=== PATIENT | male | born 1945 | race Caucasian/White ===

== ENCOUNTER 2016-09-24 00:28 | Inpatient (IN) ==
--- NOTE | 2016-09-24 01:06 | Emergency Department Note ---
Disposition Clinical Impression: Weakness Atrial fibrillation Qualifiers: Atrial fibrillation type: unspecified Qualified Code(s): I48.91 - Unspecified atrial fibrillation Disposition: Admitted As Inpatient Condition: Good Time of Disposition: 03:47 SOB HPI - General Chief Complaint: ED Shortness of Breath/Dyspnea Stated Complaint: CLAUDE Time Seen by Provider: 09/24/16 00:41 Source: patient Mode of arrival: ambulatory Limitations: no limitations Nursing Notes Reviewed: Yes Vital Signs Reviewed: Yes - History of Present Illness 71-year-old male with past medical history of atrial fibrillation and non- Hodgkin's, presents with worsening shortness of breath, nonproductive cough and pedal edema over the past 2 days. Worse with exertion and lying flat. No CP, fever, confusion. No sick contacts. He was on chemo until it was stopped about 3 weeks ago. He isn't anti-coagulated as he had easy bruisability. - Related Data Home Medications Medication Instructions Recorded Confirmed AcetaZOLAMIDE [Diamox] 250 mg PO DAILY 09/24/16 09/24/16 Acetaminophen [Tylenol] 650 mg PO Q6HR PRN 09/24/16 09/24/16 Albuterol Sulfate [Albuterol 2 puff IH Q4HR PRN 09/24/16 09/24/16 Inhaler] Allopurinol [Zyloprim] 300 mg PO DAILY 09/24/16 09/24/16 Androgel TD DAILY PRN 09/24/16 Budesonide/Formoterol 160/4.5 2 puff IH BIDR 09/24/16 09/24/16 [Symbicort 160/4.5] Cyanocobalamin (Vitamin B-12) 500 mcg PO DAILY 09/24/16 09/24/16 [Vitamin B12] Digoxin [Lanoxin] 0.125 mg PO DAILY 09/24/16 09/24/16 Furosemide [Lasix] 80 mg PO BID 09/24/16 09/24/16 Gabapentin [Neurontin] 600 mg PO TID 09/24/16 09/24/16 Glimepiride [Amaryl] 2 mg PO 0800 09/24/16 09/24/16 Ipratropium/Albuterol Neb [Duoneb] 3 ml IH Q6HR PRN 09/24/16 09/24/16 Loratadine [Loratadine] 10 mg PO DAILY PRN 09/24/16 09/24/16 Metformin [Glucophage] 1,000 mg PO BIDWM 09/24/16 09/24/16 Metoprolol [Lopressor] 150 mg PO BID 09/24/16 09/24/16 Naproxen [Naprosyn] 220 mg PO BID PRN 09/24/16 09/24/16 Nitroglycerin [Nitrostat] 0.4 mg SL PRN 09/24/16 Omeprazole 20 mg PO DAILY 09/24/16 09/24/16 Ondansetron HCl [Zofran] 4 mg PO Q6H PRN 09/24/16 09/24/16 Potassium Chloride 20 meq PO BID 09/24/16 09/24/16 Prochlorperazine Maleate 10 mg PO Q6HR PRN 09/24/16 09/24/16 [Compazine] TraZODone 50 mg PO HS 09/24/16 09/24/16 Trospium Chloride 20 mg PO DAILY 09/24/16 09/24/16 Allergies Allergy/AdvReac Type Severity Reaction Status Date / Time atorvastatin [From Lipitor] AdvReac Severe CRAMPING Verified 09/24/16 00:32 AND TIREDNESS All systems ED: reviewed and negative except as stated. Past Medical History - Past Medical History Attestation: Yes The following information was validated with the patient. Source: patient Medical history: Reports: arthritis, cancer, CHF, COPD, diabetes, hyperlipidemia , hypertension, other Surgical history: Reports: other (spinal fusion) Psychiatric history: Reports: depression - Social History Smoking Status: Former smoker Smokeless Tobacco Status: No Alcohol use: Reports: none Drug use: Reports: none Physical Exam - Head Head exam: atraumatic, normocephalic, normal inspection - Eye Eye exam: Present: normal appearance, PERRL, EOMI - Neck Neck exam: Present: normal inspection, full ROM, trachea midline - Chest Chest inspection: Present: normal inspection, symmetric chest wall rise - Respiratory Poor inspiratory effort without wheezing with faint crackles at the bilateral bases Cardiovascular Cardiovascular exam: Present: regular rate, normal rhythm, normal heart sounds - Abdominal Exam Abdominal exam: Present: soft, Non-Tender. Absent: tenderness, distention, guarding, rebound, rigidity - Extremities Exam Edema in all extremities. Positive pulses in all extremities. - Back Exam Back exam: Present: normal inspection, full ROM. Absent: tenderness, CVA tenderness (R), CVA tenderness (L) - Neurological Exam Neurological exam: Present: alert, oriented X3, CN II-XII intact - Psychiatric Psychiatric exam: Present: normal affect, normal mood - Skin Skin exam: Present: warm, dry, intact, normal color - General Limitations: no limitations General appearance: alert Course - Reevaluation(s) Reevaluation #1: TA of the chest is negative. Patient has had a heart rate of 80-120 in the emergency department. He states that he feels this way when he was in atrial fibrillation which he has not been in for quite some time. He is to be anticoagulated, but this was stopped for easy bruisability. He has no intracranial or GI bleeding history. No melanotic stool. He tried to ambulate combat significant sensation of weakness and lightheadedness. I suspect this is primarily symptomatic atrial fibrillation. Patient may need cardioversion if he does not convert spontaneously. I discussed the case with hospitalist on- call who accepts the patient to telemetry. Patient was placed on heparin drip in anticipation of possible echo and cardioversion tomorrow. Time: 03:46 Vital Signs Temperature 98.5 F 09/24/16 00:32 Pulse Rate 90 09/24/16 00:32 Respiratory Rate 20 09/24/16 00:32 Blood Pressure 112/76 09/24/16 00:32 O2 Sat by Pulse Oximetry 91 L 09/24/16 00:32 Temperature 97.7 F 09/24/16 05:59 Pulse Rate 102 09/24/16 05:59 Respiratory Rate 18 09/24/16 05:59 Blood Pressure 101/71 09/24/16 05:59 O2 Sat by Pulse Oximetry 90 L 09/24/16 03:07 Oxygen Delivery Oxygen Delivery Room Air Shortness of Breath/Dyspnea - Lab Data Result diagrams: 09/24/16 01:00 09/24/16 01:00 Lab Results 09/24/16 09/24/16 09/24/16 Range/Units 01:00 01:00 01:00 WBC 4.3 (4.3-11.1) K/mcL RBC 4.61 (4.19-5.50) M/mcL Hgb 13.7 (12.9-16.9) g/dL Hct 41.5 (37.5-50.1) % MCV 90.0 (83.0-100.0) fL MCH 29.7 (28.0-33.3) pg MCHC 33.0 (31.6-35.5) g/dL RDW 15.0 H (11.5-14.5) % Plt Count 167 (140-400) K/mcL MPV 10.7 (9.4-12.4) fL Seg Neutrophils % 60.0 % Lymphocytes % 22.0 % Monocytes % 16.0 % Basophils % 2.0 % Neutrophils # 2.6 (1.6-8.9) K/mcL Lymphocytes # 1.0 (0.6-4.6) K/mcL Monocytes # 0.7 (0.0-1.3) K/mcL Basophils # 0.1 (0.0-0.2) K/mcL Reactive Lymphocytes Present A (Not Present) Smudge Cells Present A (Not Present) Toxic Granulation Present A (Not Present) Platelet Estimate Normal (Normal) PT (9.4-12.1) Seconds INR APTT (26.0-36.0) Seconds Sodium 139 (136-145) mEq/L Potassium 3.7 (3.5-4.5) mEq/L Chloride 103 (98-109) mEq/L Carbon Dioxide 23 (19-29) mEq/L BUN 27 H (8-26) mg/dL Creatinine 1.26 H (0.72-1.25) mg/dL Est GFR ( Amer) > 60 (> 60) Est GFR (Non-Af Amer) 56 L (> 60) BUN/Creatinine Ratio 21 (6-26) Glucose 197 H (70-99) mg/dL Calculated Osmolality 299 (280-300) Calcium 9.0 (8.6-10.8) mg/dL Troponin I 0.02 (0-0.03) ng/mL B-Natriuretic Peptide (0-100) pg/mL Lipase 25 (8-78) Units/L TSH 5.365 H (0.350-4.840) mcIU/mL Free T4 1.27 (0.70-1.48) ng/dl 09/24/16 09/24/16 Range/Units 01:00 01:00 WBC (4.3-11.1) K/mcL RBC (4.19-5.50) M/mcL Hgb (12.9-16.9) g/dL Hct (37.5-50.1) % MCV (83.0-100.0) fL MCH (28.0-33.3) pg MCHC (31.6-35.5) g/dL RDW (11.5-14.5) % Plt Count (140-400) K/mcL MPV (9.4-12.4) fL Seg Neutrophils % % Lymphocytes % % Monocytes % % Basophils % % Neutrophils # (1.6-8.9) K/mcL Lymphocytes # (0.6-4.6) K/mcL Monocytes # (0.0-1.3) K/mcL Basophils # (0.0-0.2) K/mcL Reactive Lymphocytes (Not Present) Smudge Cells (Not Present) Toxic Granulation (Not Present) Platelet Estimate (Normal) PT 13.1 H (9.4-12.1) Seconds INR 1.2 APTT 28.3 (26.0-36.0) Seconds Sodium (136-145) mEq/L Potassium (3.5-4.5) mEq/L Chloride (98-109) mEq/L Carbon Dioxide (19-29) mEq/L BUN (8-26) mg/dL Creatinine (0.72-1.25) mg/dL Est GFR ( Amer) (> 60) Est GFR (Non-Af Amer) (> 60) BUN/Creatinine Ratio (6-26) Glucose (70-99) mg/dL Calculated Osmolality (280-300) Calcium (8.6-10.8) mg/dL Troponin I (0-0.03) ng/mL B-Natriuretic Peptide 287 H (0-100) pg/mL Lipase (8-78) Units/L TSH (0.350-4.840) mcIU/mL Free T4 (0.70-1.48) ng/dl - EKG Data EKG attestation: Yes I reviewed and interpreted this EKG. EKG results narrative: Atrial fibrillation at 118 with left axis deviation. There is a right bundle- branch block. No pathologic Q waves. No significant change other than rate when compared with 07/19/2016. Attestation Statement - Attestation Attestation: For this encounter, I have reviewed the resident, RIVET SORTER, or PA documentation, treatment plan, and medical decision making; and I have had face to face time with this patient. 71 yo male presents with CLAUDE, weakness, and fatigue. Pt has a history of paradoxical Afib and feels similar symptoms with previous episodes of Afib. Pt denies fever, chills, nausea, vomiting, diarrhea, chest pain. Pt reports he is significantly more short of breath, weak and fatigued over the past couple days. ECG shows atrial fibrillation with RVR and right bundle-branch block with a rate of 118. CXR does not show acute infiltrate. Initial troponin is negative. Patient will be admitted to the hospital for further care and evaluation of symptomatic atrial fibrillation.
[2016-09-24 01:08] LABS: Basophils # 0.1 K/mcL (0.0-0.2); Hematocrit 41.5 % (37.5-50.1); Hemoglobin 13.7 g/dL (12.9-16.9); Mean Corpuscular Hemoglobin 29.7 pg (28.0-33.3); Mean Platelet Volume 10.7 fL (9.4-12.4); Platelet Count 167 K/mcL (140-400); Red Blood Count 4.61 M/mcL (4.19-5.50)
[2016-09-24 01:14] LABS: INR 1.2; Prothrombin Time 13.1 Seconds (9.4-12.1)
[2016-09-24 01:17] LABS: Activated Partial Thrombo Time 28.3 Seconds (26.0-36.0)
[2016-09-24 01:22] LABS: BUN/Creatinine Ratio 21 (6-26); Blood Urea Nitrogen 27 mg/dL (8-26); Carbon Dioxide 23 mEq/L (19-29); Chloride 103 mEq/L (98-109); Glucose 197 mg/dL (70-99); Osmolality,Calculated 299 (280-300); Potassium 3.7 mEq/L (3.5-4.5); eGFR For African Americans > 60 (> 60); eGFR For Non-African Americans 56 (> 60)
[2016-09-24 01:23] LABS: Sodium 139 mEq/L (136-145)
[2016-09-24 01:38] LABS: Monocytes # 0.7 K/mcL (0.0-1.3); Neutrophils # 2.6 K/mcL (1.6-8.9); Toxic Granulation Present (Not Present)
[2016-09-24] MEDS ORDERED: 0.9 % Sodium Chloride 1,000 ML IV ONE (01:38)
[2016-09-24 01:39] LABS: Platelet Estimate Normal (Normal)
[2016-09-24] MEDS ORDERED: *HR* Metoprolol 5 MG/5 ML VIAL IVP ONE (02:44)
[2016-09-24 03:00] LABS: Lipase 25 Units/L (8-78)
[2016-09-24] MEDS ORDERED: Potassium Effervescent 25 MEQ TABLET.EFF PO ONE (03:35)
[2016-09-24 03:36] LABS: Reactive Lymphocytes Present (Not Present); Smudge Cells Present (Not Present)
[2016-09-24] MEDS ORDERED: *HR* Heparin 5,000 UNIT/ML VIAL IVP ONE (03:44)
[2016-09-24] MEDS ORDERED: *HR* Heparin 5,000 UNIT/ML VIAL IVP PRN ×2 (03:44)
[2016-09-24 03:50] LABS: Thyroid Stimulating Hormone 5.365 mcIU/mL (0.350-4.840)
[2016-09-24] MEDS: Heparin 25,000 UNIT/500 ML D5W 25,000 UNIT/500 ML MLS IVC SCH ×2 (03:57→18:08)
[2016-09-24] MEDS ORDERED: Naloxone 0.4 MG/ML INJ IVP PRN (06:19)
[2016-09-24] MEDS ORDERED: Furosemide 40 MG/4 ML VIAL IVP ONE (06:23)
[2016-09-24] MEDS ORDERED: D5% in Water 1,000 ML IV PRN (06:24)
[2016-09-24] MEDS ORDERED: *HR* Dextrose 50 % in Water (Syg) 50 ML SYRINGE IVP PRN (06:24)
[2016-09-24] MEDS ORDERED: Dextrose Gel 15 GM PO PRN ×2 (06:24)
--- NOTE | 2016-09-24 06:29 | Internal Med History&Physical ---
Date of Encounter: 09/24/16 Time of Encounter: 06:00 Assessment and Plan (1) Atrial fibrillation with rapid ventricular response Current visit: No Status: Acute Free T4 level is normal. Metoprolol PRN for RVR. Pt was started on heparin infusion, by the ER team - continue. Cardiology consultation. (2) CHF exacerbation Current visit: Yes Status: Acute Prior echo showed LVEF of 60% and diastolic dysfunction. Treat with IV lasix, low sodium diet and fluid restriction. 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 insulin use: without local intermodal truck driver use Qualified Code(s): E11.40 - Type 2 diabetes mellitus with diabetic neuropathy, unspecified (4) COPD (chronic obstructive pulmonary disease) Current visit: Yes Status: Chronic Continue bronchodilators Qualifiers: COPD type: unspecified COPD Qualified Code(s): J44.9 - Chronic obstructive pulmonary disease, unspecified (5) Hypertension Current visit: Yes Status: Chronic Continue home medications Qualifiers: Hypertension type: essential hypertension Qualified Code(s): I10 - Essential (primary) hypertension (6) DVT prophylaxis Current visit: Yes Status: Acute On heparin infusion at this time Internal Medicine - H&P: HPI Chief complaint: Shortness of breath of breath Admitted From: Emergency Dept Plans for Post Hospital Care: Home History of present illness: Mr. Gurrola is a 71 year old male with past medical history significant for atrial fibrillation (apparently was on anticoagulation with xarelto in the past , which was discontinued because of excessive bruising), CHF (Prior echo showing LVEF of 60% and diastolic dysfunction), DM, HTN, hyperlipidemia and non- Hodgkin's lymphoma, presents with worsening shortness of breath since yesterday. He reports orthopnea, palpitations, nonproductive cough. He denies chest pain, fever, chills. Reports worsening pedal edema and right upper extremity swelling. He denies abdominal pain, dysuria, hematuria or bowel problems. He was evaluated in the emergency department and the EKG showed atrial fibrillation with RVR. He was given intravenous metoprolol and started on intravenous heparin infusion, by the ER provider for potential cardioversion. He is admitted to the hospitalist service for further workup and management. DM, HTN, hyperlipidemia and non-Hodgkin's lymphoma, presents with worsening shortness of breath since yesterday. He reports orthopnea, palpitations, nonproductive cough. He denies chest pain, fever, chills. Reports worsening pedal edema and right upper extremity swelling. He denies abdominal pain, dysuria, hematuria or bowel problems. He reports h/o diabetic neuropathy. He reports that he sometimes is not able to hold the cups in the right hand, with loss of sensation. He was evaluated in the emergency department and the EKG showed atrial fibrillation with RVR. He was given intravenous metoprolol and started on intravenous heparin infusion, by the ER provider for potential cardioversion. He is admitted to the hospitalist service for further workup and management. Past Med Surg Social Fam HX - Past Medical History Medical history: arthritis, cancer, CHF, COPD, diabetes, hyperlipidemia, hypertension, other Psychiatric history: depression - Past Surgical History Surgical History: other (spinal fusion) - Social History Smoking Status: Former smoker Smokeless Tobacco Status: No Alcohol use: none Drug use: none - Family History Mother Living Status: Hx Family Cardiac Disorders: Yes (Hypertension) Hx Family Respiratory Disorders: No Hx Family Cancer: No Hx Family GI Disorders: Yes Hx Family Endocrine Disorder: No Hx Family Neuromuscular Disorders: No Hx Family Neurologic Disorders: No Hx Family HEENT Disorders: No Hx Family Autoimmune Disorders: No Father Living Status: Hx Family Cardiac Disorders: Yes Hx Family Cancer: Yes Brother Living Status: Sister Living Status: Still Living Hx Family Endocrine Disorder: Yes (Diabetes) Internal Medicine - H&P: Meds AcetaZOLAMIDE [Diamox] 250 mg PO DAILY 09/24/16 [History] Acetaminophen [Tylenol] 650 mg PO Q6HR PRN 09/24/16 [History] Albuterol Sulfate [Albuterol Inhaler] 2 puff IH Q4HR PRN 09/24/16 [History] Allopurinol [Zyloprim] 300 mg PO DAILY 09/24/16 [History] Androgel TD DAILY PRN 09/24/16 [History] Budesonide/Formoterol 160/4.5 [Symbicort 160/4.5] 2 puff IH BIDR 09/24/16 [ History] Cyanocobalamin (Vitamin B-12) [Vitamin B12] 500 mcg PO DAILY 09/24/16 [History] Digoxin [Lanoxin] 0.125 mg PO DAILY 09/24/16 [History] Furosemide [Lasix] 80 mg PO BID 09/24/16 [History] Gabapentin [Neurontin] 600 mg PO TID 09/24/16 [History] Glimepiride [Amaryl] 2 mg PO 0800 09/24/16 [History] Ipratropium/Albuterol Neb [Duoneb] 3 ml IH Q6HR PRN 09/24/16 [History] Loratadine [Loratadine] 10 mg PO DAILY PRN 09/24/16 [History] Metformin [Glucophage] 1,000 mg PO BIDWM 09/24/16 [History] Metoprolol [Lopressor] 150 mg PO BID 09/24/16 [History] Naproxen [Naprosyn] 220 mg PO BID PRN 09/24/16 [History] Nitroglycerin [Nitrostat] 0.4 mg SL PRN 09/24/16 [History] Omeprazole 20 mg PO DAILY 09/24/16 [History] Ondansetron HCl [Zofran] 4 mg PO Q6H PRN 09/24/16 [History] Potassium Chloride 20 meq PO BID 09/24/16 [History] Prochlorperazine Maleate [Compazine] 10 mg PO Q6HR PRN 09/24/16 [History] TraZODone 50 mg PO HS 09/24/16 [History] Trospium Chloride 20 mg PO DAILY 09/24/16 [History] Allergies atorvastatin [From Lipitor] Adverse Reaction (Severe, Verified 09/24/16 00:32) CRAMPING AND TIREDNESS PATIENT HAD LEG CRAMPS AND EXTREME TIREDNESS WITH THIS MEDICATION All Systems PM: A 10-system review of systems was performed and is negative for pertinent findings except as documented above in the HPI. - Constitutional Vitals: Temp Pulse Resp BP Pulse Ox 97.7 F 102 18 101/71 95 09/24/16 05:59 09/24/16 05:59 09/24/16 05:59 09/24/16 05:59 09/24/16 06:11 Exam: General: Not in significant acute distress at the time of my evaluation HEENT: Oral mucosa is dry. No conjunctival palor or scleral icterus Neck: No obvious neck swellings Lungs: Bilateral basal crackles present Cardiac: Irregular rhythm. No significant murmurs Abdomen: Distended, non tender. Bowel sounds present Neurological: Alert and oriented. No gross localizing deficits Psych: Not aggressive or agitated Extremities: B/L pitting leg edema present. Skin: No generalized rash Internal Med - H&P Results - Labs CBC & Chem 7: 09/24/16 01:00 09/24/16 01:00 - EKG Data -: EKG Interpreted by Myself - EKG Data EKG comments: Atrial fibrillation with a heart rate from 118. RBBB 09/24/16 06:29 - Impressions ITS Impressions Chest X-Ray 09/24/16 00:52 IMPRESSION: Negative low lung volume portable chest D/ / Fabio Belcher MD / Fabio Belcher MD Interpreting Provider: Fabio Belcher MD Chest CTA 09/24/16 01:38 IMPRESSION: 1. No evidence of pulmonary embolism. 2. Small opacities in both lungs are suspicious for mild pneumonia. 3. Slight peripancreatic edema suspicious for pancreatitis. 4. Enlarged axillary and mediastinal lymph nodes are without appreciable change since comparison examination. D/ / Barber Turner MD / Barber Turner MD Interpreting Provider: Barber Turner MD
[2016-09-24] MEDS: Insulin LISPRO 300 UNITS/3 ML VIAL SQ SCH ×4 (08:47→21:10)
[2016-09-24] MEDS ORDERED: Loratadine 10 MG TABLET PO PRN (08:50)
[2016-09-24] MEDS ORDERED: Ipratropium/Albuterol Neb 3 ML IH PRN (08:50)
[2016-09-24] MEDS ORDERED: *HR* Metoprolol 5 MG/5 ML VIAL IVP PRN (08:52)
--- NOTE | 2016-09-24 09:48 | Event Note ---
<Hitesh Garg - Last Filed: 09/24/16 09:30> Date of Encounter: 09/24/16 Time of Encounter: 09:30 71-year-old male with history of atrial fibrillation. Patient had atrial fibrillation approximately 4 years ago and was put on Zarontin for anticoagulation. This was discontinued due to excessive bruising. Since then patient says he has not had any episodes of atrial fibrillation. On admission patient said he had worsening shortness of breath, fatigue, palpitations, nonproductive cough, orthopnea. ER found patient to be in A. fib RVR. He was given metoprolol and started on IV heparin. Patient also has a history of congestive heart failure with previous echo showing EF of 60% and diastolic dysfunction. Today patient continues to be short of breath. He continues to have palpitations. Patient is still in A. fib with a rate ranging from 90s to 110s. He is on 2 L oxygen saturating above 95%. His blood pressure is stable. Gen: alert oriented x3 Herat; irregularly irregular Lungs: Mild bibasilar crackles Abdomen: Nontender, nondistended, normal bowel sounds Extremities: 2+ pitting edema bilaterally, peripheral pulses intact A. fib RVR: Patient is on metoprolol 150 mg by mouth twice a day and metoprolol 0.4 mg IVP every 2 minutes when necessary. Continue digoxin. His TSH was elevated at 5.6. Free T4 was normal. We will also continue heparin for anticoagulation. At home patient is on aspirin for anticoagulation as her altered caused ecchymosis on his right forearm. B. acute diastolic CHF exacerbation. We will repeat echo as prior echo shows EF of 60% with diastolic dysfunction. We will continue treating with IV Lasix. Strict I's and O's. Continue Supplemental O2. C. COPD: Patient does not smoke anymore. We will continue bronchodilators, symbicort. patient on 2L O2. D. HTN: controlled continue bblocker E. DVT prophylaxis: continue heparin F. Insomnia and depression: Continue home trazadone G. Lymphoma, small lymphocycitic: Patient on ibrutinib BID. Follows [facility] outpatient. Failed previous therapies oF obinituzumab nd chlorambucil. <Toi Way - Last Filed: 09/24/16 16:06> Date of Encounter: 09/24/16 Pt admitted earlier this morning with atrial fibrillation with RVR and acute diastolic heart failure. Currently his heart rate has improved. Continue current plan of care.
[2016-09-24] MEDS: acetaZOLAMIDE 250 MG TABLET PO SCH (10:19)
[2016-09-24] MEDS: Cyanocobalamin (B-12) 1,000 MCG TABLET PO SCH (10:19)
[2016-09-24] MEDS: Gabapentin 300 MG CAPSULE PO SCH ×3 (10:19→21:08)
[2016-09-24] MEDS: Metoprolol 100 MG TABLET PO SCH ×2 (10:21→21:08)
[2016-09-24] MEDS: *HR* Digoxin 0.125 MG TABLET PO SCH (10:21)
[2016-09-24] MEDS: Budesonide/Formoterol 160/4.5 MDI IH SCH ×2 (10:39→22:14)
[2016-09-24] MEDS: Insulin DETEMIR 100 UNIT/ML X5UNITS SQ SCH (21:08)
[2016-09-24] MEDS: traZODone 50 MG TABLET PO SCH (21:08)
[2016-09-25 01:13] LABS: Basophils # 0.1 K/mcL (0.0-0.2); Eosinophils # 0.1 K/mcL (0.0-0.6); Hematocrit 39.9 % (37.5-50.1); Lymphocytes # 0.5 K/mcL (0.6-4.6); Mean Corpuscular HGB Conc 32.6 g/dL (31.6-35.5); Mean Corpuscular Volume 92.1 fL (83.0-100.0); Mean Platelet Volume 11.2 fL (9.4-12.4); Monocytes # 1.1 K/mcL (0.0-1.3); Platelet Count 153 K/mcL (140-400); Red Blood Count 4.33 M/mcL (4.19-5.50); Red Cell Distribution Width 15.2 % (11.5-14.5)
[2016-09-25 01:29] LABS: BUN/Creatinine Ratio 18 (6-26); Blood Urea Nitrogen 24 mg/dL (8-26); Calcium 8.6 mg/dL (8.6-10.8); Carbon Dioxide 26 mEq/L (19-29); Chloride 102 mEq/L (98-109); Glucose 181 mg/dL (70-99); Osmolality,Calculated 295 (280-300); Potassium 3.2 mEq/L (3.5-4.5); Sodium 138 mEq/L (136-145); eGFR For African Americans > 60 (> 60); eGFR For Non-African Americans 53 (> 60)
[2016-09-25 01:40] LABS: Neutrophils # 2.4 K/mcL (1.6-8.9); Platelet Estimate Normal (Normal); Polychromasia 1+ (Not Present)
[2016-09-25] MEDS: Heparin 25,000 UNIT/500 ML D5W 25,000 UNIT/500 ML MLS IVC SCH ×2 (06:41→19:45)
[2016-09-25] MEDS ORDERED: Furosemide 20 MG/2 ML VIAL IVP SCH (09:00)
[2016-09-25] MEDS: Insulin LISPRO 300 UNITS/3 ML VIAL SQ SCH ×4 (09:27→20:37)
[2016-09-25] MEDS: Metoprolol 100 MG TABLET PO SCH ×2 (09:28→20:24)
[2016-09-25] MEDS: *HR* Digoxin 0.125 MG TABLET PO SCH (09:28)
[2016-09-25] MEDS: Gabapentin 300 MG CAPSULE PO SCH ×3 (09:28→20:25)
[2016-09-25] MEDS: acetaZOLAMIDE 250 MG TABLET PO SCH (09:28)
[2016-09-25] MEDS: Cyanocobalamin (B-12) 1,000 MCG TABLET PO SCH (09:28)
[2016-09-25] MEDS: Budesonide/Formoterol 160/4.5 MDI IH SCH ×2 (09:42→21:39)
--- NOTE | 2016-09-25 11:41 | Cardiology Consult Note ---
<Vivek Trevino - Last Filed: 09/25/16 11:46> Date of Encounter: 09/25/16 Time of Encounter: 11:19 Assessment and Plan (1) Acute on chronic diastolic CHF (congestive heart failure) Current Visit: Yes Status: Acute Acute on chronic diastolic CHF. Last echocardiogram in February 2016 EF 65%. Recheck TTE. Pt states he was not responding to lasix at home. Non-complaint with low sodium diet. On lasix 80 mg BID and diamox at home. Start lasix gtt. Monitor BMP. Strict I&O and daily weights. Low sodium diet reviewed. (2) Atrial fibrillation Current Visit: Yes Status: Acute Currently rate controlled. IV lopressor PRN. Avg HR was 98 bpm over 24 hours. Stop heparin and restart xarelto if no change on TTE. He is now off Ibrutinib and ecchymosis in upper extremity has resolved. Agreeable to restart xarelto. If he tolerates consider DCCV in one month. Ok to add back cardizem if needed. Check TTE. Qualifiers: Atrial fibrillation type: paroxysmal Qualified Code(s): I48.0 - Paroxysmal atrial fibrillation (3) CAD (coronary artery disease) Current Visit: Yes Status: Acute Moderate non-obstructive CAD. Continue asa, statin, and bb. Qualifiers: Coronary Disease-Associated Artery/Lesion type: [place] artery [place] vs. transplanted heart: [place] heart Associated angina: without angina Qualified Code(s): I25.10 - Atherosclerotic heart disease of [place] coronary artery without angina pectoris Discussion w patient/family: The assessment and plan as outlined above was discussed with the patient and/or family members who expressed understanding and agreement. All questions were answered. Thank you for involving us in the care of your patient. Please call with any questions. History of Present Illness Consult date: 09/25/16 Requesting physician: Toi Way Consult reason: afib with RVR Chief complaint: SOB History of present illness: Mr. Gurrola is a 71 -year-old male with a past medical history of atrial fibrillation, moderate nonobstructive CAD, obstructive sleep apnea on CPAP, COPD , CLL, diabetes mellitus type 2, hypertension, hyperlipidemia, diastolic dysfunction, restrictive cardiomyopathy, and cor triatriatum. He presented to the hospital with a complaint of increasing shortness of breath over the past 3 weeks. He admits to bilateral lower extremity edema and orthopnea. He complains of increasing fatigue. He complains of mild chest discomfort 2 days ago lasting only a couple minutes. He was found to be in mild atrial fibrillation with RVR on admission. He is currently rate controlled on his home Lopressor. Cardiology consulted for atrial fibrillation with RVR. Previous cardioversion with 200 J to sinus rhythm June 2015. Cardizem CD 180 mg by mouth daily was discontinued per request of oncology due to being started on Ibrutinib therapy for about 6 months for his CLL. He was also taken off of Xarelto secondary to severe upper extremity ecchymosis while taking Ibrutinib. His Lopressor was increased to 200 mg by mouth twice a day. She is no longer taking Ibrutinib and has a referral at the [facility] for further recommendation. Past Med Surg Social Fam HX - Past Medical History Medical history: arthritis, cancer, CHF, COPD, diabetes, hyperlipidemia, hypertension, other Psychiatric history: depression - Past Surgical History Surgical History: other (spinal fusion) - Social History Smoking Status: Former smoker Smokeless Tobacco Status: No Alcohol use: none Drug use: none - Family History Mother Living Status: Hx Family Cardiac Disorders: Yes (Hypertension) Hx Family Respiratory Disorders: No Hx Family Cancer: No Hx Family GI Disorders: Yes Hx Family Endocrine Disorder: No Hx Family Neuromuscular Disorders: No Hx Family Neurologic Disorders: No Hx Family HEENT Disorders: No Hx Family Autoimmune Disorders: No Father Living Status: Hx Family Cardiac Disorders: Yes Hx Family Cancer: Yes Brother Living Status: Sister Living Status: Still Living Hx Family Endocrine Disorder: Yes (Diabetes) Medications and Allergies AcetaZOLAMIDE [Diamox] 250 mg PO DAILY 09/24/16 [History] Acetaminophen [Tylenol] 650 mg PO Q6HR PRN 09/24/16 [History] Albuterol Sulfate [Albuterol Inhaler] 2 puff IH Q4HR PRN 09/24/16 [History] Allopurinol [Zyloprim] 300 mg PO DAILY 09/24/16 [History] Budesonide/Formoterol 160/4.5 [Symbicort 160/4.5] 2 puff IH BID 09/24/16 [ History] Cyanocobalamin (Vitamin B-12) [Vitamin B12] 500 mcg PO DAILY 09/24/16 [History] Digoxin [Lanoxin] 0.125 mg PO DAILY 09/24/16 [History] Furosemide [Lasix] 80 mg PO BID 09/24/16 [History] Gabapentin [Neurontin] 600 mg PO TID 09/24/16 [History] Glimepiride [Amaryl] 2 mg PO DAILY 09/24/16 [History] Ipratropium/Albuterol Neb [Duoneb] 3 ml IH Q6HR PRN 09/24/16 [History] Loratadine [Loratadine] 10 mg PO DAILY PRN 09/24/16 [History] Metformin [Glucophage] 1,000 mg PO BIDWM 09/24/16 [History] Metoprolol [Lopressor] 150 mg PO BID 09/24/16 [History] Naproxen [Naprosyn] 220 mg PO BID PRN 09/24/16 [History] Nitroglycerin [Nitrostat] 0.4 mg SL AD PRN 09/24/16 [History] Omeprazole 20 mg PO DAILY 09/24/16 [History] Ondansetron HCl [Zofran] 4 mg PO Q6H PRN 09/24/16 [History] Potassium Chloride 20 meq PO BID 09/24/16 [History] Prochlorperazine Maleate [Compazine] 10 mg PO Q6HR PRN 09/24/16 [History] Testosterone [Androgel] 2.5 gm TD DAILY 09/24/16 [History] TraZODone 50 mg PO HS 09/24/16 [History] Trospium Chloride 20 mg PO DAILY 09/24/16 [History] Allergies atorvastatin [From Lipitor] Adverse Reaction (Severe, Verified 09/24/16 00:32) CRAMPING AND TIREDNESS PATIENT HAD LEG CRAMPS AND EXTREME TIREDNESS WITH THIS MEDICATION All Systems Review: A 10-system review of systems was performed and is negative for pertinent findings except as documented above in the HPI. Physical Examination Vital Signs, Last 4 Hours Resp Pulse Ox 09/25/16 09:42 18 97 General: Conversant, No Apparent Distress HEENT: Atraumatic, Normocephaly, Mucus Membranes Moist Neck: No JVD, Normal carotid pulses Cardiac: Other (Irregularly irregular) Lungs: Normal Breath Sounds, No Wheeze, Rales, Rhonchi, Other (Diminished basis) Neuro: Alert and responsive, No focal deficits noted Abdomen: Soft, Non-Tender, Other (Mildly distended) Skin: No rashes noted on visualized skin Musculoskeletal: No Chest Wall Tenderness Extremities: No Clubbing, No Cyanosis, Normal Pulses, Other (2+ edema up to his knees.) Results 09/25/16 00:40 09/25/16 00:40 Lab Results 09/24/16 09/25/16 09/25/16 17:42 00:40 00:40 WBC 4.1 L Hgb 13.0 Hct 39.9 Plt Count 153 APTT 55.9 H Sodium 138 Potassium 3.2 L Chloride 102 Carbon Dioxide 26 BUN 24 Creatinine 1.33 H Glucose 181 H Calcium 8.6 Magnesium 09/25/16 09/25/16 09/25/16 00:40 00:40 08:07 WBC Hgb Hct Plt Count APTT 55.5 H 95.1 H D Sodium Potassium Chloride Carbon Dioxide BUN Creatinine Glucose Calcium Magnesium 1.6 Chest X-Ray 09/24/16 00:52 IMPRESSION: Negative low lung volume portable chest. D/ / 09/24/2016 07:28:29 Fabio Belcher MD / alan Interpreting Provider: Fabio Belcher MD Chest CTA 09/24/16 01:38 IMPRESSION: 1. No evidence of pulmonary embolism. 2. Small opacities in both lungs are suspicious for mild pneumonia. 3. Slight peripancreatic edema suspicious for pancreatitis. 4. Enlarged axillary and mediastinal lymph nodes are without appreciable change since comparison examination. D/ / 09/24/2016 07:41:35 Barber Turner MD / alan Interpreting Provider: Barber Turner MD - EKG Interpretation EKG results cardiology: other Consult Discharge Plan - Plan Referrals: Willow Johnson, ASSISTANT MEDIA BUYER [Primary Care Provider] - <Juan Crowley G - Last Filed: 09/25/16 12:41> Date of Encounter: 09/25/16 Assessment and Plan Discussion w patient/family: The assessment and plan as outlined above was discussed with the patient and/or family members who expressed understanding and agreement. All questions were answered. Thank you for involving us in the care of your patient. Please call with any questions. History of Present Illness History of present illness: Mr. Gurrola is a 71 year old male All Systems Review: A 10-system review of systems was performed and is negative for pertinent findings except as documented above in the HPI. Physical Examination Vital Signs, Last 4 Hours Resp Pulse Ox 09/25/16 09:42 18 97 Results 09/25/16 00:40 09/25/16 00:40 Lab Results 09/24/16 09/25/16 09/25/16 17:42 00:40 00:40 WBC 4.1 L Hgb 13.0 Hct 39.9 Plt Count 153 APTT 55.9 H Sodium 138 Potassium 3.2 L Chloride 102 Carbon Dioxide 26 BUN 24 Creatinine 1.33 H Glucose 181 H Calcium 8.6 Magnesium 09/25/16 09/25/16 09/25/16 00:40 00:40 08:07 WBC Hgb Hct Plt Count APTT 55.5 H 95.1 H D Sodium Potassium Chloride Carbon Dioxide BUN Creatinine Glucose Calcium Magnesium 1.6
[2016-09-25] MEDS: Furosemide 240 MG in D5% in Water 96 ML IVC SCH (14:00)
--- NOTE | 2016-09-25 14:58 | Internal Med Progress Note ---
Date of Encounter: 09/25/16 Time of Encounter: 11:30 - Assessment and plan (1) Fever Current Visit: Yes Status: Acute Assessment and plan: Axillary temp of 100.1 noted today. CTA yesterday suggested possible pneumonia. Will get blood cx and check viral panel and start Levaquin for coverage of presumptive pneumonia. Qualifiers: Fever type: due to other condition Qualified Code(s): R50.81 - Fever presenting with conditions classified elsewhere (2) Pneumonia Current Visit: Yes Status: Acute Assessment and plan: Start empiric abx due to fever. Qualifiers: Pneumonia type: due to unspecified organism Laterality: bilateral Lung location: lower lobe of lung Qualified Code(s): J18.9 - Pneumonia, unspecified organism (3) Acute on chronic diastolic CHF (congestive heart failure) Current Visit: Yes Status: Acute Assessment and plan: Currently being diuresed. Cardiology to see for further evaluation. Currently fluid status is positive since admission (4) Atrial fibrillation Current Visit: Yes Status: Acute Assessment and plan: Rate controlled at this time. He is on heparin drip. Qualifiers: Atrial fibrillation type: paroxysmal Qualified Code(s): I48.0 - Paroxysmal atrial fibrillation (5) IFEANYI (acute kidney injury) Current Visit: Yes Status: Acute Assessment and plan: Need to monitor while receiving diuretics. Will recheck labs tomorrow. (6) COPD (chronic obstructive pulmonary disease) Current Visit: Yes Status: Chronic Assessment and plan: Currently is not in exacerbation. Qualifiers: COPD type: unspecified COPD Qualified Code(s): J44.9 - Chronic obstructive pulmonary disease, unspecified (7) Hypertension Current Visit: Yes Status: Chronic Assessment and plan: Continue home medications. Qualifiers: Hypertension type: essential hypertension Qualified Code(s): I10 - Essential (primary) hypertension (8) Diabetes mellitus Current Visit: No Status: Acute Assessment and plan: Accucheck ac and hs and coverage at this time. 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 (10) Lymphoma, small lymphocytic Current Visit: No Status: Chronic - Subjective Interval history: Mr. Gurrola is currently admitted for acute exac CHF and atrial fibrillation with RVR. He is moderate to high risk due to IV medications including heparin and potential for worsening cardiac status. Mr. Gurrola is up in the chair. He continues on the heparin drip. Heart rate controlled but still in a fib. No CP. Breathing somewhat better with diuresis so far. No GI symptoms. - Constitutional Vitals: Temp Pulse Resp BP Pulse Ox 100.1 F H 78 16 126/70 96 09/25/16 11:59 09/25/16 11:59 09/25/16 11:59 09/25/16 11:59 09/25/16 11:59 General appearance: Present: A&O X 3, pleasant, answers questions appropriately - Head Head exam: Present: normocephalic - Eye Eye exam: Present: EOMI, conjuntiva pink - ENT ENT exam: Present: mucous membranes dry - Respiratory Respiratory exam: Present: decreased breath sounds, rales - Cardiovascular Cardiovascular exam: Present: irregular rhythm. Absent: tachycardia - GI/Abdominal GI/Abdominal exam: Present: normal bowel sounds, soft. Absent: tenderness - Extremities Exam Additional comments: Edema LUE, LLE which is chronic. 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 Some edema noted L leg as well. - Neurological Exam Neurological exam: Present: alert, oriented X3, no focal deficits - Psychiatric Psychiatric exam: Present: normal affect, normal mood - Skin Skin exam: Present: dry, warm. Absent: rash Internal Medicine: Result - Labs CBC & Chem 7: 09/25/16 00:40 09/25/16 00:40 Labs: Short CBC 09/25/16 Range/Units 00:40 WBC 4.1 L (4.3-11.1) K/mcL Hgb 13.0 (12.9-16.9) g/dL Hct 39.9 (37.5-50.1) % Plt Count 153 (140-400) K/mcL Neutrophils # 2.4 (1.6-8.9) K/mcL BMP 09/25/16 00:40 Sodium 138 Potassium 3.2 L Chloride 102 Carbon Dioxide 26 BUN 24 Creatinine 1.33 H Glucose 181 H Calcium 8.6 - ABG Interpretation ABG results: PT/INR, D-dimer PT 13.1 Seconds (9.4-12.1) H 09/24/16 01:00 Consult Discharge Plan - Plan Referrals: Willow Johnson, ELECTROMECHANICAL EQUIPMENT TESTER [Primary Care Provider] -
[2016-09-25] MEDS ORDERED: Levofloxacin 750 MG/150 ML 750 MG/150 ML BAG IVPB SCH (16:00)
[2016-09-25 17:14] LABS: Adenovirus Not Detected (Not Detect); Bordetella Pertussis Not Detected (Not Detect); Chlamydophila pneumoniae Not Detected (Not Detect); Coronavirus 229E Not Detected (Not Detect); Coronavirus HKU1 Not Detected (Not Detect); Coronavirus NL63 Not Detected (Not Detect); Coronavirus OC43 Not Detected (Not Detect); Human Metapneumovirus Not Detected (Not Detect); Human Rhinovirus/Enterovirus Not Detected (Not Detect); Influenza A Subtype 2009 H1 Not Detected (Not Detect); Influenza A Untypeable Not Detected (Not Detect); Influenza B Not Detected (Not Detect); Mycoplasma pneumoniae Not Detected (Not Detect); Parainfluenza Virus 1 Not Detected (Not Detect); Parainfluenza Virus 2 Not Detected (Not Detect); Parainfluenza Virus 3 Not Detected (Not Detect); Parainfluenza Virus 4 Not Detected (Not Detect); Respiratory Syncytial Virus Not Detected (Not Detect)
[2016-09-25] MEDS: traZODone 50 MG TABLET PO SCH (20:24)
[2016-09-25] MEDS: Insulin DETEMIR 100 UNIT/ML X5UNITS SQ SCH (20:25)
[2016-09-25] MEDS ORDERED: Melatonin 3 MG TABLET PO PRN (22:05)
[2016-09-26 06:12] LABS: Hematocrit 40.2 % (37.5-50.1); Hemoglobin 13.1 g/dL (12.9-16.9); Mean Corpuscular HGB Conc 32.6 g/dL (31.6-35.5); Mean Corpuscular Hemoglobin 28.9 pg (28.0-33.3); Mean Corpuscular Volume 88.5 fL (83.0-100.0); Mean Platelet Volume 11.3 fL (9.4-12.4); Platelet Count 152 K/mcL (140-400); Red Blood Count 4.54 M/mcL (4.19-5.50); Red Cell Distribution Width 15.3 % (11.5-14.5)
[2016-09-26 06:25] LABS: BUN/Creatinine Ratio 19 (6-26); Blood Urea Nitrogen 25 mg/dL (8-26); Calcium 8.4 mg/dL (8.6-10.8); Carbon Dioxide 21 mEq/L (19-29); Chloride 105 mEq/L (98-109); Glucose 207 mg/dL (70-99); Magnesium 1.8 mg/dL (1.6-2.6); Osmolality,Calculated 298 (280-300); Potassium 3.5 mEq/L (3.5-4.5); Sodium 139 mEq/L (136-145); eGFR For African Americans > 60 (> 60); eGFR For Non-African Americans 52 (> 60)
--- NOTE | 2016-09-26 07:05 | Electrocardiograph Report ---
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
[2016-09-26] MEDS: Metoprolol 100 MG TABLET PO SCH ×2 (07:51→19:48)
[2016-09-26] MEDS: Gabapentin 300 MG CAPSULE PO SCH ×3 (07:51→19:49)
[2016-09-26] MEDS: Cyanocobalamin (B-12) 1,000 MCG TABLET PO SCH (07:51)
[2016-09-26] MEDS: *HR* Digoxin 0.125 MG TABLET PO SCH (07:52)
[2016-09-26] MEDS: Insulin LISPRO 300 UNITS/3 ML VIAL SQ SCH ×4 (07:57→21:45)
[2016-09-26] MEDS: Budesonide/Formoterol 160/4.5 MDI IH SCH ×2 (08:38→20:37)
--- NOTE | 2016-09-26 13:05 | Cardiology Progress Note ---
Date of Encounter: 09/26/16 Time of Encounter: 13:04 Assessment and Plan (1) Acute on chronic diastolic CHF (congestive heart failure) Current Visit: Yes Status: Acute Acute on chronic diastolic CHF. Last echocardiogram in February 2016 EF 65%. Repeat TTE - EF 55%, indeterminate diastolic function. Pt states he was not responding to lasix at home. Non-complaint with low sodium diet. No out-pt recorded. Pt states he was not measuring. Instructed to use urinal. He states he is not putting much out. WIll check post void residula. If PVR is normal will add metolazone 2.5 mg today. On lasix 80 mg BID and diamox at home. Consider changing to bumex at discharge, Continue lasix gtt. Monitor BMP. Strict I&O and daily weights. Low sodium diet reviewed. (2) Atrial fibrillation Current Visit: Yes Status: Acute Currently rate controlled. IV lopressor PRN. Avg HR was 92 bpm over 24 hours. Stop heparin and restart xarelto. EF remains normal on TTE. No further cardiac testing indicated. Agreeable to restart xarelto. If he tolerates consider DCCV in one month. Ok to add back cardizem if needed. Qualifiers: Atrial fibrillation type: paroxysmal Qualified Code(s): I48.0 - Paroxysmal atrial fibrillation (3) CAD (coronary artery disease) Current Visit: Yes Status: Acute Moderate non-obstructive CAD. Continue asa, statin, and bb. Qualifiers: Coronary Disease-Associated Artery/Lesion type: [place] artery [place] vs. transplanted heart: [place] heart Associated angina: without angina Qualified Code(s): I25.10 - Atherosclerotic heart disease of [place] coronary artery without angina pectoris Discussion w patient/family: The assessment and plan as outlined above was discussed with the patient and/or family members who expressed understanding and agreement. All questions were answered. Thank you for involving us in the care of your patient. Please call with any questions. Subjective Principal diagnosis: Acute diastolic CHF Interval history: Mr. Gurrola continues to have SOB, orthopnea, and BLE. He reports he is not measuring his urine but does not feel he is putting much out. Objective Vital Signs Temp Pulse Resp BP Pulse Ox 09/26/16 08:39 16 93 L 09/26/16 07:21 97.8 F 91 16 116/82 94 L 09/26/16 04:00 98.4 F 96 16 105/71 93 L 09/26/16 00:00 110/81 09/25/16 21:30 24 92 L 09/25/16 21:00 99.2 F 86 16 135/97 91 L 09/25/16 15:41 99.7 F H 97 16 135/96 96 Intake and Output 09/25/16 09/26/16 09/26/16 23:59 07:59 15:59 Intake Total 240 / 240 240 / 240 Output Total 300 / 300 Balance 240 / 240 -300 / -300 240 / 240 Intake: IV Fluids 190 / 190 Heparin 25,000 UNIT/500 190 / 190 ML D5W 25,000 unit In 500 ml @ 14 UNIT/KG/HR 33. 022 mls/hr IVC .[id number] DANDRE Rx#:[id number] Oral 50 / 50 240 / 240 Output: Urine 300 / 300 Other: Meal Breakfast Percent of Meal Consumed 75% # Voids 1 1 Blood Glucose* 207 216 207 General: Conversant, No Apparent Distress HEENT: Atraumatic, Normocephaly, Mucus Membranes Moist Neck: No JVD, Normal carotid pulses Cardiac: Other (Irregularly irregular) Lungs: Normal Breath Sounds, No Wheeze, Rales, Rhonchi Neuro: Alert and responsive, No focal deficits noted Abdomen: Soft, Non-Tender Skin: No rashes noted on visualized skin Musculoskeletal: No Chest Wall Tenderness Extremities: No Clubbing, No Cyanosis, Normal Pulses, Other (2 + BLE edema up to his knees, 2+ edema in RUE, abdomen distended. ) Results 09/26/16 05:43 09/26/16 05:43 Lab Results 09/25/16 09/25/16 09/26/16 14:54 22:12 05:43 WBC 4.2 L Hgb 13.1 Hct 40.2 Plt Count 152 APTT 63.3 H 75.5 H Sodium Potassium Chloride Carbon Dioxide BUN Creatinine Glucose Calcium Magnesium 09/26/16 05:43 WBC Hgb Hct Plt Count APTT Sodium 139 Potassium 3.5 Chloride 105 Carbon Dioxide 21 BUN 25 Creatinine 1.35 H Glucose 207 H Calcium 8.4 L Magnesium 1.8 - Imaging and Cardiology Echo: pending - EKG Interpretation EKG results cardiology: other (Avg HR was 92 BPM atrial fibrillation.) Consult Discharge Plan - Plan Referrals: Willow Johnson, GOVERNMENT AUDITOR [Primary Care Provider] -
--- NOTE | 2016-09-26 13:11 | ECHO - Doppler Report ---
Echocardiogram Name: Josias Gurrola Date of Study: 09/26/2016 Date: 1945 Ht: 71.0 in Medical Record#: [id number] Age: 71 Wt: 259.0 lb Gender: Male BSA: 2.35 Order #: [id number] Location: [facility] Room #: 2NE26 Reading Physician: Constanza Harris DO Dietetic Intern: Marek Wallace RN Ordering Physician: Vivek Trevino CNP Primary Physician: Willow Johnson CNP Indications: Arrhythmia, Congestive heart failure Impressions: LVEF 55%. Indeterminate diastolic function. Dilated RV with normal function. Mild tricuspid regurgitation. No pulmonary hypertension. Left Ventricular Wall Motion: Rest Echo Findings The mid anterior septal, mid inferior lateral, basal anterior septal and basal inferior lateral moore were not visualized. All other wall segments showed normal motion. Findings: Study Quality * Technically adequate exam. ECG Findings * Atrial fibrillation. Left Ventricle * Indeterminate diastolic function. * LVEF 55%. * Normal appearing size and wall thickness (not well measured in PLAX views due to poor image quality) Aortic Valve * No aortic regurgitation. * Aortic valve not well visualized. * No aortic stenosis. Mitral Valve * Normal mitral valve structure. * No mitral stenosis. * Trace mitral regurgitation. Tricuspid Valve * Normal tricuspid valve structure. * Mild tricuspid regurgitation. * Estimated RA pressure is 3 mmHg. * Estimated RVSP is 31 mmHg. * No pulmonary hypertension. Pulmonic Valve * Pulmonic valve is not well visualized. * No pulmonic stenosis. * No pulmonic regurgitation. Pulmonary Artery * Pulmonary artery not well visualized. Right Atrium * Moderately dilated right atrium. Left Atrium * Moderately dilated left atrium. Interatrial Septum * No evidence of PFO by color Doppler. IVC * Normal IVC dimensions and inspiratory collapse. Pericardium * There is no pericardial effusion present. Right Ventricle * Dilated RV with normal function. Aorta * Normally sized aortic root. History Hypertension Diabetes Years 20 Packs 1 Family History of CAD Congestive Heart Failure 03/07/2016 a Previous Echo was performed. Measurements: BP: 116/ 82 2D Normal Values IVSd: 1.30 cm 0.6 - 1.0 cm LVIDd: 3.50 cm 3.7 - 5.6 cm LVPWd: 1.30 cm 0.6 - 1.1 cm LVIDs: 2.40 cm 1.5 - 3.6 cm LA: 4.20 cm 2.0 - 4.0cm %FS: 31.40 cm >25 % LVOT Diam: 2.00 cm LA volume: 90 Mitral Valve Peak E:.89 m/sec Peak E' Lat Isak:14.1 cm/s Peak E' Med Isak:7.99 cm/s E/E' Lat Ratio:6.3 E/E' Med Ratio:11.2 Tricuspid Valve TV Regurg Peak Grad: 28.00mmHg TV Regurg Peak Isak: 2.65m/sec Updated by Constanza Harris on 09/26/2016 1:04:18 PM electronically signed on 09/26/2016 1:05:41 PM with status of Final Wall Motion Ellis: 1=Normal, 2=Hypokinesis, 3=Akinesis, 4=Dyskinesis, 5=Aneurysmal, 6=Hyperkinetic, X=Not Visualized (Blank)=Missing
[2016-09-26] MEDS: Furosemide 240 MG in D5% in Water 96 ML IVC SCH (13:53)
--- NOTE | 2016-09-26 14:48 | Internal Med Progress Note ---
<GiselleKrishna Gill - Last Filed: 09/26/16 17:18> Date of Encounter: 09/26/16 Time of Encounter: 14:45 - Assessment and plan (1) Atrial fibrillation Current Visit: Yes Status: Acute Assessment and plan: Currently rate controlled. We will transition to Xarelto for anticoagulation. Qualifiers: Atrial fibrillation type: paroxysmal Qualified Code(s): I48.0 - Paroxysmal atrial fibrillation (2) Acute on chronic diastolic CHF (congestive heart failure) Current Visit: Yes Status: Acute Assessment and plan: Likely exacerbated by atrial fibrillation with RVR. Currently being diuresed with Lasix drip. Cardiology is following. Strict I's and O's. If not adequate diuresis patient may benefit from the addition of metolazone. (3) Pneumonia Current Visit: Yes Status: Acute Assessment and plan: Possible. Patent had 1 fever. Being treated empirically with Levaquin. Qualifiers: Pneumonia type: due to unspecified organism Laterality: bilateral Lung location: lower lobe of lung Qualified Code(s): J18.9 - Pneumonia, unspecified organism (4) IFEANYI (acute kidney injury) Current Visit: Yes Status: Acute Assessment and plan: New function is stable although creatinine is still mildly elevated from baseline. Close monitoring with the patient on Lasix drip. (5) COPD (chronic obstructive pulmonary disease) Current Visit: Yes Status: Chronic Assessment and plan: Stable. No evidence of exacerbation. Continue bronchodilators. Qualifiers: COPD type: unspecified COPD Qualified Code(s): J44.9 - Chronic obstructive pulmonary disease, unspecified (6) Atrial fibrillation Current Visit: No Status: Acute Qualifiers: Atrial fibrillation type: paroxysmal Qualified Code(s): I48.0 - Paroxysmal atrial fibrillation (7) Diabetes mellitus Current Visit: No Status: Acute Assessment and plan: Blood sugars adequate. Qualifiers: Diabetes mellitus type: type 2 Diabetes mellitus complication status: with hyperglycemia Diabetes mellitus digester capper insulin use: without digester capper use Qualified Code(s): E11.65 - Type 2 diabetes mellitus with hyperglycemia (8) DVT prophylaxis Current Visit: No Status: Acute Assessment and plan: Currently on systemic anticoagulation with Xarelto - Subjective Interval history: Patient seen and examined at bedside. Patient states he does not feel very good. He reports short of breath. He reports significant swelling that is essentially unchanged. He denies fever, chills - Constitutional Vitals: Temp Pulse Resp BP Pulse Ox 97.8 F 91 16 116/82 93 L 09/26/16 07:21 09/26/16 07:21 09/26/16 08:39 09/26/16 07:21 09/26/16 08:39 General appearance: Present: A&O X 3, pleasant, answers questions appropriately - Respiratory Respiratory exam: Present: decreased breath sounds. Absent: rales, rhonchi, wheezes - Cardiovascular Cardiovascular exam: Present: irregular rhythm. Absent: gallop, rubs, systolic murmur, tachycardia - GI/Abdominal GI/Abdominal exam: Present: normal bowel sounds, soft. Absent: distended, tenderness - Extremities Exam Additional comments: Patient has 3+ pitting edema to the lower extremities and upper extremity bilaterally. - Neurological Exam Neurological exam: Present: alert, CN II-XII intact, oriented X3, no focal deficits Internal Medicine: Result - Labs CBC & Chem 7: 09/26/16 05:43 09/26/16 05:43 Labs: Short CBC 09/26/16 Range/Units 05:43 WBC 4.2 L (4.3-11.1) K/mcL Hgb 13.1 (12.9-16.9) g/dL Hct 40.2 (37.5-50.1) % Plt Count 152 (140-400) K/mcL BMP 09/26/16 05:43 Sodium 139 Potassium 3.5 Chloride 105 Carbon Dioxide 21 BUN 25 Creatinine 1.35 H Glucose 207 H Calcium 8.4 L - ABG Interpretation ABG results: PT/INR, D-dimer PT 13.1 Seconds (9.4-12.1) H 09/24/16 01:00 Consult Discharge Plan - Plan Referrals: Willow Johnson FIELD SERVICE TECH [Primary Care Provider] - <[address]i [address] - Last Filed: 09/26/16 19:11> Date of Encounter: 09/26/16 - Assessment and plan (1) Atrial fibrillation Current Visit: Yes Status: Acute Qualifiers: Atrial fibrillation type: persistent Qualified Code(s): I48.1 - Persistent atrial fibrillation (2) Acute on chronic diastolic CHF (congestive heart failure) Current Visit: Yes Status: Acute (3) Pneumonia Current Visit: Yes Status: Acute Qualifiers: Pneumonia type: due to unspecified organism Laterality: bilateral Lung location: lower lobe of lung Qualified Code(s): J18.9 - Pneumonia, unspecified organism (4) IFEANYI (acute kidney injury) Current Visit: Yes Status: Acute (5) COPD (chronic obstructive pulmonary disease) Current Visit: Yes Status: Chronic Qualifiers: COPD type: unspecified COPD Qualified Code(s): J44.9 - Chronic obstructive pulmonary disease, unspecified (6) Hypertension Current Visit: Yes Status: Chronic Qualifiers: Hypertension type: essential hypertension Qualified Code(s): I10 - Essential (primary) hypertension (7) Diabetes mellitus Current Visit: No Status: Acute Qualifiers: Diabetes mellitus type: type 2 Diabetes mellitus complication status: with hyperglycemia Diabetes mellitus skilled nursing insulin use: without digester capper use Qualified Code(s): E11.65 - Type 2 diabetes mellitus with hyperglycemia (8) Obstructive sleep apnea Current Visit: Yes Status: Chronic (9) Lymphoma, small lymphocytic Current Visit: No Status: Chronic - Constitutional Vitals: Temp Pulse Resp BP Pulse Ox 98.3 F 74 16 113/68 93 L 09/26/16 15:36 09/26/16 15:36 09/26/16 15:36 09/26/16 15:36 09/26/16 08:39 Internal Medicine: Result - Labs CBC & Chem 7: 09/26/16 05:43 09/26/16 05:43 Labs: Short CBC 09/26/16 Range/Units 05:43 WBC 4.2 L (4.3-11.1) K/mcL Hgb 13.1 (12.9-16.9) g/dL Hct 40.2 (37.5-50.1) % Plt Count 152 (140-400) K/mcL BMP 09/26/16 05:43 Sodium 139 Potassium 3.5 Chloride 105 Carbon Dioxide 21 BUN 25 Creatinine 1.35 H Glucose 207 H Calcium 8.4 L - ABG Interpretation ABG results: PT/INR, D-dimer PT 13.1 Seconds (9.4-12.1) H 09/24/16 01:00 - Attending Attestation I examined this patient and my medical decision-making was reviewed with the Resident Physician on 09/26/16. I agree with the documented findings, disposition and treatment plan as described except to the extent set forth below. Mr. Gurrola is currently admitted for a fib with RVR and CHF. He is moderate to high risk due to potential for worsening respiratory status. He is also being treated for bilateral pneumonia. Mr. Gurrola is doing OK. He is not diuresing much with drip. No pain. No further fever after abx started. No GI symptoms. Cardiology managing a fib and CHF Exam Alert. Comfortable Heart irreg not tachy No wheeze Chronic lymphedema I/P 1. Acute a fib with RVR - rate control and Xarelto 2. CHF- per card 3. CAP - on Levaquin Further diagnoses and plan as above.
[2016-09-26] MEDS ORDERED: metOLazone 2.5 MG TABLET PO SCH (15:30)
[2016-09-26] MEDS: *HR* Rivaroxaban 10 MG TABLET PO SCH (17:01)
[2016-09-26] MEDS: Levofloxacin 750 MG/150 ML 750 MG/150 ML BAG IVPB SCH (17:02)
[2016-09-26] MEDS: traZODone 50 MG TABLET PO SCH (19:48)
[2016-09-26] MEDS: Insulin DETEMIR 100 UNIT/ML X5UNITS SQ SCH (19:50)
[2016-09-26] MEDS: Acetaminophen 325 MG TABLET PO PRN (19:53)
[2016-09-27 06:22] LABS: Hematocrit 40.8 % (37.5-50.1); Hemoglobin 13.4 g/dL (12.9-16.9); Mean Corpuscular HGB Conc 32.8 g/dL (31.6-35.5); Mean Corpuscular Hemoglobin 28.9 pg (28.0-33.3); Mean Corpuscular Volume 88.1 fL (83.0-100.0); Mean Platelet Volume 11.5 fL (9.4-12.4); Platelet Count 140 K/mcL (140-400); Red Blood Count 4.63 M/mcL (4.19-5.50); Red Cell Distribution Width 15.2 % (11.5-14.5)
[2016-09-27 06:31] LABS: Calcium 8.9 mg/dL (8.6-10.8); Magnesium 2.1 mg/dL (1.6-2.6); Potassium 3.9 mEq/L (3.5-4.5)
[2016-09-27 07:02] LABS: Lymphocytes # 1.2 K/mcL (0.6-4.6); Monocytes # 0.7 K/mcL (0.0-1.3); Neutrophils # 2.6 K/mcL (1.6-8.9); Platelet Estimate Normal (Normal)
[2016-09-27 07:03] LABS: Macrocytosis Present (Not Present); Polychromasia 1+ (Not Present); Toxic Granulation Present (Not Present)
[2016-09-27] MEDS: Insulin LISPRO 300 UNITS/3 ML VIAL SQ SCH ×3 (08:18→16:43)
[2016-09-27] MEDS: *HR* Digoxin 0.125 MG TABLET PO SCH (09:52)
[2016-09-27] MEDS: Cyanocobalamin (B-12) 1,000 MCG TABLET PO SCH (09:52)
[2016-09-27] MEDS: Metoprolol 100 MG TABLET PO SCH ×2 (09:52→21:44)
[2016-09-27] MEDS: Gabapentin 300 MG CAPSULE PO SCH ×3 (09:53→21:44)
--- NOTE | 2016-09-27 09:58 | Cardiology Progress Note ---
Date of Encounter: 09/27/16 Time of Encounter: 09:30 Assessment and Plan (1) Acute on chronic diastolic CHF (congestive heart failure) Current Visit: Yes Status: Acute Acute on chronic diastolic CHF. Last echocardiogram in February 2016 EF 65%. Repeat TTE - EF 55%, indeterminate diastolic function. Pt states he was not responding to lasix at home. May not be eating low sodium diet as well as he should per pt. negative 1900 ml for 24 hr. Given metalozone yesterday. BLE improved. Continues to c/o SOB, distended abd, and orthopnea. Re-check CXR. Started on IV antibiotic for possible pneumonia on CT scan. On lasix 80 mg BID and diamox at home. Consider changing to bumex at discharge, Creatinine trending upward. Will hold metolazone and decrease lasix. Monitor BMP. Strict I&O and daily weights. Low sodium diet reviewed. (2) Atrial fibrillation Current Visit: Yes Status: Acute Avg HR was 102 bpm atrial fibrillation. HR up to 130's early this morning. Increase oral metoprolol back to previous dose of 200 mg BID. Add cardizem if needed. Xarelto for anticoagulation. Will consider DCCV if difficult to control afib after treatment of CHF. Preferably would like to wait one month with anticoagulation. Qualifiers: Atrial fibrillation type: persistent Qualified Code(s): I48.1 - Persistent atrial fibrillation (3) CAD (coronary artery disease) Current Visit: Yes Status: Acute Moderate non-obstructive CAD. Continue asa, statin, and bb. Qualifiers: Coronary Disease-Associated Artery/Lesion type: [place] artery [place] vs. transplanted heart: [place] heart Associated angina: without angina Qualified Code(s): I25.10 - Atherosclerotic heart disease of [place] coronary artery without angina pectoris (4) Pneumonia Current Visit: Yes Status: Acute Hospitalist following. On levaquin. Qualifiers: Pneumonia type: due to unspecified organism Laterality: bilateral Lung location: lower lobe of lung Qualified Code(s): J18.9 - Pneumonia, unspecified organism Discussion w patient/family: The assessment and plan as outlined above was discussed with the patient and/or family members who expressed understanding and agreement. All questions were answered. Thank you for involving us in the care of your patient. Please call with any questions. Subjective Principal diagnosis: Acute diastolic CHF Interval history: Mr. Gurrola continues to have SOB, orthopnea, and BLE. BLE improved. Reports palpitations when lying down. Objective Vital Signs, Last 4 Hours Temp Pulse Resp BP Pulse Ox 09/27/16 07:00 97.8 F 88 20 116/79 98 General: Conversant, No Apparent Distress HEENT: Atraumatic, Normocephaly, Mucus Membranes Moist Neck: No JVD, Normal carotid pulses Cardiac: Other (Irregularly irregular. ) Lungs: Normal Breath Sounds, No Wheeze, Rales, Rhonchi, Other (diminished bases) Neuro: Alert and responsive, No focal deficits noted Abdomen: Soft, Non-Tender Skin: No rashes noted on visualized skin Musculoskeletal: No Chest Wall Tenderness Extremities: No Clubbing, No Cyanosis, Normal Pulses, Other (1-2 + edema to below the knee. Improved from yesterday. ) Results 09/27/16 05:50 09/27/16 05:50 Lab Results 09/26/16 09/27/16 09/27/16 23:24 05:50 05:50 WBC 4.6 Hgb 13.4 Hct 40.8 Plt Count 140 APTT 35.6 D Sodium 139 Potassium 3.9 Chloride 101 Carbon Dioxide 24 BUN 27 H Creatinine 1.44 H Glucose 258 H Calcium 8.9 Magnesium 2.1 - Imaging and Cardiology Echo: report reviewed (EF 55%, mild TR, dilated RV with normal function. Not all moore visual.) - EKG Interpretation EKG results cardiology: other (Telemetry review shows atrial fibrillation. Avg HR was 102 bpm. Maximum was 130 bpm at 0603 am. Currently 98-110.) Consult Discharge Plan - Plan Referrals: Willow Johnson CNP [Primary Care Provider] - 10/05/16 1:00 am
[2016-09-27 10:54] LABS: Digoxin 0.4 ng/mL (0.8-2.0)
[2016-09-27] MEDS: Budesonide/Formoterol 160/4.5 MDI IH SCH ×2 (11:08→20:01)
[2016-09-27 15:04] LABS: Calcium 9.1 mg/dL (8.6-10.8); Potassium 3.4 mEq/L (3.5-4.5)
--- NOTE | 2016-09-27 15:18 | Internal Med Progress Note ---
Date of Encounter: 09/27/16 Time of Encounter: 11:15 - Assessment and plan (1) Acute on chronic diastolic CHF (congestive heart failure) Current Visit: Yes Status: Acute Assessment and plan: Improving pedal edema and BNP; O2 requirements improved; lost about 4kg since admission; off Lasix drip; Cardiology f/up appreciated- start Lasix IVP 80mg daily; chest XRay shows no significant change; plan to discharge on Bumex; Metolazone on hold; renal function noted to be worsening; (2) Atrial fibrillation Current Visit: Yes Status: Chronic Assessment and plan: rate-controlled; Metoprolol increased to 200mg BID; continue Xarelto; plan for possible cardioversion after at least 4 weeks of anticoagulation; Qualifiers: Atrial fibrillation type: persistent Qualified Code(s): I48.1 - Persistent atrial fibrillation (3) IFEANYI (acute kidney injury) Current Visit: Yes Status: Acute Assessment and plan: worsening; likely related to aggressive diuresis. Continue to monitor and dose meds per current GFR; patient requires Lasix at this time; (4) CAD (coronary artery disease) Current Visit: Yes Status: Chronic Qualifiers: Coronary Disease-Associated Artery/Lesion type: [place] artery [place] vs. transplanted heart: [place] heart Associated angina: without angina Qualified Code(s): I25.10 - Atherosclerotic heart disease of [place] coronary artery without angina pectoris (5) Pneumonia Current Visit: Yes Status: Acute Assessment and plan: possible. On empiric IV Levaquin; Blood cultures, urine for Strep pneumoniae and Legionella Ag negative; Qualifiers: Pneumonia type: due to unspecified organism Laterality: bilateral Lung location: lower lobe of lung Qualified Code(s): J18.9 - Pneumonia, unspecified organism (6) COPD (chronic obstructive pulmonary disease) Current Visit: Yes Status: Chronic Assessment and plan: Not in acute exacerbation. Continue PRN bronchodilators, supplemental O2, ICS; Qualifiers: COPD type: unspecified COPD Qualified Code(s): J44.9 - Chronic obstructive pulmonary disease, unspecified (7) Hypertension Current Visit: Yes Status: Chronic Qualifiers: Hypertension type: essential hypertension Qualified Code(s): I10 - Essential (primary) hypertension (8) Obstructive sleep apnea Current Visit: Yes Status: Chronic (9) Diabetes mellitus Current Visit: Yes Status: Chronic Assessment and plan: Blood sugars noted to be elevated in 200s. Increase Levemir to twice daily and SSI to moderate scale; continue Accucheck blood glucose monitoring and CCD; Qualifiers: Diabetes mellitus type: type 2 Diabetes mellitus complication status: with hyperglycemia Diabetes mellitus mcfp insulin use: without terminal gauger use Qualified Code(s): E11.65 - Type 2 diabetes mellitus with hyperglycemia (10) Lymphoma, small lymphocytic Current Visit: Yes Status: Chronic - Subjective Interval history: Continues to report subjective dyspnea, even at rest, intermittent, associated with orthopnea. Improving leg swelling. No fever, cough, palpitations, syncope. - Constitutional Vitals: Temp Pulse Resp BP Pulse Ox 96.1 F L 82 22 116/79 92 L 09/27/16 10:57 09/27/16 10:57 09/27/16 10:57 09/27/16 07:00 09/27/16 10:57 General appearance: Present: A&O X 3, obese, answers questions appropriately - Respiratory Respiratory exam: Present: CTAB. Absent: accessory muscle use, rales, rhonchi, wheezes - Cardiovascular Cardiovascular exam: Present: irregular rhythm, +S1, +S2. Absent: diastolic murmur, gallop, rubs, systolic murmur - GI/Abdominal GI/Abdominal exam: Present: distended, normal bowel sounds, soft, no peritoneal signs. Absent: tenderness - Extremities Exam Extremities exam: Present: pedal edema (2+ pitting pedal edema), warm, radial pulses palpable and symetrical. Absent: calf tenderness, cyanotic - Neurological Exam Neurological exam: Present: CN II-XII intact, oriented X3, no focal deficits. Absent: pronater drift, facial droop, speech deficit - Skin Skin exam: Present: dry, intact Internal Medicine: Result - Labs CBC & Chem 7: 09/27/16 05:50 09/27/16 14:37 Labs: Short CBC 09/27/16 Range/Units 05:50 WBC 4.6 (4.3-11.1) K/mcL Hgb 13.4 (12.9-16.9) g/dL Hct 40.8 (37.5-50.1) % Plt Count 140 (140-400) K/mcL Neutrophils # 2.6 (1.6-8.9) K/mcL BMP 09/27/16 09/27/16 05:50 14:37 Sodium 139 135 L Potassium 3.9 3.4 L Chloride 101 96 L Carbon Dioxide 24 25 BUN 27 H 29 H Creatinine 1.44 H 1.72 H Glucose 258 H 289 H Calcium 8.9 9.1 - ABG Interpretation ABG results: PT/INR, D-dimer PT 13.1 Seconds (9.4-12.1) H 09/24/16 01:00 - Impressions Impressions Chest X-Ray 09/27/16 10:03 IMPRESSION: Stable mild peripheral basilar pulmonary opacities seen on the prior CTA chest 09/24/2016. No interstitial pulmonary edema. D/ / 09/27/2016 11:37:34 Chas Elizabeth MD / essence Interpreting Provider: Chas Elizabeth MD Consult Discharge Plan - Plan Referrals: Willow Johnson CNP [Primary Care Provider] - 10/05/16 1:00 am
[2016-09-27] MEDS: *HR* Rivaroxaban 10 MG TABLET PO SCH (16:42)
[2016-09-27] MEDS: Levofloxacin 750 MG/150 ML 750 MG/150 ML BAG IVPB SCH (16:42)
[2016-09-27] MEDS ORDERED: Insulin LISPRO 300 UNITS/3 ML VIAL SQ SCH (21:00)
[2016-09-27] MEDS: traZODone 50 MG TABLET PO SCH (21:44)
[2016-09-27] MEDS: Insulin DETEMIR 100 UNIT/ML X5UNITS SQ SCH (21:50)
[2016-09-28 06:11] LABS: Basophils # 0.1 K/mcL (0.0-0.2); Basophils % 1.8 %; Eosinophils # 0.1 K/mcL (0.0-0.6); Eosinophils % 1.8 %; Hematocrit 39.9 % (37.5-50.1); Hemoglobin 13.2 g/dL (12.9-16.9); Immature Granulocytes % 6.3 % (0-4); Lymphocytes # 1.2 K/mcL (0.6-4.6); Lymphocytes % 23.5 %; Mean Corpuscular HGB Conc 33.1 g/dL (31.6-35.5); Mean Corpuscular Hemoglobin 28.9 pg (28.0-33.3); Mean Corpuscular Volume 87.5 fL (83.0-100.0); Mean Platelet Volume 11.1 fL (9.4-12.4); Monocytes # 1.2 K/mcL (0.0-1.3); Monocytes % 23.5 %; Neutrophils # 2.1 K/mcL (1.6-8.9); Platelet Count 154 K/mcL (140-400); Red Blood Count 4.56 M/mcL (4.19-5.50); Red Cell Distribution Width 15.1 % (11.5-14.5); Segmented Neutrophils % 43.1 %
[2016-09-28 06:29] LABS: BUN/Creatinine Ratio 24 (6-26); Blood Urea Nitrogen 34 mg/dL (8-26); Calcium 8.9 mg/dL (8.6-10.8); Carbon Dioxide 26 mEq/L (19-29); Chloride 99 mEq/L (98-109); Glucose 225 mg/dL (70-99); Magnesium 1.8 mg/dL (1.6-2.6); Osmolality,Calculated 295 (280-300); Potassium 3.7 mEq/L (3.5-4.5); Sodium 135 mEq/L (136-145); eGFR For African Americans > 60 (> 60); eGFR For Non-African Americans 50 (> 60)
[2016-09-28 06:42] LABS: Platelet Estimate Normal (Normal); Polychromasia 1+ (Not Present); Reactive Lymphocytes Present (Not Present)
[2016-09-28] MEDS: Furosemide 40 MG/4 ML VIAL IVP SCH ×2 (07:40→11:44)
[2016-09-28] MEDS: Budesonide/Formoterol 160/4.5 MDI IH SCH ×2 (08:05→22:39)
[2016-09-28] MEDS: Gabapentin 300 MG CAPSULE PO SCH ×3 (09:26→19:56)
[2016-09-28] MEDS: *HR* Digoxin 0.125 MG TABLET PO SCH (09:26)
[2016-09-28] MEDS: Metoprolol 100 MG TABLET PO SCH ×2 (09:26→19:56)
[2016-09-28] MEDS: Insulin DETEMIR 100 UNIT/ML X5UNITS SQ SCH ×2 (09:27→19:56)
[2016-09-28] MEDS: Insulin LISPRO 300 UNITS/3 ML VIAL SQ SCH ×4 (09:27→19:57)
[2016-09-28] MEDS: Cyanocobalamin (B-12) 1,000 MCG TABLET PO SCH (09:27)
--- NOTE | 2016-09-28 11:37 | Cardiology Progress Note ---
Date of Encounter: 09/28/16 Time of Encounter: 11:35 Assessment and Plan (1) Acute on chronic diastolic CHF (congestive heart failure) Current Visit: Yes Status: Acute Acute on chronic diastolic CHF. Last echocardiogram in February 2016 EF 65%. Repeat TTE - EF 55%, indeterminate diastolic function. Pt states he was not responding to lasix at home. negative 2400 ml for 24 hr. Lasix decreased and metolazone discontinued d/t worsening kidney function. RLE edema significantly improved. Continues to c/o SOB, and orthopnea. LUE and LLE edema may be secondary to lymphedema. Started on IV antibiotic for possible pneumonia on CT scan. Repeat CXR shows mild peripheral basilar pulmonary opacities seen on CT scan. Continue lower dose of lasix. Monitor BMP. Strict I&O and daily weights. Low sodium diet reviewed. (2) Atrial fibrillation Current Visit: Yes Status: Chronic Avg HR was 95 bpm atrial fibrillation. HR up to 120's last night. Increase oral metoprolol back to previous dose of 200 mg BID last night. Add cardizem if needed. Xarelto for anticoagulation. Continues to have significant symptoms of fatigue and SOB despite diuresis. recurrent afib with RVR seen on telemetry. I discussed with Dr. Hung. Plan for TYLER/DCCV in am. Qualifiers: Atrial fibrillation type: persistent Qualified Code(s): I48.1 - Persistent atrial fibrillation (3) CAD (coronary artery disease) Current Visit: Yes Status: Chronic Moderate non-obstructive CAD. Continue asa, statin, and bb. Qualifiers: Coronary Disease-Associated Artery/Lesion type: [place] artery [place] vs. transplanted heart: [place] heart Associated angina: without angina Qualified Code(s): I25.10 - Atherosclerotic heart disease of [place] coronary artery without angina pectoris (4) Pneumonia Current Visit: Yes Status: Acute Hospitalist following. On levaquin. Qualifiers: Pneumonia type: due to unspecified organism Laterality: bilateral Lung location: lower lobe of lung Qualified Code(s): J18.9 - Pneumonia, unspecified organism Discussion w patient/family: The assessment and plan as outlined above was discussed with the patient and/or family members who expressed understanding and agreement. All questions were answered. Thank you for involving us in the care of your patient. Please call with any questions. Subjective Principal diagnosis: Acute diastolic CHF Interval history: Mr. Gurrola continues to have SOB, orthopnea, and BLE. BLE improved on left side significantly. Continues to have 2+ edema on right. H/o lymphedema secondary to lymph node removal from left axillary. Reports palpitations when lying down. Objective Vital Signs, Last 4 Hours Pulse Ox 09/28/16 09:00 97 General: Conversant, No Apparent Distress HEENT: Atraumatic, Normocephaly, Mucus Membranes Moist Neck: No JVD, Normal carotid pulses Cardiac: Other (Irregularly irregular) Lungs: Normal Breath Sounds, No Wheeze, Rales, Rhonchi Neuro: Alert and responsive, No focal deficits noted Abdomen: Soft, Non-Tender Skin: No rashes noted on visualized skin Musculoskeletal: No Chest Wall Tenderness Extremities: No Clubbing, No Cyanosis, Normal Pulses, Other (LUE and LLE 2+ edema. RLE 1+ ankle edema. ) Results 09/28/16 05:50 09/28/16 05:50 Lab Results 09/27/16 09/28/16 09/28/16 14:37 05:50 05:50 WBC 4.9 Hgb 13.2 Hct 39.9 Plt Count 154 Sodium 135 L 135 L Potassium 3.4 L 3.7 Chloride 96 L 99 Carbon Dioxide 25 26 BUN 29 H 34 H Creatinine 1.72 H 1.40 H Glucose 289 H 225 H Calcium 9.1 8.9 Magnesium 1.8 - EKG Interpretation EKG results cardiology: other (24 hour telemetry review shows Avg HR at 95 bpm. Afib with RVR seen last night. Maximum HR 120.HR improved this morning.) Consult Discharge Plan - Plan Referrals: Willow Johnson CNP [Primary Care Provider] - 10/05/16 1:00 am
[2016-09-28] MEDS: Acetaminophen 325 MG TABLET PO PRN (11:44)
--- NOTE | 2016-09-28 15:33 | Internal Med Progress Note ---
Date of Encounter: 09/28/16 Time of Encounter: 12:10 - Assessment and plan (1) Acute on chronic diastolic CHF (congestive heart failure) Current Visit: Yes Status: Acute Assessment and plan: Improving pedal edema and BNP; O2 requirements improved; lost about 4kg since admission; continue Lasix 80mg IVP daily; Cardiology f/up appreciated; plan to discharge on Bumex; Metolazone on hold; renal function noted to be improving; PT/OT evaluation; (2) Atrial fibrillation Current Visit: Yes Status: Chronic Assessment and plan: rate-controlled; but Telemetry shows episodes of RVR per Cardiology and given patient;s persistent symptoms of arrhythmias and dyspnea, plan for TYLER and cardioversion in am; continue Metoprolol 200mg BID; continue Xarelto; Qualifiers: Atrial fibrillation type: persistent Qualified Code(s): I48.1 - Persistent atrial fibrillation (3) IFEANYI (acute kidney injury) Current Visit: Yes Status: Acute Assessment and plan: likely related to aggressive diuresis. Improving now after d/c of Lasix drip. Continue to monitor and dose meds per current GFR; patient requires Lasix at this time; (4) CAD (coronary artery disease) Current Visit: Yes Status: Chronic Qualifiers: Coronary Disease-Associated Artery/Lesion type: [place] artery [place] vs. transplanted heart: [place] heart Associated angina: without angina Qualified Code(s): I25.10 - Atherosclerotic heart disease of [place] coronary artery without angina pectoris (5) Pneumonia Current Visit: Yes Status: Acute Assessment and plan: possible. On empiric IV Levaquin; Blood cultures, urine for Strep pneumoniae and Legionella Ag negative; Qualifiers: Pneumonia type: due to unspecified organism Laterality: bilateral Lung location: lower lobe of lung Qualified Code(s): J18.9 - Pneumonia, unspecified organism (6) COPD (chronic obstructive pulmonary disease) Current Visit: Yes Status: Chronic Assessment and plan: Not in acute exacerbation. Continue PRN bronchodilators, supplemental O2, ICS; Qualifiers: COPD type: unspecified COPD Qualified Code(s): J44.9 - Chronic obstructive pulmonary disease, unspecified (7) Hypertension Current Visit: Yes Status: Chronic Assessment and plan: Continue home medications. Qualifiers: Hypertension type: essential hypertension Qualified Code(s): I10 - Essential (primary) hypertension (8) Obstructive sleep apnea Current Visit: Yes Status: Chronic Assessment and plan: Chronic. continue CPAP support; (9) Diabetes mellitus Current Visit: Yes Status: Chronic Assessment and plan: Blood sugars noted to be elevated in 200s. Increase Levemir to twice daily and SSI to moderate scale; continue Accucheck blood glucose monitoring and CCD; Qualifiers: Diabetes mellitus type: type 2 Diabetes mellitus complication status: with hyperglycemia Diabetes mellitus jail insulin use: without termite helper use Qualified Code(s): E11.65 - Type 2 diabetes mellitus with hyperglycemia (10) Lymphoma, small lymphocytic Current Visit: Yes Status: Chronic - Subjective Interval history: Continues to report subjective dyspnea, even at rest, intermittent, associated with orthopnea. Slightly frustrated that he has not been feeling any better since admission. Improving leg swelling. No fever, cough, palpitations, syncope. - Constitutional Vitals: Temp Pulse Resp BP Pulse Ox 98.8 F 87 16 109/78 97 09/28/16 04:03 09/28/16 07:00 09/28/16 08:05 09/28/16 07:00 09/28/16 09:00 General appearance: Present: A&O X 3, obese, answers questions appropriately - Respiratory Respiratory exam: Present: rales (right basal inspiratory crackles). Absent: accessory muscle use, rhonchi, wheezes - Cardiovascular Cardiovascular exam: Present: irregular rhythm, +S1, +S2. Absent: diastolic murmur, gallop, rubs, systolic murmur - GI/Abdominal GI/Abdominal exam: Present: normal bowel sounds, soft, no peritoneal signs. Absent: distended, tenderness - Extremities Exam Extremities exam: Present: pedal edema (2+ pedal edema, right>left), warm, radial pulses palpable and symetrical. Absent: calf tenderness, cyanotic Additional comments: right UE and LE edema, likely related to lymphoma excision on the right side? Internal Medicine: Result - Labs CBC & Chem 7: 09/28/16 05:50 09/28/16 05:50 Labs: Short CBC 09/28/16 Range/Units 05:50 WBC 4.9 (4.3-11.1) K/mcL Hgb 13.2 (12.9-16.9) g/dL Hct 39.9 (37.5-50.1) % Plt Count 154 (140-400) K/mcL Neutrophils # 2.1 (1.6-8.9) K/mcL BMP 09/28/16 05:50 Sodium 135 L Potassium 3.7 Chloride 99 Carbon Dioxide 26 BUN 34 H Creatinine 1.40 H Glucose 225 H Calcium 8.9 - ABG Interpretation ABG results: PT/INR, D-dimer PT 13.1 Seconds (9.4-12.1) H 09/24/16 01:00 Consult Discharge Plan - Plan Referrals: Willow Johnson CNP [Primary Care Provider] - 10/05/16 1:00 am
[2016-09-28] MEDS: *HR* Rivaroxaban 10 MG TABLET PO SCH (16:07)
[2016-09-28] MEDS: Levofloxacin 750 MG/150 ML 750 MG/150 ML BAG IVPB SCH (16:08)
[2016-09-28] MEDS: traZODone 50 MG TABLET PO SCH (19:55)
[2016-09-29 05:28] LABS: Hematocrit 38.7 % (37.5-50.1); Mean Corpuscular HGB Conc 33.6 g/dL (31.6-35.5); Mean Corpuscular Hemoglobin 30.1 pg (28.0-33.3); Mean Corpuscular Volume 89.6 fL (83.0-100.0); Mean Platelet Volume 11.4 fL (9.4-12.4); Platelet Count 159 K/mcL (140-400); Red Blood Count 4.32 M/mcL (4.19-5.50); Red Cell Distribution Width 15.2 % (11.5-14.5)
[2016-09-29 05:41] LABS: Calcium 8.9 mg/dL (8.6-10.8); Potassium 3.4 mEq/L (3.5-4.5)
[2016-09-29 06:17] LABS: Basophils # 0.2 K/mcL (0.0-0.2); Eosinophils # 0.4 K/mcL (0.0-0.6); Lymphocytes # 1.5 K/mcL (0.6-4.6); Monocytes # 0.7 K/mcL (0.0-1.3); Reactive Lymphocytes Present (Not Present)
[2016-09-29 06:18] LABS: Platelet Estimate Normal (Normal); Polychromasia 1+ (Not Present)
[2016-09-29] MEDS ORDERED: 0.9 % Sodium Chloride 500 ML IVC ONE (09:36)
[2016-09-29] MEDS: Metoprolol 100 MG TABLET PO SCH ×2 (09:36→20:07)
[2016-09-29] MEDS: Cyanocobalamin (B-12) 1,000 MCG TABLET PO SCH (09:36)
[2016-09-29] MEDS: Gabapentin 300 MG CAPSULE PO SCH ×3 (09:37→20:07)
[2016-09-29] MEDS: *HR* Digoxin 0.125 MG TABLET PO SCH (09:37)
[2016-09-29] MEDS: Insulin DETEMIR 100 UNIT/ML X5UNITS SQ SCH ×2 (09:41→20:08)
[2016-09-29] MEDS: Insulin LISPRO 300 UNITS/3 ML VIAL SQ SCH ×4 (09:41→20:08)
--- NOTE | 2016-09-29 11:23 | Event Note ---
Date of Encounter: 09/29/16 Time of Encounter: 11:21 - Cardiology Event Note Persistent symptomatic atrial fibrillation. Planning on TYLER with cardioversion. Xarelto was recently stopped d/t upper extremity ecchymosis. Xarelto restarted this admission. Will need TYLER to r/o CHARLA thrombus. Avg HR overnight was 98 bpm. TTE showed EF 55%, indeterminate diastolic dysfunction. Moderatley dilated bilateral atrium. mild TR. Creatinine noted to be increasing. was 1.40 and now 1.45. BLE extremity edema increased after decrease in lasix. Will continue IV lasix. Proceed with planned TYLER/DCCV. If no improvement after cardioversion consider changing lasix to another agent such as bumex.
[2016-09-29] MEDS ORDERED: Furosemide 40 MG/4 ML VIAL IVP SCH (11:30)
[2016-09-29] MEDS: Budesonide/Formoterol 160/4.5 MDI IH SCH ×2 (11:39→21:20)
--- NOTE | 2016-09-29 12:58 | Cardiology Progress Note ---
Date of Encounter: 09/29/16 Time of Encounter: 12:56 Assessment and Plan (1) Acute on chronic diastolic CHF (congestive heart failure) Current Visit: Yes Status: Acute Acute on chronic diastolic CHF. Last echocardiogram in February 2016 EF 65%. Repeat TTE - EF 55%, indeterminate diastolic function. Pt states he was not responding to lasix at home. Consider to changing to bumex at discharge. Negative 650 ml for hospital stay. Weight near baseline 250 lbs. BLE increased. Creatinine increased. Will continue IV lasix. Fluid and sodium restriction reviewed. Repeat CXR shows mild peripheral basilar pulmonary opacities seen on CT scan. Monitor BMP. Strict I&O and daily weights. (2) Atrial fibrillation Current Visit: Yes Status: Chronic Avg HR was 89 bpm atrial fibrillation. Xarelto for anticoagulation. TYLER /DCCV cancelled after further review of previous TYLER. TYLER on 04/13/2015 showed a linear membrane across the entire left atrium. There was also a mobile echo density in the superior aspect of the right atrium suspicious for [place] network. Thrombus could not be ruled out. DCCV was not completed until pt was on anticoagulation for one month. Findings likely to be similar, therefore TYLER cancelled. He is recommended to complete at least one month of anticoagulation uninterrupted before re-consideration of DCCV. I discussed with patient and he agrees. Continue diuresis. Digoxin level is low. We will increase digoxin dose. Check dig level in 4 days. Qualifiers: Atrial fibrillation type: persistent Qualified Code(s): I48.1 - Persistent atrial fibrillation (3) CAD (coronary artery disease) Current Visit: Yes Status: Chronic Moderate non-obstructive CAD. Continue asa, statin, and bb. Qualifiers: Coronary Disease-Associated Artery/Lesion type: [place] artery [place] vs. transplanted heart: [place] heart Associated angina: without angina Qualified Code(s): I25.10 - Atherosclerotic heart disease of [place] coronary artery without angina pectoris (4) Pneumonia Current Visit: Yes Status: Acute Hospitalist following. On levaquin. Qualifiers: Pneumonia type: due to unspecified organism Laterality: bilateral Lung location: lower lobe of lung Qualified Code(s): J18.9 - Pneumonia, unspecified organism Discussion w patient/family: The assessment and plan as outlined above was discussed with the patient and/or family members who expressed understanding and agreement. All questions were answered. Thank you for involving us in the care of your patient. Please call with any questions. Subjective Principal diagnosis: Acute diastolic CHF Interval history: Mr. Gurrola continues to have SOB and fatigue. Symptoms with minimal activity. BLE edema increased from yesterday. H/o lymphedema secondary to lymph node removal from left axillary. Reports palpitations when lying down and wearing c -pap. Objective Vital Signs, Last 4 Hours Temp Pulse Resp BP Pulse Ox 09/29/16 11:43 16 94 L 09/29/16 11:22 97.5 F L 72 16 107/74 94 L 09/29/16 10:58 84 18 111/81 93 L General: Conversant, No Apparent Distress HEENT: Atraumatic, Normocephaly, Mucus Membranes Moist Neck: No JVD, Normal carotid pulses Cardiac: Other (Irregularly irregular. ) Lungs: Other (Respirations easy, rales in bilateral bases new from yesterday. ) Neuro: Alert and responsive, No focal deficits noted Abdomen: Soft, Non-Tender, Other (appears distended. ) Skin: No rashes noted on visualized skin Musculoskeletal: No Chest Wall Tenderness Extremities: Other (2+ BLE edema. non-pitting edema noted in RUE unchanged.) Results 09/29/16 04:45 09/29/16 04:45 Lab Results 09/29/16 09/29/16 04:45 04:45 WBC 4.7 Hgb 13.0 Hct 38.7 Plt Count 159 Sodium 140 Potassium 3.4 L Chloride 102 Carbon Dioxide 27 BUN 36 H Creatinine 1.45 H Glucose 206 H Calcium 8.9 - EKG Interpretation EKG results cardiology: other (telemetry review shows avg HR at 89 bpm. HR currently in the 70's.) Consult Discharge Plan - Plan Referrals: Willow Johnson CNP [Primary Care Provider] - 10/05/16 1:00 am
[2016-09-29] MEDS ORDERED: *HR* Digoxin 0.125 MG TABLET PO ONE (13:15)
--- NOTE | 2016-09-29 13:21 | Internal Med Progress Note ---
Date of Encounter: 09/29/16 Time of Encounter: 11:30 - Assessment and plan (1) Acute on chronic diastolic CHF (congestive heart failure) Current Visit: Yes Status: Acute Assessment and plan: Improving pedal edema and BNP; O2 requirements improved; lost about 4kg since admission; Lasix is changed to Bumex today due to renal dysfunction. Cardiology f/up appreciated; PT/OT evaluation noted, patient has no physical therapy needs; (2) Atrial fibrillation Current Visit: Yes Status: Chronic Assessment and plan: rate-controlled; but Telemetry shows episodes of RVR per Cardiology and given patient;s persistent symptoms of arrhythmias and dyspnea, TYLER and cardioversion has been planned for today, which is canceled at this time as review of patient' s previous TYLER revealed a complicated procedure, showing questionable atrial thrombus, and procedure had to be postponed until 4 weeks of anticoagulation has been completed. Plan at this time is again, to reattempt cardioversion after completing 4 weeks of anticoagulation. continue Metoprolol 200mg BID and Digoxin; continue Xarelto; Qualifiers: Atrial fibrillation type: persistent Qualified Code(s): I48.1 - Persistent atrial fibrillation (3) IFEANYI (acute kidney injury) Current Visit: Yes Status: Acute Assessment and plan: likely related to aggressive diuresis. Improving now after d/c of Lasix drip. Creatinine stabilized around 1.4. Continue to monitor and dose meds per current GFR; patient requires diuresis at this time; (4) CAD (coronary artery disease) Current Visit: Yes Status: Chronic Qualifiers: Coronary Disease-Associated Artery/Lesion type: [place] artery [place] vs. transplanted heart: [place] heart Associated angina: without angina Qualified Code(s): I25.10 - Atherosclerotic heart disease of [place] coronary artery without angina pectoris (5) Pneumonia Current Visit: Yes Status: Acute Assessment and plan: possible. On empiric IV Levaquin- day 7; Blood cultures, urine for Strep pneumoniae and Legionella Ag negative; Qualifiers: Pneumonia type: due to unspecified organism Laterality: bilateral Lung location: lower lobe of lung Qualified Code(s): J18.9 - Pneumonia, unspecified organism (6) COPD (chronic obstructive pulmonary disease) Current Visit: Yes Status: Chronic Qualifiers: COPD type: unspecified COPD Qualified Code(s): J44.9 - Chronic obstructive pulmonary disease, unspecified (7) Hypertension Current Visit: Yes Status: Chronic Qualifiers: Hypertension type: essential hypertension Qualified Code(s): I10 - Essential (primary) hypertension (8) Obstructive sleep apnea Current Visit: Yes Status: Chronic (9) Diabetes mellitus Current Visit: Yes Status: Chronic Assessment and plan: Blood sugars noted to be elevated in 200s. Did not receive last night's Levemir due to nothing by mouth status. Continue basal bolus insulin regimen. Check hemoglobin A1c. Patient may need outpatient insulin. 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 Reports no chest pain but continues to have similar symptoms since admission- intermittent palpitations and orthopnea and dyspnea; awaiting TYLER/cardioversion today; - Constitutional Vitals: Temp Pulse Resp BP Pulse Ox 97.5 F L 72 16 107/74 94 L 09/29/16 11:22 09/29/16 11:22 09/29/16 11:43 09/29/16 11:22 09/29/16 11:43 General appearance: Present: A&O X 3, obese, answers questions appropriately - Respiratory Respiratory exam: Present: rales (faint crackles at B/L bases, more on the right ). Absent: accessory muscle use, rhonchi, wheezes - Cardiovascular Cardiovascular exam: Present: irregular rhythm, +S1, +S2. Absent: diastolic murmur, gallop, rubs, systolic murmur - GI/Abdominal GI/Abdominal exam: Present: normal bowel sounds, soft, no peritoneal signs. Absent: distended, tenderness - Extremities Exam Extremities exam: Present: pedal edema (2+ pedal edema, improving on the right side), warm, radial pulses palpable and symetrical. Absent: calf tenderness, cyanotic - Neurological Exam Neurological exam: Present: CN II-XII intact, oriented X3, no focal deficits. Absent: pronater drift, facial droop, speech deficit Internal Medicine: Result - Labs CBC & Chem 7: 09/29/16 04:45 09/29/16 04:45 Labs: Short CBC 09/29/16 Range/Units 04:45 WBC 4.7 (4.3-11.1) K/mcL Hgb 13.0 (12.9-16.9) g/dL Hct 38.7 (37.5-50.1) % Plt Count 159 (140-400) K/mcL Neutrophils # 2.0 (1.6-8.9) K/mcL BMP 09/29/16 04:45 Sodium 140 Potassium 3.4 L Chloride 102 Carbon Dioxide 27 BUN 36 H Creatinine 1.45 H Glucose 206 H Calcium 8.9 - ABG Interpretation ABG results: PT/INR, D-dimer PT 13.1 Seconds (9.4-12.1) H 09/24/16 01:00 Consult Discharge Plan - Plan Referrals: Willow Johnson CNP [Primary Care Provider] - 10/05/16 1:00 am
[2016-09-29] MEDS: *HR* Rivaroxaban 10 MG TABLET PO SCH (16:26)
[2016-09-29] MEDS: Bumetanide 1 MG/4 ML VIAL IVP SCH (16:26)
[2016-09-29] MEDS ORDERED: levoFLOXacin 750 MG TABLET PO SCH (17:00)
[2016-09-29] MEDS: Acetaminophen 325 MG TABLET PO PRN (20:06)
[2016-09-29] MEDS: traZODone 50 MG TABLET PO SCH (20:07)
[2016-09-30 07:09] VITALS: BP 95/63
[2016-09-30 07:10] LABS: Calcium 8.5 mg/dL (8.6-10.8); Potassium 3.8 mEq/L (3.5-4.5)
--- NOTE | 2016-09-30 08:17 | Cardiology Progress Note ---
Date of Encounter: 09/30/16 Time of Encounter: 08:30 Assessment and Plan (1) Acute on chronic diastolic CHF (congestive heart failure) Current Visit: Yes Status: Acute Per Cardiology: He is at baseline weight-- baseline about 252-261 lbs. BNP only mildly elevated 133. CXR showed no pulmonary edema. CT negative for PE-- mild peripheral basilar pulmonary opacities seen on CT scan. Last echocardiogram in February 2016 EF 65%. Repeat TTE - EF 55%, indeterminate diastolic function, has dilated RV, however normal function, no significant valvular dysfunction, no pulmonary HTN. Now on IV Bumex 1mg IV BID. Negative 735 ml for hospital stay. Continue Fluid and sodium restriction, strict I&O and daily weights. Do not suspect majority of his symptoms related to CHF. (2) Atrial fibrillation Current Visit: Yes Status: Chronic Per Cardiology: Patient with past hx of PAF-- underwent successful DCCV d/t symptomatic afib with successful DCCV 06/2105 with 200J. Unfortunately per previous discussions with Oncology for his CLL, had to have his Xarelto and Cardizem CD stopped d/t severe ecchymosis and with his treatment with Ibrutinib (med interaction). Patient reports medication recently stopped by [facility] about 2 weeks ago. Patient now with afib, however remains rate controlled with Avg HR was 84 bpm on tele the past 24 hrs. Appears rate controlled woth Lopressor 200mg PO BID and Digoxin 0.25mg PO daily (increased dose). Recent dig level 0.41. Patient now back Xarelto for anticoagulation. Denies any active bleeding or blood loss. I suspect his symptoms are from his afib. and suspected pneumonia. Unfortunately, TYLER /DCCV cancelled yesterday after further review of previous TYLER. TYLER on 04/13/2015 showed a linear membrane across the entire left atrium. There was also a mobile echo density in the superior aspect of the right atrium suspicious for [place] network. Thrombus could not be ruled out. DCCV was not completed until pt was on anticoagulation for one month. Findings likely to be similar, therefore TYLER cancelled. He is recommended to complete at least one month of anticoagulation uninterrupted before re-consideration of DCCV. I discussed with patient and he agrees. Discussed with Dr. Hung, will s/o, re-consult PRN, keep f/u with me as scheduled in 3-4 weeks to evaluate for possible DCCV. Qualifiers: Atrial fibrillation type: persistent Qualified Code(s): I48.1 - Persistent atrial fibrillation (3) CAD (coronary artery disease) Current Visit: Yes Status: Chronic Per Cardiology: Moderate non-obstructive CAD. Catheterization April 2015 showed proximal LAD 40%, mid circumflex 25%, proximal RCA 25%, mid RCA 60%, and distal RCA 30% stenosis. EF remains preserved on echo. Patient denies any chest pain. Will review cath film with Dr. Hung, do not suspect repeat ischemic eval warranted at this time-- will evaluate in outpatient setting. On asa, statin, and bb. Qualifiers: Coronary Disease-Associated Artery/Lesion type: [place] artery [place] vs. transplanted heart: [place] heart Associated angina: without angina Qualified Code(s): I25.10 - Atherosclerotic heart disease of [place] coronary artery without angina pectoris (4) Pneumonia Current Visit: Yes Status: Acute Per Cardiology: No leukocytosis noted. T max 100.1 earlier during hospital stay, currently afebrile. Hospitalist following. On levaquin. Qualifiers: Pneumonia type: due to unspecified organism Laterality: bilateral Lung location: lower lobe of lung Qualified Code(s): J18.9 - Pneumonia, unspecified organism (5) CLL (chronic lymphocytic leukemia) Current Visit: No Status: Chronic Per Cardiology: Has pending follow-up with [facility] in a few weeks. (6) Edema Current Visit: No Status: Chronic Per Cardiology: Suspect multifactorial causes. Had low albumin 2.9 07/2016, suspect mild diastolic HF, and has chronic lymphedema. Qualifiers: Edema type: unspecified Qualified Code(s): R60.9 - Edema, unspecified Discussion w patient/family: The assessment and plan as outlined above was discussed with the patient who expressed understanding and agreement. All questions were answered. Thank you for involving us in the care of your patient. Please call with any questions. Subjective Principal diagnosis: Acute diastolic CHF Interval history: Reports SOB and fatigue remains unchanged. Symptoms with minimal activity. BLE edema appears unchanged. H/o lymphedema secondary to lymph node removal from left axillary. Reports palpitations when lying down and wearing c-pap. Objective Vital Signs, Last 4 Hours Temp Pulse Resp BP Pulse Ox 09/30/16 07:00 97.8 F 69 20 95/63 97 General: Conversant, No Apparent Distress HEENT: Atraumatic, Normocephaly, Mucus Membranes Moist Cardiac: No Murmur, Other (Irregularly irregular) Lungs: Normal Breath Sounds, No Wheeze, Rales, Rhonchi Neuro: Alert and responsive, No focal deficits noted Skin: No rashes noted on visualized skin Extremities: Other (+1-2 pitting edema R LE slightly worse than L, +1 pitting edema to R UE) Results 09/29/16 04:45 09/30/16 06:17 Lab Results Laboratory Tests 09/24/16 09/27/16 09/27/16 01:00 05:50 05:50 Creatinine 1.26 H Est GFR (Non-Af Amer) 56 L B-Natriuretic Peptide 133 H Digoxin 0.4 L 09/27/16 09/30/16 14:37 06:17 Creatinine 1.72 H 1.43 H Est GFR (Non-Af Amer) 39 L 49 L B-Natriuretic Peptide Digoxin ITS Impressions Chest X-Ray 09/24/16 00:52 IMPRESSION: Negative low lung volume portable chest. D/ / 09/24/2016 07:28:29 Fabio Belcher MD / alan Interpreting Provider: Fabio Belcher MD Chest CTA 09/24/16 01:38 IMPRESSION: 1. No evidence of pulmonary embolism. 2. Small opacities in both lungs are suspicious for mild pneumonia. 3. Slight peripancreatic edema suspicious for pancreatitis. 4. Enlarged axillary and mediastinal lymph nodes are without appreciable change since comparison examination. D/ / 09/24/2016 07:41:35 Barber Turner MD / [email or web address] Interpreting Provider: Barber Turner MD Chest X-Ray 09/27/16 10:03 IMPRESSION: Stable mild peripheral basilar pulmonary opacities seen on the prior CTA chest 09/24/2016. No interstitial pulmonary edema. D/ / 09/27/2016 11:37:34 Chas Elizabeth MD / bcarter Interpreting Provider: Chas Elizabeth MD Intake & Output 09/27/16 09/28/16 09/29/16 09/30/16 23:59 23:59 23:59 23:59 Intake Total 770 / 770 660 / 660 240 / 240 100 / 100 Output Total 3600 / 3600 500 / 500 425 / 425 Balance -2830 / -2830 160 / 160 240 / 240 -325 / -325 Weight 114 kg 114 kg 114.5 kg 114.5 kg Active Medications Acetaminophen (Tylenol) 650 mg PO Q6HR PRN PRN Reason: Mild Pain (1-3) Stop: 03/26/17 06:20 Last Admin: 09/29/16 20:06 Dose: 650 mg Albuterol Sulfate (Albuterol Inhaler) 2 puff IH Q4HR PRN PRN Reason: Shortness Of Breath Stop: 03/26/17 08:51 Albuterol/Ipratropium (Duoneb) 3 ml IH Q6HR PRN; Protocol PRN Reason: Shortness Of Breath Stop: 03/26/17 08:51 Allopurinol (Zyloprim) 300 mg PO DAILY DANDRE Stop: 03/26/17 09:01 Last Admin: 09/30/16 08:59 Dose: 300 mg Budesonide/Formoterol Fumarate (Symbicort) 2 puff IH BIDR DANDRE PRN Reason: Protocol Stop: 03/26/17 10:01 Last Admin: 09/30/16 11:22 Dose: 2 puff Bumetanide (Bumex) 1 mg IVP BIDDIURETIC DANDRE Stop: 03/31/17 17:01 Last Admin: 09/30/16 09:04 Dose: 1 mg Cyanocobalamin (Vitamin B12) 500 mcg PO DAILY DANDRE Stop: 03/26/17 09:01 Last Admin: 09/30/16 09:00 Dose: 500 mcg Dextrose/Water (Dextrose 50% (Syg)) 25 ml IVP AD PRN PRN Reason: Hypoglycemia Stop: 03/26/17 06:25 Digoxin (Lanoxin) 0.25 mg PO DAILY DANDRE Stop: 04/01/17 09:01 Last Admin: 09/30/16 09:00 Dose: 0.25 mg Gabapentin (Neurontin) 600 mg PO TID [facility] Stop: 03/26/17 09:01 Last Admin: 09/30/16 09:00 Dose: 600 mg Glucagon (Glucagen) 1 mg IM ONCE PRN PRN Reason: Hypoglycemia Stop: 03/26/17 06:25 Glucose (Gluctose) 15 gm PO ONCE PRN PRN Reason: Hypoglycemia Stop: 03/26/17 06:25 Glucose (Gluctose) 30 gm PO ONCE PRN PRN Reason: Hypoglycemia Stop: 03/26/17 06:25 Dextrose (Dextrose 5%) 1,000 mls @ 100 mls/hr IV CONT PRN PRN Reason: HYPOGLYCEMIA Stop: 03/26/17 06:25 Insulin Detemir (Levemir) 20 unit SQ BID [facility] Stop: 03/29/17 21:01 Last Admin: 09/30/16 09:01 Dose: 20 unit Insulin Human Lispro (Humalog) 0 units SQ HS [facility] PRN Reason: Protocol Stop: 03/30/17 21:01 Last Admin: 09/29/16 20:08 Dose: 6 units Insulin Human Lispro (Humalog) 0 units SQ TIDAC [facility] PRN Reason: Protocol Stop: 03/30/17 16:31 Last Admin: 09/30/16 08:56 Dose: Not Given Loratadine (Claritin) 10 mg PO DAILY PRN PRN Reason: Allergic Symptoms Melatonin (Melatonin) 3 mg PO HS PRN PRN Reason: Insomnia Stop: 03/27/17 22:06 Last Admin: 09/25/16 22:37 Dose: 3 mg Metoprolol Tartrate (Lopressor) 5 mg IVP Q6HR PRN PRN Reason: A fib with HR >110 BPM Stop: 03/26/17 08:53 Metoprolol Tartrate (Lopressor) 200 mg PO BID [facility] Stop: 03/26/17 09:01 Last Admin: 09/30/16 08:59 Dose: 200 mg Naloxone HCl (Narcan) 0.4 mg IVP Q2MIN PRN PRN Reason: Opioid Reversal Stop: 03/26/17 06:20 Omeprazole (Prilosec) 20 mg PO DAILY@0630 [facility] Stop: 03/26/17 09:01 Last Admin: 09/30/16 06:29 Dose: 20 mg Potassium Chloride (Potassium Chloride) 20 meq PO BID [facility] Stop: 03/27/17 21:01 Last Admin: 09/30/16 08:59 Dose: 20 meq Rivaroxaban (Xarelto) 20 mg PO 1700 [facility] Stop: 03/28/17 17:01 Last Admin: 09/29/16 16:26 Dose: 20 mg Trazodone HCl (Trazodone) 50 mg PO HS [facility] Stop: 03/26/17 21:01 Last Admin: 09/29/16 20:07 Dose: 50 mg - Imaging and Cardiology Chest Xray: report reviewed Echo: report reviewed - EKG Interpretation EKG results cardiology: other (24-hour telemetry reviewed with average heart rate 84, remains atrial fibrillation, no significant events noted) Consult Discharge Plan - Plan Referrals: Willow Johnson CNP [Primary Care Provider] - 10/05/16 1:00 am
[2016-09-30] MEDS: Insulin LISPRO 300 UNITS/3 ML VIAL SQ SCH ×2 (08:56→11:31)
[2016-09-30] MEDS: Metoprolol 100 MG TABLET PO SCH (08:59)
[2016-09-30] MEDS: Gabapentin 300 MG CAPSULE PO SCH (09:00)
[2016-09-30] MEDS: Cyanocobalamin (B-12) 1,000 MCG TABLET PO SCH (09:00)
[2016-09-30] MEDS ORDERED: *HR* Digoxin 0.25 MG TABLET PO SCH (09:00)
[2016-09-30] MEDS: Insulin DETEMIR 100 UNIT/ML X5UNITS SQ SCH (09:01)
[2016-09-30] MEDS: Bumetanide 1 MG/4 ML VIAL IVP SCH (09:04)
[2016-09-30] MEDS: Budesonide/Formoterol 160/4.5 MDI IH SCH (11:22)
--- NOTE | 2016-09-30 14:35 | Discharge Summary ---
Date of Encounter: 09/30/16 Time of Encounter: 11:00 - Discharge Diagnosis (1) Acute on chronic diastolic CHF (congestive heart failure) Priority: Primary Status: Acute (2) Atrial fibrillation Priority: Primary Status: Chronic Qualifiers: Atrial fibrillation type: persistent Qualified Code(s): I48.1 - Persistent atrial fibrillation (3) IFEANYI (acute kidney injury) Priority: Primary Status: Acute (4) CAD (coronary artery disease) Priority: Secondary Status: Chronic Qualifiers: Coronary Disease-Associated Artery/Lesion type: [place] artery [place] vs. transplanted heart: [place] heart Associated angina: without angina Qualified Code(s): I25.10 - Atherosclerotic heart disease of [place] coronary artery without angina pectoris (5) Pneumonia Priority: Primary Status: Acute Qualifiers: Pneumonia type: due to unspecified organism Laterality: bilateral Lung location: lower lobe of lung Qualified Code(s): J18.9 - Pneumonia, unspecified organism (6) COPD (chronic obstructive pulmonary disease) Priority: Secondary Status: Chronic Qualifiers: COPD type: unspecified COPD Qualified Code(s): J44.9 - Chronic obstructive pulmonary disease, unspecified (7) Hypertension Priority: Secondary Status: Chronic Qualifiers: Hypertension type: essential hypertension Qualified Code(s): I10 - Essential (primary) hypertension (8) Obstructive sleep apnea Priority: Secondary Status: Chronic (9) Diabetes mellitus Priority: Secondary Status: Chronic Qualifiers: Diabetes mellitus type: type 2 Diabetes mellitus complication status: with hyperglycemia Diabetes mellitus senior care insulin use: without intermediate school teacher use Qualified Code(s): E11.65 - Type 2 diabetes mellitus with hyperglycemia (10) Lymphoma, small lymphocytic Priority: Secondary Status: Chronic - Discharge Medications Prescriptions: Bumetanide [Bumex] 1 mg PO BID #30 tablet Metoprolol [Lopressor] 200 mg PO BID #30 tablet Rivaroxaban [Xarelto] 20 mg PO 1700 #30 tablet Home Medications: AcetaZOLAMIDE [Diamox] 250 mg PO DAILY 09/24/16 [History] Acetaminophen [Tylenol] 650 mg PO Q6HR PRN 09/24/16 [History] Albuterol Sulfate [Albuterol Inhaler] 2 puff IH Q4HR PRN 09/24/16 [History] Allopurinol [Zyloprim] 300 mg PO DAILY 09/24/16 [History] Budesonide/Formoterol 160/4.5 [Symbicort 160/4.5] 2 puff IH BID 09/24/16 [ History] Cyanocobalamin (Vitamin B-12) [Vitamin B12] 500 mcg PO DAILY 09/24/16 [History] Digoxin [Lanoxin] 0.125 mg PO DAILY 09/24/16 [History] Gabapentin [Neurontin] 600 mg PO TID 09/24/16 [History] Glimepiride [Amaryl] 2 mg PO DAILY 09/24/16 [History] Ipratropium/Albuterol Neb [Duoneb] 3 ml IH Q6HR PRN 09/24/16 [History] Loratadine 10 mg PO DAILY PRN 09/24/16 [History] Nitroglycerin [Nitrostat] 0.4 mg SL AD PRN 09/24/16 [History] Omeprazole 20 mg PO DAILY 09/24/16 [History] Ondansetron HCl [Zofran] 4 mg PO Q6H PRN 09/24/16 [History] Potassium Chloride 20 meq PO BID 09/24/16 [History] Prochlorperazine Maleate [Compazine] 10 mg PO Q6HR PRN 09/24/16 [History] Testosterone [Androgel] 2.5 gm TD DAILY 09/24/16 [History] TraZODone 50 mg PO HS 09/24/16 [History] Trospium Chloride 20 mg PO DAILY 09/24/16 [History] Bumetanide [Bumex] 1 mg PO BID #30 tablet 09/30/16 [Rx] Metoprolol [Lopressor] 200 mg PO BID #30 tablet 09/30/16 [Rx] Rivaroxaban [Xarelto] 20 mg PO 1700 #30 tablet 09/30/16 [Rx] Allergies/Adverse Reactions: Allergies atorvastatin [From Lipitor] Adverse Reaction (Severe, Verified 09/24/16 00:32) CRAMPING AND TIREDNESS PATIENT HAD LEG CRAMPS AND EXTREME TIREDNESS WITH THIS MEDICATION Date of admission: 09/24/16 06:19 Primary care physician: Willow Johnson CNP Consults: 09/25/16 10:47 Consult to Cardiology [CONS] Routine Comment: Consulting Provider: [facility] [place] Reason for Consult: A fib with RVR Time Notified: 10:50 Call Completed: Yes 09/25/16 15:11 Consult to Nurse Navigator [CONS] Routine Comment: 09/28/16 13:40 Consult to Occupational Therapy [CONS] Routine Comment: Evaluate, develop and implement POC Consult to Physical Therapy [CONS] Routine Comment: Evaluate, develop and implement POC 09/28/16 16:20 Consult to Dental Detail Representative [CONS] Routine Reason for SW Consult: Rehab placment per patient request Discharging clinician: Carin Vale Anticipated date of discharge: 09/30/16 - Patient Status Disposition: Home, Self-Care Condition: Good Functional capacity at discharge: independent ambulation Overall status at discharge: patient is progressing back to baseline - Discharge Instructions Instructions: Metoprolol (By mouth), Bumetanide (By mouth), Rivaroxaban (By mouth) Follow Up With: Willow Johnson CNP [Primary Care Provider] - 10/05/16 1:00 am Additional Instructions: F/up with [facility] in 2-3 weeks - Diet and Activity Activity: resume usual activities as tolerated Diet: diabetic diet, low fat, low cholesterol, low salt diet Hospital course: Mr. Gurrola is a 71 year old male with multiple cardiac problems, admitted with shortness of breath, orthopnea and chest tightness. He was noted to have a.fib with RVR along with acute on chronic CHF. He was initially started on IV Lasix drip with appropriate diuresis and later switched to Lasix IV push. Echocaridogram was done which showed 55% EF, mild RV dilation with normal function, indeterminate LV diastolic function. CTA chest done in the ER showed no PE, possible small infiltrates B/L, enlarged mediastinal and axillary lymph nodes, stable from previous study. He received a course of IV antibiotics for possible Pneumonia. Blood cultures were negative. Cardiology was consulted and assisted in management. Although his vitals and labs improved, patient continued to feel symptomatic and Telemetry review showed occasional tachycardia with a.fib. He may benefit from TYLER and DCCV, which is deferred at this time as his previous episode of TYLER and DCCV were complicated and patient is recommended to complete a 4-week course of uninterrupted Xarelto. He is medically stable for discharge with Metoprolol, Digoxin and Xarelto, with outpatient Cardiology f/up. - Time Spent with Patient Total time spent providing and/or coordinating discharge services: Greater than 30 minutes (50 min) - Constitutional Vitals: Temp Pulse Resp BP Pulse Ox 97.8 F 69 20 95/63 97 09/30/16 07:00 09/30/16 07:00 09/30/16 07:00 09/30/16 07:00 09/30/16 07:00 General appearance: Present: A&O X 3, obese, answers questions appropriately - Respiratory Respiratory exam: Present: CTAB. Absent: accessory muscle use, rales, rhonchi, wheezes - Cardiovascular Cardiovascular exam: Present: irregular rhythm, +S1, +S2. Absent: diastolic murmur, gallop, rubs, systolic murmur
== END 2016-09-30 16:16 | disposition home or self-care (01) | DRG 291 ==
LOC: EMEROO 00:28 → 2NENU 00:28 → SUATTDRO 06:19
PROVIDERS: ADMIT Internal Medicine; ATTEND Internal Medicine

== ENCOUNTER 2017-06-23 09:49 | Inpatient (IN) ==
--- NOTE | 2017-06-23 10:06 | Emergency Department Note ---
Disposition Clinical Impression: Lung nodule, Peripheral edema Anemia Qualifiers: Anemia type: unspecified type Qualified Code(s): D64.9 - Anemia, unspecified GI bleed Qualifiers: GI bleed type/associated pathology: unspecified gastrointestinal hemorrhage type Qualified Code(s): K92.2 - Gastrointestinal hemorrhage, unspecified Disposition: Admitted As Inpatient Condition: Good Time of Disposition: 11:06 General Adult HPI - General Chief complaint: ED General Medical Stated complaint: Needs admitted Time Seen by Provider: 06/23/17 09:57 Source: patient, family Mode of arrival: wheelchair Limitations: no limitations Nursing Notes Reviewed: Yes Vital Signs Reviewed: Yes - History of Present Illness HPI Narrative: Patient states he needs admitted for IV furosemide due to peripheral edema. He notes a several pound water weight gain, lower extremity peripheral edema, dyspnea. He takes 40 mg of oral Lasix daily. He is currently getting IV antibiotic therapy for a right third digit infection Onset (ago): day(s) Location: lower extremity Pain Scale: 7 Worsens with: nothing Associated symptoms: Reports: shortness of breath - Related Data Home Medications Medication Instructions Recorded Confirmed Albuterol Sulfate [Albuterol 2 puff IH Q4HR PRN 09/24/16 06/23/17 Inhaler] Allopurinol [Zyloprim] 300 mg PO DAILY 09/24/16 06/23/17 Budesonide/Formoterol 160/4.5 2 puff IH BID 09/24/16 06/23/17 [Symbicort 160/4.5] Cyanocobalamin (Vitamin B-12) 500 mcg PO DAILY 09/24/16 06/23/17 [Vitamin B12] Digoxin [Lanoxin] 0.125 mg PO DAILY 09/24/16 06/23/17 Gabapentin [Neurontin] 300 mg PO TID 09/24/16 06/23/17 Glimepiride [Amaryl] 2 mg PO DAILY 09/24/16 06/23/17 Potassium Chloride 40 meq PO DAILY 09/24/16 06/23/17 Testosterone [Androgel] 2.5 gm TD DAILY 09/24/16 06/23/17 Metformin HCl [Fortamet] 1,000 mg PO BID 10/24/16 06/23/17 Naproxen Sodium [All Day Pain 220 mg PO BID PRN 10/24/16 06/23/17 Relief] Docusate [Colace] 100 mg PO DAILY PRN 03/23/17 06/23/17 Sennosides [Senna] 8.6 mg PO DAILY PRN 03/23/17 06/23/17 SitaGLIPtin [Januvia] 100 mg PO DAILY 03/23/17 06/23/17 Filgrastim [Neupogen] 480 mcg SQ 1800 06/23/17 06/23/17 Furosemide [Lasix] 40 mg PO DAILY 06/23/17 06/23/17 Loratadine [Allergy Relief] 10 mg PO DAILY 06/23/17 06/23/17 Metoprolol [Lopressor] 150 mg PO BID 06/23/17 06/23/17 Nafcillin in Dextrose,Iso-Osm 6 gm IV Q12H 06/23/17 06/23/17 [Nafcillin 2 gm/ 100 ml Inj] Tramadol HCl [Ultram] 50 mg PO Q6H PRN 06/23/17 06/23/17 Triamcinolone Acet 0.1% CRM 1 appl TP BID PRN 06/23/17 06/23/17 [Kenalog] Previous Rx's Medication Instructions Recorded Bumetanide [Bumex] 1 mg PO BID #30 tablet 09/30/16 Rivaroxaban [Xarelto] 20 mg PO 1700 #30 tablet 09/30/16 Allergies Allergy/AdvReac Type Severity Reaction Status Date / Time atorvastatin [From Lipitor] AdvReac Severe CRAMPING Verified 06/12/17 11:52 AND TIREDNESS All systems ED: reviewed and negative except as stated. Constitutional: Reports: as per HPI Eyes: Reports: as per HPI ENT ED: Reports: as per HPI Cardiovascular: Reports: edema Respiratory: Reports: dyspnea Gastrointestinal: Reports: hematochezia Genitourinary: Reports: as per HPI Musculoskeletal: Reports: as per HPI Integumentary: Reports: as per HPI Neurological: Reports: as per HPI Psychiatric: Reports: as per HPI Endocrine: Reports: as per HPI Hematological/Lymphatic: Reports: as per HPI Allergic/Immunologic: Reports: as per HPI Past Medical History - Past Medical History Medical history: Reports: arthritis, atrial fibrillation, cancer, COPD, coronary artery disease, diabetes, hyperlipidemia, hypertension Surgical history: Reports: other Psychiatric history: Reports: depression - Social History Smoking Status: Never smoker Smokeless Tobacco Status: No Alcohol use: Reports: none Drug use: Reports: none Physical Exam - General Limitations: no limitations General appearance: alert, in no apparent distress - Head Head exam: atraumatic - Eye Eye exam: Present: normal appearance - ENT ENT exam: normal exam - Neck Neck exam: Present: normal inspection, full ROM - Chest Chest inspection: Present: normal inspection, symmetric chest wall rise - Respiratory Respiratory exam: Present: other (Expiratory rhonchi) - Cardiovascular Cardiovascular exam: Present: regular rate, normal rhythm, normal heart sounds - Rectal Exam Rectal exam: Present: normal inspection, normal rectal tone. Absent: bloody stool - Extremities Exam Extremities exam: Present: pedal edema, other (Right upper extremity third digit with circumferential bandage. Hand symmetrically swollen) - Neurological Exam Neurological exam: Present: alert, oriented X3, CN II-XII intact - Psychiatric Psychiatric exam: Present: normal affect, normal mood - Skin Skin exam: Present: warm, dry, intact, rash (to buttocks) Course Course Narrative: Patient presents to the emergency Department with lower extremity edema and dyspnea. He is already taking Lasix 40 mg by mouth once daily per my review of his home medication list. He does not appear in any acute distress on exam Vital Signs Temperature 97.7 F 06/23/17 09:54 Pulse Rate 62 06/23/17 09:54 Respiratory Rate 18 06/23/17 09:54 Blood Pressure 124/73 06/23/17 09:54 O2 Sat by Pulse Oximetry 97 06/23/17 09:54 Temperature 97.7 F 06/23/17 09:54 Pulse Rate 81 06/23/17 10:32 Respiratory Rate 18 06/23/17 12:14 Blood Pressure 135/76 06/23/17 12:14 O2 Sat by Pulse Oximetry 100 06/23/17 10:32 Oxygen Delivery Oxygen Delivery Room Air Medical Decision Making - Lab Data Lab results reviewed: Yes I reviewed the patient's lab results. Result diagrams: 06/23/17 10:22 06/23/17 10:22 Lab Results 06/23/17 06/23/17 06/23/17 Range/Units 10:22 10:22 10:22 WBC 8.6 (4.3-11.1) K/mcL RBC 3.17 L (4.19-5.50) M/mcL Hgb 9.9 L (12.9-16.9) g/dL Hct 32.2 L (37.5-50.1) % MCV 101.6 H (83.0-100.0) fL MCH 31.2 (28.0-33.3) pg MCHC 30.7 L (31.6-35.5) g/dL RDW 21.2 H (11.5-14.5) % Plt Count 245 (140-400) K/mcL MPV 9.4 (9.4-12.4) fL Seg Neutrophils % 40.0 % Lymphocytes % 28.0 % Neutrophils # 3.6 (1.6-8.9) K/mcL Lymphocytes # 2.4 (0.6-4.6) K/mcL Nucleated RBCs/100 WBC 0.2 H (0) /100 WBC Platelet Estimate Normal (Normal) Polychromasia 1+ A (Not Present) Tear Drop Cells 1+ A (Not Present) PT 13.2 H (9.4-12.1) Seconds INR 1.2 Sodium 147 H (136-145) mEq/L Potassium 3.5 (3.5-4.5) mEq/L Chloride 106 (98-109) mEq/L Carbon Dioxide 29 (19-29) mEq/L BUN 20 (8-26) mg/dL Creatinine 1.38 H (0.72-1.25) mg/dL Est GFR ( Amer) > 60 (> 60) Est GFR (Non-Af Amer) 51 L (> 60) BUN/Creatinine Ratio 14 (6-26) Glucose 136 H (70-99) mg/dL Calculated Osmolality 309 H (280-300) Calcium 8.7 (8.6-10.8) mg/dL Total Bilirubin 0.6 (0.2-1.2) mg/dL AST 13 (5-34) Units/L ALT 12 (0-55) Units/L Alkaline Phosphatase 118 (38-126) Units/L Troponin I (0-0.03) ng/mL B-Natriuretic Peptide (0-100) pg/mL Serum Total Protein 6.3 (6.0-8.3) g/dL Albumin 2.7 L (3.5-5.0) g/dL Globulin 3.6 H (2.4-3.5) g/dL Albumin/Globulin Ratio 0.8 L (1.1-2.2) Stool Occult Blood (Negative) Digoxin 0.5 L (0.8-2.0) ng/mL 06/23/17 06/23/17 06/23/17 Range/Units 10:22 10:22 10:43 WBC (4.3-11.1) K/mcL RBC (4.19-5.50) M/mcL Hgb (12.9-16.9) g/dL Hct (37.5-50.1) % MCV (83.0-100.0) fL MCH (28.0-33.3) pg MCHC (31.6-35.5) g/dL RDW (11.5-14.5) % Plt Count (140-400) K/mcL MPV (9.4-12.4) fL Seg Neutrophils % % Lymphocytes % % Neutrophils # (1.6-8.9) K/mcL Lymphocytes # (0.6-4.6) K/mcL Nucleated RBCs/100 WBC (0) /100 WBC Platelet Estimate (Normal) Polychromasia (Not Present) Tear Drop Cells (Not Present) PT (9.4-12.1) Seconds INR Sodium (136-145) mEq/L Potassium (3.5-4.5) mEq/L Chloride (98-109) mEq/L Carbon Dioxide (19-29) mEq/L BUN (8-26) mg/dL Creatinine (0.72-1.25) mg/dL Est GFR ( Amer) (> 60) Est GFR (Non-Af Amer) (> 60) BUN/Creatinine Ratio (6-26) Glucose (70-99) mg/dL Calculated Osmolality (280-300) Calcium (8.6-10.8) mg/dL Total Bilirubin (0.2-1.2) mg/dL AST (5-34) Units/L ALT (0-55) Units/L Alkaline Phosphatase (38-126) Units/L Troponin I 0.01 (0-0.03) ng/mL B-Natriuretic Peptide 228 H (0-100) pg/mL Serum Total Protein (6.0-8.3) g/dL Albumin (3.5-5.0) g/dL Globulin (2.4-3.5) g/dL Albumin/Globulin Ratio (1.1-2.2) Stool Occult Blood Positive A (Negative) Digoxin (0.8-2.0) ng/mL - Radiology Data Radiology results reviewed: Yes I reviewed the patient's radiology results. - EKG Data EKG #1 EKG attestation: Yes I reviewed and interpreted this EKG. EKG results narrative: S rhythm with first-degree AV block rate 63 NM 247 QRS 169 QT/QTc 475/483
[2017-06-23] MEDS ORDERED: Furosemide 40 MG/4 ML VIAL IVP ONE (10:08)
[2017-06-23 10:28] LABS: Hematocrit 32.2 % (37.5-50.1); Hemoglobin 9.9 g/dL (12.9-16.9); Mean Corpuscular HGB Conc 30.7 g/dL (31.6-35.5); Mean Corpuscular Hemoglobin 31.2 pg (28.0-33.3); Mean Corpuscular Volume 101.6 fL (83.0-100.0); Mean Platelet Volume 9.4 fL (9.4-12.4); Nucleated Red Blood Cells 0.2 /100 WBC (0); Platelet Count 245 K/mcL (140-400); Red Blood Count 3.17 M/mcL (4.19-5.50); Red Cell Distribution Width 21.2 % (11.5-14.5)
[2017-06-23 10:34] LABS: INR 1.2; Prothrombin Time 13.2 Seconds (9.4-12.1)
[2017-06-23 10:43] LABS: Alanine Aminotransferase 12 Units/L (0-55); Albumin 2.7 g/dL (3.5-5.0); Albumin/Globulin Ratio 0.8 (1.1-2.2); Alkaline Phosphatase 118 Units/L (38-126); Aspartate Amino Transferase 13 Units/L (5-34); BUN/Creatinine Ratio 14 (6-26); Bilirubin,Total 0.6 mg/dL (0.2-1.2); Blood Urea Nitrogen 20 mg/dL (8-26); Calcium 8.7 mg/dL (8.6-10.8); Carbon Dioxide 29 mEq/L (19-29); Chloride 106 mEq/L (98-109); Globulin 3.6 g/dL (2.4-3.5); Glucose 136 mg/dL (70-99); Osmolality,Calculated 309 (280-300); Potassium 3.5 mEq/L (3.5-4.5); Sodium 147 mEq/L (136-145); Total Protein 6.3 g/dL (6.0-8.3); eGFR For African Americans > 60 (> 60); eGFR For Non-African Americans 51 (> 60)
[2017-06-23 10:49] LABS: Digoxin 0.5 ng/mL (0.8-2.0)
[2017-06-23 10:51] LABS: Lymphocytes # 2.4 K/mcL (0.6-4.6)
[2017-06-23 10:52] LABS: Neutrophils # 3.6 K/mcL (1.6-8.9); Polychromasia 1+ (Not Present); Tear Drop Cells 1+ (Not Present)
[2017-06-23 10:54] LABS: Platelet Estimate Normal (Normal)
--- NOTE | 2017-06-23 15:11 | Internal Med History&Physical ---
<Miki Porter - Last Filed: 06/23/17 16:34> Date of Encounter: 06/23/17 Time of Encounter: 14:00 Assessment and Plan (1) Acute on chronic diastolic CHF (congestive heart failure) Current visit: Yes Status: Acute Acute exacerbation of CHF. Hx of diastolic CHF. Pt. has bilateral 2+ pedal edema , diminished breath sounds, and SOB. Continuous cardiac telemetry. Supplemental O2 titration and estrogen monitoring. DuoNeb every 6 when necessary. Echocardiogram in September 2016 showed LVEF of 55%, indeterminant diastolic dysfunction, dilated RV with normal function, mild tricuspid regurgitation, and no pulmonary hypertension. IVP lasix 60 mg BID. Monitor I&O and daily weight. Pt. is at high risk for further morbidity based on current CHF exacerbation, infection of left hand requiring IV abx, and CLL dx requiring chemotherapy and Neupogen txs. Inpatient. (2) GI bleed Current visit: Yes Status: Acute Pt. reports GI bleeding from rectum. Reports dark red blood in stool. Fecal hemoccult positive. Protonix drip ordered. Clear liquids for now. Pt. is on Xarelto for hx of atrial fibrillation. Currently in sinus rhythm. Will hold Xarelto for now. 81 mg aspirin therapy initiated in the meantime. GI consult ordered and discussed w/Dr. Mirza who will see the pt. I appreciate the consult. Continue to monitor pt. for signs of bleeding. INR/APTT ordered now. EGD in February showed normal esophagus, erythematous mucosa in the interim with biopsies performed, and mucosal variant in the duodenum with biopsies performed as well. Reports last colonoscopy was greater than 5 years ago. Qualifiers: GI bleed type/associated pathology: unspecified gastrointestinal hemorrhage type Qualified Code(s): K92.2 - Gastrointestinal hemorrhage, unspecified (3) Anemia Current visit: Yes Status: Acute Acute anemia with Hgb of 9.9 and Hct of 32.2 today. On 10/21/16, Hgb was 13.6 and Hct was 41.4. Pt. and pts. report dark red blood in stool. Monitor H/H Q6HR. Endoscopy performed on 03/23/17 showed normal esophagus, erythematous mucosa in the antrum which was biopsied, and mucosal variant in the duodenum which was also biopsied. Pt. reports last colonoscopy was >5 years ago. Fecal hemoccult positive. GI consult ordered. Qualifiers: Anemia type: unspecified type Qualified Code(s): D64.9 - Anemia, unspecified (4) SOB (shortness of breath) Current visit: Yes Status: Acute Acute SOB most likely d/t current fluid overload from acute exacerbation of CHF. Supplemental O2 w/titration and SpO2 monitoring. DuoNebs Q6 PRN. Falls/ safety precautions. (5) IFEANYI (acute kidney injury) Current visit: Yes Status: Acute IFEANYI most likely d/t current acute exacerbation of CHF versus chemotherapy tx. Will use IV fluids judiciously if warranted and avoid nephrotoxins. Monitor I&O and daily weight. (6) Lung nodule Current visit: Yes Status: Chronic CT of the chest w/o contrast today shows right middle lobe 2.52.0 cm nodule with satellite 0.6 cm perihilar nodules. Recommend PET-CT and/or tissue diagnosis of the 2.5 cm nodule. Persistent retrocrural, mediastinal, diaphragmatic, and axillary lymph node in keeping with patient's clinical history of CLL. No significant change since 09/24/2016. Patient is currently seen by the [facility] for oncology where he is on clinical trial treatment. Next appointment is July 04 patient reporting full-body scan planned. (7) Bacteremia due to Gram-negative bacteria Current visit: Yes Status: Chronic Hx of wound to third digit on right hand. Pt. is currently followed by Dr. Evans for wound care and was placed on home infusion of Nafcillin 6 gm Q12. Will administer Nafcillin through IVPB 3 gm Q6HR to equal pts. home dosing of 12 gm daily. Wound care consult and daily wound care ordered. (8) Diabetes mellitus Current visit: Yes Status: Chronic Hx of chronic diabetes controlled w/oral anti-hyperglycemic medications. Hold oral medications and administer low-dose correction sliding scale insulin with hypoglycemic protocol. BG checks ACHS. A1c in a.m. labs. 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 Continue pts. CPAP using pts. home machinery. (10) DVT prophylaxis Current visit: Yes Status: Acute Bilateral anti-embolic stockings for DVT prophylaxis. DVT prophylaxis contraindicated due to recurrent GI bleeding. Internal Medicine - H&P: HPI Chief complaint: Fluid overload/SOB Admitted From: Emergency Dept Plans for Post Hospital Care: Home History of present illness: Mr. Gurrola is a 72 year old male with medical hx of arthritis, atrial fibrillation, chronic lymphocytic leukemia (CLL), COPD, CAD, diabetes controlled with oral anti-hyperglycemics, HLD, HTN presents to ED with chief complaint of fluid overload resulting in weight gain of several pounds over the past few days and shortness of breath. Patient states his bilateral lower extremities become extremely edematous. Patient also reports occasional dark red blood in stool. Mr. Gurrola states that he was diagnosed with CLL in February of 2016 and was referred to the [facility] where is currently treated by oncology. He states he takes chemotherapy and was supposed to take a tx on June 20 but did not d/t WBC being 4.1. Was given Neupogen shot. Pt. also states that he has a wound on the third digit of his right hand and is being followed by Dr. Evans and receives IV infusions daily of Nafcillin 6 gm Q12HR on a pump. Pt. is participating in clinical trial for his CLL, but tx was stopped. Reports f/u appt. w/[facility] on July 04 for a planned full-body scan. Pt. reports SOB and weakness but denies recent illness, fever, chills, nausea, vomiting, cough, changes in vision, chest pain, palpitations, dizziness, abdominal pain, diarrhea, constipation, pre-syncope, or syncope. Past Med Surg Social Fam HX - Past Medical History Source: patient, old records reviewed, obtained from family Medical history: arthritis, atrial fibrillation, cancer (CLL), COPD, coronary artery disease, diabetes (Controlled by oral antihyperglycemics), hyperlipidemia , hypertension Psychiatric history: depression - Past Surgical History Surgical History: other - Social History Smoking Status: Former smoker Packs per day: 1 PPD - Reports quitting 50 years ago Smokeless Tobacco Status: No Alcohol use: none Drug use: none Current living situation: Home, With Family Activity Level: Uses cane/walker Recent Out of Country Travel Within the Last 8 Weeks: No Exposure or Possible Exposure to Illness During Travel: No - Family History Mother Race: Family Member Ethnicity: Non- Living Status: Age at : 88 Cause of : CAD Hx Family Cardiac Disorders: Yes (Hypertension) Father Race: Family Member Ethnicity: Non- Living Status: Age at : 86 Cause of : Leukemia Hx Family Cardiac Disorders: Yes (CAD) Hx Family Cancer: Yes (Leukemia) Brother Race: Family Member Ethnicity: Non- Living Status: Age at : 7 Cause of : Leukemia Hx Family Cancer: Yes (Leukemia) Sister Race: Family Member Ethnicity: Non- Living Status: Still Living Hx Family Endocrine Disorder: Yes (Diabetes) Internal Medicine - H&P: Meds Albuterol Sulfate [Albuterol Inhaler] 2 puff IH Q4HR PRN 09/24/16 [History] Allopurinol [Zyloprim] 300 mg PO DAILY 09/24/16 [History] Budesonide/Formoterol 160/4.5 [Symbicort 160/4.5] 2 puff IH BID 09/24/16 [ History] Cyanocobalamin (Vitamin B-12) [Vitamin B12] 500 mcg PO DAILY 09/24/16 [History] Digoxin [Lanoxin] 0.125 mg PO DAILY 09/24/16 [History] Gabapentin [Neurontin] 300 mg PO TID 09/24/16 [History] Glimepiride [Amaryl] 2 mg PO DAILY 09/24/16 [History] Potassium Chloride 40 meq PO DAILY 09/24/16 [History] Testosterone [Androgel] 2.5 gm TD DAILY 09/24/16 [History] Bumetanide [Bumex] 1 mg PO BID #30 tablet 09/30/16 [Rx] Rivaroxaban [Xarelto] 20 mg PO 1700 #30 tablet 09/30/16 [Rx] Metformin HCl [Fortamet] 1,000 mg PO BID 10/24/16 [History] Naproxen Sodium [All Day Pain Relief] 220 mg PO BID PRN 10/24/16 [History] Docusate [Colace] 100 mg PO DAILY PRN 03/23/17 [History] Sennosides [Senna] 8.6 mg PO DAILY PRN 03/23/17 [History] SitaGLIPtin [Januvia] 100 mg PO DAILY 03/23/17 [History] Filgrastim [Neupogen] 480 mcg SQ 1800 06/23/17 [History] Furosemide [Lasix] 40 mg PO DAILY 06/23/17 [History] Loratadine [Allergy Relief] 10 mg PO DAILY 06/23/17 [History] Metoprolol [Lopressor] 150 mg PO BID 06/23/17 [History] Nafcillin in Dextrose,Iso-Osm [Nafcillin 2 gm/ 100 ml Inj] 6 gm IV Q12H [History] Tramadol HCl [Ultram] 50 mg PO Q6H PRN 06/23/17 [History] Triamcinolone Acet 0.1% CRM [Kenalog] 1 appl TP BID PRN 06/23/17 [History] 3 Allergy/AdvReac Type Severity Reaction Status Date / Time atorvastatin [From Lipitor] AdvReac Severe CRAMPING Verified 06/12/17 11:52 AND TIREDNESS All Systems PM: A 10-system review of systems was performed and is negative for pertinent findings except as documented above in the HPI. - Constitutional Constitutional: as per HPI, weakness, weight gain, no chills, no fever(s), no night sweats - EENT Eyes: no change in vision, no discharge, no pain, no photophobia Ears: no ear discharge, no ear pain, no tinnitus Nose, mouth and throat: no dysphagia, no nasal discharge, no neck pain, no sore throat - Breasts Breasts: as per HPI - Cardiovascular Cardiovascular ROS IM: as per HPI, dyspnea, dyspnea on exertion, edema (2+ bilateral pitting edema in LEs), no chest pain, no diaphoresis, no lightheadedness, no palpitations, no syncope - Respiratory Respiratory: as per HPI, dyspnea, dyspnea on exertion, no cough, no wheezing, no excessive phlegm production - Gastrointestinal Gastrointestinal: no abdominal pain, no diarrhea, no hematemesis, no hematochezia, no melena, no nausea, no vomiting - Genitourinary Genitourinary ROS male: as per HPI - Musculoskeletal Musculoskeletal ROS IM: no numbness, no tingling - Integumentary Integumentary IM: as per HPI, sores (Several scabbed sores on bilateral LEs), no rash, no unusual bruising - Neurological Neurological ROS: no confusion, no convulsions, no focal weakness, no numbness, no tingling, no tremor(s) - Psychiatric Psychiatric: as per HPI - Endocrine Endocrine IM: as per HPI - Hematologic/Lymphatic Hematologic/Lymphatic: no easy bruising - Allergic/Immunologic Allergic/Immunologic: as per HPI - Constitutional Vitals: Temp Pulse Resp BP Pulse Ox 97.8 F 58 16 139/78 99 06/23/17 14:31 06/23/17 14:31 06/23/17 14:31 06/23/17 14:31 06/23/17 14:31 General appearance: Present: cooperative, mild distress (Respiratory), A&O X 3, pleasant, obese, answers questions appropriately - Head Head exam: Present: atraumatic, normal inspection, normocephalic - Eye Eye exam: Present: PERRL, conjuntiva pink, sclera anicteric Pupils: Present: PERRL - ENT ENT exam: Present: normal exam - Neck Neck exam general surgery: Present: normal inspection, supple, trachea midline. Absent: lymphadenopathy - Respiratory Respiratory exam: Present: accessory muscle use, decreased breath sounds - Cardiovascular Cardiovascular exam: Present: RRR, +S1, +S2. Absent: diastolic murmur, gallop, rubs, systolic murmur - GI/Abdominal GI/Abdominal exam: Present: normal bowel sounds, soft, no peritoneal signs. Absent: distended, tenderness - Rectal Rectal exam: Present: deferred - Additional comments: exam deferred. - Extremities Exam Extremities exam: Present: pedal edema (2+ bilateral pedal edema), warm, radial pulses palpable and symmetrical - Back Exam Back exam: Present: normal inspection - Neurological Exam Neurological exam: Present: CN II-XII intact, oriented X3, no focal deficits. Absent: pronater drift, facial droop, speech deficit - Psychiatric Psychiatric exam: Present: normal affect, normal mood - Skin Skin exam: Present: dry, intact Internal Med - H&P Results - Labs CBC & Chem 7: 06/23/17 10:22 06/23/17 10:22 - EKG Data EKG shows normal: sinus rhythm - EKG Data Prior EKG available for review: no EKG comments: 06/23/17 15:35 EKG dated 06/23/17 shows sinus rhythm with first degree AV block. - Diagnostic Studies Chest x-ray Additional comments: Impressions Chest X-Ray 06/23/17 10:08 IMPRESSION: New 2.4 cm nodule in the right lung base. Further characterization by CT chest is recommended when feasible. Otherwise no acute cardiopulmonary disease is identified. D/ / Maged Lester MD / Maged Lester MD Interpreting Provider: Maged Lester MD CT scan - chest Additional comments: Impressions Chest CT 06/23/17 11:26 IMPRESSION: 1. Right middle lobe 2.5 x 2.0 cm nodule with satellite 0.6 cm perihilar nodules. Recommend PET-CT and/or tissue diagnosis of the 2.5 cm nodule. 2. Persistent retrocrural, mediastinal, diaphragmatic, and axillary lymph node in keeping with patient's clinical history of CLL. No significant change since September 24, 2016. D/ / 06/23/2017 12:37:28 Mulugeta Joy MD / Khloe Rubi Interpreting Provider: Mulugeta Joy MD <Jon Mcgovern P - Last Filed: 06/25/17 18:52> Date of Encounter: 06/25/17 Internal Medicine - H&P: HPI History of present illness: Mr. Gurrola is a 72 year old male All Systems PM: A 10-system review of systems was performed and is negative for pertinent findings except as documented above in the HPI. - Constitutional Vitals: Temp Pulse Resp BP Pulse Ox 98.3 F 63 16 100/61 93 06/25/17 11:51 06/25/17 11:51 06/25/17 11:51 06/25/17 11:51 06/25/17 11:51 Internal Med - H&P Results - Labs CBC & Chem 7: 06/25/17 03:47 06/25/17 03:47 Labs: Short CBC 06/25/17 Range/Units 03:47 WBC 8.7 (4.3-11.1) K/mcL Hgb 10.5 L (12.9-16.9) g/dL Hct 33.9 L (37.5-50.1) % Plt Count 231 (140-400) K/mcL Neutrophils # 3.3 (1.6-8.9) K/mcL BMP 06/25/17 03:47 Sodium 142 Potassium 3.8 Chloride 101 Carbon Dioxide 31 H BUN 15 Creatinine 1.08 Glucose 121 H Calcium 8.4 L Liver Function 06/25/17 Range/Units 03:47 Total Bilirubin 0.7 (0.2-1.2) mg/dL AST 23 (5-34) Units/L ALT 13 (0-55) Units/L Alkaline Phosphatase 129 H (38-126) Units/L Albumin 2.8 L (3.5-5.0) g/dL - Impressions ITS Impressions Echocardiogram 06/25/17 14:00 Impressions: Normal sinus rhythm. LVEF 60%. Mild concentric left ventricular hypertrophy. Mild left ventricular diastolic dysfunction. Mildly dilated left atrium. Mild mitral regurgitation. Mild tricuspid regurgitation. Left Ventricular Wall Motion: Rest Echo Findings All wall segments showed normal motion. Findings: Study Quality * Technically adequate exam. ECG Findings * Normal sinus rhythm. Left Ventricle * LVEF 60%. * Mild concentric left ventricular hypertrophy. * Mild left ventricular diastolic dysfunction. * There is no LV thrombus. Right Ventricle * Normal right ventricular structure and function. Left Atrium * Mildly dilated left atrium. Right Atrium * Normal right atrial size. Aortic Valve * Trileaflet aortic valve. Mitral Valve * Normal mitral valve structure. * Mild mitral regurgitation. Tricuspid Valve * Normal tricuspid valve structure. * Mild tricuspid regurgitation. Pulmonic Valve * Normal pulmonic valve structure and function. Aorta * Normally sized aortic root. Pericardium * The pericardium appears normal. Interatrial Septum * No evidence of PFO by color Doppler. - Attending Attestation I examined this patient and my medical decision-making was reviewed with the Resident Physician/POSTULANT. I agree with the documented findings, disposition and treatment plan as described except to the extent set forth below. Patient seen and examined.chart reviewed. agree with POSTULANT assessment and Plan
[2017-06-23] MEDS ORDERED: Ondansetron 4 MG/2 ML VIAL IVP PRN (15:54)
[2017-06-23] MEDS ORDERED: Naloxone 0.4 MG/ML INJ IVP PRN (15:57)
[2017-06-23] MEDS ORDERED: Triamcinolone Acet 0.1% CRM 15 GM TUBE TP PRN (16:02)
[2017-06-23] MEDS ORDERED: Sennosides 8.6 MG TABLET PO PRN (16:02)
[2017-06-23] MEDS ORDERED: Pantoprazole 40 MG in 0.9 % Sodium Chloride Mini Bag 100 ML IVC SCH (16:30)
[2017-06-23] MEDS ORDERED: Pantoprazole 80 MG in 0.9 % Sodium Chloride 250 ML IVC SCH (17:00)
[2017-06-23] MEDS: Furosemide 40 MG/4 ML VIAL IVP SCH (18:01)
[2017-06-23] MEDS: Nafcillin 3,000 MG in 0.9 % Sodium Chloride 100 ML IVPB SCH (18:03)
--- NOTE | 2017-06-23 19:14 | Internal Medicine Consult Note ---
Date of Encounter: 06/23/17 Time of Encounter: 17:25 - Assessment and Plan (1) Anemia of chronic disease Current Visit: Yes Status: Chronic Assessment and plan: His hemoglobin has been quite stable in the last 4 days, he is not reporting any blood or melena per se, I do not see any evidence of GI bleeding at this time. If indeed this were to change or drops his hemoglobin during his hospital stay, I will reevaluate the patient. I see no reason why he cannot continue Xarelto, I would hold any aspirin products. He will require PPI therapy in the hospital, this does not need to be IV. (2) Atrial fibrillation Current Visit: No Status: Chronic Qualifiers: Atrial fibrillation type: persistent Qualified Code(s): I48.1 - Persistent atrial fibrillation (3) CAD (coronary artery disease) Current Visit: No Status: Chronic Qualifiers: Coronary Disease-Associated Artery/Lesion type: stebbins artery [place] vs. 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 Gurrola is a 72 year old male admitted to the floor today from the emergency room. He reports progressive leg edema and some weakness with minimal exertional dyspnea over the last week or so. 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 ER lab work disclosed a hemoglobin around 9-1/2, subsequent rectal exam was Hemoccult positive. This gentleman reports single occasional blood with bowel movement. In fact his appreciated couple fresh drops of blood next to commode 3 days ago. He's having no abdominal pain no nausea no vomiting, has a pretty decent appetite. He did have upper endoscopy in February of this year which was fairly normal, last colonoscopy was well over 5 years ago. Most recent lab data at [facility], due to CLL, showed a hemoglobin of 9.6. 3 days ago Past Med Surg Social Fam HX - Past Medical History Medical history: arthritis, atrial fibrillation, cancer (CLL), COPD, coronary artery disease, diabetes (Controlled by oral antihyperglycemics), hyperlipidemia , hypertension Psychiatric history: depression - Past Surgical History Surgical History: other - Social History Smoking Status: Former smoker Packs per day: 1 PPD - Reports quitting 50 years ago Smokeless Tobacco Status: No Alcohol use: none Drug use: none - Family History Mother Race: Family Member Ethnicity: Non- Living Status: Age at : 88 Cause of : CAD Hx Family Cardiac Disorders: Yes (Hypertension) Hx Family Respiratory Disorders: No Hx Family Cancer: No Hx Family GI Disorders: Yes Hx Family Endocrine Disorder: No Hx Family Neuromuscular Disorders: No Hx Family Neurologic Disorders: No Hx Family HEENT Disorders: No Hx Family Autoimmune Disorders: No Father Race: Family Member Ethnicity: Non- Living Status: Age at : 86 Cause of : Leukemia Hx Family Cardiac Disorders: Yes (CAD) Hx Family Cancer: Yes (Leukemia) Brother Race: Family Member Ethnicity: Non- Living Status: Age at : 7 Cause of : Leukemia Hx Family Cancer: Yes (Leukemia) Sister Race: Family Member Ethnicity: Non- Living Status: Still Living Hx Family Endocrine Disorder: Yes (Diabetes) - Constitutional Constitutional: fatigue, weight gain, no anorexia, no excessive sweating, no lethargy, no weakness - Cardiovascular Cardiovascular ROS IM: dyspnea on exertion, edema, no chest pain, no diaphoresis , no lightheadedness - Respiratory Respiratory: dyspnea, dyspnea on exertion, no cough - Gastrointestinal Gastrointestinal: constipation, no abdominal pain, no bloating, no change in bowel habits, no coffee ground emesis, no diarrhea, no dyspepsia, no dysphagia, no early satiety, no hematemesis, no melena Additional comments: All reports blood on tissue paper with aggressive wiping. Internal Medicine - CN: Meds Albuterol Sulfate [Albuterol Inhaler] 2 puff IH Q4HR PRN 09/24/16 [History] Allopurinol [Zyloprim] 300 mg PO DAILY 09/24/16 [History] Budesonide/Formoterol 160/4.5 [Symbicort 160/4.5] 2 puff IH BID 09/24/16 [ History] Cyanocobalamin (Vitamin B-12) [Vitamin B12] 500 mcg PO DAILY 09/24/16 [History] Digoxin [Lanoxin] 0.125 mg PO DAILY 09/24/16 [History] Gabapentin [Neurontin] 300 mg PO TID 09/24/16 [History] Glimepiride [Amaryl] 2 mg PO DAILY 09/24/16 [History] Potassium Chloride 40 meq PO DAILY 09/24/16 [History] Testosterone [Androgel] 2.5 gm TD DAILY 09/24/16 [History] Bumetanide [Bumex] 1 mg PO BID #30 tablet 09/30/16 [Rx] Rivaroxaban [Xarelto] 20 mg PO 1700 #30 tablet 09/30/16 [Rx] Metformin HCl [Fortamet] 1,000 mg PO BID 10/24/16 [History] Naproxen Sodium [All Day Pain Relief] 220 mg PO BID PRN 10/24/16 [History] Docusate [Colace] 100 mg PO DAILY PRN 03/23/17 [History] Sennosides [Senna] 8.6 mg PO DAILY PRN 03/23/17 [History] SitaGLIPtin [Januvia] 100 mg PO DAILY 03/23/17 [History] Filgrastim [Neupogen] 480 mcg SQ 1800 06/23/17 [History] Furosemide [Lasix] 40 mg PO DAILY 06/23/17 [History] Loratadine [Allergy Relief] 10 mg PO DAILY 06/23/17 [History] Metoprolol [Lopressor] 150 mg PO BID 06/23/17 [History] Nafcillin in Dextrose,Iso-Osm [Nafcillin 2 gm/ 100 ml Inj] 6 gm IV Q12H [History] Tramadol HCl [Ultram] 50 mg PO Q6H PRN 06/23/17 [History] Triamcinolone Acet 0.1% CRM [Kenalog] 1 appl TP BID PRN 06/23/17 [History] 3 Allergy/AdvReac Type Severity Reaction Status Date / Time atorvastatin [From Lipitor] AdvReac Severe CRAMPING Verified 06/12/17 11:52 AND TIREDNESS Internal Medicine - CN: Exam - Constitutional Vitals: Temp Pulse Resp BP Pulse Ox 98.1 F 61 16 129/80 99 06/23/17 19:04 06/23/17 19:04 06/23/17 19:04 06/23/17 19:04 06/23/17 19:04 General appearance IM: Present: A&O X 3, pleasant, no acute distress, answers questions appropriately - ENT ENT exam: Present: mucous membranes moist - Neck Neck exam general surgery: Present: full ROM, supple, trachea midline - Respiratory Respiratory exam: Present: CTAB. Absent: tachypnea - Cardiovascular Cardiovascular exam IM: Present: RRR. Absent: irregular rhythm, JVD - GI/Abdominal GI/Abdominal exam IM: Present: normal bowel sounds, soft. Absent: bruit, mass, rebound, rigid, splenomegaly, tenderness - Rectal Additional comments: There was scan scant brown stool on the glove, no blood or melena noted. Rectal vault basically empty. Internal Medicine - CN: Reslt - Labs CBC & Chem 7: 06/23/17 10:22 06/23/17 10:22 - ABG Interpretation ABG results: PT/INR, D-dimer PT 13.2 Seconds (9.4-12.1) H 06/23/17 10:22 Consult Discharge Plan - Plan Referrals: Willow Johnson CNP [Primary Care Provider] -
[2017-06-23] MEDS: Budesonide/Formoterol 160/4.5 MDI IH SCH (19:42)
[2017-06-23] MEDS: Metoprolol 100 MG TABLET PO SCH (21:10)
[2017-06-23] MEDS: Gabapentin 300 MG CAPSULE PO SCH (21:10)
[2017-06-24] MEDS: Nafcillin 3,000 MG in 0.9 % Sodium Chloride 100 ML IVPB SCH ×4 (00:17→18:58)
[2017-06-24 06:22] LABS: Basophils # 0.2 K/mcL (0.0-0.2); Basophils % 2.2 %; Eosinophils % 11.1 %; Hematocrit 32.5 % (37.5-50.1); Immature Granulocytes % 2.1 % (0-4); Lymphocytes # 2.3 K/mcL (0.6-4.6); Lymphocytes % 25.5 %; Mean Corpuscular HGB Conc 30.8 g/dL (31.6-35.5); Mean Corpuscular Hemoglobin 30.9 pg (28.0-33.3); Mean Corpuscular Volume 100.3 fL (83.0-100.0); Mean Platelet Volume 9.8 fL (9.4-12.4); Monocytes # 1.5 K/mcL (0.0-1.3); Monocytes % 16.5 %; Neutrophils # 3.8 K/mcL (1.6-8.9); Nucleated Red Blood Cells 0.2 /100 WBC (0); Platelet Count 257 K/mcL (140-400); Red Blood Count 3.24 M/mcL (4.19-5.50); Red Cell Distribution Width 21.2 % (11.5-14.5); Segmented Neutrophils % 42.6 %
[2017-06-24 06:46] LABS: Alanine Aminotransferase 13 Units/L (0-55); Albumin 2.7 g/dL (3.5-5.0); Albumin/Globulin Ratio 0.8 (1.1-2.2); Alkaline Phosphatase 118 Units/L (38-126); Aspartate Amino Transferase 17 Units/L (5-34); BUN/Creatinine Ratio 15 (6-26); Bilirubin,Total 0.7 mg/dL (0.2-1.2); Blood Urea Nitrogen 18 mg/dL (8-26); Calcium 8.6 mg/dL (8.6-10.8); Carbon Dioxide 27 mEq/L (19-29); Chloride 106 mEq/L (98-109); Chol/HDL Ratio 4.9 (0-4.9); Cholesterol 137 mg/dL (< 200); Globulin 3.5 g/dL (2.4-3.5); Glucose 91 mg/dL (70-99); HDL Cholesterol 28 mg/dL (40-59); LDL Cholesterol,Calculated 63 mg/dL (0-99); Magnesium 1.8 mg/dL (1.6-2.6); Osmolality,Calculated 299 (280-300); Sodium 144 mEq/L (136-145); Total Protein 6.2 g/dL (6.0-8.3); Triglycerides 231 mg/dL (< 150); eGFR For African Americans > 60 (> 60); eGFR For Non-African Americans > 60 (> 60)
[2017-06-24 06:50] LABS: Potassium 3.7 mEq/L (3.5-4.5)
[2017-06-24 07:06] LABS: Hemoglobin A1C 4.6 %
[2017-06-24] MEDS: Ipratropium/Albuterol Neb 3 ML IH PRN (07:55)
[2017-06-24] MEDS: Budesonide/Formoterol 160/4.5 MDI IH SCH ×2 (07:55→20:20)
[2017-06-24] MEDS ORDERED: Aspirin Enteric Coated 81 MG Tablet PO SCH (09:00)
[2017-06-24] MEDS: Metoprolol 100 MG TABLET PO SCH ×2 (09:09→21:20)
[2017-06-24] MEDS: Furosemide 40 MG/4 ML VIAL IVP SCH ×2 (09:09→18:45)
[2017-06-24] MEDS: Gabapentin 300 MG CAPSULE PO SCH ×3 (09:10→21:20)
[2017-06-24] MEDS: *HR* Digoxin 0.125 MG TABLET PO SCH (09:10)
[2017-06-24] MEDS: Loratadine 10 MG TABLET PO SCH (09:10)
[2017-06-24] MEDS: Cyanocobalamin (B-12) 1,000 MCG TABLET PO SCH (09:10)
--- NOTE | 2017-06-24 19:52 | Internal Med Progress Note ---
Date of Encounter: 06/24/17 Time of Encounter: 17:00 - Assessment and plan (1) Bleeding hemorrhoid Current Visit: Yes Status: Acute (2) Atrial fibrillation Current Visit: No Status: Chronic Qualifiers: Atrial fibrillation type: persistent Qualified Code(s): I48.1 - Persistent atrial fibrillation (3) Acute on chronic diastolic CHF (congestive heart failure) Current Visit: Yes Status: Acute (4) Lung nodule Current Visit: Yes Status: Chronic - Time Spent With Patient Plan summary Appreciate surgery input, as hydrocortisone cream rectal area 3 times a day, add laxative, monitor H&H, resume anticoagulant, continue IV diuretics, NALLELY hose lower extremities, check cardiac echo, check BNP tomorrow morning, may consider Zaroxolyn, stricit monitoring of intake and output 25 - 35 minutes - Subjective Interval history: Patient denies any chest pain or shortness of breath. Patient denies any nausea or vomiting. Patient stated he continued to have swelling of bilateral upper extremities and lower extremities. Patient stated that he has a venous Doppler done as outpatient recently for bilateral upper extremities no evidence of DVT, patient stated he had constipation and sometimes bleed with his hemorrhoid, he sings of bleeding coming from his hemorrhoids - Constitutional Vitals: Temp Pulse Resp BP Pulse Ox 97.5 F L 59 16 146/76 99 06/24/17 19:28 06/24/17 19:28 06/24/17 19:28 06/24/17 19:28 06/24/17 19:28 General appearance: Present: A&O X 3, pleasant, no acute distress, answers questions appropriately - Head Head exam: Present: atraumatic, normocephalic - Neck Neck exam general surgery: Present: supple, trachea midline. Absent: lymphadenopathy - Respiratory Respiratory exam: Present: decreased breath sounds, prolonged expiratory phase. Absent: accessory muscle use, rales, rhonchi, wheezes - Cardiovascular Cardiovascular exam: Present: RRR, +S1, +S2. Absent: diastolic murmur, gallop, rubs, systolic murmur - GI/Abdominal GI/Abdominal exam: Present: normal bowel sounds, soft, no peritoneal signs. Absent: distended, tenderness - Extremities Exam Extremities exam: Present: warm, radial pulses palpable and symmetrical. Absent : calf tenderness, cyanotic, pedal edema - Neurological Exam Neurological exam: Present: CN II-XII intact, oriented X3, no focal deficits. Absent: pronater drift, facial droop, speech deficit Internal Medicine: Result - Labs CBC & Chem 7: 06/24/17 05:50 06/24/17 05:50 Labs: Short CBC 06/24/17 Range/Units 05:50 WBC 8.9 (4.3-11.1) K/mcL Hgb 10.0 L (12.9-16.9) g/dL Hct 32.5 L (37.5-50.1) % Plt Count 257 (140-400) K/mcL Neutrophils # 3.8 (1.6-8.9) K/mcL BMP 06/24/17 05:50 Sodium 144 Potassium 3.7 Chloride 106 Carbon Dioxide 27 BUN 18 Creatinine 1.18 Glucose 91 Calcium 8.6 Liver Function 06/24/17 Range/Units 05:50 Total Bilirubin 0.7 (0.2-1.2) mg/dL AST 17 (5-34) Units/L ALT 13 (0-55) Units/L Alkaline Phosphatase 118 (38-126) Units/L Albumin 2.7 L (3.5-5.0) g/dL - ABG Interpretation ABG results: PT/INR, D-dimer PT 13.2 Seconds (9.4-12.1) H 06/23/17 10:22 Consult Discharge Plan - Plan Referrals: Willow Johnson, PATIENT PARTNER [Primary Care Provider] -
[2017-06-24] MEDS: metOLazone 2.5 MG TABLET PO SCH (21:19)
[2017-06-24] MEDS: *HR* Rivaroxaban 10 MG TABLET PO SCH (21:20)
[2017-06-25] MEDS: Nafcillin 3,000 MG in 0.9 % Sodium Chloride 100 ML IVPB SCH ×4 (01:00→20:21)
[2017-06-25 04:10] LABS: Basophils # 0.2 K/mcL (0.0-0.2); Basophils % 2.3 %; Eosinophils % 9.7 %; Hematocrit 33.9 % (37.5-50.1); Hemoglobin 10.5 g/dL (12.9-16.9); Immature Granulocytes % 2.4 % (0-4); Lymphocytes # 2.5 K/mcL (0.6-4.6); Lymphocytes % 28.8 %; Mean Corpuscular Hemoglobin 31.2 pg (28.0-33.3); Mean Corpuscular Volume 100.6 fL (83.0-100.0); Mean Platelet Volume 9.6 fL (9.4-12.4); Monocytes # 1.6 K/mcL (0.0-1.3); Monocytes % 18.4 %; Platelet Count 231 K/mcL (140-400); Red Blood Count 3.37 M/mcL (4.19-5.50); Red Cell Distribution Width 20.6 % (11.5-14.5); Segmented Neutrophils % 38.4 %
[2017-06-25 04:13] LABS: Eosinophils # 0.8 K/mcL (0.0-0.6); Neutrophils # 3.3 K/mcL (1.6-8.9)
[2017-06-25 04:22] LABS: Magnesium 1.8 mg/dL (1.6-2.6)
[2017-06-25 04:26] LABS: Alanine Aminotransferase 13 Units/L (0-55); Albumin 2.8 g/dL (3.5-5.0); Albumin/Globulin Ratio 0.7 (1.1-2.2); Alkaline Phosphatase 129 Units/L (38-126); Aspartate Amino Transferase 23 Units/L (5-34); BUN/Creatinine Ratio 14 (6-26); Bilirubin,Total 0.7 mg/dL (0.2-1.2); Blood Urea Nitrogen 15 mg/dL (8-26); Calcium 8.4 mg/dL (8.6-10.8); Carbon Dioxide 31 mEq/L (19-29); Chloride 101 mEq/L (98-109); Globulin 3.9 g/dL (2.4-3.5); Glucose 121 mg/dL (70-99); Osmolality,Calculated 296 (280-300); Potassium 3.8 mEq/L (3.5-4.5); Sodium 142 mEq/L (136-145); Total Protein 6.7 g/dL (6.0-8.3); eGFR For African Americans > 60 (> 60); eGFR For Non-African Americans > 60 (> 60)
[2017-06-25 04:36] LABS: Platelet Estimate Normal (Normal)
[2017-06-25] MEDS: Budesonide/Formoterol 160/4.5 MDI IH SCH ×2 (08:32→20:03)
[2017-06-25] MEDS: *HR* Digoxin 0.125 MG TABLET PO SCH (09:29)
[2017-06-25] MEDS: Gabapentin 300 MG CAPSULE PO SCH ×3 (09:29→20:20)
[2017-06-25] MEDS: Cyanocobalamin (B-12) 1,000 MCG TABLET PO SCH (09:29)
[2017-06-25] MEDS: Loratadine 10 MG TABLET PO SCH (09:30)
[2017-06-25] MEDS: Metoprolol 100 MG TABLET PO SCH ×2 (09:30→20:20)
[2017-06-25] MEDS: Furosemide 40 MG/4 ML VIAL IVP SCH (09:30)
[2017-06-25] MEDS: metOLazone 2.5 MG TABLET PO SCH (09:30)
[2017-06-25] MEDS: Acetaminophen 325 MG TABLET PO PRN ×2 (10:23→23:26)
--- NOTE | 2017-06-25 12:28 | Internal Med Progress Note ---
Date of Encounter: 06/25/17 Time of Encounter: 16:00 - Assessment and plan (1) Bleeding hemorrhoid Current Visit: Yes Status: Acute (2) Atrial fibrillation Current Visit: No Status: Chronic Qualifiers: Atrial fibrillation type: persistent Qualified Code(s): I48.1 - Persistent atrial fibrillation (3) Acute on chronic diastolic CHF (congestive heart failure) Current Visit: Yes Status: Acute (4) Lung nodule Current Visit: Yes Status: Chronic - Time Spent With Patient Counseling patient again about compression stockings lower extremities and Yao wrap, continue Lasix and Zaroxolyn, check BMP tomorrow morning. Wean off oxygen as directed. Possible discharge in next 24 hours. H/H stable. Rectal bleeding most likely secondary to hemorrhoidal bleeding, counseling on high protein diet 25 - 35 minutes - Subjective Interval history: Patient denies any chest pain or shortness of breath. Good doses over last 24 hours, some improvement of lower extremity edema - Constitutional Vitals: Temp Pulse Resp BP Pulse Ox 98.3 F 63 16 100/61 93 06/25/17 11:51 06/25/17 11:51 06/25/17 11:51 06/25/17 11:51 06/25/17 11:51 General appearance: Present: A&O X 3, pleasant, no acute distress, answers questions appropriately - Head Head exam: Present: atraumatic, normocephalic - Neck Neck exam general surgery: Present: supple, trachea midline. Absent: lymphadenopathy - Respiratory Respiratory exam: Present: decreased breath sounds. Absent: accessory muscle use, rales, rhonchi, wheezes - Cardiovascular Cardiovascular exam: Present: RRR, +S1, +S2. Absent: diastolic murmur, gallop, rubs, systolic murmur - GI/Abdominal GI/Abdominal exam: Present: normal bowel sounds, soft, no peritoneal signs. Absent: distended, tenderness - Extremities Exam Extremities exam: Present: pedal edema, warm. Absent: cyanotic - Neurological Exam Neurological exam: Present: CN II-XII intact, oriented X3, no focal deficits. Absent: pronater drift, facial droop, speech deficit Internal Medicine: Result - Labs CBC & Chem 7: 06/25/17 03:47 06/25/17 03:47 Labs: Short CBC 06/25/17 Range/Units 03:47 WBC 8.7 (4.3-11.1) K/mcL Hgb 10.5 L (12.9-16.9) g/dL Hct 33.9 L (37.5-50.1) % Plt Count 231 (140-400) K/mcL Neutrophils # 3.3 (1.6-8.9) K/mcL BMP 06/25/17 03:47 Sodium 142 Potassium 3.8 Chloride 101 Carbon Dioxide 31 H BUN 15 Creatinine 1.08 Glucose 121 H Calcium 8.4 L Liver Function 06/25/17 Range/Units 03:47 Total Bilirubin 0.7 (0.2-1.2) mg/dL AST 23 (5-34) Units/L ALT 13 (0-55) Units/L Alkaline Phosphatase 129 H (38-126) Units/L Albumin 2.8 L (3.5-5.0) g/dL - ABG Interpretation ABG results: PT/INR, D-dimer PT 13.2 Seconds (9.4-12.1) H 06/23/17 10:22 Consult Discharge Plan - Plan Referrals: Willow Johnson, VISUALLY IMPAIRED TEACHER [Primary Care Provider] -
[2017-06-25] MEDS: *HR* Rivaroxaban 10 MG TABLET PO SCH (16:08)
[2017-06-26] MEDS: Nafcillin 3,000 MG in 0.9 % Sodium Chloride 100 ML IVPB SCH ×4 (02:26→17:06)
[2017-06-26 05:02] LABS: Basophils # 0.1 K/mcL (0.0-0.2); Eosinophils # 0.9 K/mcL (0.0-0.6); Hematocrit 33.9 % (37.5-50.1); Hemoglobin 10.8 g/dL (12.9-16.9); Immature Granulocytes % 2.9 % (0-4); Lymphocytes # 2.3 K/mcL (0.6-4.6); Lymphocytes % 31.8 %; Mean Corpuscular HGB Conc 31.9 g/dL (31.6-35.5); Mean Corpuscular Hemoglobin 31.2 pg (28.0-33.3); Monocytes # 1.4 K/mcL (0.0-1.3); Monocytes % 18.9 %; Neutrophils # 2.3 K/mcL (1.6-8.9); Platelet Count 216 K/mcL (140-400); Red Blood Count 3.46 M/mcL (4.19-5.50); Red Cell Distribution Width 20.1 % (11.5-14.5); Segmented Neutrophils % 31.4 %
[2017-06-26 05:19] LABS: Magnesium 2.2 mg/dL (1.6-2.6); Phosphorous 2.8 mg/dL (2.3-4.7)
[2017-06-26 05:22] LABS: Alanine Aminotransferase 11 Units/L (0-55); Albumin 2.9 g/dL (3.5-5.0); Albumin/Globulin Ratio 0.8 (1.1-2.2); Alkaline Phosphatase 128 Units/L (38-126); Aspartate Amino Transferase 12 Units/L (5-34); BUN/Creatinine Ratio 18 (6-26); Bilirubin,Total 0.8 mg/dL (0.2-1.2); Blood Urea Nitrogen 24 mg/dL (8-26); Carbon Dioxide 33 mEq/L (19-29); Chloride 99 mEq/L (98-109); Globulin 3.5 g/dL (2.4-3.5); Glucose 127 mg/dL (70-99); Osmolality,Calculated 296 (280-300); Potassium 3.1 mEq/L (3.5-4.5); Sodium 140 mEq/L (136-145); Total Protein 6.4 g/dL (6.0-8.3); eGFR For African Americans > 60 (> 60); eGFR For Non-African Americans 52 (> 60)
[2017-06-26 05:41] LABS: Large Platelets Present (Not Present); Platelet Estimate Normal (Normal); Reactive Lymphocytes Present (Not Present); Toxic Granulation Present (Not Present); Toxic Vacuolation Present (Not Present)
[2017-06-26] MEDS: Budesonide/Formoterol 160/4.5 MDI IH SCH ×2 (07:55→21:34)
[2017-06-26] MEDS: Ipratropium/Albuterol Neb 3 ML IH PRN (07:57)
[2017-06-26] MEDS: metOLazone 2.5 MG TABLET PO SCH (08:29)
[2017-06-26] MEDS: Loratadine 10 MG TABLET PO SCH (08:30)
[2017-06-26] MEDS: Cyanocobalamin (B-12) 1,000 MCG TABLET PO SCH (08:30)
[2017-06-26] MEDS: Gabapentin 300 MG CAPSULE PO SCH ×3 (08:31→21:11)
[2017-06-26] MEDS: *HR* Digoxin 0.125 MG TABLET PO SCH (08:31)
[2017-06-26] MEDS: Metoprolol 100 MG TABLET PO SCH ×2 (08:31→21:11)
[2017-06-26] MEDS ORDERED: Furosemide 40 MG/4 ML VIAL IVP SCH (09:00)
--- NOTE | 2017-06-26 09:47 | Electrocardiograph Report ---
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
[2017-06-26] MEDS ORDERED: Potassium Chloride Elixir 20 MEQ/15 ML UDC PO ONE (14:55)
--- NOTE | 2017-06-26 15:13 | Discharge Summary ---
Date of Encounter: 06/26/17 Time of Encounter: 15:11 - Discharge Diagnosis (1) Bleeding hemorrhoid Priority: Primary Status: Acute (2) Atrial fibrillation Priority: Secondary Status: Chronic Qualifiers: Atrial fibrillation type: persistent Qualified Code(s): I48.1 - Persistent atrial fibrillation Code(s): I48.91 - Unspecified atrial fibrillation SNOMED Code(s): 30466344 (3) Acute on chronic diastolic CHF (congestive heart failure) Priority: Primary Status: Acute (4) Lung nodule Priority: Secondary Status: Chronic - Discharge Medications Prescriptions: HYDROcodone/Acet 5/325 mg [[place] 5-325 mg] 1 tab PO Q4HR PRN #30 tablet PRN Reason: Moderate Pain (4-6) Ergocalciferol (VITAMIN D2) [Drisdol (50,000 Unit)] 50,000 unit PO QWEEK #10 capsule Ferrous Gluconate 324 mg PO DAILY #90 tablet Hydrocortisone Rectal CRM [Proctosol-Hc] 1 appl RC TID #2 tube Sennosides/Docusate Sodium [Senna Plus] 2 each PO BID #60 tablet Home Medications: Albuterol Sulfate [Albuterol Inhaler] 2 puff IH Q4HR PRN 09/24/16 [History] Allopurinol [Zyloprim] 300 mg PO DAILY 09/24/16 [History] Budesonide/Formoterol 160/4.5 [Symbicort 160/4.5] 2 puff IH BID 09/24/16 [ History] Cyanocobalamin (Vitamin B-12) [Vitamin B12] 500 mcg PO DAILY 09/24/16 [History] Digoxin [Lanoxin] 0.125 mg PO DAILY 09/24/16 [History] Gabapentin [Neurontin] 300 mg PO TID 09/24/16 [History] Glimepiride [Amaryl] 2 mg PO DAILY 09/24/16 [History] Potassium Chloride 40 meq PO DAILY 09/24/16 [History] Testosterone [Androgel] 2.5 gm TD DAILY 09/24/16 [History] Bumetanide [Bumex] 1 mg PO BID #30 tablet 09/30/16 [Rx] Rivaroxaban [Xarelto] 20 mg PO 1700 #30 tablet 09/30/16 [Rx] Metformin HCl [Fortamet] 1,000 mg PO BID 10/24/16 [History] Naproxen Sodium [All Day Pain Relief] 220 mg PO BID PRN 10/24/16 [History] Docusate [Colace] 100 mg PO DAILY PRN 03/23/17 [History] Sennosides [Senna] 8.6 mg PO DAILY PRN 03/23/17 [History] SitaGLIPtin [Januvia] 100 mg PO DAILY 03/23/17 [History] Filgrastim [Neupogen] 480 mcg SQ 1800 06/23/17 [History] Loratadine [Allergy Relief] 10 mg PO DAILY 06/23/17 [History] Metoprolol [Lopressor] 150 mg PO BID 06/23/17 [History] Nafcillin in Dextrose,Iso-Osm [Nafcillin 2 gm/ 100 ml Inj] 6 gm IV Q12H [History] Tramadol HCl [Ultram] 50 mg PO Q6H PRN 06/23/17 [History] Triamcinolone Acet 0.1% CRM [Kenalog] 1 appl TP BID PRN 06/23/17 [History] Ergocalciferol (VITAMIN D2) [Drisdol (50,000 Unit)] 50,000 unit PO QWEEK #10 capsule 06/26/17 [Rx] Ferrous Gluconate 324 mg PO DAILY #90 tablet 06/26/17 [Rx] HYDROcodone/Acet 5/325 mg [[place] 5-325 mg] 1 tab PO Q4HR PRN #30 tablet [Rx] Hydrocortisone Rectal CRM [Proctosol-Hc] 1 appl RC TID #2 tube 06/26/17 [Rx] Sennosides/Docusate Sodium [Senna Plus] 2 each PO BID #60 tablet 06/26/17 [Rx] Allergies/Adverse Reactions: 3 Allergy/AdvReac Type Severity Reaction Status Date / Time atorvastatin [From Lipitor] AdvReac Severe CRAMPING Verified 06/12/17 11:52 AND TIREDNESS Procedures/tests Complete & Pending: Procedures Performed prior 72 hours Category Date Time Status EV echocardiogram Routine Y 06/25/17 14:00 Completed Date of admission: 06/23/17 15:57 Primary care physician: Willow Johnson CNP Consults: 06/23/17 16:00 Consult to Wound Care [CONS] Routine Reason for Consult: Wound on third digit of right hand requiring IV infusion of Nafcillin Call Completed: No 06/23/17 16:09 Consult to Gastroenterology [CONS] Routine Consulting Provider: [facility] Reason for Consult: Patient has positive fecal hemoccult and reports dark red blood in stool. Hgb is 9.9 and Hct is 32.2 on admission. Hgb/Hct WNL in 10/21 (13.6 & 41.4). Pt. also has CLL dx in 2016 and is taking chemotherapy tx and Neupogen injections. Followed at the [facility]. EGD in February 2017 showed normal esophagus, erythematous mucosa in the antrum with biopsies performed, the mucosal variant in the duodenum with biopsies performed. Pt. reports last colonoscopy was >5 years ago. Hx of Afib on Xarelto. Call Completed: Yes - Patient Status Disposition: Home, Self-Care Condition: Good Functional capacity at discharge: independent ambulation Overall status at discharge: patient is progressing back to baseline - Discharge Instructions Follow Up With: Willow Johnson CNP [Primary Care Provider] - Additional Instructions: Follow-up with cardiology and nephrology in 1-2 weeks - Diet and Activity Activity: as per physical therapy, increase activity as tolerated Diet: diabetic diet, low fat, low cholesterol Hospital course: Mr. Gurrola is a 72 year old male with past medical history of diastolic heart failure patient came to the hospital with complaining of shortness of breath orthopnea paroxysmal nocturnal dyspnea and progressive lower extremity edema. Patient currently on Bumex 1 mg twice a day at home. Patient placed on IV diuretics, with his poor response. Patient received albumin, small dose of Zaroxolyn. Patient had a very good urine output. He lost almost 9 pound. Renal function at baseline. Cardiac echo showed ejection fraction normal. She was complaining of blood in stool, surgery was consulted. He stated with patient at stable hemoglobin and recent negative workup, his bleeding most likely secondary to hemorrhoids. Patient received a laxative in addition to hydrocortisone cream. His H&H stable , Endoscopy performed on 03/23/17 showed normal esophagus, erythematous mucosa in the antrum which was biopsied, and mucosal variant in the duodenum which was also biopsied. Pt. reports last colonoscopy was >5 years ago. Fecal hemoccult positive. surgery recommended to resume anticoagulant, who resumed anticoagulant and his H&H continued to be stable. Case discussed with cardiology team,, recommended discharge home when his home medication, follow-up with cardiology as an outpatient. Potassium was replaced, patient has history of positive osteomyelitis finger currently on antibiotic, had 1 more week of IV antibiotic, home visiting nurse and infection was disease and [place] following up, counseling patient about compression stocking and Yao wrap lower extremities, CT of the chest w/o contrast shows right middle lobe 2.52.0 cm nodule with satellite 0.6 cm perihilar nodules. Recommend PET-CT and/or tissue diagnosis of the 2.5 cm nodule. Persistent retrocrural, mediastinal, diaphragmatic, and axillary lymph node in keeping with patient's clinical history of CLL. No significant change since 2016. Patient is currently seen by the [facility] for oncology where he is on clinical trial treatment. Next appointment is July 04 patient reporting full-body scan planned. Patient had good response to Zaroxolyn inpatient, if patient had recurrent fluid overload may consider adding small dose of Zaroxolyn twice a week or 3 times a week. Patient needs to follow up with cardiology as well as nephrology as an outpatient - Time Spent with Patient Total time spent providing and/or coordinating discharge services: Greater than 30 minutes - Constitutional Vitals: Temp Pulse Resp BP Pulse Ox 97.9 F 66 16 138/80 94 06/26/17 14:50 06/26/17 14:50 06/26/17 14:50 06/26/17 14:50 06/26/17 14:50 General appearance: Present: A&O X 3, pleasant, no acute distress, answers questions appropriately
[2017-06-26] MEDS: *HR* Rivaroxaban 10 MG TABLET PO SCH (17:06)
[2017-06-26] MEDS: Acetaminophen 325 MG TABLET PO PRN (21:45)
[2017-06-27] MEDS: Nafcillin 3,000 MG in 0.9 % Sodium Chloride 100 ML IVPB SCH ×5 (00:03→23:01)
[2017-06-27 06:03] LABS: Basophils # 0.1 K/mcL (0.0-0.2); Basophils % 1.8 %; Eosinophils % 13.1 %; Hematocrit 34.8 % (37.5-50.1); Hemoglobin 11.2 g/dL (12.9-16.9); Immature Granulocytes % 2.6 % (0-4); Lymphocytes # 2.6 K/mcL (0.6-4.6); Lymphocytes % 32.5 %; Mean Corpuscular HGB Conc 32.2 g/dL (31.6-35.5); Mean Corpuscular Volume 96.4 fL (83.0-100.0); Monocytes # 1.5 K/mcL (0.0-1.3); Monocytes % 18.3 %; Neutrophils # 2.5 K/mcL (1.6-8.9); Platelet Count 222 K/mcL (140-400); Red Blood Count 3.61 M/mcL (4.19-5.50); Red Cell Distribution Width 19.7 % (11.5-14.5); Segmented Neutrophils % 31.7 %
[2017-06-27 06:08] LABS: Eosinophils # 1.1 K/mcL (0.0-0.6)
[2017-06-27 06:25] LABS: Alanine Aminotransferase 11 Units/L (0-55); Albumin 2.9 g/dL (3.5-5.0); Albumin/Globulin Ratio 0.7 (1.1-2.2); Alkaline Phosphatase 138 Units/L (38-126); Aspartate Amino Transferase 11 Units/L (5-34); BUN/Creatinine Ratio 17 (6-26); Bilirubin,Total 0.7 mg/dL (0.2-1.2); Blood Urea Nitrogen 23 mg/dL (8-26); Calcium 8.9 mg/dL (8.6-10.8); Carbon Dioxide 30 mEq/L (19-29); Chloride 98 mEq/L (98-109); Glucose 144 mg/dL (70-99); Osmolality,Calculated 296 (280-300); Potassium 3.5 mEq/L (3.5-4.5); Sodium 140 mEq/L (136-145); Total Protein 6.9 g/dL (6.0-8.3); eGFR For African Americans > 60 (> 60); eGFR For Non-African Americans 53 (> 60)
[2017-06-27 06:26] LABS: Anisocytosis 1+ (Not Present); Microcytosis Present (Not Present); Platelet Estimate Normal (Normal)
[2017-06-27] MEDS ORDERED: Furosemide 40 MG/4 ML VIAL IVP SCH (09:00)
--- NOTE | 2017-06-27 09:13 | Internal Med Progress Note ---
Date of Encounter: 06/27/17 Time of Encounter: 09:03 - Assessment and plan (1) Acute on chronic diastolic CHF (congestive heart failure) Current Visit: Yes Status: Acute Assessment and plan: Josias Gurrola is a 72-year-old male with past medical history diastolic heart failure, A. fib, CAD and diabetes presented to [facility] on 06/19/2017 with complaints of lower extremity edema. He was found to be in an acute diastolic heart exacerbation and was admitted for IV diuresis. 1. Acute on chronic diastolic heart failure: Presented with worsening lower extremity edema. Hospitalized 09/2016 for similar symptoms and required IV Bumex at that time. BNP 228, CCXR non-acute. 06/19.7 TTE with EF 60%, mild diastolic dysfunction. Holding home Bumex, diuresis with IV Lasix for now. Monitor output and renal function. Cardiology consulted 2. Atrial fibrillation: per hx. Rate controlled. Cont home BB, Xarelto 3. Anemia of chronic disease: per hx. With reported BRBPR on admission. Evaluated by GI who did not suspect GI bleed, okay to continue anticoagulation from GI standpoint. No ASA. Hgb 11.2 on 06/27 4. Right finger wound: per hx. patient reports history of gout and developed wound to right hand, third digit. Follows with hand surgeon and wound clinic. S /p I&D per Dr. Evans on 06/19/2017. Cont Nafcillin gtt 5. Diabetes: per hx. Blood sugars varaible but acceptable. Holding home oral hypoglycemics. SSI. Monitor blood sugar and titrate PRN 6. CAD: per hx. asymptomatic. Denies chest pain. No ASA as noted above. Has allergy to statin. Continue home BB, Xarelto 7. Right lung nodule: 06/23/2017 with RML lung nodule which is new from 08/[address]. Will need to follow-up with Oncology outpatient 8. CLL: per hx. Follows with Dr. Gage. Can follow up as previously planned. 9. DVT prophylaxis: Xarelto (2) IFEANYI (acute kidney injury) Current Visit: Yes Status: Acute (3) Atrial fibrillation Current Visit: No Status: Chronic Qualifiers: Atrial fibrillation type: persistent Qualified Code(s): I48.1 - Persistent atrial fibrillation (4) Bleeding hemorrhoid Current Visit: Yes Status: Acute (5) CAD (coronary artery disease) Current Visit: No Status: Chronic Qualifiers: Coronary Disease-Associated Artery/Lesion type: [place] artery [place] vs. transplanted heart: [place] heart Associated angina: without angina Qualified Code(s): I25.10 - Atherosclerotic heart disease of [place] coronary artery without angina pectoris (6) CLL (chronic lymphocytic leukemia) Current Visit: No Status: Chronic - Subjective Interval history: Seen and examined at bedside. Patient is new to me, information obtained from chart review and patient report. Patient says he had an uneventful night, does not report much improvement in lower extremity edema. States he follows a low- sodium diet home. No chest pain or shortness of breath. - Constitutional Vitals: Temp Pulse Resp BP Pulse Ox 98.1 F 90 16 125/71 96 06/27/17 06:33 06/27/17 06:33 06/27/17 06:33 06/27/17 06:33 06/27/17 06:33 General appearance: Present: A&O X 3, pleasant, no acute distress, answers questions appropriately - Head Head exam: Present: atraumatic, normocephalic - Eye Eye exam: Present: PERRL, conjuntiva pink, sclera anicteric Pupils: Present: PERRL - Neck Neck exam general surgery: Present: supple, trachea midline. Absent: lymphadenopathy - Respiratory Respiratory exam: Present: CTAB. Absent: accessory muscle use, rales, rhonchi, wheezes - Cardiovascular Cardiovascular exam: Present: RRR, +S1, +S2. Absent: diastolic murmur, gallop, rubs, systolic murmur - GI/Abdominal GI/Abdominal exam: Present: normal bowel sounds, soft, no peritoneal signs. Absent: distended, tenderness - Extremities Exam Extremities exam: Present: pedal edema, warm, radial pulses palpable and symmetrical. Absent: calf tenderness, cyanotic - Neurological Exam Neurological exam: Present: CN II-XII intact, oriented X3, no focal deficits. Absent: pronater drift, facial droop, speech deficit - Skin Skin exam: Present: dry, intact Internal Medicine: Result - Labs CBC & Chem 7: 06/27/17 05:29 06/27/17 05:29 Labs: Short CBC 06/27/17 Range/Units 05:29 WBC 8.0 (4.3-11.1) K/mcL Hgb 11.2 L (12.9-16.9) g/dL Hct 34.8 L (37.5-50.1) % Plt Count 222 (140-400) K/mcL Neutrophils # 2.5 (1.6-8.9) K/mcL BMP 06/27/17 05:29 Sodium 140 Potassium 3.5 Chloride 98 Carbon Dioxide 30 H BUN 23 Creatinine 1.33 H Glucose 144 H Calcium 8.9 Liver Function 06/27/17 Range/Units 05:29 Total Bilirubin 0.7 (0.2-1.2) mg/dL AST 11 (5-34) Units/L ALT 11 (0-55) Units/L Alkaline Phosphatase 138 H (38-126) Units/L Albumin 2.9 L (3.5-5.0) g/dL - ABG Interpretation ABG results: PT/INR, D-dimer PT 13.2 Seconds (9.4-12.1) H 06/23/17 10:22 - VTE Documentation of Mechanical Device: Graduated compression elastic hosiery Consult Discharge Plan - Plan Additional Instructions: Follow-up with cardiology and nephrology in 1-2 weeks Referrals: Willow Johnson, LINE [employer]NER [Primary Care Provider] - Prescriptions: HYDROcodone/Acet 5/325 mg [[place] 5-325 mg] 1 tab PO Q4HR PRN #30 tablet PRN Reason: Moderate Pain (4-6) Ergocalciferol (VITAMIN D2) [Drisdol (50,000 Unit)] 50,000 unit PO QWEEK #10 capsule Ferrous Gluconate 324 mg PO DAILY #90 tablet Hydrocortisone Rectal CRM [Proctosol-Hc] 1 appl RC TID #2 tube Sennosides/Docusate Sodium [Senna Plus] 2 each PO BID #60 tablet
[2017-06-27] MEDS: Gabapentin 300 MG CAPSULE PO SCH ×3 (09:31→20:57)
[2017-06-27] MEDS: *HR* Digoxin 0.125 MG TABLET PO SCH (09:31)
[2017-06-27] MEDS: Metoprolol 100 MG TABLET PO SCH ×2 (09:31→20:57)
[2017-06-27] MEDS: *HR* HYDROcodone/Acet 5/325 mg TABLET PO PRN ×3 (09:31→21:08)
[2017-06-27] MEDS: Loratadine 10 MG TABLET PO SCH (09:32)
[2017-06-27] MEDS: Cyanocobalamin (B-12) 1,000 MCG TABLET PO SCH (09:32)
[2017-06-27] MEDS: Budesonide/Formoterol 160/4.5 MDI IH SCH ×2 (10:25→20:23)
[2017-06-27] MEDS: Ipratropium/Albuterol Neb 3 ML IH PRN (10:30)
[2017-06-27] MEDS: Bumetanide 1 MG TABLET PO SCH (16:19)
[2017-06-27] MEDS: *HR* Rivaroxaban 10 MG TABLET PO SCH (16:20)
[2017-06-28] MEDS: Nafcillin 3,000 MG in 0.9 % Sodium Chloride 100 ML IVPB SCH (05:44)
[2017-06-28 06:59] LABS: Basophils # 0.1 K/mcL (0.0-0.2); Basophils % 1.2 %; Eosinophils # 0.9 K/mcL (0.0-0.6); Eosinophils % 11.3 %; Hematocrit 33.6 % (37.5-50.1); Immature Granulocytes % 1.5 % (0-4); Lymphocytes # 1.9 K/mcL (0.6-4.6); Lymphocytes % 23.2 %; Mean Corpuscular HGB Conc 32.7 g/dL (31.6-35.5); Mean Corpuscular Hemoglobin 31.5 pg (28.0-33.3); Mean Corpuscular Volume 96.3 fL (83.0-100.0); Mean Platelet Volume 9.8 fL (9.4-12.4); Monocytes # 1.2 K/mcL (0.0-1.3); Monocytes % 14.2 %; Platelet Count 184 K/mcL (140-400); Red Blood Count 3.49 M/mcL (4.19-5.50); Red Cell Distribution Width 19.7 % (11.5-14.5); Segmented Neutrophils % 48.6 %
[2017-06-28 07:19] LABS: Alanine Aminotransferase 11 Units/L (0-55); Albumin 2.8 g/dL (3.5-5.0); Albumin/Globulin Ratio 0.7 (1.1-2.2); Alkaline Phosphatase 132 Units/L (38-126); Aspartate Amino Transferase 11 Units/L (5-34); BUN/Creatinine Ratio 20 (6-26); Bilirubin,Total 0.7 mg/dL (0.2-1.2); Blood Urea Nitrogen 24 mg/dL (8-26); Calcium 8.6 mg/dL (8.6-10.8); Carbon Dioxide 29 mEq/L (19-29); Chloride 99 mEq/L (98-109); Globulin 3.8 g/dL (2.4-3.5); Glucose 146 mg/dL (70-99); Osmolality,Calculated 291 (280-300); Potassium 3.4 mEq/L (3.5-4.5); Sodium 137 mEq/L (136-145); Total Protein 6.6 g/dL (6.0-8.3); eGFR For African Americans > 60 (> 60); eGFR For Non-African Americans 59 (> 60)
[2017-06-28] MEDS: Bumetanide 1 MG TABLET PO SCH (08:47)
[2017-06-28] MEDS: Metoprolol 100 MG TABLET PO SCH (08:47)
--- NOTE | 2017-06-28 08:48 | Discharge Summary ---
Date of Encounter: 06/28/17 Time of Encounter: 08:45 - Discharge Diagnosis (1) Lower extremity edema Priority: Primary Status: Acute Comments: presented with worsening lower extremity edema. Hospitalized 09/2016 for similar symptoms and required IV Bumex at that time. BNP 228, CXR non-acute. TTE with EF 60%, mild diastolic dysfunction. Bilateral lower extremity Dopplers negative for DVT. Received 2 doses IV lasix with improvement in edema. Suspect edema secondary to low albumin, dietary noncompliance. Recommend compression wraps, high-protein/low Na diet (2) Open wound of right hand Priority: Primary Status: Acute Comments: per hx. patient reports history of gout and developed wound to right hand, third digit. Receiving IV ATB at home prior to admission. S/p I&D per Dr. Evans on 06/19/2017. Follows with hand surgeon at [facility]. Continue IV nafcillin per [facility]. Has follow-up with hand surgeon at [facility] on 06/29/2017 Qualifiers: Encounter type: sequela Open wound type: unspecified Foreign body presence: unspecified Qualified Code(s): S61.401S - Unspecified open wound of right hand, sequela (3) Lung nodule Priority: Primary Status: Acute Comments: 06/23/[address] with RML lung nodule which is a new finding when compared to 08/[address] Called and spoke with Dr. Vasques's office and made them aware of new finding. Patient has follow-up on 07/04/2017. (4) CLL (chronic lymphocytic leukemia) Priority: Secondary Status: Chronic Comments: per hx. Follows with Dr. Vasques at [facility]. Has follow-up appt 07/04/2017. (5) Atrial fibrillation Priority: Secondary Status: Chronic Comments: per hx. Rate controlled. Cont home BB, Xarelto Qualifiers: Atrial fibrillation type: persistent Qualified Code(s): I48.1 - Persistent atrial fibrillation (6) Anemia of chronic disease Priority: Primary Status: Chronic Comments: per hx. With reported BRBPR on admission. Evaluated by GI who did not suspect GI bleed, okay to continue anticoagulation from GI standpoint. No ASA. Hgb 11 on day of discharge. Recommend repeat CBC within 1-2 weeks with PCP. (7) IFEANYI (acute kidney injury) Priority: Primary Status: Resolved Comments: Secondary to IV Lasix. Kidney function normalized with stopping Lasix. Recommend follow-up with PCP within 1-2 weeks. (8) CAD (coronary artery disease) Priority: Primary Status: Chronic Comments: per hx. asymptomatic. Denies chest pain. No ASA as noted above. Has allergy to statin. Continue home BB, Xarelto Qualifiers: Coronary Disease-Associated Artery/Lesion type: [place] artery [place] vs. transplanted heart: [place] heart Associated angina: without angina Qualified Code(s): I25.10 - Atherosclerotic heart disease of [place] coronary artery without angina pectoris - Discharge Medications Prescriptions: Ergocalciferol (VITAMIN D2) [Drisdol (50,000 Unit)] 50,000 unit PO QWEEK #10 capsule Ferrous Gluconate 324 mg PO DAILY #90 tablet HYDROcodone/Acet 5/325 mg [Hessel 5-325 mg] 1 tab PO Q8H PRN #6 tab PRN Reason: Pain Hydrocortisone Rectal CRM [Proctosol-Hc] 1 appl RC TID #2 tube Sennosides/Docusate Sodium [Senna Plus] 2 each PO BID #60 tablet Home Medications: Albuterol Sulfate [Albuterol Inhaler] 2 puff IH Q4HR PRN 09/24/16 [History] Allopurinol [Zyloprim] 300 mg PO DAILY 09/24/16 [History] Budesonide/Formoterol 160/4.5 [Symbicort 160/4.5] 2 puff IH BID 09/24/16 [ History] Cyanocobalamin (Vitamin B-12) [Vitamin B12] 500 mcg PO DAILY 09/24/16 [History] Digoxin [Lanoxin] 0.125 mg PO DAILY 09/24/16 [History] Gabapentin [Neurontin] 300 mg PO TID 09/24/16 [History] Glimepiride [Amaryl] 2 mg PO DAILY 09/24/16 [History] Potassium Chloride 40 meq PO DAILY 09/24/16 [History] Testosterone [Androgel] 2.5 gm TD DAILY 09/24/16 [History] Bumetanide [Bumex] 1 mg PO BID #30 tablet 09/30/16 [Rx] Rivaroxaban [Xarelto] 20 mg PO 1700 #30 tablet 09/30/16 [Rx] Metformin HCl [Fortamet] 1,000 mg PO BID 10/24/16 [History] Naproxen Sodium [All Day Pain Relief] 220 mg PO BID PRN 10/24/16 [History] Docusate [Colace] 100 mg PO DAILY PRN 03/23/17 [History] Sennosides [Senna] 8.6 mg PO DAILY PRN 03/23/17 [History] SitaGLIPtin [Januvia] 100 mg PO DAILY 03/23/17 [History] Filgrastim [Neupogen] 480 mcg SQ 1800 06/23/17 [History] Loratadine [Allergy Relief] 10 mg PO DAILY 06/23/17 [History] Metoprolol [Lopressor] 150 mg PO BID 06/23/17 [History] Nafcillin in Dextrose,Iso-Osm [Nafcillin 2 gm/ 100 ml Inj] 6 gm IV Q12H [History] Tramadol HCl [Ultram] 50 mg PO Q6H PRN 06/23/17 [History] Triamcinolone Acet 0.1% CRM [Kenalog] 1 appl TP BID PRN 06/23/17 [History] Ergocalciferol (VITAMIN D2) [Drisdol (50,000 Unit)] 50,000 unit PO QWEEK #10 capsule 06/26/17 [Rx] Ferrous Gluconate 324 mg PO DAILY #90 tablet 06/26/17 [Rx] Hydrocortisone Rectal CRM [Proctosol-Hc] 1 appl RC TID #2 tube 06/26/17 [Rx] Sennosides/Docusate Sodium [Senna Plus] 2 each PO BID #60 tablet 06/26/17 [Rx] HYDROcodone/Acet 5/325 mg [Hessel 5-325 mg] 1 tab PO Q8H PRN #6 tab 06/28/17 [Rx] Allergies/Adverse Reactions: 3 Allergy/AdvReac Type Severity Reaction Status Date / Time atorvastatin [From Lipitor] AdvReac Severe CRAMPING Verified 06/12/17 11:52 AND TIREDNESS Procedures/tests Complete & Pending: Procedures Performed prior 72 hours Category Date Time Status EV echocardiogram Routine Y 06/25/17 14:00 Completed Venous Doppler [EV venous imaging LE BI] Stat Y 06/28/17 08:42 Ordered Date of admission: 06/23/17 15:57 Primary care physician: Willow Johnson CNP Consults: 06/23/17 16:00 Consult to Wound Care [CONS] Routine Reason for Consult: Wound on third digit of right hand requiring IV infusion of Nafcillin Call Completed: No 06/23/17 16:09 Consult to Gastroenterology [CONS] Routine Consulting Provider: Luca Heart Reason for Consult: Patient has positive fecal hemoccult and reports dark red blood in stool. Hgb is 9.9 and Hct is 32.2 on admission. Hgb/Hct WNL in 10/21 (13.6 & 41.4). Pt. also has CLL dx in 2015 and is taking chemotherapy tx and Neupogen injections. Followed at the [facility]. EGD in February 2017 showed normal esophagus, erythematous mucosa in the antrum with biopsies performed, the mucosal variant in the duodenum with biopsies performed. Pt. reports last colonoscopy was >5 years ago. Hx of Afib on Xarelto. Call Completed: Yes Discharging clinician: Nikki Canada Anticipated date of discharge: 06/28/17 - Patient Status Disposition: Home Health Service Condition: Good Functional capacity at discharge: independent ambulation Overall status at discharge: patient is back to baseline - Discharge Instructions Instructions: Edema (DC), Low Sodium Diet (DC), Seasoning Without Salt (DC), High Protein Diet (DC) Follow Up With: Ta De Luna [Non-Partnered Physician] - 07/04/17 8:30 am Willow Johnson CNP [Primary Care Provider] - 07/03/17 1:00 pm Hermilo De Luna [Non-Partnered Physician] - 06/29/17 Additional Instructions: Follow-up with cardiology and nephrology in 1-2 weeks - Diet and Activity Activity: increase activity as tolerated Diet: low salt diet Interval History: Seen and examined at bedside. Patient's that he had an uneventful night, feels better. Says swelling in legs continues to improve. Denies chest pain, no shortness of breath. Says he has follow-up appointment with hand surgeon tomorrow. Discussed with him the findings of the chest CT in the lung nodule. Called Dr. Vasques's office at [facility] and made them aware as well. A copy of chest CT was sent to his office. Discussed with social science instructor and patient has established home health care for IV ATB dressing changes. Services will be resumed discharge. - Time Spent with Patient Total time spent providing and/or coordinating discharge services: Greater than 30 minutes (46 minutes spent on discharge.) - Constitutional Vitals: Temp Pulse Resp BP Pulse Ox 98.6 F 71 20 123/73 93 06/28/17 06:59 06/28/17 06:59 06/28/17 06:59 06/28/17 06:59 06/28/17 06:59 General appearance: Present: A&O X 3, pleasant, no acute distress, answers questions appropriately - Head Head exam: Present: atraumatic, normocephalic - Eye Eye exam: Present: PERRL, conjuntiva pink, sclera anicteric Pupils: Present: PERRL - Neck Neck exam general surgery: Present: supple, trachea midline. Absent: lymphadenopathy - Respiratory Respiratory exam: Present: CTAB. Absent: accessory muscle use, rales, rhonchi, wheezes - Cardiovascular Cardiovascular exam: Present: RRR, +S1, +S2. Absent: diastolic murmur, gallop, rubs, systolic murmur - GI/Abdominal GI/Abdominal exam: Present: normal bowel sounds, soft, no peritoneal signs. Absent: distended, tenderness - Extremities Exam Extremities exam: Present: warm, radial pulses palpable and symmetrical. Absent : calf tenderness, cyanotic, pedal edema Additional comments: Left PICC. Right hand, third digit wound wrapped. - Neurological Exam Neurological exam: Present: CN II-XII intact, oriented X3, no focal deficits. Absent: pronater drift, facial droop, speech deficit - Skin Skin exam: Present: dry, intact - VTE Documentation of Mechanical Device: Graduated compression elastic hosiery
[2017-06-28] MEDS: Acetaminophen 325 MG TABLET PO PRN (08:50)
[2017-06-28] MEDS: Loratadine 10 MG TABLET PO SCH (08:50)
[2017-06-28] MEDS: Gabapentin 300 MG CAPSULE PO SCH (08:51)
[2017-06-28] MEDS: *HR* Digoxin 0.125 MG TABLET PO SCH (08:51)
[2017-06-28] MEDS: Cyanocobalamin (B-12) 1,000 MCG TABLET PO SCH (08:51)
[2017-06-28] MEDS: Budesonide/Formoterol 160/4.5 MDI IH SCH (10:36)
[2017-06-28 11:04] VITALS: BP 122/70
== END 2017-06-28 12:20 | disposition home health service (06) | DRG 292 ==
LOC: 3BNU 09:49 → EMEROO 09:49 → 3BNU 12:40
PROVIDERS: ADMIT Internal Medicine; ATTEND Registered Nurse

== ENCOUNTER 2019-08-28 17:37 | Inpatient (IN) ==
[2019-08-28] MEDS ORDERED: 0.9 % Sodium Chloride 1,000 ML IVC ONE (17:54)
[2019-08-28] MEDS ORDERED: Piperacillin/Tazobactam 3.375 GM in 0.9 % Sodium Chloride Mini Bag 100 ML IVPB ONE ×2 (17:55→20:39)
[2019-08-28] MEDS ORDERED: Ondansetron 4 MG/2 ML VIAL IVP ONE (17:55)
[2019-08-28 18:10] LABS: Basophils # 0.1 K/mcL (0.0-0.2); Basophils % 0.5 %; Eosinophils # 0.1 K/mcL (0.0-0.6); Eosinophils % 0.5 %; Hematocrit 46.7 % (37.5-50.1); Hemoglobin 15.7 g/dL (12.9-16.9); Lymphocytes # 1.4 K/mcL (0.6-4.6); Lymphocytes % 8.9 %; Mean Corpuscular HGB Conc 33.6 g/dL (31.6-35.5); Mean Corpuscular Volume 83.4 fL (83.0-100.0); Mean Platelet Volume 10.7 fL (9.4-12.4); Monocytes # 0.6 K/mcL (0.0-1.3); Monocytes % 3.8 %; Neutrophils # 13.2 K/mcL (1.6-8.9); Platelet Count 173 K/mcL (140-400); Red Cell Distribution Width 13.9 % (11.5-14.5); Segmented Neutrophils % 85.3 %; White Blood Count 15.4 K/mcL (4.3-11.1)
[2019-08-28 18:30] LABS: Alanine Aminotransferase 13 Units/L (7-52); Albumin 4.1 g/dL (3.5-5.7); Albumin/Globulin Ratio 1.6 (1.1-2.2); Alkaline Phosphatase 53 Units/L (34-104); Aspartate Amino Transferase 12 Units/L (13-39); BUN/Creatinine Ratio 19 (6-26); Bilirubin,Direct 0.3 mg/dL (0.0-0.2); Bilirubin,Indirect 0.7 mg/dL (0.0-1.0); Blood Urea Nitrogen 21 mg/dL (8-23); Calcium 9.3 mg/dL (8.6-10.3); Carbon Dioxide 28 mEq/L (23-29); Chloride 99 mEq/L (98-107); Globulin 2.5 g/dL (2.4-3.5); Glucose 173 mg/dL (70-105); Osmolality,Calculated 293 (280-300); Potassium 3.8 mEq/L (3.5-5.1); Sodium 138 mEq/L (136-145); Total Protein 6.6 g/dL (6.4-8.9); eGFR For African Americans > 60 (> 60); eGFR For Non-African Americans > 60 (> 60)
[2019-08-28 20:11] LABS: Bilirubin,Urine Negative (Negative); Blood,Urine Negative (Negative); Clarity,Urine Clear (Clear); Color,Urine Yellow (Yellow); Glucose,Urine (UA) 100 mg/dL (Normal); Ketones,Urine Negative (Negative); Leukocyte Esterase,Urine Negative (Negative); Nitrite,Urine Negative (Negative); PH,Urine 6.5 pH Units (5.0-8.0); Protein,Urine 100 mg/dL (Neg-Trace); Specific Gravity,Urine 1.023 (1.010-1.025); Urobilinogen,Urine Normal (Normal)
[2019-08-28 20:13] LABS: Bacteria,Urine None Seen per hpf (None-Few); Hyaline Casts,Urine None Seen per lpf (None-Few); Squamous Epithelial Cell,Urine Moderate per lpf (None-Few); WBC,Urine 0-3 per hpf (0-3)
[2019-08-28] MEDS ORDERED: Ibuprofen 600 MG TABLET PO ONE (20:59)
[2019-08-28] MEDS ORDERED: Isovue-370 500 ML BOTTLE IVP ONE (22:07)
[2019-08-28] MEDS ORDERED: Dextrose Gel 15 GM/37.5 ML TUBE PO PRN ×2 (22:09)
[2019-08-28] MEDS ORDERED: *HR* Dextrose 50 % in Water (Syg) 50 ML SYRINGE IVP PRN (22:09)
[2019-08-28] MEDS ORDERED: D5% in Water 1,000 ML IVC PRN (22:09)
[2019-08-28] MEDS ORDERED: Naloxone 0.4 MG/ML INJ IVP PRN (22:09)
[2019-08-28] MEDS ORDERED: Nitroglycerin 0.4 MG TAB.SUBL SL PRN (22:10)
[2019-08-28] MEDS ORDERED: Ipratropium/Albuterol Neb 3 ML IH SCH (22:45)
[2019-08-28] MEDS ORDERED: Ipratropium/Albuterol Neb 3 ML IH PRN (22:53)
[2019-08-28] MEDS ORDERED: Acetaminophen 325 MG TABLET PO PRN (23:33)
[2019-08-29] MEDS: *HR* Heparin 5,000 UNIT/ML VIAL SQ SCH ×2 (05:53→13:10)
[2019-08-29] MEDS ORDERED: [UNRECOGNIZED DRUG - REMARK] PO SCH (08:00)
[2019-08-29] MEDS: Gabapentin 300 MG CAPSULE PO SCH ×2 (08:39→16:43)
[2019-08-29] MEDS: Insulin LISPRO 300 UNITS/3 ML VIAL SQ SCH ×3 (08:46→16:43)
[2019-08-29] MEDS ORDERED: Fenofibrate 54 MG TABLET PO SCH (09:00)
[2019-08-29] MEDS ORDERED: *HR* Digoxin 0.125 MG TABLET PO SCH (09:00)
[2019-08-29] MEDS ORDERED: Metoprolol XL (24 HR) Succ 50 MG TAB.ER.24H PO SCH (09:00)
[2019-08-29] MEDS ORDERED: Cyanocobalamin (B-12) 1,000 MCG TABLET PO SCH (09:00)
[2019-08-29] MEDS ORDERED: levoFLOXacin 750 MG/150 ML 750 MG/150 ML BAG IVPB SCH (09:00)
[2019-08-29] MEDS ORDERED: FLUOROURACIL TP SCH (09:00)
[2019-08-29] MEDS ORDERED: Tiotropium 18 MCG inhalation IH SCH (09:00)
[2019-08-29] MEDS ORDERED: Bumetanide 1 MG TABLET PO SCH (09:00)
[2019-08-29] MEDS ORDERED: Budesonide/Formoterol 160/4.5 1 PUFF INH IH SCH (10:00)
[2019-08-29 11:08] LABS: Mean Corpuscular HGB Conc 32.8 g/dL (31.6-35.5); Mean Corpuscular Hemoglobin 28.2 pg (28.0-33.3); Mean Platelet Volume 11.5 fL (9.4-12.4); Platelet Count 156 K/mcL (140-400); Red Blood Count 4.65 M/mcL (4.19-5.50); Red Cell Distribution Width 14.2 % (11.5-14.5); White Blood Count 17.9 K/mcL (4.3-11.1)
[2019-08-29 11:19] LABS: Hemoglobin 13.1 g/dL (12.9-16.9)
[2019-08-29 11:31] LABS: Calcium 7.8 mg/dL (8.6-10.3); Magnesium 1.3 mg/dL (1.6-2.6); Phosphorous 4.4 mg/dL (2.7-4.5); Potassium 4.1 mEq/L (3.5-5.1)
[2019-08-29 11:48] LABS: Lymphocytes # 0.5 K/mcL (0.6-4.6); Monocytes # 0.9 K/mcL (0.0-1.3); Neutrophils # 16.3 K/mcL (1.6-8.9)
[2019-08-29 11:49] LABS: Platelet Estimate Normal (Normal); Toxic Granulation Present (Not Present)
[2019-08-29 16:14] VITALS: BP 105/64
== END 2019-08-29 18:45 | disposition critical access hospital (66) | DRG 871 ==
LOC: EMEROOARM 17:37 → 3BNU 17:37 → SUATTDRO 21:41 → 3BNU 22:27
PROVIDERS: ADMIT Student in an Organized Health Care Education/Training Program; ATTEND Internal Medicine

== ENCOUNTER 2020-01-21 13:26 | Inpatient (IN) ==
[2020-01-21 14:21] LABS: Basophils # 0.1 K/mcL (0.0-0.2); Basophils % 1.3 %; Eosinophils # 0.1 K/mcL (0.0-0.6); Eosinophils % 1.3 %; Hematocrit 44.1 % (37.5-50.1); Hemoglobin 14.2 g/dL (12.9-16.9); Immature Granulocytes % 0.7 % (0-4); Lymphocytes # 2.8 K/mcL (0.6-4.6); Lymphocytes % 31.2 %; Mean Corpuscular HGB Conc 32.2 g/dL (31.6-35.5); Mean Corpuscular Hemoglobin 28.7 pg (28.0-33.3); Mean Corpuscular Volume 89.3 fL (83.0-100.0); Mean Platelet Volume 12.1 fL (9.4-12.4); Monocytes # 0.9 K/mcL (0.0-1.3); Monocytes % 9.5 %; Platelet Count 188 K/mcL (140-400); Red Blood Count 4.94 M/mcL (4.19-5.50); Red Cell Distribution Width 14.5 % (11.5-14.5)
[2020-01-21 14:24] LABS: INR 1.3; Prothrombin Time 14.6 Seconds (9.4-12.1)
[2020-01-21] MEDS ORDERED: Isovue-370 500 ML BOTTLE IVP ONE (14:24)
[2020-01-21 14:42] LABS: Alanine Aminotransferase 10 Units/L (7-52); Albumin 3.6 g/dL (3.5-5.7); Albumin/Globulin Ratio 1.6 (1.1-2.2); Alkaline Phosphatase 46 Units/L (34-104); Aspartate Amino Transferase 9 Units/L (13-39); BUN/Creatinine Ratio 23 (6-26); Bilirubin,Direct 0.2 mg/dL (0.0-0.2); Bilirubin,Indirect 0.3 mg/dL (0.0-1.0); Bilirubin,Total 0.5 mg/dL (0.3-1.0); Blood Urea Nitrogen 30 mg/dL (8-23); Calcium 8.8 mg/dL (8.6-10.3); Carbon Dioxide 30 mEq/L (23-29); Chloride 101 mEq/L (98-107); Digoxin 0.9 ng/mL (0.8-2.0); Globulin 2.2 g/dL (2.4-3.5); Glucose 312 mg/dL (70-105); Magnesium 1.8 mg/dL (1.6-2.6); Osmolality,Calculated 308 (280-300); Sodium 140 mEq/L (136-145); Total Protein 5.8 g/dL (6.4-8.9); Troponin I < 0.03 ng/mL (< 0.04); eGFR For African Americans > 60 (> 60); eGFR For Non-African Americans 53 (> 60)
[2020-01-21] MEDS ORDERED: Ondansetron 4 MG/2 ML VIAL IVP PRN (17:22)
[2020-01-21] MEDS ORDERED: Naloxone 0.4 MG/ML INJ IVP PRN (17:22)
[2020-01-21] MEDS ORDERED: *HR* HYDROcodone/Acet 5/325 mg TABLET PO PRN (17:22)
[2020-01-21] MEDS ORDERED: Acetaminophen 325 MG TABLET PO PRN (17:22)
[2020-01-21] MEDS ORDERED: Dextrose Gel 15 GM/37.5 ML TUBE PO PRN ×2 (17:46)
[2020-01-21] MEDS ORDERED: *HR* Dextrose 50 % in Water (Vial) 50 ML VIAL IVP PRN (17:46)
[2020-01-21] MEDS ORDERED: D5% in Water 1,000 ML IVC PRN (17:46)
[2020-01-21 19:39] LABS: Estimated Average Glucose 243 mg/dl; Hemoglobin A1C 10.1 %
[2020-01-21] MEDS: Budesonide/Formoterol 160/4.5 1 PUFF INH IH SCH (20:17)
[2020-01-21] MEDS: Metoprolol 100 MG TABLET PO SCH (22:37)
[2020-01-21] MEDS: Insulin LISPRO 300 UNITS/3 ML VIAL SQ SCH (22:37)
[2020-01-21] MEDS: Furosemide 40 MG/4 ML VIAL IVP SCH (22:37)
[2020-01-22] MEDS: *HR* Dabigatran 150 MG CAPSULE PO SCH ×3 (00:29→20:33)
[2020-01-22] MEDS ORDERED: Gabapentin 400 MG CAPSULE PO ONE (01:13)
[2020-01-22 01:17] LABS: Basophils # 0.1 K/mcL (0.0-0.2); Basophils % 1.6 %; Eosinophils # 0.1 K/mcL (0.0-0.6); Eosinophils % 1.4 %; Hematocrit 45.9 % (37.5-50.1); Hemoglobin 14.6 g/dL (12.9-16.9); Immature Granulocytes % 0.7 % (0-4); Lymphocytes # 2.8 K/mcL (0.6-4.6); Lymphocytes % 34.4 %; Mean Corpuscular HGB Conc 31.8 g/dL (31.6-35.5); Mean Corpuscular Hemoglobin 28.3 pg (28.0-33.3); Mean Corpuscular Volume 89.1 fL (83.0-100.0); Mean Platelet Volume 11.6 fL (9.4-12.4); Monocytes # 0.6 K/mcL (0.0-1.3); Monocytes % 7.9 %; Neutrophils # 4.4 K/mcL (1.6-8.9); Platelet Count 176 K/mcL (140-400); Red Blood Count 5.15 M/mcL (4.19-5.50); Red Cell Distribution Width 14.3 % (11.5-14.5); White Blood Count 8.1 K/mcL (4.3-11.1)
[2020-01-22 01:38] LABS: BUN/Creatinine Ratio 22 (6-26); Blood Urea Nitrogen 28 mg/dL (8-23); Calcium 8.7 mg/dL (8.6-10.3); Carbon Dioxide 28 mEq/L (23-29); Chloride 102 mEq/L (98-107); Chol/HDL Ratio 3.4 (0-4.9); Cholesterol 120 mg/dL (< 200); Glucose 269 mg/dL (70-105); HDL Cholesterol 35 mg/dL (40-59); LDL Cholesterol,Calculated 48 mg/dL (0-99); Osmolality,Calculated 303 (280-300); Sodium 139 mEq/L (136-145); Triglycerides 184 mg/dL (< 150); eGFR For African Americans > 60 (> 60); eGFR For Non-African Americans 54 (> 60)
[2020-01-22] MEDS: Budesonide/Formoterol 160/4.5 1 PUFF INH IH SCH ×2 (07:59→21:20)
[2020-01-22] MEDS: Insulin LISPRO 300 UNITS/3 ML VIAL SQ SCH ×4 (08:19→20:36)
[2020-01-22] MEDS: Metoprolol 100 MG TABLET PO SCH ×2 (08:21→20:33)
[2020-01-22] MEDS: *HR* Digoxin 0.125 MG TABLET PO SCH (08:21)
[2020-01-22] MEDS: amLODIPine 5 MG TABLET PO SCH (08:21)
[2020-01-22] MEDS: Furosemide 40 MG/4 ML VIAL IVP SCH ×2 (08:21→17:22)
[2020-01-22] MEDS: Magnesium Oxide 400 MG TABLET PO SCH (08:21)
[2020-01-22] MEDS ORDERED: Td (TENIVAC) Vaccine 0.5 ML VIAL IM ONE (13:30)
[2020-01-22] MEDS: Insulin DETEMIR 100 UNIT/ML X5UNITS SQ SCH (13:40)
[2020-01-22] MEDS: Gabapentin 400 MG CAPSULE PO SCH ×2 (14:38→20:33)
[2020-01-22] MEDS: Miconazole 2% ointment 141 APPL/141 GM TUBE TP SCH ×2 (20:35)
[2020-01-23 01:03] LABS: Basophils # 0.1 K/mcL (0.0-0.2); Basophils % 1.2 %; Eosinophils # 0.1 K/mcL (0.0-0.6); Eosinophils % 1.7 %; Hematocrit 44.6 % (37.5-50.1); Hemoglobin 14.4 g/dL (12.9-16.9); Immature Granulocytes % 0.9 % (0-4); Lymphocytes # 2.1 K/mcL (0.6-4.6); Lymphocytes % 25.9 %; Mean Corpuscular HGB Conc 32.3 g/dL (31.6-35.5); Mean Corpuscular Hemoglobin 28.6 pg (28.0-33.3); Mean Corpuscular Volume 88.7 fL (83.0-100.0); Mean Platelet Volume 11.8 fL (9.4-12.4); Monocytes # 0.7 K/mcL (0.0-1.3); Monocytes % 8.7 %; Platelet Count 180 K/mcL (140-400); Red Blood Count 5.03 M/mcL (4.19-5.50); Red Cell Distribution Width 14.5 % (11.5-14.5); Segmented Neutrophils % 61.6 %; White Blood Count 8.1 K/mcL (4.3-11.1)
[2020-01-23 01:19] LABS: BUN/Creatinine Ratio 20 (6-26); Blood Urea Nitrogen 23 mg/dL (8-23); Calcium 8.2 mg/dL (8.6-10.3); Carbon Dioxide 31 mEq/L (23-29); Chloride 103 mEq/L (98-107); Glucose 183 mg/dL (70-105); Osmolality,Calculated 300 (280-300); Potassium 3.5 mEq/L (3.5-5.1); Sodium 141 mEq/L (136-145); eGFR For African Americans > 60 (> 60); eGFR For Non-African Americans > 60 (> 60)
[2020-01-23] MEDS: Budesonide/Formoterol 160/4.5 1 PUFF INH IH SCH ×2 (07:10→19:39)
[2020-01-23] MEDS: amLODIPine 5 MG TABLET PO SCH (08:10)
[2020-01-23] MEDS: Insulin DETEMIR 100 UNIT/ML X5UNITS SQ SCH (08:10)
[2020-01-23] MEDS: Metoprolol 100 MG TABLET PO SCH ×2 (08:11→21:09)
[2020-01-23] MEDS: *HR* Digoxin 0.125 MG TABLET PO SCH (08:11)
[2020-01-23] MEDS: Magnesium Oxide 400 MG TABLET PO SCH (08:11)
[2020-01-23] MEDS: Insulin LISPRO 300 UNITS/3 ML VIAL SQ SCH ×4 (08:12→21:09)
[2020-01-23] MEDS: Furosemide 40 MG/4 ML VIAL IVP SCH ×2 (08:12→17:39)
[2020-01-23] MEDS: Gabapentin 400 MG CAPSULE PO SCH ×3 (08:12→21:09)
[2020-01-23] MEDS: *HR* Dabigatran 150 MG CAPSULE PO SCH ×2 (08:17→21:08)
[2020-01-23] MEDS: Miconazole 2% ointment 141 APPL/141 GM TUBE TP SCH ×2 (12:11→21:09)
[2020-01-23] MEDS ORDERED: Insulin DETEMIR 100 UNIT/ML X5UNITS SQ ONE (17:00)
[2020-01-24 06:01] LABS: Basophils # 0.1 K/mcL (0.0-0.2); Basophils % 0.8 %; Eosinophils # 0.2 K/mcL (0.0-0.6); Eosinophils % 2.2 %; Hematocrit 46.8 % (37.5-50.1); Hemoglobin 14.9 g/dL (12.9-16.9); Immature Granulocytes % 0.9 % (0-4); Lymphocytes # 1.7 K/mcL (0.6-4.6); Lymphocytes % 22.6 %; Mean Corpuscular HGB Conc 31.8 g/dL (31.6-35.5); Mean Corpuscular Hemoglobin 28.2 pg (28.0-33.3); Mean Corpuscular Volume 88.6 fL (83.0-100.0); Mean Platelet Volume 12.3 fL (9.4-12.4); Monocytes # 0.6 K/mcL (0.0-1.3); Monocytes % 7.9 %; Platelet Count 178 K/mcL (140-400); Red Blood Count 5.28 M/mcL (4.19-5.50); Red Cell Distribution Width 14.6 % (11.5-14.5); Segmented Neutrophils % 65.6 %; White Blood Count 7.6 K/mcL (4.3-11.1)
[2020-01-24 06:24] LABS: BUN/Creatinine Ratio 21 (6-26); Blood Urea Nitrogen 24 mg/dL (8-23); Calcium 8.7 mg/dL (8.6-10.3); Carbon Dioxide 32 mEq/L (23-29); Chloride 100 mEq/L (98-107); Glucose 239 mg/dL (70-105); Osmolality,Calculated 298 (280-300); Potassium 4.2 mEq/L (3.5-5.1); Sodium 138 mEq/L (136-145); eGFR For African Americans > 60 (> 60); eGFR For Non-African Americans > 60 (> 60)
[2020-01-24] MEDS: Budesonide/Formoterol 160/4.5 1 PUFF INH IH SCH ×2 (07:09→19:45)
[2020-01-24] MEDS: *HR* Digoxin 0.125 MG TABLET PO SCH (07:50)
[2020-01-24] MEDS: amLODIPine 5 MG TABLET PO SCH (07:50)
[2020-01-24] MEDS: *HR* Dabigatran 150 MG CAPSULE PO SCH ×2 (07:50→21:31)
[2020-01-24] MEDS: Gabapentin 400 MG CAPSULE PO SCH ×3 (07:50→21:31)
[2020-01-24] MEDS: Magnesium Oxide 400 MG TABLET PO SCH (07:51)
[2020-01-24] MEDS: Metoprolol 100 MG TABLET PO SCH ×2 (07:51→21:31)
[2020-01-24] MEDS: Furosemide 40 MG/4 ML VIAL IVP SCH ×2 (07:51→17:26)
[2020-01-24] MEDS: Insulin LISPRO 300 UNITS/3 ML VIAL SQ SCH ×4 (08:02→21:30)
[2020-01-24] MEDS: Miconazole 2% ointment 141 APPL/141 GM TUBE TP SCH ×2 (08:48→21:32)
[2020-01-24] MEDS ORDERED: Insulin DETEMIR 100 UNIT/ML X5UNITS SQ SCH (09:00)
[2020-01-24] MEDS ORDERED: Furosemide 40 MG/4 ML VIAL IVP ONE (10:06)
[2020-01-24] MEDS: Insulin DETEMIR 100 UNIT/ML X5UNITS SQ SCH (21:31)
[2020-01-25 00:40] LABS: Basophils # 0.1 K/mcL (0.0-0.2); Basophils % 0.8 %; Eosinophils # 0.3 K/mcL (0.0-0.6); Eosinophils % 3.3 %; Hematocrit 45.3 % (37.5-50.1); Hemoglobin 14.2 g/dL (12.9-16.9); Immature Granulocytes % 0.7 % (0-4); Lymphocytes # 1.7 K/mcL (0.6-4.6); Lymphocytes % 22.3 %; Mean Corpuscular HGB Conc 31.3 g/dL (31.6-35.5); Mean Corpuscular Hemoglobin 28.2 pg (28.0-33.3); Mean Corpuscular Volume 90.1 fL (83.0-100.0); Monocytes # 0.7 K/mcL (0.0-1.3); Monocytes % 8.9 %; Neutrophils # 4.9 K/mcL (1.6-8.9); Platelet Count 177 K/mcL (140-400); Red Blood Count 5.03 M/mcL (4.19-5.50); Red Cell Distribution Width 14.6 % (11.5-14.5); White Blood Count 7.7 K/mcL (4.3-11.1)
[2020-01-25 01:00] LABS: BUN/Creatinine Ratio 19 (6-26); Blood Urea Nitrogen 23 mg/dL (8-23); Calcium 8.1 mg/dL (8.6-10.3); Carbon Dioxide 33 mEq/L (23-29); Chloride 103 mEq/L (98-107); Glucose 226 mg/dL (70-105); Osmolality,Calculated 303 (280-300); Potassium 3.6 mEq/L (3.5-5.1); Sodium 141 mEq/L (136-145); eGFR For African Americans > 60 (> 60); eGFR For Non-African Americans 60 (> 60)
[2020-01-25] MEDS: Budesonide/Formoterol 160/4.5 1 PUFF INH IH SCH ×2 (08:04→22:10)
[2020-01-25] MEDS: *HR* Digoxin 0.125 MG TABLET PO SCH (08:28)
[2020-01-25] MEDS: Insulin DETEMIR 100 UNIT/ML X5UNITS SQ SCH ×2 (08:28→22:00)
[2020-01-25] MEDS: *HR* Dabigatran 150 MG CAPSULE PO SCH ×2 (08:28→21:59)
[2020-01-25] MEDS: Magnesium Oxide 400 MG TABLET PO SCH (08:28)
[2020-01-25] MEDS: Metoprolol 100 MG TABLET PO SCH ×2 (08:28→21:59)
[2020-01-25] MEDS: Gabapentin 400 MG CAPSULE PO SCH ×3 (08:28→21:59)
[2020-01-25] MEDS: amLODIPine 5 MG TABLET PO SCH (08:28)
[2020-01-25] MEDS: Furosemide 40 MG/4 ML VIAL IVP SCH ×2 (08:29→17:53)
[2020-01-25] MEDS: Insulin LISPRO 300 UNITS/3 ML VIAL SQ SCH ×4 (08:29→22:00)
[2020-01-25] MEDS: Miconazole 2% ointment 141 APPL/141 GM TUBE TP SCH ×2 (08:29→22:01)
[2020-01-26 07:41] LABS: BUN/Creatinine Ratio 22 (6-26); Blood Urea Nitrogen 24 mg/dL (8-23); Calcium 8.5 mg/dL (8.6-10.3); Carbon Dioxide 32 mEq/L (23-29); Chloride 102 mEq/L (98-107); Glucose 183 mg/dL (70-105); Osmolality,Calculated 301 (280-300); Potassium 3.6 mEq/L (3.5-5.1); Sodium 141 mEq/L (136-145); eGFR For African Americans > 60 (> 60); eGFR For Non-African Americans > 60 (> 60)
[2020-01-26] MEDS: Magnesium Oxide 400 MG TABLET PO SCH (08:14)
[2020-01-26] MEDS: Gabapentin 400 MG CAPSULE PO SCH ×3 (08:14→20:17)
[2020-01-26] MEDS: amLODIPine 5 MG TABLET PO SCH (08:14)
[2020-01-26] MEDS: *HR* Dabigatran 150 MG CAPSULE PO SCH ×2 (08:14→20:15)
[2020-01-26] MEDS: Metoprolol 100 MG TABLET PO SCH ×2 (08:14→20:17)
[2020-01-26] MEDS: Furosemide 40 MG/4 ML VIAL IVP SCH ×2 (08:15→17:18)
[2020-01-26] MEDS: *HR* Digoxin 0.125 MG TABLET PO SCH (08:15)
[2020-01-26] MEDS: Insulin LISPRO 300 UNITS/3 ML VIAL SQ SCH ×4 (08:16→20:20)
[2020-01-26] MEDS: Miconazole 2% ointment 141 APPL/141 GM TUBE TP SCH ×2 (08:26→20:19)
[2020-01-26] MEDS: Insulin DETEMIR 100 UNIT/ML X5UNITS SQ SCH ×2 (08:26→20:18)
[2020-01-26] MEDS: Budesonide/Formoterol 160/4.5 1 PUFF INH IH SCH ×2 (09:44→20:06)
[2020-01-27 01:31] LABS: BUN/Creatinine Ratio 20 (6-26); Blood Urea Nitrogen 24 mg/dL (8-23); Calcium 8.6 mg/dL (8.6-10.3); Carbon Dioxide 31 mEq/L (23-29); Chloride 101 mEq/L (98-107); Glucose 214 mg/dL (70-105); Osmolality,Calculated 298 (280-300); Potassium 3.7 mEq/L (3.5-5.1); Sodium 139 mEq/L (136-145); eGFR For African Americans > 60 (> 60); eGFR For Non-African Americans 58 (> 60)
[2020-01-27] MEDS: Gabapentin 400 MG CAPSULE PO SCH ×3 (09:32→21:05)
[2020-01-27] MEDS: *HR* Dabigatran 150 MG CAPSULE PO SCH ×2 (09:33→21:05)
[2020-01-27] MEDS: Furosemide 40 MG/4 ML VIAL IVP SCH (09:33)
[2020-01-27] MEDS: Metoprolol 100 MG TABLET PO SCH ×2 (09:33→21:05)
[2020-01-27] MEDS: Magnesium Oxide 400 MG TABLET PO SCH (09:33)
[2020-01-27] MEDS: amLODIPine 5 MG TABLET PO SCH (09:33)
[2020-01-27] MEDS: *HR* Digoxin 0.125 MG TABLET PO SCH (09:33)
[2020-01-27] MEDS: Insulin DETEMIR 100 UNIT/ML X5UNITS SQ SCH ×2 (09:36→21:06)
[2020-01-27] MEDS: Insulin LISPRO 300 UNITS/3 ML VIAL SQ SCH ×4 (09:36→21:06)
[2020-01-27] MEDS: Miconazole 2% ointment 141 APPL/141 GM TUBE TP SCH ×2 (09:39→21:07)
[2020-01-27] MEDS: Budesonide/Formoterol 160/4.5 1 PUFF INH IH SCH ×2 (10:17→21:45)
[2020-01-27] MEDS: Furosemide 40 MG TABLET PO SCH (17:19)
[2020-01-28 03:53] LABS: BUN/Creatinine Ratio 21 (6-26); Blood Urea Nitrogen 25 mg/dL (8-23); Calcium 8.9 mg/dL (8.6-10.3); Carbon Dioxide 32 mEq/L (23-29); Chloride 101 mEq/L (98-107); Glucose 159 mg/dL (70-105); Osmolality,Calculated 300 (280-300); Potassium 3.4 mEq/L (3.5-5.1); Sodium 141 mEq/L (136-145); eGFR For African Americans > 60 (> 60); eGFR For Non-African Americans 60 (> 60)
[2020-01-28] MEDS: Budesonide/Formoterol 160/4.5 1 PUFF INH IH SCH (07:26)
[2020-01-28 07:36] VITALS: BP 103/71
[2020-01-28] MEDS: Insulin LISPRO 300 UNITS/3 ML VIAL SQ SCH (07:38)
[2020-01-28] MEDS: amLODIPine 5 MG TABLET PO SCH (07:48)
[2020-01-28] MEDS: *HR* Digoxin 0.125 MG TABLET PO SCH (07:48)
[2020-01-28] MEDS: Furosemide 40 MG TABLET PO SCH (07:48)
[2020-01-28] MEDS: Insulin DETEMIR 100 UNIT/ML X5UNITS SQ SCH (07:49)
[2020-01-28] MEDS: Gabapentin 400 MG CAPSULE PO SCH (07:49)
[2020-01-28] MEDS: *HR* Dabigatran 150 MG CAPSULE PO SCH (07:49)
[2020-01-28] MEDS: Magnesium Oxide 400 MG TABLET PO SCH (07:49)
[2020-01-28] MEDS: Metoprolol 100 MG TABLET PO SCH (07:49)
[2020-01-28] MEDS: Miconazole 2% ointment 141 APPL/141 GM TUBE TP SCH (07:54)
== END 2020-01-28 10:31 | disposition home or self-care (01) | DRG 291 ==
LOC: EMEROOARM 13:26 → 2ANU 13:26 → SUATTDRO 17:27 → 2ANU 18:33
PROVIDERS: ADMIT Pharmacist; ATTEND Internal Medicine

== ENCOUNTER 2020-03-17 09:00 | Inpatient (IN) ==
[2020-03-17] MEDS ORDERED: Naloxone 0.4 MG/ML INJ IVP PRN (09:52)
[2020-03-17] MEDS ORDERED: Fluticasone Propionate Nasal 50 MCG/SPRAY BOTTLE NS PRN (10:47)
[2020-03-17] MEDS ORDERED: Nitroglycerin 0.4 MG TAB.SUBL SL PRN (10:47)
[2020-03-17] MEDS ORDERED: Ipratropium/Albuterol Neb 3 ML IH PRN (16:00)
[2020-03-17] MEDS: Furosemide 40 MG TABLET PO SCH (16:26)
[2020-03-17] MEDS: Gabapentin 400 MG CAPSULE PO SCH ×2 (16:26→20:54)
[2020-03-17] MEDS: *HR* Metformin 500 MG TABLET PO SCH (16:26)
[2020-03-17] MEDS: Budesonide/Formoterol 160/4.5 1 PUFF INH IH SCH (19:47)
[2020-03-17] MEDS: Metoprolol 100 MG TABLET PO SCH (20:54)
[2020-03-17] MEDS: *HR* Dabigatran 150 MG CAPSULE PO SCH (20:54)
[2020-03-18 05:13] LABS: Hematocrit 44.4 % (37.5-50.1); Mean Corpuscular HGB Conc 31.5 g/dL (31.6-35.5); Mean Corpuscular Hemoglobin 28.8 pg (28.0-33.3); Mean Corpuscular Volume 91.4 fL (83.0-100.0); Mean Platelet Volume 11.1 fL (9.4-12.4); Platelet Count 161 K/mcL (140-400); Red Blood Count 4.86 M/mcL (4.19-5.50); White Blood Count 8.3 K/mcL (4.3-11.1)
[2020-03-18 05:32] LABS: BUN/Creatinine Ratio 23 (6-26); Blood Urea Nitrogen 26 mg/dL (8-23); Carbon Dioxide 32 mEq/L (23-29); Chloride 104 mEq/L (98-107); Glucose 125 mg/dL (70-105); Osmolality,Calculated 302 (280-300); Potassium 3.7 mEq/L (3.5-5.1); Sodium 143 mEq/L (136-145); eGFR For African Americans > 60 (> 60); eGFR For Non-African Americans > 60 (> 60)
[2020-03-18] MEDS: Budesonide/Formoterol 160/4.5 1 PUFF INH IH SCH ×2 (07:48→22:02)
[2020-03-18] MEDS: Fenofibrate 54 MG TABLET PO SCH (08:14)
[2020-03-18] MEDS: *HR* Digoxin 0.125 MG TABLET PO SCH (08:14)
[2020-03-18] MEDS: *HR* Dabigatran 150 MG CAPSULE PO SCH ×2 (08:14→20:44)
[2020-03-18] MEDS: Furosemide 40 MG TABLET PO SCH ×2 (08:14→15:26)
[2020-03-18] MEDS: amLODIPine 5 MG TABLET PO SCH (08:15)
[2020-03-18] MEDS: Metoprolol 100 MG TABLET PO SCH ×2 (08:15→20:44)
[2020-03-18] MEDS: Magnesium Oxide 400 MG TABLET PO SCH (08:15)
[2020-03-18] MEDS: *HR* SitaGLIPtin 100 MG TABLET PO SCH (08:15)
[2020-03-18] MEDS: Gabapentin 400 MG CAPSULE PO SCH ×3 (08:15→20:44)
[2020-03-18] MEDS: allopurinoL 300 MG TABLET PO SCH (08:15)
[2020-03-18] MEDS: *HR* Glimepiride 2 MG TABLET PO SCH (08:15)
[2020-03-18] MEDS: valACYclovir 500 MG TABLET PO SCH (08:15)
[2020-03-18] MEDS: *HR* Metformin 500 MG TABLET PO SCH ×2 (08:15→15:26)
[2020-03-18] MEDS: Cyanocobalamin (B-12) 1,000 MCG TABLET PO SCH (08:16)
[2020-03-19] MEDS: *HR* Digoxin 0.125 MG TABLET PO SCH (08:51)
[2020-03-19] MEDS: Furosemide 40 MG TABLET PO SCH (08:51)
[2020-03-19] MEDS: Gabapentin 400 MG CAPSULE PO SCH ×3 (08:52→20:33)
[2020-03-19] MEDS: Magnesium Oxide 400 MG TABLET PO SCH (08:52)
[2020-03-19] MEDS: *HR* Dabigatran 150 MG CAPSULE PO SCH ×2 (08:52→20:33)
[2020-03-19] MEDS: Metoprolol 100 MG TABLET PO SCH (08:52)
[2020-03-19] MEDS: Cyanocobalamin (B-12) 1,000 MCG TABLET PO SCH (08:52)
[2020-03-19] MEDS: valACYclovir 500 MG TABLET PO SCH (08:52)
[2020-03-19] MEDS: allopurinoL 300 MG TABLET PO SCH (08:52)
[2020-03-19] MEDS: amLODIPine 5 MG TABLET PO SCH (08:52)
[2020-03-19] MEDS: Fenofibrate 54 MG TABLET PO SCH (08:53)
[2020-03-19] MEDS: *HR* Glimepiride 2 MG TABLET PO SCH (08:53)
[2020-03-19] MEDS: *HR* SitaGLIPtin 100 MG TABLET PO SCH (08:53)
[2020-03-19] MEDS: *HR* Metformin 500 MG TABLET PO SCH ×2 (08:53→16:23)
[2020-03-19] MEDS: Budesonide/Formoterol 160/4.5 1 PUFF INH IH SCH ×2 (10:04→21:21)
[2020-03-19] MEDS ORDERED: 0.9 % Sodium Chloride 500 ML IVC ONE (10:28)
[2020-03-19] MEDS ORDERED: *HR* Midazolam HCl 5 MG/5 ML VIAL IVP PRN (10:28)
[2020-03-19] MEDS: *HR* FentaNYL (PF) 100 MCG/2 ML VIAL IVP PRN ×2 (10:50→10:55)
[2020-03-19] MEDS ORDERED: Metoprolol 100 MG TABLET PO SCH (21:00)
[2020-03-19] MEDS: Furosemide 80 MG in 0.9 % Sodium Chloride 50 ML IV SCH (21:13)
[2020-03-20 06:01] LABS: BUN/Creatinine Ratio 22 (6-26); Blood Urea Nitrogen 26 mg/dL (8-23); Calcium 8.8 mg/dL (8.6-10.3); Chloride 103 mEq/L (98-107); Glucose 163 mg/dL (70-105); Osmolality,Calculated 302 (280-300); Potassium 3.9 mEq/L (3.5-5.1); Sodium 142 mEq/L (136-145); eGFR For African Americans > 60 (> 60); eGFR For Non-African Americans > 60 (> 60)
[2020-03-20 06:31] LABS: Carbon Dioxide 31 mEq/L (23-29)
[2020-03-20 07:41] VITALS: BP 128/76
[2020-03-20] MEDS: allopurinoL 300 MG TABLET PO SCH (08:57)
[2020-03-20] MEDS: Magnesium Oxide 400 MG TABLET PO SCH (08:57)
[2020-03-20] MEDS: Cyanocobalamin (B-12) 1,000 MCG TABLET PO SCH (08:58)
[2020-03-20] MEDS: Gabapentin 400 MG CAPSULE PO SCH (08:58)
[2020-03-20] MEDS: *HR* Metformin 500 MG TABLET PO SCH (08:58)
[2020-03-20] MEDS: Fenofibrate 54 MG TABLET PO SCH (08:58)
[2020-03-20] MEDS: valACYclovir 500 MG TABLET PO SCH (08:59)
[2020-03-20] MEDS: amLODIPine 5 MG TABLET PO SCH (08:59)
[2020-03-20] MEDS: *HR* SitaGLIPtin 100 MG TABLET PO SCH (08:59)
[2020-03-20] MEDS: *HR* Dabigatran 150 MG CAPSULE PO SCH (09:00)
[2020-03-20] MEDS ORDERED: Metoprolol 100 MG TABLET PO SCH (09:00)
[2020-03-20] MEDS: *HR* Glimepiride 2 MG TABLET PO SCH (09:01)
[2020-03-20] MEDS: *HR* Digoxin 0.125 MG TABLET PO SCH (09:04)
[2020-03-20] MEDS: Furosemide 80 MG in 0.9 % Sodium Chloride 50 ML IV SCH (10:03)
[2020-03-20] MEDS: Budesonide/Formoterol 160/4.5 1 PUFF INH IH SCH (10:11)
== END 2020-03-20 12:45 | disposition home or self-care (01) | DRG 309 ==
LOC: 2NENU → 3BNU 09:15
PROVIDERS: ADMIT Internal Medicine Clinical Cardiac Electrophysiology; ATTEND Internal Medicine Clinical Cardiac Electrophysiology

== ENCOUNTER 2020-05-14 21:28 | Inpatient (IN) ==
[2020-05-14 21:56] LABS: Basophils # 0.1 K/mcL (0.0-0.2); Basophils % 0.8 %; Eosinophils # 0.9 K/mcL (0.0-0.6); Eosinophils % 9.5 %; Hematocrit 45.7 % (37.5-50.1); Hemoglobin 14.9 g/dL (12.9-16.9); Immature Granulocytes % 0.9 % (0-4); Lymphocytes % 21.4 %; Mean Corpuscular HGB Conc 32.6 g/dL (31.6-35.5); Mean Corpuscular Hemoglobin 29.7 pg (28.0-33.3); Mean Corpuscular Volume 91.2 fL (83.0-100.0); Mean Platelet Volume 10.7 fL (9.4-12.4); Monocytes # 0.9 K/mcL (0.0-1.3); Monocytes % 9.5 %; Neutrophils # 5.3 K/mcL (1.6-8.9); Platelet Count 170 K/mcL (140-400); Red Blood Count 5.01 M/mcL (4.19-5.50); Red Cell Distribution Width 15.9 % (11.5-14.5); Segmented Neutrophils % 57.9 %; White Blood Count 9.2 K/mcL (4.3-11.1)
[2020-05-14 22:17] LABS: BUN/Creatinine Ratio 25 (6-26); Blood Urea Nitrogen 87 mg/dL (8-23); Calcium 10.3 mg/dL (8.6-10.3); Carbon Dioxide 39 mEq/L (23-29); Chloride 89 mEq/L (98-107); Glucose 195 mg/dL (70-105); Osmolality,Calculated 322 (280-300); Potassium 3.4 mEq/L (3.5-5.1); Sodium 140 mEq/L (136-145); eGFR For African Americans 21 (> 60); eGFR For Non-African Americans 17 (> 60)
[2020-05-14 22:18] LABS: Troponin I < 0.03 ng/mL (< 0.04)
[2020-05-14 23:13] LABS: Bacteria,Urine Few per hpf (None-Few); Bilirubin,Urine Negative (Negative); Blood,Urine Negative (Negative); Clarity,Urine Turbid (Clear); Color,Urine Yellow (Yellow); Glucose,Urine (UA) Normal (Normal); Hyaline Casts,Urine Few per lpf (None Seen); Ketones,Urine Negative (Negative); Leukocyte Esterase,Urine Negative (Negative); Mucus,Urine Few per lpf (None-Few); Nitrite,Urine Negative (Negative); Protein,Urine Trace mg/dL (Neg-Trace); RBC,Urine 0-3 per hpf (0-3); Specific Gravity,Urine 1.019 (1.010-1.025); Squamous Epithelial Cell,Urine Few per hpf (None-Few); Urobilinogen,Urine Normal (Normal); WBC,Urine 0-3 per hpf (0-3)
[2020-05-14] MEDS ORDERED: Bumetanide 1 MG/4 ML VIAL IVP ONE (23:36)
[2020-05-15] MEDS ORDERED: Naloxone 0.4 MG/ML INJ IVP PRN (00:09)
[2020-05-15] MEDS ORDERED: Acetaminophen 325 MG TABLET PO PRN (00:09)
[2020-05-15] MEDS ORDERED: Ondansetron ODT 4 MG TAB.RAPDIS SL PRN (00:09)
[2020-05-15] MEDS ORDERED: Fluticasone Propionate Nasal 50 MCG/SPRAY BOTTLE NS PRN (00:12)
[2020-05-15] MEDS ORDERED: *HR* Dextrose 50 % in Water (Vial) 50 ML VIAL IVP PRN (01:04)
[2020-05-15] MEDS ORDERED: D5% in Water 1,000 ML IVC PRN (01:04)
[2020-05-15] MEDS ORDERED: Dextrose Gel 15 GM/37.5 ML TUBE PO PRN ×2 (01:04)
[2020-05-15 02:11] LABS: Adenovirus Not Detected (Not Detect); Bordetella Pertussis Not Detected (Not Detect); Chlamydophila pneumoniae Not Detected (Not Detect); Coronavirus 229E Not Detected (Not Detect); Coronavirus HKU1 Not Detected (Not Detect); Coronavirus NL63 Not Detected (Not Detect); Coronavirus OC43 Not Detected (Not Detect); Human Metapneumovirus Not Detected (Not Detect); Human Rhinovirus/Enterovirus Not Detected (Not Detect); Influenza A Subtype 2009 H1 Not Detected (Not Detect); Influenza B Not Detected (Not Detect); Mycoplasma pneumoniae Not Detected (Not Detect); Parainfluenza Virus 1 Not Detected (Not Detect); Parainfluenza Virus 2 Not Detected (Not Detect); Parainfluenza Virus 3 Not Detected (Not Detect); Parainfluenza Virus 4 Not Detected (Not Detect); Respiratory Syncytial Virus Not Detected (Not Detect); SARS-CoV-2 Not Detected (Not Detect)
[2020-05-15 02:26] LABS: Chol/HDL Ratio 5.1 (0-4.9); Potassium 3.4 mEq/L (3.5-5.1)
[2020-05-15] MEDS ORDERED: Albumin 25% 25gram/100mL 50 GM/200 ML IV.SOLN IVC SCH (02:30)
[2020-05-15] MEDS ORDERED: Ringers Solution, Lactated 500 ML IVC ONE (02:30)
[2020-05-15 03:48] LABS: Albumin 3.9 g/dL (3.5-5.7); Albumin/Globulin Ratio 1.6 (1.1-2.2); Bilirubin,Direct 0.1 mg/dL (0.0-0.2); Bilirubin,Indirect 0.3 mg/dL (0.0-1.0); Bilirubin,Total 0.4 mg/dL (0.3-1.0); Globulin 2.4 g/dL (2.4-3.5); Total Protein 6.3 g/dL (6.4-8.9)
[2020-05-15] MEDS ORDERED: Furosemide 40 MG/4 ML VIAL IV SCH (06:00)
[2020-05-15] MEDS ORDERED: Insulin LISPRO 300 UNITS/3 ML VIAL SQ SCH (06:00)
[2020-05-15] MEDS: Budesonide/Formoterol 160/4.5 1 PUFF INH IH SCH ×2 (07:57→19:39)
[2020-05-15] MEDS ORDERED: *HR* Dabigatran 150 MG CAPSULE PO SCH (09:00)
[2020-05-15] MEDS ORDERED: Fenofibrate 54 MG TABLET PO SCH (09:00)
[2020-05-15 09:05] LABS: Phosphorous 7.9 mg/dL (2.7-4.5)
[2020-05-15] MEDS: 0.9 % Sodium Chloride 1,000 ML IVC SCH ×2 (09:12→20:49)
[2020-05-15 09:14] LABS: Bilirubin,Urine Negative (Negative); Blood,Urine Moderate (Negative); Clarity,Urine Clear (Clear); Color,Urine Colorless (Yellow); Glucose,Urine (UA) Normal (Normal); Hyaline Casts,Urine Few per lpf (None Seen); Ketones,Urine Negative (Negative); Leukocyte Esterase,Urine Negative (Negative); Mucus,Urine Few per lpf (None-Few); Nitrite,Urine Negative (Negative); Protein,Urine Negative (Neg-Trace); RBC,Urine 15-30 per hpf (0-3); Urobilinogen,Urine Normal (Normal); WBC,Urine 0-3 per hpf (0-3)
[2020-05-15 09:43] LABS: Protein/Creatinine Ratio,Urine 0.12 mg/mg (0.00-0.20); Sodium, Urine 97.4 mEq/L
[2020-05-15 09:46] LABS: Estimated Average Glucose 157 mg/dl
[2020-05-15] MEDS ORDERED: Ipratropium/Albuterol Neb 3 ML IH PRN ×2 (09:46→16:18)
[2020-05-15] MEDS: Insulin LISPRO 300 UNITS/3 ML VIAL SQ SCH ×2 (17:41→20:32)
[2020-05-15] MEDS: predniSONE 20 MG TABLET PO SCH (18:10)
[2020-05-15] MEDS: *HR* Dabigatran 75 MG CAPSULE PO SCH (20:32)
[2020-05-15] MEDS: Insulin DETEMIR 100 UNIT/ML X5UNITS SQ SCH (20:33)
[2020-05-15] MEDS ORDERED: Insulin DETEMIR 100 UNIT/ML X5UNITS SQ SCH (21:00)
[2020-05-16] MEDS: Melatonin 3 MG TABLET PO PRN ×2 (00:02→19:58)
[2020-05-16 03:15] LABS: Calcium 9.7 mg/dL (8.6-10.3); Magnesium 1.9 mg/dL (1.6-2.6); Phosphorous 3.7 mg/dL (2.7-4.5); Potassium 3.7 mEq/L (3.5-5.1)
[2020-05-16] MEDS: 0.9 % Sodium Chloride 1,000 ML IVC SCH (04:12)
[2020-05-16 05:42] LABS: Hematocrit 43.8 % (37.5-50.1); Hemoglobin 13.9 g/dL (12.9-16.9); Mean Corpuscular HGB Conc 31.7 g/dL (31.6-35.5); Mean Corpuscular Volume 91.4 fL (83.0-100.0); Mean Platelet Volume 11.5 fL (9.4-12.4); Platelet Count 177 K/mcL (140-400); Red Blood Count 4.79 M/mcL (4.19-5.50); Red Cell Distribution Width 15.7 % (11.5-14.5); White Blood Count 9.1 K/mcL (4.3-11.1)
[2020-05-16] MEDS: Budesonide/Formoterol 160/4.5 1 PUFF INH IH SCH ×2 (07:57→19:55)
[2020-05-16] MEDS: Insulin LISPRO 300 UNITS/3 ML VIAL SQ SCH ×4 (09:08→19:59)
[2020-05-16] MEDS: amLODIPine 5 MG TABLET PO SCH (09:12)
[2020-05-16] MEDS: predniSONE 20 MG TABLET PO SCH (09:12)
[2020-05-16] MEDS: Cyanocobalamin (B-12) 1,000 MCG TABLET PO SCH (09:14)
[2020-05-16] MEDS: *HR* Dabigatran 75 MG CAPSULE PO SCH ×2 (09:16→19:58)
[2020-05-16] MEDS: Insulin DETEMIR 100 UNIT/ML X5UNITS SQ SCH (19:59)
[2020-05-17] MEDS: Budesonide/Formoterol 160/4.5 1 PUFF INH IH SCH (07:29)
[2020-05-17 07:42] VITALS: BP 129/65
[2020-05-17] MEDS: Insulin LISPRO 300 UNITS/3 ML VIAL SQ SCH ×2 (07:58→12:23)
[2020-05-17] MEDS: predniSONE 20 MG TABLET PO SCH (07:59)
[2020-05-17] MEDS: *HR* Dabigatran 75 MG CAPSULE PO SCH (07:59)
[2020-05-17] MEDS: Cyanocobalamin (B-12) 1,000 MCG TABLET PO SCH (07:59)
[2020-05-17] MEDS: amLODIPine 5 MG TABLET PO SCH (07:59)
[2020-05-17 11:19] LABS: Hematocrit 45.6 % (37.5-50.1); Hemoglobin 15.1 g/dL (12.9-16.9); Mean Corpuscular HGB Conc 33.1 g/dL (31.6-35.5); Mean Corpuscular Hemoglobin 30.6 pg (28.0-33.3); Mean Corpuscular Volume 92.5 fL (83.0-100.0); Mean Platelet Volume 11.1 fL (9.4-12.4); Platelet Count 168 K/mcL (140-400); Red Blood Count 4.93 M/mcL (4.19-5.50); Red Cell Distribution Width 15.7 % (11.5-14.5); White Blood Count 10.1 K/mcL (4.3-11.1)
[2020-05-17 11:35] LABS: BUN/Creatinine Ratio 33 (6-26); Blood Urea Nitrogen 44 mg/dL (8-23); Calcium 9.8 mg/dL (8.6-10.3); Carbon Dioxide 31 mEq/L (23-29); Chloride 101 mEq/L (98-107); Glucose 136 mg/dL (70-105); Magnesium 1.7 mg/dL (1.6-2.6); Osmolality,Calculated 307 (280-300); Phosphorous 2.2 mg/dL (2.7-4.5); Potassium 3.4 mEq/L (3.5-5.1); Sodium 142 mEq/L (136-145); eGFR For African Americans > 60 (> 60); eGFR For Non-African Americans 52 (> 60)
[2020-05-17] MEDS ORDERED: FLU Vac QV 20-21 (6Month+)/PF 0.5 ML SYRINGE IM ONE (11:58)
== END 2020-05-17 13:36 | disposition home or self-care (01) | DRG 291 ==
LOC: EMEROOARM 21:28 → 2ANU 21:28 → SUATTDRO 23:54 → OBSVTOIN 23:54 → 2ANU 05-15 00:46
PROVIDERS: ADMIT Family Medicine; ATTEND Internal Medicine

== ENCOUNTER 2020-05-17 23:45 | Inpatient (IN) ==
[2020-05-18 01:39] LABS: Bilirubin,Urine Negative (Negative); Blood,Urine Negative (Negative); Clarity,Urine Clear (Clear); Color,Urine Light-Yellow (Yellow); Glucose,Urine (UA) Normal (Normal); Ketones,Urine Negative (Negative); Leukocyte Esterase,Urine Negative (Negative); Mucus,Urine Few per lpf (None-Few); Nitrite,Urine Negative (Negative); Protein,Urine 30 mg/dL (Neg-Trace); RBC,Urine 0-3 per hpf (0-3); Specific Gravity,Urine 1.019 (1.010-1.025); Urobilinogen,Urine Normal (Normal); WBC,Urine 0-3 per hpf (0-3)
[2020-05-18 01:46] LABS: Basophils # 0.1 K/mcL (0.0-0.2); Eosinophils # 0.3 K/mcL (0.0-0.6); Eosinophils % 2.9 %; Hematocrit 46.3 % (37.5-50.1); Hemoglobin 15.2 g/dL (12.9-16.9); Immature Granulocytes % 0.6 % (0-4); Lymphocytes # 2.2 K/mcL (0.6-4.6); Lymphocytes % 20.7 %; Mean Corpuscular HGB Conc 32.8 g/dL (31.6-35.5); Mean Corpuscular Hemoglobin 30.3 pg (28.0-33.3); Mean Corpuscular Volume 92.2 fL (83.0-100.0); Mean Platelet Volume 11.3 fL (9.4-12.4); Monocytes % 9.9 %; Neutrophils # 6.8 K/mcL (1.6-8.9); Platelet Count 175 K/mcL (140-400); Red Blood Count 5.02 M/mcL (4.19-5.50); Red Cell Distribution Width 15.5 % (11.5-14.5); Segmented Neutrophils % 64.9 %; White Blood Count 10.4 K/mcL (4.3-11.1)
[2020-05-18 02:03] LABS: BUN/Creatinine Ratio 29 (6-26); Blood Urea Nitrogen 38 mg/dL (8-23); Calcium 9.7 mg/dL (8.6-10.3); Carbon Dioxide 28 mEq/L (23-29); Chloride 103 mEq/L (98-107); Glucose 152 mg/dL (70-105); Osmolality,Calculated 308 (280-300); Potassium 3.4 mEq/L (3.5-5.1); Sodium 143 mEq/L (136-145); eGFR For African Americans > 60 (> 60); eGFR For Non-African Americans 53 (> 60)
[2020-05-18 02:04] LABS: Troponin I < 0.03 ng/mL (< 0.04)
[2020-05-18] MEDS ORDERED: Naloxone 0.4 MG/ML INJ IVP PRN (04:26)
[2020-05-18] MEDS ORDERED: Ondansetron 4 MG/2 ML VIAL IVP PRN (04:26)
[2020-05-18] MEDS ORDERED: Acetaminophen 325 MG TABLET PO PRN (04:29)
[2020-05-18] MEDS ORDERED: Dextrose Gel 15 GM/37.5 ML TUBE PO PRN ×2 (04:37)
[2020-05-18] MEDS ORDERED: *HR* Dextrose 50 % in Water (Vial) 50 ML VIAL IVP PRN (04:37)
[2020-05-18] MEDS ORDERED: D5% in Water 1,000 ML IVC PRN (04:37)
[2020-05-18 05:16] LABS: INR 1.2
[2020-05-18] MEDS: Budesonide/Formoterol 160/4.5 1 PUFF INH IH SCH ×2 (07:50→20:32)
[2020-05-18] MEDS ORDERED: Metoprolol 100 MG TABLET PO SCH (09:00)
[2020-05-18] MEDS ORDERED: amLODIPine 5 MG TABLET PO SCH (09:00)
[2020-05-18] MEDS: allopurinoL 300 MG TABLET PO SCH (09:11)
[2020-05-18] MEDS: predniSONE 20 MG TABLET PO SCH (09:11)
[2020-05-18] MEDS: Aspirin Enteric Coated 81 MG Tablet PO SCH (09:12)
[2020-05-18] MEDS: Fenofibrate 54 MG TABLET PO SCH (09:12)
[2020-05-18] MEDS: *HR* Dabigatran 150 MG CAPSULE PO SCH ×2 (09:12→21:40)
[2020-05-18] MEDS: Furosemide 40 MG TABLET PO SCH (09:12)
[2020-05-18] MEDS: Insulin LISPRO 300 UNITS/3 ML VIAL SQ SCH ×3 (09:13→17:53)
[2020-05-18 10:10] LABS: Amphetamine Screen,Urine Negative ng/mL (Cutoff=1000); Barbiturate Screen,Urine Negative ng/mL (Cutoff=200); Benzodiazepines Screen,Urine Negative ng/mL (Cutoff=200); Cannabinoid Screen,Urine Negative ng/mL (Cutoff = 50); Cocaine Screen,Urine Negative ng/mL (Cutoff= 300); Opiate Screen,Urine Negative ng/mL (Cutoff=300); Phencyclidine Screen,Urine Negative ng/mL (Cutoff=25)
[2020-05-18] MEDS ORDERED: Insulin DETEMIR 100 UNIT/ML X5UNITS SQ SCH (21:00)
[2020-05-18] MEDS ORDERED: Loratadine 10 MG TABLET PO SCH (21:00)
[2020-05-18] MEDS ORDERED: Insulin LISPRO 300 UNITS/3 ML VIAL SQ SCH (21:00)
[2020-05-18] MEDS: Metoprolol 100 MG TABLET PO SCH (21:40)
[2020-05-18] MEDS: Gabapentin 400 MG CAPSULE PO SCH (21:40)
[2020-05-19 06:54] LABS: BUN/Creatinine Ratio 26 (6-26); Blood Urea Nitrogen 31 mg/dL (8-23); Calcium 9.2 mg/dL (8.6-10.3); Carbon Dioxide 30 mEq/L (23-29); Chloride 104 mEq/L (98-107); Glucose 120 mg/dL (70-105); Osmolality,Calculated 302 (280-300); Potassium 3.2 mEq/L (3.5-5.1); Sodium 142 mEq/L (136-145); eGFR For African Americans > 60 (> 60); eGFR For Non-African Americans 59 (> 60)
[2020-05-19] MEDS: Budesonide/Formoterol 160/4.5 1 PUFF INH IH SCH (07:49)
[2020-05-19] MEDS: Gabapentin 400 MG CAPSULE PO SCH ×2 (08:46→14:07)
[2020-05-19] MEDS: allopurinoL 300 MG TABLET PO SCH (08:46)
[2020-05-19] MEDS: Aspirin Enteric Coated 81 MG Tablet PO SCH (08:46)
[2020-05-19] MEDS: *HR* Dabigatran 150 MG CAPSULE PO SCH (08:46)
[2020-05-19] MEDS: Insulin LISPRO 300 UNITS/3 ML VIAL SQ SCH ×2 (08:47→11:48)
[2020-05-19] MEDS: Fenofibrate 54 MG TABLET PO SCH (08:48)
[2020-05-19] MEDS: predniSONE 20 MG TABLET PO SCH (08:48)
[2020-05-19] MEDS: Furosemide 40 MG TABLET PO SCH (08:49)
[2020-05-19] MEDS: Metoprolol 100 MG TABLET PO SCH (08:49)
[2020-05-19 10:43] VITALS: BP 120/78
== END 2020-05-19 14:44 | disposition home health service (06) | DRG 69 ==
LOC: EMEROOARM 23:45 → 3ANU 23:45
PROVIDERS: ADMIT Internal Medicine; ATTEND Internal Medicine

== ENCOUNTER 2020-06-09 04:10 | Inpatient (IN) ==
[2020-06-09 04:45] LABS: Basophils # 0.1 K/mcL (0.0-0.2); Basophils % 0.7 %; Eosinophils # 0.5 K/mcL (0.0-0.6); Eosinophils % 5.8 %; Hematocrit 42.9 % (37.5-50.1); Hemoglobin 13.7 g/dL (12.9-16.9); Immature Granulocytes % 0.4 % (0-4); Lymphocytes # 1.6 K/mcL (0.6-4.6); Lymphocytes % 16.8 %; Mean Corpuscular HGB Conc 31.9 g/dL (31.6-35.5); Mean Corpuscular Hemoglobin 30.9 pg (28.0-33.3); Mean Corpuscular Volume 96.6 fL (83.0-100.0); Mean Platelet Volume 10.8 fL (9.4-12.4); Monocytes # 0.9 K/mcL (0.0-1.3); Monocytes % 9.1 %; Neutrophils # 6.3 K/mcL (1.6-8.9); Platelet Count 155 K/mcL (140-400); Red Blood Count 4.44 M/mcL (4.19-5.50); Segmented Neutrophils % 67.2 %; White Blood Count 9.4 K/mcL (4.3-11.1)
[2020-06-09 04:58] LABS: INR 1.3; Prothrombin Time 14.4 Seconds (9.4-12.1)
[2020-06-09 05:09] LABS: Alanine Aminotransferase 12 Units/L (7-52); Albumin 4.1 g/dL (3.5-5.7); Albumin/Globulin Ratio 1.8 (1.1-2.2); Alkaline Phosphatase 51 Units/L (34-104); Aspartate Amino Transferase 12 Units/L (13-39); BUN/Creatinine Ratio 23 (6-26); Bilirubin,Direct 0.2 mg/dL (0.0-0.2); Bilirubin,Indirect 0.3 mg/dL (0.0-1.0); Bilirubin,Total 0.5 mg/dL (0.3-1.0); Blood Urea Nitrogen 29 mg/dL (8-23); Carbon Dioxide 30 mEq/L (23-29); Chloride 108 mEq/L (98-107); Globulin 2.3 g/dL (2.4-3.5); Glucose 120 mg/dL (70-105); Lipase 20 Units/L (11-82); Osmolality,Calculated 307 (280-300); Potassium 4.1 mEq/L (3.5-5.1); Sodium 145 mEq/L (136-145); Total Protein 6.4 g/dL (6.4-8.9); Troponin I < 0.03 ng/mL (< 0.04); eGFR For African Americans > 60 (> 60); eGFR For Non-African Americans 57 (> 60)
[2020-06-09 05:57] LABS: VBG HCO3 30 mEq/L (21-27); VBG PCO2 63 mmHg (41-51); VBG PH 7.29 pH Units (7.32-7.42); VBG PO2 52 mmHg (25-50)
[2020-06-09] MEDS ORDERED: Naloxone 0.4 MG/ML INJ IVP PRN (07:40)
[2020-06-09] MEDS ORDERED: Nitroglycerin 0.4 MG TAB.SUBL SL PRN (07:45)
[2020-06-09] MEDS: Budesonide/Formoterol 160/4.5 1 PUFF INH IH SCH ×2 (09:44→19:43)
[2020-06-09 09:46] LABS: ABG Base Excess 4 mEq/L (-2 to 3); ABG HCO3 33 mEq/L (21-27); ABG Oxygen Saturation 94 % (95-98); ABG PCO2 64 mmHg (35-45); ABG PH 7.32 pH Units (7.32-7.45); ABG PO2 78 mmHg (85-104); ABG TCO2 35 mEq/L (20-26)
[2020-06-09] MEDS: valACYclovir 500 MG TABLET PO SCH (11:41)
[2020-06-09] MEDS: Furosemide 20 MG TABLET PO SCH (11:41)
[2020-06-09] MEDS: Cyanocobalamin (B-12) 1,000 MCG TABLET PO SCH (11:41)
[2020-06-09] MEDS: Gabapentin 400 MG CAPSULE PO SCH ×3 (11:41→20:49)
[2020-06-09] MEDS: allopurinoL 300 MG TABLET PO SCH (11:42)
[2020-06-09] MEDS: *HR* Dabigatran 150 MG CAPSULE PO SCH ×2 (11:42→20:49)
[2020-06-09] MEDS: amLODIPine 5 MG TABLET PO SCH (11:45)
[2020-06-09] MEDS ORDERED: Albuterol 2.5 MG/3 ML NEBULIZER IH PRN (14:36)
[2020-06-09] MEDS ORDERED: D5% in Water 1,000 ML IVC PRN (14:39)
[2020-06-09] MEDS ORDERED: *HR* Dextrose 50 % in Water (Vial) 50 ML VIAL IVP PRN (14:39)
[2020-06-09] MEDS ORDERED: Dextrose Gel 15 GM/37.5 ML TUBE PO PRN ×2 (14:39)
[2020-06-09] MEDS: Ipratropium/Albuterol Neb 3 ML IH SCH ×3 (15:41→23:52)
[2020-06-09] MEDS: predniSONE 20 MG TABLET PO SCH (16:16)
[2020-06-09] MEDS ORDERED: Furosemide 40 MG/4 ML VIAL IVP ONE (17:03)
[2020-06-09] MEDS: Insulin LISPRO 300 UNITS/3 ML VIAL SQ SCH ×2 (17:04→20:44)
[2020-06-09] MEDS: Loratadine 10 MG TABLET PO SCH (20:49)
[2020-06-10] MEDS: Ipratropium/Albuterol Neb 3 ML IH SCH ×6 (04:14→23:47)
[2020-06-10 04:56] LABS: Red Cell Distribution Width 14.6 % (11.5-14.5)
[2020-06-10 04:58] LABS: Hematocrit 43.5 % (37.5-50.1); Hemoglobin 13.5 g/dL (12.9-16.9); Immature Platelets 6.6 % (1.1-6.1); Mean Corpuscular Hemoglobin 29.9 pg (28.0-33.3); Mean Corpuscular Volume 96.5 fL (83.0-100.0); Mean Platelet Volume 11.5 fL (9.4-12.4); Red Blood Count 4.51 M/mcL (4.19-5.50); White Blood Count 8.8 K/mcL (4.3-11.1)
[2020-06-10 05:08] LABS: BUN/Creatinine Ratio 27 (6-26); Blood Urea Nitrogen 28 mg/dL (8-23); Calcium 8.4 mg/dL (8.6-10.3); Carbon Dioxide 29 mEq/L (23-29); Chloride 106 mEq/L (98-107); Glucose 146 mg/dL (70-105); Osmolality,Calculated 308 (280-300); Potassium 4.5 mEq/L (3.5-5.1); Sodium 145 mEq/L (136-145); eGFR For African Americans > 60 (> 60); eGFR For Non-African Americans > 60 (> 60)
[2020-06-10] MEDS: Budesonide/Formoterol 160/4.5 1 PUFF INH IH SCH ×2 (07:52→19:56)
[2020-06-10] MEDS: valACYclovir 500 MG TABLET PO SCH (08:06)
[2020-06-10] MEDS: allopurinoL 300 MG TABLET PO SCH (08:06)
[2020-06-10] MEDS: Gabapentin 400 MG CAPSULE PO SCH ×3 (08:06→20:14)
[2020-06-10] MEDS: Cyanocobalamin (B-12) 1,000 MCG TABLET PO SCH (08:06)
[2020-06-10] MEDS: amLODIPine 5 MG TABLET PO SCH (08:06)
[2020-06-10] MEDS: *HR* Dabigatran 150 MG CAPSULE PO SCH ×2 (08:06→20:14)
[2020-06-10] MEDS: Furosemide 20 MG TABLET PO SCH (08:07)
[2020-06-10] MEDS: predniSONE 20 MG TABLET PO SCH (08:07)
[2020-06-10] MEDS: Insulin LISPRO 300 UNITS/3 ML VIAL SQ SCH ×4 (08:07→20:39)
[2020-06-10] MEDS: Furosemide 40 MG/4 ML VIAL IVP SCH ×2 (10:53→20:13)
[2020-06-10] MEDS: Aspirin Enteric Coated 81 MG Tablet PO SCH (14:53)
[2020-06-10] MEDS: Loratadine 10 MG TABLET PO SCH (20:14)
[2020-06-11] MEDS: Ipratropium/Albuterol Neb 3 ML IH SCH ×6 (03:41→23:01)
[2020-06-11 07:17] LABS: BUN/Creatinine Ratio 26 (6-26); Blood Urea Nitrogen 33 mg/dL (8-23); Calcium 8.6 mg/dL (8.6-10.3); Carbon Dioxide 37 mEq/L (23-29); Chloride 101 mEq/L (98-107); Glucose 173 mg/dL (70-105); Osmolality,Calculated 309 (280-300); Potassium 3.9 mEq/L (3.5-5.1); Sodium 144 mEq/L (136-145); eGFR For African Americans > 60 (> 60); eGFR For Non-African Americans 56 (> 60)
[2020-06-11] MEDS: Budesonide/Formoterol 160/4.5 1 PUFF INH IH SCH ×2 (07:35→19:50)
[2020-06-11] MEDS: amLODIPine 5 MG TABLET PO SCH (07:56)
[2020-06-11] MEDS: *HR* Dabigatran 150 MG CAPSULE PO SCH ×2 (07:56→20:52)
[2020-06-11] MEDS: Aspirin Enteric Coated 81 MG Tablet PO SCH (07:56)
[2020-06-11] MEDS: Gabapentin 400 MG CAPSULE PO SCH ×3 (07:56→20:53)
[2020-06-11] MEDS: predniSONE 20 MG TABLET PO SCH (07:56)
[2020-06-11] MEDS: Cyanocobalamin (B-12) 1,000 MCG TABLET PO SCH (07:56)
[2020-06-11] MEDS: allopurinoL 300 MG TABLET PO SCH (07:57)
[2020-06-11] MEDS: Furosemide 40 MG/4 ML VIAL IVP SCH ×2 (07:57→20:51)
[2020-06-11] MEDS: Insulin LISPRO 300 UNITS/3 ML VIAL SQ SCH ×4 (07:57→20:50)
[2020-06-11] MEDS: valACYclovir 500 MG TABLET PO SCH (07:57)
[2020-06-11 09:11] LABS: Hematocrit 44.9 % (37.5-50.1); Hemoglobin 14.1 g/dL (12.9-16.9); Mean Corpuscular HGB Conc 31.4 g/dL (31.6-35.5); Mean Corpuscular Hemoglobin 30.5 pg (28.0-33.3); Mean Corpuscular Volume 97.2 fL (83.0-100.0); Mean Platelet Volume 10.8 fL (9.4-12.4); Platelet Count 171 K/mcL (140-400); Red Blood Count 4.62 M/mcL (4.19-5.50); Red Cell Distribution Width 14.8 % (11.5-14.5); White Blood Count 10.6 K/mcL (4.3-11.1)
[2020-06-11 09:29] LABS: Magnesium 2.1 mg/dL (1.6-2.6); Phosphorous 3.3 mg/dL (2.7-4.5)
[2020-06-11 11:26] LABS: Adenovirus Not Detected (Not Detect); Bordetella Pertussis Not Detected (Not Detect); Chlamydophila pneumoniae Not Detected (Not Detect); Coronavirus 229E Not Detected (Not Detect); Coronavirus HKU1 Not Detected (Not Detect); Coronavirus NL63 Not Detected (Not Detect); Coronavirus OC43 Not Detected (Not Detect); Human Metapneumovirus Not Detected (Not Detect); Human Rhinovirus/Enterovirus Not Detected (Not Detect); Influenza A Subtype 2009 H1 Not Detected (Not Detect); Influenza B Not Detected (Not Detect); Mycoplasma pneumoniae Not Detected (Not Detect); Parainfluenza Virus 1 Not Detected (Not Detect); Parainfluenza Virus 2 Not Detected (Not Detect); Parainfluenza Virus 3 Not Detected (Not Detect); Parainfluenza Virus 4 Not Detected (Not Detect); Respiratory Syncytial Virus Not Detected (Not Detect); SARS-CoV-2 Not Detected (Not Detect)
[2020-06-11] MEDS: Loratadine 10 MG TABLET PO SCH (20:53)
[2020-06-12] MEDS: Ipratropium/Albuterol Neb 3 ML IH SCH ×5 (03:48→20:11)
[2020-06-12] MEDS: predniSONE 20 MG TABLET PO SCH (07:36)
[2020-06-12] MEDS: Cyanocobalamin (B-12) 1,000 MCG TABLET PO SCH (07:36)
[2020-06-12] MEDS: *HR* Dabigatran 150 MG CAPSULE PO SCH ×2 (07:36→20:39)
[2020-06-12 07:37] LABS: Hematocrit 41.9 % (37.5-50.1); Hemoglobin 13.1 g/dL (12.9-16.9); Mean Corpuscular HGB Conc 31.3 g/dL (31.6-35.5); Mean Corpuscular Hemoglobin 29.8 pg (28.0-33.3); Mean Corpuscular Volume 95.4 fL (83.0-100.0); Mean Platelet Volume 10.7 fL (9.4-12.4); Platelet Count 163 K/mcL (140-400); Red Blood Count 4.39 M/mcL (4.19-5.50); Red Cell Distribution Width 14.7 % (11.5-14.5); White Blood Count 9.9 K/mcL (4.3-11.1)
[2020-06-12] MEDS: valACYclovir 500 MG TABLET PO SCH (07:37)
[2020-06-12] MEDS: amLODIPine 5 MG TABLET PO SCH (07:37)
[2020-06-12] MEDS: Insulin LISPRO 300 UNITS/3 ML VIAL SQ SCH ×4 (07:37→20:39)
[2020-06-12] MEDS: Aspirin Enteric Coated 81 MG Tablet PO SCH (07:37)
[2020-06-12] MEDS: Gabapentin 400 MG CAPSULE PO SCH ×3 (07:37→20:39)
[2020-06-12] MEDS: allopurinoL 300 MG TABLET PO SCH (07:37)
[2020-06-12] MEDS: Furosemide 40 MG/4 ML VIAL IVP SCH (07:38)
[2020-06-12 07:54] LABS: BUN/Creatinine Ratio 25 (6-26); Blood Urea Nitrogen 29 mg/dL (8-23); Calcium 8.4 mg/dL (8.6-10.3); Carbon Dioxide 39 mEq/L (23-29); Chloride 99 mEq/L (98-107); Glucose 131 mg/dL (70-105); Magnesium 2.2 mg/dL (1.6-2.6); Osmolality,Calculated 300 (280-300); Phosphorous 2.8 mg/dL (2.7-4.5); Potassium 3.8 mEq/L (3.5-5.1); Sodium 141 mEq/L (136-145); eGFR For African Americans > 60 (> 60); eGFR For Non-African Americans > 60 (> 60)
[2020-06-12] MEDS: Budesonide/Formoterol 160/4.5 1 PUFF INH IH SCH ×2 (08:21→20:11)
[2020-06-12] MEDS: Loratadine 10 MG TABLET PO SCH (20:39)
[2020-06-13] MEDS: Ipratropium/Albuterol Neb 3 ML IH SCH ×4 (00:04→11:43)
[2020-06-13 04:57] LABS: Hematocrit 42.6 % (37.5-50.1); Hemoglobin 13.5 g/dL (12.9-16.9); Mean Corpuscular HGB Conc 31.7 g/dL (31.6-35.5); Mean Corpuscular Hemoglobin 30.5 pg (28.0-33.3); Mean Corpuscular Volume 96.2 fL (83.0-100.0); Mean Platelet Volume 10.9 fL (9.4-12.4); Platelet Count 163 K/mcL (140-400); Red Blood Count 4.43 M/mcL (4.19-5.50); Red Cell Distribution Width 14.5 % (11.5-14.5); White Blood Count 9.4 K/mcL (4.3-11.1)
[2020-06-13 05:01] LABS: Basophils # 0.1 K/mcL (0.0-0.2); Basophils % 0.7 %; Eosinophils # 0.2 K/mcL (0.0-0.6); Eosinophils % 1.6 %; Hematocrit 43.2 % (37.5-50.1); Hemoglobin 13.6 g/dL (12.9-16.9); Immature Granulocytes % 0.4 % (0-4); Lymphocytes # 2.4 K/mcL (0.6-4.6); Lymphocytes % 25.9 %; Mean Corpuscular HGB Conc 31.5 g/dL (31.6-35.5); Mean Corpuscular Hemoglobin 30.2 pg (28.0-33.3); Mean Corpuscular Volume 95.8 fL (83.0-100.0); Mean Platelet Volume 10.7 fL (9.4-12.4); Monocytes % 10.4 %; Neutrophils # 5.7 K/mcL (1.6-8.9); Platelet Count 169 K/mcL (140-400); Red Blood Count 4.51 M/mcL (4.19-5.50); Red Cell Distribution Width 14.5 % (11.5-14.5); White Blood Count 9.4 K/mcL (4.3-11.1)
[2020-06-13 05:13] LABS: Magnesium 2.2 mg/dL (1.6-2.6); Phosphorous 2.3 mg/dL (2.7-4.5)
[2020-06-13 05:14] LABS: BUN/Creatinine Ratio 26 (6-26); Blood Urea Nitrogen 30 mg/dL (8-23); Calcium 8.6 mg/dL (8.6-10.3); Carbon Dioxide 38 mEq/L (23-29); Chloride 101 mEq/L (98-107); Glucose 134 mg/dL (70-105); Osmolality,Calculated 306 (280-300); Potassium 3.5 mEq/L (3.5-5.1); Sodium 144 mEq/L (136-145); eGFR For African Americans > 60 (> 60); eGFR For Non-African Americans > 60 (> 60)
[2020-06-13] MEDS: Insulin LISPRO 300 UNITS/3 ML VIAL SQ SCH ×2 (07:36→11:50)
[2020-06-13] MEDS: amLODIPine 5 MG TABLET PO SCH (07:43)
[2020-06-13] MEDS: Aspirin Enteric Coated 81 MG Tablet PO SCH (07:43)
[2020-06-13] MEDS: *HR* Dabigatran 150 MG CAPSULE PO SCH (07:43)
[2020-06-13] MEDS: predniSONE 20 MG TABLET PO SCH (07:43)
[2020-06-13] MEDS: valACYclovir 500 MG TABLET PO SCH (07:44)
[2020-06-13] MEDS: Gabapentin 400 MG CAPSULE PO SCH (07:44)
[2020-06-13] MEDS: Cyanocobalamin (B-12) 1,000 MCG TABLET PO SCH (07:44)
[2020-06-13] MEDS: allopurinoL 300 MG TABLET PO SCH (07:44)
[2020-06-13] MEDS: Budesonide/Formoterol 160/4.5 1 PUFF INH IH SCH (07:54)
[2020-06-13 11:22] VITALS: BP 136/82
== END 2020-06-13 15:09 | disposition home or self-care (01) | DRG 291 ==
LOC: EMEROOARM 04:10 → 3BNU 04:10 → SUATTDRO 06:16 → ICNU 06:33 → 2NNU 14:21 → 2ANU 06-12 14:07
PROVIDERS: ADMIT Student in an Organized Health Care Education/Training Program; ATTEND Internal Medicine

== ENCOUNTER 2020-06-24 02:40 | Inpatient (IN) ==
[2020-06-24] MEDS ORDERED: Ipratropium/Albuterol Neb 3 ML IH ONE (02:52)
[2020-06-24] MEDS ORDERED: methylPREDNISolone 125 MG/2 ML VIAL IVP ONE (02:52)
[2020-06-24] MEDS ORDERED: Acetaminophen 325 MG TABLET PO ONE (03:03)
[2020-06-24 03:13] LABS: Basophils # 0.1 K/mcL (0.0-0.2); Basophils % 0.3 %; Eosinophils # 0.5 K/mcL (0.0-0.6); Eosinophils % 2.3 %; Hematocrit 44.5 % (37.5-50.1); Hemoglobin 14.3 g/dL (12.9-16.9); Immature Granulocytes % 0.7 % (0-4); Lymphocytes # 1.5 K/mcL (0.6-4.6); Lymphocytes % 6.7 %; Mean Corpuscular HGB Conc 32.1 g/dL (31.6-35.5); Mean Corpuscular Hemoglobin 30.6 pg (28.0-33.3); Mean Corpuscular Volume 95.3 fL (83.0-100.0); Mean Platelet Volume 10.5 fL (9.4-12.4); Monocytes # 1.7 K/mcL (0.0-1.3); Monocytes % 7.6 %; Neutrophils # 18.3 K/mcL (1.6-8.9); Platelet Count 164 K/mcL (140-400); Red Blood Count 4.67 M/mcL (4.19-5.50); Red Cell Distribution Width 14.5 % (11.5-14.5); Segmented Neutrophils % 82.4 %; White Blood Count 22.2 K/mcL (4.3-11.1)
[2020-06-24 03:18] LABS: INR 1.4; Prothrombin Time 15.5 Seconds (9.4-12.1)
[2020-06-24] MEDS ORDERED: Vancomycin 2,000 MG/520 ML IV.SOLN IVPB ONE (03:19)
[2020-06-24] MEDS ORDERED: levoFLOXacin 750 MG/150 ML 750 MG/150 ML BAG IVPB ONE (03:19)
[2020-06-24] MEDS ORDERED: Piperacillin/Tazobactam 3.375 GM in Water for inj. (sterile) 20 ML IVP ONE (03:19)
[2020-06-24 03:20] LABS: Activated Partial Thrombo Time 49.6 Seconds (26.0-36.0)
[2020-06-24 03:36] LABS: Alanine Aminotransferase 16 Units/L (7-52); Albumin 4.2 g/dL (3.5-5.7); Albumin/Globulin Ratio 1.7 (1.1-2.2); Alkaline Phosphatase 66 Units/L (34-104); Aspartate Amino Transferase 15 Units/L (13-39); BUN/Creatinine Ratio 20 (6-26); Bilirubin,Direct 0.2 mg/dL (0.0-0.2); Bilirubin,Indirect 0.4 mg/dL (0.0-1.0); Bilirubin,Total 0.6 mg/dL (0.3-1.0); Blood Urea Nitrogen 23 mg/dL (8-23); Calcium 8.9 mg/dL (8.6-10.3); Carbon Dioxide 29 mEq/L (23-29); Chloride 102 mEq/L (98-107); Globulin 2.5 g/dL (2.4-3.5); Glucose 184 mg/dL (70-105); Osmolality,Calculated 300 (280-300); Potassium 3.4 mEq/L (3.5-5.1); Sodium 141 mEq/L (136-145); Total Protein 6.7 g/dL (6.4-8.9); Troponin I < 0.03 ng/mL (< 0.04); eGFR For African Americans > 60 (> 60); eGFR For Non-African Americans > 60 (> 60)
[2020-06-24] MEDS ORDERED: Isovue-370 500 ML BOTTLE IVP ONE (03:45)
[2020-06-24 03:57] LABS: Bilirubin,Urine Negative (Negative); Blood,Urine Trace (Negative); Clarity,Urine Clear (Clear); Color,Urine Light-Yellow (Yellow); Glucose,Urine (UA) Normal (Normal); Ketones,Urine Negative (Negative); Leukocyte Esterase,Urine Negative (Negative); Nitrite,Urine Negative (Negative); PH,Urine 6.5 pH Units (5.0-8.0); Protein,Urine 30 mg/dL (Neg-Trace); RBC,Urine 0-3 per hpf (0-3); Specific Gravity,Urine 1.015 (1.010-1.025); Urobilinogen,Urine Normal (Normal); WBC,Urine 0-3 per hpf (0-3)
[2020-06-24] MEDS ORDERED: Naloxone 0.4 MG/ML INJ IVP PRN (06:08)
[2020-06-24] MEDS ORDERED: D5% in Water 1,000 ML IVC PRN (07:12)
[2020-06-24] MEDS ORDERED: Dextrose Gel 15 GM/37.5 ML TUBE PO PRN ×2 (07:12)
[2020-06-24] MEDS ORDERED: *HR* Dextrose 50 % in Water (Vial) 50 ML VIAL IVP PRN (07:12)
[2020-06-24] MEDS: Aspirin Enteric Coated 81 MG Tablet PO SCH (08:46)
[2020-06-24] MEDS: allopurinoL 300 MG TABLET PO SCH (08:46)
[2020-06-24] MEDS: valACYclovir 500 MG TABLET PO SCH (08:46)
[2020-06-24] MEDS: *HR* Dabigatran 150 MG CAPSULE PO SCH ×2 (08:46→20:56)
[2020-06-24] MEDS: Insulin LISPRO 300 UNITS/3 ML VIAL SQ SCH ×4 (08:51→20:57)
[2020-06-24] MEDS ORDERED: Nitroglycerin 0.4 MG TAB.SUBL SL PRN (12:22)
[2020-06-24] MEDS ORDERED: Ipratropium/Albuterol Neb 3 ML IH PRN (12:26)
[2020-06-24] MEDS ORDERED: Acetaminophen 325 MG TABLET PO PRN (12:42)
[2020-06-24] MEDS: Furosemide 20 MG/2 ML VIAL IVP SCH ×2 (13:32→20:57)
[2020-06-24] MEDS: Piperacillin/Tazobactam 3.375 GM in 0.9 % Sodium Chloride Mini Bag 100 ML IVPB SCH ×2 (13:33→21:40)
[2020-06-24] MEDS: *HR* Metformin 500 MG TABLET PO SCH (16:44)
[2020-06-24 17:23] LABS: ABG Base Excess 4 mEq/L (-2 to 3); ABG HCO3 31 mEq/L (21-27); ABG Oxygen Saturation 94 % (95-98); ABG PCO2 53 mmHg (35-45); ABG PH 7.37 pH Units (7.32-7.45); ABG PO2 73 mmHg (85-104); ABG TCO2 32 mEq/L (20-26)
[2020-06-24] MEDS: Budesonide/Formoterol 160/4.5 1 PUFF INH IH SCH (20:26)
[2020-06-24] MEDS: Loratadine 10 MG TABLET PO SCH (20:56)
[2020-06-24] MEDS: Insulin DETEMIR 100 UNIT/ML X5UNITS SQ SCH (20:57)
[2020-06-25 03:52] LABS: Basophils % 0.2 %; Hematocrit 39.4 % (37.5-50.1); Immature Granulocytes % 0.8 % (0-4); Lymphocytes # 1.6 K/mcL (0.6-4.6); Lymphocytes % 8.6 %; Mean Corpuscular HGB Conc 31.7 g/dL (31.6-35.5); Mean Corpuscular Hemoglobin 30.6 pg (28.0-33.3); Mean Corpuscular Volume 96.6 fL (83.0-100.0); Mean Platelet Volume 10.9 fL (9.4-12.4); Monocytes # 1.4 K/mcL (0.0-1.3); Monocytes % 7.3 %; Neutrophils # 15.9 K/mcL (1.6-8.9); Platelet Count 165 K/mcL (140-400); Red Blood Count 4.08 M/mcL (4.19-5.50); Red Cell Distribution Width 14.2 % (11.5-14.5); Segmented Neutrophils % 83.1 %; White Blood Count 19.1 K/mcL (4.3-11.1)
[2020-06-25 04:01] LABS: Hemoglobin 12.5 g/dL (12.9-16.9)
[2020-06-25 04:07] LABS: BUN/Creatinine Ratio 26 (6-26); Blood Urea Nitrogen 31 mg/dL (8-23); Calcium 8.4 mg/dL (8.6-10.3); Carbon Dioxide 30 mEq/L (23-29); Chloride 101 mEq/L (98-107); Glucose 186 mg/dL (70-105); Osmolality,Calculated 299 (280-300); Phosphorous 2.6 mg/dL (2.7-4.5); Potassium 3.7 mEq/L (3.5-5.1); Sodium 139 mEq/L (136-145); eGFR For African Americans > 60 (> 60); eGFR For Non-African Americans 59 (> 60)
[2020-06-25 04:13] LABS: C-Reactive Protein 179 mg/L (Less than 10); Lactate Dehydrogenase 157 Units/L (140-271)
[2020-06-25 04:25] LABS: Ferritin 161 ng/mL (20-250)
[2020-06-25] MEDS ORDERED: Vancomycin 1,750 MG/517.5 ML IV.SOLN IVPB SCH (05:00)
[2020-06-25] MEDS: Piperacillin/Tazobactam 3.375 GM in 0.9 % Sodium Chloride Mini Bag 100 ML IVPB SCH ×3 (06:22→21:50)
[2020-06-25] MEDS: Budesonide/Formoterol 160/4.5 1 PUFF INH IH SCH ×2 (07:53→19:56)
[2020-06-25] MEDS: Insulin LISPRO 300 UNITS/3 ML VIAL SQ SCH ×4 (08:00→21:52)
[2020-06-25] MEDS: Furosemide 20 MG/2 ML VIAL IVP SCH ×2 (08:07→21:49)
[2020-06-25] MEDS: Cyanocobalamin (B-12) 1,000 MCG TABLET PO SCH (08:07)
[2020-06-25] MEDS: allopurinoL 300 MG TABLET PO SCH (08:07)
[2020-06-25] MEDS: Fenofibrate 54 MG TABLET PO SCH (08:07)
[2020-06-25] MEDS: valACYclovir 500 MG TABLET PO SCH (08:07)
[2020-06-25] MEDS: *HR* Metformin 500 MG TABLET PO SCH (08:07)
[2020-06-25] MEDS: *HR* Dabigatran 150 MG CAPSULE PO SCH ×2 (08:07→21:50)
[2020-06-25] MEDS: Aspirin Enteric Coated 81 MG Tablet PO SCH (08:07)
[2020-06-25] MEDS ORDERED: levoFLOXacin 750 MG/150 ML 750 MG/150 ML BAG IVPB SCH (09:00)
[2020-06-25] MEDS: Gabapentin 400 MG CAPSULE PO SCH ×3 (10:10→21:49)
[2020-06-25] MEDS: Loratadine 10 MG TABLET PO SCH (21:49)
[2020-06-25] MEDS: Insulin DETEMIR 100 UNIT/ML X5UNITS SQ SCH (21:50)
[2020-06-26 03:28] LABS: BUN/Creatinine Ratio 27 (6-26); Blood Urea Nitrogen 35 mg/dL (8-23); Calcium 8.1 mg/dL (8.6-10.3); Carbon Dioxide 30 mEq/L (23-29); Chloride 104 mEq/L (98-107); Glucose 130 mg/dL (70-105); Osmolality,Calculated 302 (280-300); Phosphorous 3.2 mg/dL (2.7-4.5); Potassium 3.7 mEq/L (3.5-5.1); Sodium 141 mEq/L (136-145); eGFR For African Americans > 60 (> 60); eGFR For Non-African Americans 54 (> 60)
[2020-06-26 03:29] LABS: Basophils # 0.1 K/mcL (0.0-0.2); Basophils % 0.4 %; Eosinophils # 0.2 K/mcL (0.0-0.6); Eosinophils % 1.7 %; Hematocrit 39.6 % (37.5-50.1); Hemoglobin 12.4 g/dL (12.9-16.9); Immature Granulocytes % 0.5 % (0-4); Lymphocytes # 1.8 K/mcL (0.6-4.6); Lymphocytes % 16.1 %; Mean Corpuscular HGB Conc 31.3 g/dL (31.6-35.5); Mean Corpuscular Volume 95.7 fL (83.0-100.0); Mean Platelet Volume 10.8 fL (9.4-12.4); Monocytes # 0.9 K/mcL (0.0-1.3); Monocytes % 7.6 %; Neutrophils # 8.4 K/mcL (1.6-8.9); Platelet Count 175 K/mcL (140-400); Red Blood Count 4.14 M/mcL (4.19-5.50); Red Cell Distribution Width 14.3 % (11.5-14.5); Segmented Neutrophils % 73.7 %; White Blood Count 11.4 K/mcL (4.3-11.1)
[2020-06-26] MEDS: Piperacillin/Tazobactam 3.375 GM in 0.9 % Sodium Chloride Mini Bag 100 ML IVPB SCH ×2 (05:38→16:01)
[2020-06-26] MEDS: Budesonide/Formoterol 160/4.5 1 PUFF INH IH SCH (07:33)
[2020-06-26] MEDS: Insulin LISPRO 300 UNITS/3 ML VIAL SQ SCH ×2 (08:33→12:45)
[2020-06-26] MEDS: Cyanocobalamin (B-12) 1,000 MCG TABLET PO SCH (09:36)
[2020-06-26] MEDS: Gabapentin 400 MG CAPSULE PO SCH ×2 (09:36→16:02)
[2020-06-26] MEDS: Furosemide 20 MG/2 ML VIAL IVP SCH (09:36)
[2020-06-26] MEDS: *HR* Dabigatran 150 MG CAPSULE PO SCH (09:36)
[2020-06-26] MEDS: Fenofibrate 54 MG TABLET PO SCH (09:36)
[2020-06-26] MEDS: Aspirin Enteric Coated 81 MG Tablet PO SCH (09:36)
[2020-06-26] MEDS: allopurinoL 300 MG TABLET PO SCH (09:36)
[2020-06-26] MEDS: valACYclovir 500 MG TABLET PO SCH (09:37)
[2020-06-26 15:26] VITALS: BP 131/81
== END 2020-06-26 17:22 | disposition home health service (06) | DRG 871 ==
LOC: EMEROOARM 02:40 → 3ANU 02:40 → SUATTDRO 05:28 → 3ANU 06:02
PROVIDERS: ADMIT Internal Medicine; ATTEND Internal Medicine

== ENCOUNTER 2020-07-18 10:21 | Inpatient (IN) ==
[2020-07-18] MEDS ORDERED: Ipratropium/Albuterol Neb 3 ML IH ONE (11:00)
[2020-07-18 11:25] LABS: Basophils # 0.1 K/mcL (0.0-0.2); Eosinophils # 0.6 K/mcL (0.0-0.6); Eosinophils % 7.6 %; Hematocrit 41.7 % (37.5-50.1); Hemoglobin 12.9 g/dL (12.9-16.9); Immature Granulocytes % 0.6 % (0-4); Lymphocytes # 1.4 K/mcL (0.6-4.6); Lymphocytes % 17.4 %; Mean Corpuscular HGB Conc 30.9 g/dL (31.6-35.5); Mean Corpuscular Hemoglobin 30.3 pg (28.0-33.3); Mean Corpuscular Volume 97.9 fL (83.0-100.0); Mean Platelet Volume 11.3 fL (9.4-12.4); Monocytes # 0.9 K/mcL (0.0-1.3); Monocytes % 11.3 %; Neutrophils # 4.8 K/mcL (1.6-8.9); Platelet Count 145 K/mcL (140-400); Red Blood Count 4.26 M/mcL (4.19-5.50); Segmented Neutrophils % 62.1 %; White Blood Count 7.8 K/mcL (4.3-11.1)
[2020-07-18 11:40] LABS: BUN/Creatinine Ratio 28 (6-26); Blood Urea Nitrogen 30 mg/dL (8-23); Calcium 8.5 mg/dL (8.6-10.3); Carbon Dioxide 29 mEq/L (23-29); Chloride 106 mEq/L (98-107); Glucose 179 mg/dL (70-105); Osmolality,Calculated 307 (280-300); Potassium 3.4 mEq/L (3.5-5.1); Sodium 143 mEq/L (136-145); eGFR For African Americans > 60 (> 60); eGFR For Non-African Americans > 60 (> 60)
[2020-07-18 11:41] LABS: Troponin I < 0.03 ng/mL (< 0.04)
[2020-07-18] MEDS ORDERED: Potassium Chloride Elixir 20 MEQ/15 ML UDC PO ONE (14:41)
[2020-07-18] MEDS ORDERED: Furosemide 40 MG/4 ML VIAL IVP ONE (15:19)
[2020-07-18] MEDS ORDERED: methylPREDNISolone 125 MG/2 ML VIAL IVP ONE (15:20)
[2020-07-18] MEDS ORDERED: Dextrose Gel 15 GM/37.5 ML TUBE PO PRN ×2 (15:22)
[2020-07-18] MEDS ORDERED: D5% in Water 1,000 ML IVC PRN (15:22)
[2020-07-18] MEDS ORDERED: *HR* Dextrose 50 % in Water (Vial) 50 ML VIAL IVP PRN (15:22)
[2020-07-18] MEDS ORDERED: Acetaminophen 325 MG TABLET PO PRN (15:24)
[2020-07-18] MEDS ORDERED: Naloxone 0.4 MG/ML INJ IVP PRN (15:24)
[2020-07-18] MEDS ORDERED: Perflutren Lipid Microsphere 1.3 ML in 0.9 % Sodium Chloride 8.7 ML IVP PRN (15:47)
[2020-07-18] MEDS ORDERED: Nitroglycerin 0.4 MG TAB.SUBL SL PRN (16:19)
[2020-07-18] MEDS: Ipratropium/Albuterol Neb 3 ML IH SCH ×3 (16:59→22:59)
[2020-07-18] MEDS: Insulin LISPRO 300 UNITS/3 ML VIAL SUBQ SCH ×2 (18:01→21:00)
[2020-07-18] MEDS: Budesonide/Formoterol 160/4.5 1 PUFF INH IH SCH (20:08)
[2020-07-18] MEDS: *HR* Dabigatran 150 MG CAPSULE PO SCH (20:59)
[2020-07-18] MEDS: Gabapentin 400 MG CAPSULE PO SCH (20:59)
[2020-07-18] MEDS: Loratadine 10 MG TABLET PO SCH (20:59)
[2020-07-19] MEDS ORDERED: Melatonin 3 MG TABLET PO PRN (00:22)
[2020-07-19 00:48] LABS: Hemoglobin 13.9 g/dL (12.9-16.9); Mean Corpuscular HGB Conc 31.6 g/dL (31.6-35.5); Mean Corpuscular Hemoglobin 30.8 pg (28.0-33.3); Mean Corpuscular Volume 97.3 fL (83.0-100.0); Mean Platelet Volume 11.1 fL (9.4-12.4); Platelet Count 148 K/mcL (140-400); Red Blood Count 4.52 M/mcL (4.19-5.50); Red Cell Distribution Width 13.8 % (11.5-14.5); White Blood Count 8.8 K/mcL (4.3-11.1)
[2020-07-19 01:06] LABS: BUN/Creatinine Ratio 29 (6-26); Blood Urea Nitrogen 31 mg/dL (8-23); Calcium 9.2 mg/dL (8.6-10.3); Carbon Dioxide 30 mEq/L (23-29); Chloride 102 mEq/L (98-107); Chol/HDL Ratio 2.3 (0-4.9); Cholesterol 90 mg/dL (< 200); Glucose 221 mg/dL (70-105); HDL Cholesterol 39 mg/dL (40-59); LDL Cholesterol,Calculated 36 mg/dL (< 100); Magnesium 1.9 mg/dL (1.6-2.6); Osmolality,Calculated 307 (280-300); Sodium 142 mEq/L (136-145); Triglycerides 76 mg/dL (< 150); eGFR For African Americans > 60 (> 60); eGFR For Non-African Americans > 60 (> 60)
[2020-07-19] MEDS: Ipratropium/Albuterol Neb 3 ML IH SCH ×5 (03:50→20:29)
[2020-07-19 07:30] LABS: Estimated Average Glucose 160 mg/dl; Hemoglobin A1C 7.2 %
[2020-07-19] MEDS: Insulin LISPRO 300 UNITS/3 ML VIAL SUBQ SCH ×4 (07:34→20:18)
[2020-07-19] MEDS: allopurinoL 300 MG TABLET PO SCH (07:44)
[2020-07-19] MEDS: Fenofibrate 54 MG TABLET PO SCH (07:44)
[2020-07-19] MEDS: *HR* Dabigatran 150 MG CAPSULE PO SCH ×2 (07:44→20:17)
[2020-07-19] MEDS: Cyanocobalamin (B-12) 1,000 MCG TABLET PO SCH (07:44)
[2020-07-19] MEDS: Gabapentin 400 MG CAPSULE PO SCH ×3 (07:45→20:17)
[2020-07-19] MEDS: amLODIPine 5 MG TABLET PO SCH (07:45)
[2020-07-19] MEDS: Aspirin Enteric Coated 81 MG Tablet PO SCH (07:45)
[2020-07-19] MEDS: *HR* Glimepiride 2 MG TABLET PO SCH (07:45)
[2020-07-19] MEDS: Budesonide/Formoterol 160/4.5 1 PUFF INH IH SCH ×2 (08:35→20:29)
[2020-07-19] MEDS ORDERED: methylPREDNISolone 125 MG/2 ML VIAL IVP SCH (09:00)
[2020-07-19] MEDS: Furosemide 40 MG/4 ML VIAL IVP SCH (10:49)
[2020-07-19] MEDS ORDERED: MethylPREDNISolone 40 MG/ML VIAL IVP SCH ×2 (11:45→16:00)
[2020-07-19] MEDS: MethylPREDNISolone 40 MG/ML VIAL IVP SCH (20:17)
[2020-07-19] MEDS: Loratadine 10 MG TABLET PO SCH (20:17)
[2020-07-20] MEDS: Ipratropium/Albuterol Neb 3 ML IH SCH ×7 (00:17→23:48)
[2020-07-20 05:16] LABS: Hematocrit 42.7 % (37.5-50.1); Hemoglobin 13.3 g/dL (12.9-16.9); Mean Corpuscular HGB Conc 31.1 g/dL (31.6-35.5); Mean Corpuscular Hemoglobin 31.1 pg (28.0-33.3); Mean Platelet Volume 11.3 fL (9.4-12.4); Platelet Count 154 K/mcL (140-400); Red Blood Count 4.27 M/mcL (4.19-5.50); Red Cell Distribution Width 13.9 % (11.5-14.5); White Blood Count 12.9 K/mcL (4.3-11.1)
[2020-07-20 05:37] LABS: BUN/Creatinine Ratio 34 (6-26); Blood Urea Nitrogen 42 mg/dL (8-23); Calcium 8.9 mg/dL (8.6-10.3); Carbon Dioxide 34 mEq/L (23-29); Chloride 105 mEq/L (98-107); Glucose 252 mg/dL (70-105); Osmolality,Calculated 317 (280-300); Potassium 4.7 mEq/L (3.5-5.1); Sodium 144 mEq/L (136-145); eGFR For African Americans > 60 (> 60); eGFR For Non-African Americans 56 (> 60)
[2020-07-20] MEDS: amLODIPine 5 MG TABLET PO SCH (07:20)
[2020-07-20] MEDS: Insulin LISPRO 300 UNITS/3 ML VIAL SUBQ SCH ×4 (07:33→20:48)
[2020-07-20] MEDS: *HR* Dabigatran 150 MG CAPSULE PO SCH ×2 (07:34→20:47)
[2020-07-20] MEDS: MethylPREDNISolone 40 MG/ML VIAL IVP SCH ×2 (07:34→20:48)
[2020-07-20] MEDS: Furosemide 40 MG/4 ML VIAL IVP SCH (07:34)
[2020-07-20] MEDS: Cyanocobalamin (B-12) 1,000 MCG TABLET PO SCH (07:34)
[2020-07-20] MEDS: allopurinoL 300 MG TABLET PO SCH (07:34)
[2020-07-20] MEDS: Gabapentin 400 MG CAPSULE PO SCH ×3 (07:34→20:47)
[2020-07-20] MEDS: Fenofibrate 54 MG TABLET PO SCH (07:34)
[2020-07-20] MEDS: Aspirin Enteric Coated 81 MG Tablet PO SCH (07:34)
[2020-07-20] MEDS: Budesonide/Formoterol 160/4.5 1 PUFF INH IH SCH ×2 (07:38→19:46)
[2020-07-20] MEDS: *HR* Glimepiride 2 MG TABLET PO SCH (11:09)
[2020-07-20] MEDS: Loratadine 10 MG TABLET PO SCH (20:48)
[2020-07-20] MEDS: Insulin DETEMIR 100 UNIT/ML X5UNITS SUBQ SCH (20:48)
[2020-07-21] MEDS: Ipratropium/Albuterol Neb 3 ML IH SCH ×6 (03:41→23:24)
[2020-07-21 07:06] LABS: Basophils % 0.1 %; Immature Granulocytes % 0.6 % (0-4); Lymphocytes # 1.5 K/mcL (0.6-4.6); Lymphocytes % 11.9 %; Mean Corpuscular HGB Conc 31.1 g/dL (31.6-35.5); Mean Corpuscular Hemoglobin 30.8 pg (28.0-33.3); Mean Corpuscular Volume 99.1 fL (83.0-100.0); Monocytes # 0.6 K/mcL (0.0-1.3); Monocytes % 4.4 %; Neutrophils # 10.5 K/mcL (1.6-8.9); Platelet Count 164 K/mcL (140-400); Red Blood Count 4.54 M/mcL (4.19-5.50); Red Cell Distribution Width 13.8 % (11.5-14.5); White Blood Count 12.6 K/mcL (4.3-11.1)
[2020-07-21] MEDS: Budesonide/Formoterol 160/4.5 1 PUFF INH IH SCH ×2 (07:14→19:42)
[2020-07-21 07:27] LABS: BUN/Creatinine Ratio 38 (6-26); Blood Urea Nitrogen 41 mg/dL (8-23); Calcium 8.9 mg/dL (8.6-10.3); Carbon Dioxide 32 mEq/L (23-29); Chloride 104 mEq/L (98-107); Glucose 217 mg/dL (70-105); Osmolality,Calculated 313 (280-300); Potassium 4.6 mEq/L (3.5-5.1); Sodium 143 mEq/L (136-145); eGFR For African Americans > 60 (> 60); eGFR For Non-African Americans > 60 (> 60)
[2020-07-21] MEDS: allopurinoL 300 MG TABLET PO SCH (08:24)
[2020-07-21] MEDS: Fenofibrate 54 MG TABLET PO SCH (08:24)
[2020-07-21] MEDS: Insulin LISPRO 300 UNITS/3 ML VIAL SUBQ SCH ×4 (08:24→21:03)
[2020-07-21] MEDS: Aspirin Enteric Coated 81 MG Tablet PO SCH (08:24)
[2020-07-21] MEDS: *HR* Dabigatran 150 MG CAPSULE PO SCH ×2 (08:24→20:58)
[2020-07-21] MEDS: *HR* Glimepiride 2 MG TABLET PO SCH (08:24)
[2020-07-21] MEDS: Gabapentin 400 MG CAPSULE PO SCH ×3 (08:24→21:00)
[2020-07-21] MEDS: Cyanocobalamin (B-12) 1,000 MCG TABLET PO SCH (08:25)
[2020-07-21] MEDS: MethylPREDNISolone 40 MG/ML VIAL IVP SCH (08:25)
[2020-07-21] MEDS: Furosemide 40 MG/4 ML VIAL IVP SCH (08:25)
[2020-07-21] MEDS: amLODIPine 5 MG TABLET PO SCH (08:25)
[2020-07-21] MEDS: Loratadine 10 MG TABLET PO SCH (21:01)
[2020-07-21] MEDS: Doxycycline 100 MG CAPSULE PO SCH (21:01)
[2020-07-21] MEDS: Insulin DETEMIR 100 UNIT/ML X5UNITS SUBQ SCH (21:02)
[2020-07-22] MEDS: Ipratropium/Albuterol Neb 3 ML IH SCH ×4 (03:44→15:23)
[2020-07-22 04:59] LABS: Basophils % 0.2 %; Hemoglobin 13.7 g/dL (12.9-16.9); Immature Granulocytes % 0.6 % (0-4); Lymphocytes % 22.8 %; Mean Corpuscular HGB Conc 31.1 g/dL (31.6-35.5); Mean Corpuscular Hemoglobin 30.9 pg (28.0-33.3); Mean Corpuscular Volume 99.3 fL (83.0-100.0); Mean Platelet Volume 10.9 fL (9.4-12.4); Monocytes # 1.5 K/mcL (0.0-1.3); Monocytes % 11.1 %; Neutrophils # 8.6 K/mcL (1.6-8.9); Platelet Count 150 K/mcL (140-400); Red Blood Count 4.43 M/mcL (4.19-5.50); Red Cell Distribution Width 13.5 % (11.5-14.5); Segmented Neutrophils % 65.3 %; White Blood Count 13.1 K/mcL (4.3-11.1)
[2020-07-22 05:24] LABS: BUN/Creatinine Ratio 41 (6-26); Blood Urea Nitrogen 42 mg/dL (8-23); Calcium 8.5 mg/dL (8.6-10.3); Carbon Dioxide 31 mEq/L (23-29); Chloride 105 mEq/L (98-107); Glucose 150 mg/dL (70-105); Magnesium 2.4 mg/dL (1.6-2.6); Osmolality,Calculated 309 (280-300); Phosphorous 3.7 mg/dL (2.7-4.5); Sodium 143 mEq/L (136-145); eGFR For African Americans > 60 (> 60); eGFR For Non-African Americans > 60 (> 60)
[2020-07-22] MEDS: Budesonide/Formoterol 160/4.5 1 PUFF INH IH SCH (07:56)
[2020-07-22] MEDS: Insulin LISPRO 300 UNITS/3 ML VIAL SUBQ SCH ×2 (08:36→12:35)
[2020-07-22] MEDS: Furosemide 40 MG/4 ML VIAL IVP SCH (08:40)
[2020-07-22] MEDS: Doxycycline 100 MG CAPSULE PO SCH (08:41)
[2020-07-22] MEDS: Aspirin Enteric Coated 81 MG Tablet PO SCH (08:41)
[2020-07-22] MEDS: Gabapentin 400 MG CAPSULE PO SCH ×2 (08:41→15:05)
[2020-07-22] MEDS: amLODIPine 5 MG TABLET PO SCH (08:41)
[2020-07-22] MEDS: *HR* Dabigatran 150 MG CAPSULE PO SCH (08:41)
[2020-07-22] MEDS: allopurinoL 300 MG TABLET PO SCH (08:42)
[2020-07-22] MEDS: Cyanocobalamin (B-12) 1,000 MCG TABLET PO SCH (08:42)
[2020-07-22] MEDS: *HR* Glimepiride 2 MG TABLET PO SCH (08:42)
[2020-07-22] MEDS: Fenofibrate 54 MG TABLET PO SCH (08:42)
[2020-07-22] MEDS ORDERED: predniSONE 20 MG TABLET PO SCH (09:00)
[2020-07-22] MEDS ORDERED: valACYclovir 500 MG TABLET PO SCH (09:00)
[2020-07-22 15:02] VITALS: BP 157/94
== END 2020-07-22 16:16 | disposition home health service (06) | DRG 292 ==
LOC: EMEROOARM 10:21 → 3ANU 10:21 → SUATTDRO 15:07 → 3ANU 16:47 → SUATTDRO 07-20 16:22
PROVIDERS: ADMIT Student in an Organized Health Care Education/Training Program; ATTEND Internal Medicine

== ENCOUNTER 2020-09-02 11:10 | Inpatient (IN) ==
[2020-09-02] MEDS ORDERED: Aspirin 81 MG TAB.CHEW PO ONE (11:25)
[2020-09-02 11:51] LABS: Basophils # 0.1 K/mcL (0.0-0.2); Basophils % 0.9 %; Eosinophils # 0.3 K/mcL (0.0-0.6); Eosinophils % 3.8 %; Hemoglobin 14.6 g/dL (12.9-16.9); Immature Granulocytes % 0.5 % (0-4); Lymphocytes # 1.9 K/mcL (0.6-4.6); Lymphocytes % 23.7 %; Mean Corpuscular HGB Conc 31.1 g/dL (31.6-35.5); Mean Corpuscular Hemoglobin 30.9 pg (28.0-33.3); Mean Corpuscular Volume 99.4 fL (83.0-100.0); Monocytes # 0.8 K/mcL (0.0-1.3); Monocytes % 9.4 %; Platelet Count 146 K/mcL (140-400); Red Blood Count 4.73 M/mcL (4.19-5.50); Segmented Neutrophils % 61.7 %; White Blood Count 8.1 K/mcL (4.3-11.1)
[2020-09-02 11:55] LABS: INR 1.3
[2020-09-02 11:57] LABS: Activated Partial Thrombo Time 55.7 Seconds (26.0-36.0)
[2020-09-02 12:42] LABS: BUN/Creatinine Ratio 22 (6-26); Blood Urea Nitrogen 25 mg/dL (8-23); Calcium 8.6 mg/dL (8.6-10.3); Carbon Dioxide 35 mEq/L (23-29); Chloride 101 mEq/L (98-107); Glucose 232 mg/dL (70-105); Osmolality,Calculated 310 (280-300); Potassium 3.3 mEq/L (3.5-5.1); Sodium 144 mEq/L (136-145); Troponin I < 0.03 ng/mL (< 0.04); eGFR For African Americans > 60 (> 60); eGFR For Non-African Americans > 60 (> 60)
[2020-09-02] MEDS ORDERED: methylPREDNISolone 125 MG/2 ML VIAL IVP ONE (13:00)
[2020-09-02] MEDS ORDERED: Azithromycin 500 MG in 0.9 % Sodium Chloride 250 ML IVPB ONE (13:00)
[2020-09-02] MEDS ORDERED: Ipratropium/Albuterol Neb 3 ML IH ONE (13:00)
[2020-09-02] MEDS ORDERED: Albuterol 2.5 MG/3 ML NEBULIZER IH PRN (14:29)
[2020-09-02] MEDS ORDERED: Naloxone 0.4 MG/ML INJ IVP PRN (14:29)
[2020-09-02] MEDS ORDERED: Ondansetron 4 MG/2 ML VIAL IVP PRN (14:29)
[2020-09-02] MEDS ORDERED: Furosemide 40 MG/4 ML VIAL IVP SCH (14:30)
[2020-09-02] MEDS ORDERED: Dextrose Gel 15 GM/37.5 ML TUBE PO PRN ×2 (15:00)
[2020-09-02] MEDS ORDERED: D5% in Water 1,000 ML IVC PRN (15:00)
[2020-09-02] MEDS ORDERED: *HR* Dextrose 50 % in Water (Vial) 50 ML VIAL IVP PRN (15:00)
[2020-09-02] MEDS: Albuterol 2.5 MG/3 ML NEBULIZER IH SCH ×3 (15:55→23:06)
[2020-09-02] MEDS ORDERED: Furosemide 40 MG/4 ML VIAL ONE (16:14)
[2020-09-02] MEDS: Insulin LISPRO 300 UNITS/3 ML VIAL SUBQ SCH ×2 (16:37→22:15)
[2020-09-02] MEDS: *HR* Dabigatran 150 MG CAPSULE PO SCH (21:53)
[2020-09-02] MEDS: Acetaminophen 325 MG TABLET PO PRN (22:08)
[2020-09-02] MEDS: Insulin DETEMIR 100 UNIT/ML X5UNITS SUBQ SCH (22:15)
[2020-09-02] MEDS ORDERED: Loratadine 10 MG TABLET PO PRN (23:17)
[2020-09-03] MEDS: Albuterol 2.5 MG/3 ML NEBULIZER IH SCH ×6 (03:44→23:38)
[2020-09-03 03:55] LABS: Basophils % 0.2 %; Hematocrit 45.6 % (37.5-50.1); Hemoglobin 14.4 g/dL (12.9-16.9); Immature Granulocytes % 0.6 % (0-4); Lymphocytes # 1.5 K/mcL (0.6-4.6); Lymphocytes % 15.2 %; Mean Corpuscular HGB Conc 31.6 g/dL (31.6-35.5); Mean Corpuscular Hemoglobin 30.8 pg (28.0-33.3); Mean Corpuscular Volume 97.6 fL (83.0-100.0); Mean Platelet Volume 11.1 fL (9.4-12.4); Monocytes # 0.4 K/mcL (0.0-1.3); Monocytes % 3.9 %; Neutrophils # 7.6 K/mcL (1.6-8.9); Platelet Count 171 K/mcL (140-400); Red Blood Count 4.67 M/mcL (4.19-5.50); Red Cell Distribution Width 12.9 % (11.5-14.5); Segmented Neutrophils % 80.1 %; White Blood Count 9.5 K/mcL (4.3-11.1)
[2020-09-03 04:11] LABS: BUN/Creatinine Ratio 26 (6-26); Blood Urea Nitrogen 29 mg/dL (8-23); Calcium 8.3 mg/dL (8.6-10.3); Carbon Dioxide 34 mEq/L (23-29); Chloride 102 mEq/L (98-107); Glucose 212 mg/dL (70-105); Osmolality,Calculated 308 (280-300); Potassium 3.8 mEq/L (3.5-5.1); Sodium 143 mEq/L (136-145); eGFR For African Americans > 60 (> 60); eGFR For Non-African Americans > 60 (> 60)
[2020-09-03] MEDS: Insulin LISPRO 300 UNITS/3 ML VIAL SUBQ SCH ×4 (07:51→19:45)
[2020-09-03] MEDS: Bumetanide 1 MG TABLET PO SCH ×2 (07:53→17:22)
[2020-09-03] MEDS: allopurinoL 300 MG TABLET PO SCH (07:53)
[2020-09-03] MEDS: Acetaminophen 325 MG TABLET PO PRN ×2 (07:56→19:46)
[2020-09-03] MEDS: amLODIPine 5 MG TABLET PO SCH (07:56)
[2020-09-03] MEDS: Fenofibrate 54 MG TABLET PO SCH (07:56)
[2020-09-03] MEDS: predniSONE 20 MG TABLET PO SCH (07:57)
[2020-09-03] MEDS: Cyanocobalamin (B-12) 1,000 MCG TABLET PO SCH (07:57)
[2020-09-03] MEDS: Finasteride 5 MG TABLET PO SCH (07:57)
[2020-09-03] MEDS: *HR* Dabigatran 150 MG CAPSULE PO SCH ×2 (07:58→19:46)
[2020-09-03] MEDS: Gabapentin 400 MG CAPSULE PO SCH ×3 (07:58→19:46)
[2020-09-03] MEDS: Aspirin 81 MG TAB.CHEW PO SCH (08:02)
[2020-09-03] MEDS: Azithromycin 250 MG TABLET PO SCH (08:02)
[2020-09-03] MEDS ORDERED: Furosemide 40 MG/4 ML VIAL IVP SCH (09:00)
[2020-09-03] MEDS: valACYclovir 500 MG TABLET PO SCH (17:14)
[2020-09-03] MEDS: Insulin DETEMIR 100 UNIT/ML X5UNITS SUBQ SCH (19:44)
[2020-09-04] MEDS: Albuterol 2.5 MG/3 ML NEBULIZER IH SCH ×6 (03:42→23:08)
[2020-09-04 04:34] LABS: Hematocrit 48.5 % (37.5-50.1); Hemoglobin 15.3 g/dL (12.9-16.9); Mean Corpuscular HGB Conc 31.5 g/dL (31.6-35.5); Mean Corpuscular Volume 98.2 fL (83.0-100.0); Mean Platelet Volume 10.7 fL (9.4-12.4); Platelet Count 183 K/mcL (140-400); Red Blood Count 4.94 M/mcL (4.19-5.50); Red Cell Distribution Width 13.1 % (11.5-14.5)
[2020-09-04 04:45] LABS: White Blood Count 14.7 K/mcL (4.3-11.1)
[2020-09-04 04:56] LABS: Alanine Aminotransferase 17 Units/L (7-52); Albumin/Globulin Ratio 1.7 (1.1-2.2); Alkaline Phosphatase 50 Units/L (34-104); Aspartate Amino Transferase 22 Units/L (13-39); BUN/Creatinine Ratio 30 (6-26); Bilirubin,Total 0.3 mg/dL (0.3-1.0); Blood Urea Nitrogen 34 mg/dL (8-23); Calcium 8.5 mg/dL (8.6-10.3); Carbon Dioxide 41 mEq/L (23-29); Chloride 103 mEq/L (98-107); Globulin 2.3 g/dL (2.4-3.5); Glucose 90 mg/dL (70-105); Osmolality,Calculated 311 (280-300); Potassium 3.8 mEq/L (3.5-5.1); Sodium 147 mEq/L (136-145); Total Protein 6.3 g/dL (6.4-8.9); eGFR For African Americans > 60 (> 60); eGFR For Non-African Americans > 60 (> 60)
[2020-09-04] MEDS ORDERED: Regadenoson 0.4 MG/5 ML SYRINGE IVP ONE (06:12)
[2020-09-04] MEDS: Insulin LISPRO 300 UNITS/3 ML VIAL SUBQ SCH ×4 (07:21→19:49)
[2020-09-04] MEDS: Fenofibrate 54 MG TABLET PO SCH (09:18)
[2020-09-04] MEDS: Bumetanide 1 MG TABLET PO SCH ×2 (09:18→17:38)
[2020-09-04] MEDS: allopurinoL 300 MG TABLET PO SCH (09:18)
[2020-09-04] MEDS: predniSONE 20 MG TABLET PO SCH (09:18)
[2020-09-04] MEDS: *HR* Dabigatran 150 MG CAPSULE PO SCH ×2 (09:19→19:48)
[2020-09-04] MEDS: amLODIPine 5 MG TABLET PO SCH (09:19)
[2020-09-04] MEDS: Gabapentin 400 MG CAPSULE PO SCH ×3 (09:20→19:48)
[2020-09-04] MEDS: Aspirin 81 MG TAB.CHEW PO SCH (09:20)
[2020-09-04] MEDS: Finasteride 5 MG TABLET PO SCH (09:20)
[2020-09-04] MEDS: Azithromycin 250 MG TABLET PO SCH (09:20)
[2020-09-04] MEDS: Cyanocobalamin (B-12) 1,000 MCG TABLET PO SCH (09:21)
[2020-09-04] MEDS: valACYclovir 500 MG TABLET PO SCH (17:38)
[2020-09-04] MEDS: Insulin DETEMIR 100 UNIT/ML X5UNITS SUBQ SCH (19:50)
[2020-09-05 02:49] LABS: Hematocrit 49.5 % (37.5-50.1); Hemoglobin 14.8 g/dL (12.9-16.9); Mean Corpuscular HGB Conc 29.9 g/dL (31.6-35.5); Mean Corpuscular Volume 100.2 fL (83.0-100.0); Mean Platelet Volume 10.8 fL (9.4-12.4); Platelet Count 185 K/mcL (140-400); Red Blood Count 4.94 M/mcL (4.19-5.50); Red Cell Distribution Width 13.1 % (11.5-14.5); White Blood Count 12.6 K/mcL (4.3-11.1)
[2020-09-05 03:12] LABS: Alanine Aminotransferase 26 Units/L (7-52); Albumin/Globulin Ratio 1.7 (1.1-2.2); Alkaline Phosphatase 52 Units/L (34-104); Aspartate Amino Transferase 31 Units/L (13-39); BUN/Creatinine Ratio 29 (6-26); Bilirubin,Total 0.3 mg/dL (0.3-1.0); Blood Urea Nitrogen 35 mg/dL (8-23); Calcium 8.7 mg/dL (8.6-10.3); Carbon Dioxide 42 mEq/L (23-29); Chloride 102 mEq/L (98-107); Globulin 2.3 g/dL (2.4-3.5); Glucose 141 mg/dL (70-105); Osmolality,Calculated 320 (280-300); Potassium 3.4 mEq/L (3.5-5.1); Sodium 150 mEq/L (136-145); Total Protein 6.3 g/dL (6.4-8.9); eGFR For African Americans > 60 (> 60); eGFR For Non-African Americans 58 (> 60)
[2020-09-05] MEDS: Albuterol 2.5 MG/3 ML NEBULIZER IH SCH ×6 (03:52→20:02)
[2020-09-05] MEDS: amLODIPine 5 MG TABLET PO SCH (08:06)
[2020-09-05] MEDS: Aspirin 81 MG TAB.CHEW PO SCH (08:06)
[2020-09-05] MEDS: predniSONE 20 MG TABLET PO SCH (08:06)
[2020-09-05] MEDS: Fenofibrate 54 MG TABLET PO SCH (08:07)
[2020-09-05] MEDS: *HR* Dabigatran 150 MG CAPSULE PO SCH ×2 (08:07→21:33)
[2020-09-05] MEDS: Bumetanide 1 MG TABLET PO SCH ×2 (08:08→15:36)
[2020-09-05] MEDS: allopurinoL 300 MG TABLET PO SCH (08:08)
[2020-09-05] MEDS: Finasteride 5 MG TABLET PO SCH (08:08)
[2020-09-05] MEDS: Gabapentin 400 MG CAPSULE PO SCH ×3 (08:09→21:33)
[2020-09-05] MEDS: Azithromycin 250 MG TABLET PO SCH (08:09)
[2020-09-05] MEDS: Cyanocobalamin (B-12) 1,000 MCG TABLET PO SCH (08:09)
[2020-09-05] MEDS: Insulin LISPRO 300 UNITS/3 ML VIAL SUBQ SCH ×4 (08:10→21:33)
[2020-09-05] MEDS: D5% in Water 1,000 ML IVC SCH (10:31)
[2020-09-05] MEDS: Isosorbide MONOnitrate (24 HR) 30 MG TAB.ER.24H PO SCH (15:35)
[2020-09-05 17:31] LABS: Alanine Aminotransferase 25 Units/L (7-52); Albumin 3.8 g/dL (3.5-5.7); Albumin/Globulin Ratio 1.8 (1.1-2.2); Alkaline Phosphatase 51 Units/L (34-104); Aspartate Amino Transferase 26 Units/L (13-39); BUN/Creatinine Ratio 31 (6-26); Bilirubin,Total 0.4 mg/dL (0.3-1.0); Blood Urea Nitrogen 36 mg/dL (8-23); Calcium 8.7 mg/dL (8.6-10.3); Carbon Dioxide 41 mEq/L (23-29); Chloride 100 mEq/L (98-107); Globulin 2.1 g/dL (2.4-3.5); Glucose 302 mg/dL (70-105); Osmolality,Calculated 318 (280-300); Sodium 144 mEq/L (136-145); Total Protein 5.9 g/dL (6.4-8.9); eGFR For African Americans > 60 (> 60); eGFR For Non-African Americans > 60 (> 60)
[2020-09-05] MEDS: valACYclovir 500 MG TABLET PO SCH (17:50)
[2020-09-05] MEDS: Insulin DETEMIR 100 UNIT/ML X5UNITS SUBQ SCH (21:32)
[2020-09-06 02:14] LABS: Hematocrit 41.7 % (37.5-50.1); Mean Corpuscular HGB Conc 31.2 g/dL (31.6-35.5); Mean Corpuscular Volume 99.5 fL (83.0-100.0); Platelet Count 152 K/mcL (140-400); Red Blood Count 4.19 M/mcL (4.19-5.50); White Blood Count 10.8 K/mcL (4.3-11.1)
[2020-09-06 02:37] LABS: Alanine Aminotransferase 23 Units/L (7-52); Albumin 3.4 g/dL (3.5-5.7); Albumin/Globulin Ratio 1.9 (1.1-2.2); Alkaline Phosphatase 42 Units/L (34-104); Aspartate Amino Transferase 20 Units/L (13-39); BUN/Creatinine Ratio 32 (6-26); Bilirubin,Total 0.4 mg/dL (0.3-1.0); Blood Urea Nitrogen 39 mg/dL (8-23); Calcium 8.2 mg/dL (8.6-10.3); Carbon Dioxide 40 mEq/L (23-29); Chloride 100 mEq/L (98-107); Globulin 1.8 g/dL (2.4-3.5); Glucose 135 mg/dL (70-105); Osmolality,Calculated 311 (280-300); Potassium 3.3 mEq/L (3.5-5.1); Sodium 145 mEq/L (136-145); Total Protein 5.2 g/dL (6.4-8.9); eGFR For African Americans > 60 (> 60); eGFR For Non-African Americans 58 (> 60)
[2020-09-06] MEDS: Albuterol 2.5 MG/3 ML NEBULIZER IH SCH ×6 (03:19→23:45)
[2020-09-06] MEDS: D5% in Water 1,000 ML IVC SCH (08:00)
[2020-09-06] MEDS: Aspirin 81 MG TAB.CHEW PO SCH (08:03)
[2020-09-06] MEDS: allopurinoL 300 MG TABLET PO SCH (08:03)
[2020-09-06] MEDS: *HR* Dabigatran 150 MG CAPSULE PO SCH ×2 (08:04→20:48)
[2020-09-06] MEDS: amLODIPine 5 MG TABLET PO SCH (08:04)
[2020-09-06] MEDS: Bumetanide 1 MG TABLET PO SCH ×2 (08:04→15:32)
[2020-09-06] MEDS: Isosorbide MONOnitrate (24 HR) 30 MG TAB.ER.24H PO SCH (08:04)
[2020-09-06] MEDS: predniSONE 20 MG TABLET PO SCH (08:04)
[2020-09-06] MEDS: Azithromycin 250 MG TABLET PO SCH (08:05)
[2020-09-06] MEDS: Gabapentin 400 MG CAPSULE PO SCH ×3 (08:05→20:48)
[2020-09-06] MEDS: Cyanocobalamin (B-12) 1,000 MCG TABLET PO SCH (08:05)
[2020-09-06] MEDS: Fenofibrate 54 MG TABLET PO SCH (08:05)
[2020-09-06] MEDS: Finasteride 5 MG TABLET PO SCH (08:05)
[2020-09-06] MEDS: Insulin LISPRO 300 UNITS/3 ML VIAL SUBQ SCH ×4 (08:18→18:47)
[2020-09-06] MEDS ORDERED: Furosemide 40 MG/4 ML VIAL IVP ONE (09:15)
[2020-09-06] MEDS: valACYclovir 500 MG TABLET PO SCH (18:24)
[2020-09-06] MEDS: Insulin DETEMIR 100 UNIT/ML X5UNITS SUBQ SCH (20:49)
[2020-09-07] MEDS: Albuterol 2.5 MG/3 ML NEBULIZER IH SCH ×4 (04:40→15:26)
[2020-09-07 05:36] LABS: Hematocrit 43.9 % (37.5-50.1); Hemoglobin 13.6 g/dL (12.9-16.9); Mean Corpuscular Hemoglobin 30.6 pg (28.0-33.3); Mean Corpuscular Volume 98.9 fL (83.0-100.0); Mean Platelet Volume 10.6 fL (9.4-12.4); Platelet Count 150 K/mcL (140-400); Red Blood Count 4.44 M/mcL (4.19-5.50); Red Cell Distribution Width 12.7 % (11.5-14.5); White Blood Count 10.5 K/mcL (4.3-11.1)
[2020-09-07 06:03] LABS: Alanine Aminotransferase 21 Units/L (7-52); Albumin 3.5 g/dL (3.5-5.7); Albumin/Globulin Ratio 1.8 (1.1-2.2); Alkaline Phosphatase 45 Units/L (34-104); Aspartate Amino Transferase 17 Units/L (13-39); BUN/Creatinine Ratio 30 (6-26); Bilirubin,Total 0.4 mg/dL (0.3-1.0); Blood Urea Nitrogen 38 mg/dL (8-23); Calcium 8.6 mg/dL (8.6-10.3); Carbon Dioxide 41 mEq/L (23-29); Chloride 99 mEq/L (98-107); Glucose 160 mg/dL (70-105); Osmolality,Calculated 310 (280-300); Potassium 3.5 mEq/L (3.5-5.1); Sodium 144 mEq/L (136-145); Total Protein 5.5 g/dL (6.4-8.9); eGFR For African Americans > 60 (> 60); eGFR For Non-African Americans 55 (> 60)
[2020-09-07] MEDS: Aspirin 81 MG TAB.CHEW PO SCH (07:27)
[2020-09-07] MEDS: Gabapentin 400 MG CAPSULE PO SCH (07:27)
[2020-09-07] MEDS: Cyanocobalamin (B-12) 1,000 MCG TABLET PO SCH (07:27)
[2020-09-07] MEDS: Azithromycin 250 MG TABLET PO SCH (07:27)
[2020-09-07] MEDS: Isosorbide MONOnitrate (24 HR) 30 MG TAB.ER.24H PO SCH (07:27)
[2020-09-07] MEDS: Bumetanide 1 MG TABLET PO SCH (07:27)
[2020-09-07] MEDS: *HR* Dabigatran 150 MG CAPSULE PO SCH (07:27)
[2020-09-07] MEDS: allopurinoL 300 MG TABLET PO SCH (07:28)
[2020-09-07] MEDS: Fenofibrate 54 MG TABLET PO SCH (07:28)
[2020-09-07] MEDS: predniSONE 20 MG TABLET PO SCH (07:28)
[2020-09-07] MEDS: Finasteride 5 MG TABLET PO SCH (07:28)
[2020-09-07] MEDS: amLODIPine 5 MG TABLET PO SCH (07:28)
[2020-09-07] MEDS: Insulin LISPRO 300 UNITS/3 ML VIAL SUBQ SCH ×2 (08:03→12:15)
[2020-09-07 14:26] VITALS: BP 117/75
== END 2020-09-07 15:29 | disposition home or self-care (01) | DRG 291 ==
LOC: 3BNU 11:10 → EMEROOARM 11:10 → SUATTDRO 13:33 → 3BNU 14:33
PROVIDERS: ADMIT Internal Medicine; ATTEND Registered Nurse

== ENCOUNTER 2020-09-12 13:27 | Inpatient (IN) ==
[2020-09-12 14:14] LABS: Basophils % 0.9 %; Hemoglobin 13.2 g/dL (12.9-16.9); Mean Corpuscular Volume 96.3 fL (83.0-100.0); Mean Platelet Volume 11.3 fL (9.4-12.4); Red Cell Distribution Width 13.1 % (11.5-14.5)
[2020-09-12 14:16] LABS: Basophils # 0.1 K/mcL (0.0-0.2); Eosinophils # 0.3 K/mcL (0.0-0.6); Eosinophils % 3.9 %; Hematocrit 41.5 % (37.5-50.1); Immature Granulocytes % 1.8 % (0-4); Immature Platelets 5.3 % (1.1-6.1); Lymphocytes # 1.8 K/mcL (0.6-4.6); Lymphocytes % 23.1 %; Mean Corpuscular HGB Conc 31.8 g/dL (31.6-35.5); Mean Corpuscular Hemoglobin 30.6 pg (28.0-33.3); Monocytes # 0.9 K/mcL (0.0-1.3); Monocytes % 11.2 %; Neutrophils # 4.6 K/mcL (1.6-8.9); Platelet Count 121 K/mcL (140-400); Red Blood Count 4.31 M/mcL (4.19-5.50); Segmented Neutrophils % 59.1 %; White Blood Count 7.8 K/mcL (4.3-11.1)
[2020-09-12 14:36] LABS: BUN/Creatinine Ratio 27 (6-26); Blood Urea Nitrogen 29 mg/dL (8-23); Calcium 9.3 mg/dL (8.6-10.3); Carbon Dioxide 36 mEq/L (23-29); Chloride 103 mEq/L (98-107); Glucose 121 mg/dL (70-105); Osmolality,Calculated 303 (280-300); Sodium 143 mEq/L (136-145); Troponin I < 0.03 ng/mL (< 0.04); eGFR For African Americans > 60 (> 60); eGFR For Non-African Americans > 60 (> 60)
[2020-09-12] MEDS ORDERED: Dextrose Gel 15 GM/37.5 ML TUBE PO PRN ×2 (15:44)
[2020-09-12] MEDS ORDERED: methylPREDNISolone 125 MG/2 ML VIAL IVP ONE (15:44)
[2020-09-12] MEDS ORDERED: D5% in Water 1,000 ML IVC PRN (15:44)
[2020-09-12] MEDS ORDERED: *HR* Dextrose 50 % in Water (Vial) 50 ML VIAL IVP PRN (15:44)
[2020-09-12] MEDS ORDERED: Acetaminophen 325 MG TABLET PO PRN (15:56)
[2020-09-12] MEDS ORDERED: Naloxone 0.4 MG/ML INJ IVP PRN (15:56)
[2020-09-12] MEDS: Levalbuterol Neb 1.25 MG/3 ML IH SCH ×3 (16:18→23:58)
[2020-09-12 16:45] LABS: ABG Base Excess 6 mEq/L (-2 to 3); ABG HCO3 32 mEq/L (21-27); ABG Oxygen Saturation 94 % (95-98); ABG PCO2 57 mmHg (35-45); ABG PH 7.37 pH Units (7.32-7.45); ABG PO2 73 mmHg (85-104); ABG TCO2 34 mEq/L (20-26)
[2020-09-12] MEDS: Isovue-370 500 ML BOTTLE IVP ONE (16:59)
[2020-09-12] MEDS ORDERED: Nitroglycerin 0.4 MG TAB.SUBL SL PRN (17:00)
[2020-09-12] MEDS ORDERED: Loratadine 10 MG TABLET PO PRN (17:00)
[2020-09-12] MEDS ORDERED: Ketoconazole Shampoo 120 ML BOTTLE TP PRN (17:00)
[2020-09-12] MEDS: Insulin LISPRO 300 UNITS/3 ML VIAL SUBQ SCH ×2 (17:57→20:28)
[2020-09-12] MEDS: Gabapentin 400 MG CAPSULE PO SCH (20:25)
[2020-09-12] MEDS: methylPREDNISolone 125 MG/2 ML VIAL IVP SCH (23:49)
[2020-09-13 02:28] LABS: Hematocrit 43.2 % (37.5-50.1); Hemoglobin 13.8 g/dL (12.9-16.9); Immature Platelets 4.7 % (1.1-6.1); Mean Corpuscular HGB Conc 31.9 g/dL (31.6-35.5); Mean Corpuscular Volume 97.1 fL (83.0-100.0); Mean Platelet Volume 11.1 fL (9.4-12.4); Red Blood Count 4.45 M/mcL (4.19-5.50); Red Cell Distribution Width 13.1 % (11.5-14.5); White Blood Count 9.2 K/mcL (4.3-11.1)
[2020-09-13 02:31] LABS: Prothrombin Time 11.4 Seconds (9.4-12.1)
[2020-09-13 02:34] LABS: Activated Partial Thrombo Time 28.3 Seconds (26.0-36.0)
[2020-09-13 02:52] LABS: % Iron Saturation 20 % (20-55); Iron 71 mcg/dL (65-175); Transferrin 253 mg/dL (203-362)
[2020-09-13 03:07] LABS: Ferritin 63 ng/mL (20-250)
[2020-09-13 03:13] LABS: Folate 14.5 ng/mL (3.0-16.0)
[2020-09-13 03:20] LABS: Calcium 9.2 mg/dL (8.6-10.3); Chol/HDL Ratio 2.7 (0-4.9); Cholesterol 101 mg/dL (< 200); HDL Cholesterol 38 mg/dL (40-59); LDL Cholesterol,Calculated 43 mg/dL (< 100); Triglycerides 100 mg/dL (< 150)
[2020-09-13 03:39] LABS: BUN/Creatinine Ratio 28 (6-26); Blood Urea Nitrogen 34 mg/dL (8-23); Carbon Dioxide 33 mEq/L (23-29); Chloride 102 mEq/L (98-107); Glucose 309 mg/dL (70-105); Osmolality,Calculated 309 (280-300); Potassium 5.1 mEq/L (3.5-5.1); Sodium 140 mEq/L (136-145); eGFR For African Americans > 60 (> 60); eGFR For Non-African Americans 58 (> 60)
[2020-09-13] MEDS: Levalbuterol Neb 1.25 MG/3 ML IH SCH ×6 (04:24→23:36)
[2020-09-13 07:43] LABS: Estimated Average Glucose 189 mg/dl; Hemoglobin A1C 8.2 %
[2020-09-13] MEDS: Insulin LISPRO 300 UNITS/3 ML VIAL SUBQ SCH ×4 (08:37→20:04)
[2020-09-13] MEDS: amLODIPine 5 MG TABLET PO SCH (08:37)
[2020-09-13] MEDS: Fenofibrate 54 MG TABLET PO SCH (08:38)
[2020-09-13] MEDS: allopurinoL 300 MG TABLET PO SCH (08:38)
[2020-09-13] MEDS: Isosorbide MONOnitrate (24 HR) 30 MG TAB.ER.24H PO SCH (08:38)
[2020-09-13] MEDS: Cyanocobalamin (B-12) 1,000 MCG TABLET PO SCH (08:38)
[2020-09-13] MEDS: Bumetanide 1 MG TABLET PO SCH ×2 (08:38→20:04)
[2020-09-13] MEDS: Aspirin Enteric Coated 81 MG Tablet PO SCH (08:38)
[2020-09-13] MEDS: Gabapentin 400 MG CAPSULE PO SCH ×3 (08:38→20:04)
[2020-09-13] MEDS: *HR* Glimepiride 2 MG TABLET PO SCH (08:38)
[2020-09-13] MEDS: methylPREDNISolone 125 MG/2 ML VIAL IVP SCH ×3 (08:38→23:52)
[2020-09-13] MEDS: *HR* Dabigatran 150 MG CAPSULE PO SCH ×2 (08:38→20:04)
[2020-09-13] MEDS: Finasteride 5 MG TABLET PO SCH (08:39)
[2020-09-13] MEDS: Budesonide/Formoterol 160/4.5 1 PUFF INH IH SCH ×2 (09:52→20:22)
[2020-09-13] MEDS: valACYclovir 500 MG TABLET PO SCH (17:08)
[2020-09-14] MEDS: Levalbuterol Neb 1.25 MG/3 ML IH SCH ×6 (03:53→23:06)
[2020-09-14 04:06] LABS: Hematocrit 45.7 % (37.5-50.1); Hemoglobin 14.8 g/dL (12.9-16.9); Mean Corpuscular HGB Conc 32.4 g/dL (31.6-35.5); Mean Corpuscular Hemoglobin 31.4 pg (28.0-33.3); Mean Platelet Volume 12.7 fL (9.4-12.4); Platelet Count 124 K/mcL (140-400); Red Blood Count 4.71 M/mcL (4.19-5.50); Red Cell Distribution Width 13.2 % (11.5-14.5)
[2020-09-14 04:07] LABS: White Blood Count 16.1 K/mcL (4.3-11.1)
[2020-09-14 04:28] LABS: BUN/Creatinine Ratio 32 (6-26); Blood Urea Nitrogen 39 mg/dL (8-23); Calcium 8.7 mg/dL (8.6-10.3); Carbon Dioxide 30 mEq/L (23-29); Chloride 103 mEq/L (98-107); Glucose 286 mg/dL (70-105); Osmolality,Calculated 310 (280-300); Potassium 5.2 mEq/L (3.5-5.1); Sodium 140 mEq/L (136-145); eGFR For African Americans > 60 (> 60); eGFR For Non-African Americans 57 (> 60)
[2020-09-14] MEDS: Budesonide/Formoterol 160/4.5 1 PUFF INH IH SCH ×2 (07:37→20:11)
[2020-09-14] MEDS: Insulin LISPRO 300 UNITS/3 ML VIAL SUBQ SCH ×4 (08:07→21:22)
[2020-09-14] MEDS: methylPREDNISolone 125 MG/2 ML VIAL IVP SCH (08:07)
[2020-09-14] MEDS: Bumetanide 1 MG TABLET PO SCH ×2 (09:58→19:19)
[2020-09-14] MEDS: Fenofibrate 54 MG TABLET PO SCH (09:58)
[2020-09-14] MEDS: amLODIPine 5 MG TABLET PO SCH (09:58)
[2020-09-14] MEDS: allopurinoL 300 MG TABLET PO SCH (09:58)
[2020-09-14] MEDS: Aspirin Enteric Coated 81 MG Tablet PO SCH (09:58)
[2020-09-14] MEDS: Finasteride 5 MG TABLET PO SCH (09:58)
[2020-09-14] MEDS: Cyanocobalamin (B-12) 1,000 MCG TABLET PO SCH (09:59)
[2020-09-14] MEDS: Isosorbide MONOnitrate (24 HR) 30 MG TAB.ER.24H PO SCH (09:59)
[2020-09-14] MEDS: *HR* Dabigatran 150 MG CAPSULE PO SCH ×2 (09:59→19:20)
[2020-09-14] MEDS: Gabapentin 400 MG CAPSULE PO SCH ×3 (09:59→19:20)
[2020-09-14] MEDS: *HR* Glimepiride 2 MG TABLET PO SCH (10:06)
[2020-09-14] MEDS: valACYclovir 500 MG TABLET PO SCH (17:46)
[2020-09-14] MEDS ORDERED: MethylPREDNISolone 40 MG/ML VIAL IVP SCH (18:00)
[2020-09-14] MEDS: Insulin DETEMIR 100 UNIT/ML X5UNITS SUBQ SCH (21:24)
[2020-09-15] MEDS: Levalbuterol Neb 1.25 MG/3 ML IH SCH ×6 (04:03→23:44)
[2020-09-15 06:07] LABS: Hematocrit 47.1 % (37.5-50.1)
[2020-09-15 06:09] LABS: Basophils # 0.1 K/mcL (0.0-0.2); Basophils % 0.3 %; Eosinophils % 0.1 %; Hemoglobin 14.8 g/dL (12.9-16.9); Immature Granulocytes % 1.1 % (0-4); Immature Platelets 4.3 % (1.1-6.1); Lymphocytes # 2.9 K/mcL (0.6-4.6); Lymphocytes % 14.2 %; Mean Corpuscular HGB Conc 31.4 g/dL (31.6-35.5); Mean Corpuscular Hemoglobin 30.6 pg (28.0-33.3); Mean Corpuscular Volume 97.5 fL (83.0-100.0); Mean Platelet Volume 11.6 fL (9.4-12.4); Monocytes # 1.1 K/mcL (0.0-1.3); Monocytes % 5.5 %; Neutrophils # 16.1 K/mcL (1.6-8.9); Nucleated Red Blood Cells 0.1 /100 WBC (0); Platelet Count 146 K/mcL (140-400); Red Blood Count 4.83 M/mcL (4.19-5.50); Red Cell Distribution Width 13.1 % (11.5-14.5); Segmented Neutrophils % 78.8 %; White Blood Count 20.4 K/mcL (4.3-11.1)
[2020-09-15 06:54] LABS: BUN/Creatinine Ratio 32 (6-26); Blood Urea Nitrogen 38 mg/dL (8-23); Calcium 8.6 mg/dL (8.6-10.3); Carbon Dioxide 26 mEq/L (23-29); Chloride 103 mEq/L (98-107); Glucose 218 mg/dL (70-105); Magnesium 2.4 mg/dL (1.6-2.6); Osmolality,Calculated 310 (280-300); Phosphorous 4.7 mg/dL (2.7-4.5); Potassium 5.1 mEq/L (3.5-5.1); Sodium 142 mEq/L (136-145); eGFR For African Americans > 60 (> 60); eGFR For Non-African Americans 60 (> 60)
[2020-09-15] MEDS: Budesonide/Formoterol 160/4.5 1 PUFF INH IH SCH ×2 (07:33→19:13)
[2020-09-15] MEDS: Aspirin Enteric Coated 81 MG Tablet PO SCH (08:57)
[2020-09-15] MEDS: predniSONE 20 MG TABLET PO SCH (08:57)
[2020-09-15] MEDS: Isosorbide MONOnitrate (24 HR) 30 MG TAB.ER.24H PO SCH (08:58)
[2020-09-15] MEDS: Gabapentin 400 MG CAPSULE PO SCH ×3 (08:58→20:53)
[2020-09-15] MEDS: Cyanocobalamin (B-12) 1,000 MCG TABLET PO SCH (08:58)
[2020-09-15] MEDS: amLODIPine 5 MG TABLET PO SCH (08:58)
[2020-09-15] MEDS: *HR* Dabigatran 150 MG CAPSULE PO SCH ×2 (08:59→20:53)
[2020-09-15] MEDS: Bumetanide 1 MG TABLET PO SCH (08:59)
[2020-09-15] MEDS: allopurinoL 300 MG TABLET PO SCH (08:59)
[2020-09-15] MEDS: Fenofibrate 54 MG TABLET PO SCH (08:59)
[2020-09-15] MEDS: Finasteride 5 MG TABLET PO SCH (09:00)
[2020-09-15] MEDS: Insulin LISPRO 300 UNITS/3 ML VIAL SUBQ SCH ×4 (09:08→20:56)
[2020-09-15] MEDS: Bumetanide 1 MG/4 ML VIAL IVP SCH (12:16)
[2020-09-15] MEDS: valACYclovir 500 MG TABLET PO SCH (17:30)
[2020-09-15] MEDS: Insulin DETEMIR 100 UNIT/ML X5UNITS SUBQ SCH (20:56)
[2020-09-16] MEDS: Levalbuterol Neb 1.25 MG/3 ML IH SCH ×3 (03:55→11:23)
[2020-09-16 05:55] LABS: Basophils % 0.2 %; Mean Corpuscular HGB Conc 31.4 g/dL (31.6-35.5)
[2020-09-16 05:57] LABS: Eosinophils % 0.1 %; Hematocrit 46.2 % (37.5-50.1); Hemoglobin 14.5 g/dL (12.9-16.9); Immature Granulocytes % 0.8 % (0-4); Immature Platelets 5.9 % (1.1-6.1); Lymphocytes # 4.2 K/mcL (0.6-4.6); Lymphocytes % 24.7 %; Mean Corpuscular Hemoglobin 30.5 pg (28.0-33.3); Mean Corpuscular Volume 97.1 fL (83.0-100.0); Mean Platelet Volume 11.6 fL (9.4-12.4); Monocytes # 1.6 K/mcL (0.0-1.3); Monocytes % 9.2 %; Platelet Count 134 K/mcL (140-400); Red Blood Count 4.76 M/mcL (4.19-5.50); Red Cell Distribution Width 13.1 % (11.5-14.5); White Blood Count 16.9 K/mcL (4.3-11.1)
[2020-09-16 06:29] LABS: BUN/Creatinine Ratio 29 (6-26); Blood Urea Nitrogen 38 mg/dL (8-23); Calcium 8.8 mg/dL (8.6-10.3); Carbon Dioxide 39 mEq/L (23-29); Chloride 101 mEq/L (98-107); Glucose 142 mg/dL (70-105); Osmolality,Calculated 309 (280-300); Phosphorous 3.9 mg/dL (2.7-4.5); Sodium 144 mEq/L (136-145); eGFR For African Americans > 60 (> 60); eGFR For Non-African Americans 54 (> 60)
[2020-09-16 06:40] LABS: Magnesium 2.3 mg/dL (1.6-2.6)
[2020-09-16 07:01] VITALS: BP 144/89
[2020-09-16] MEDS: Budesonide/Formoterol 160/4.5 1 PUFF INH IH SCH (07:29)
[2020-09-16] MEDS: Bumetanide 1 MG/4 ML VIAL IVP SCH (08:28)
[2020-09-16] MEDS: Aspirin Enteric Coated 81 MG Tablet PO SCH (08:29)
[2020-09-16] MEDS: Isosorbide MONOnitrate (24 HR) 30 MG TAB.ER.24H PO SCH (08:29)
[2020-09-16] MEDS: allopurinoL 300 MG TABLET PO SCH (08:30)
[2020-09-16] MEDS: Gabapentin 400 MG CAPSULE PO SCH ×2 (08:30→13:55)
[2020-09-16] MEDS: Finasteride 5 MG TABLET PO SCH (08:30)
[2020-09-16] MEDS: *HR* Dabigatran 150 MG CAPSULE PO SCH (08:30)
[2020-09-16] MEDS: Cyanocobalamin (B-12) 1,000 MCG TABLET PO SCH (08:30)
[2020-09-16] MEDS: amLODIPine 5 MG TABLET PO SCH (08:30)
[2020-09-16] MEDS: Fenofibrate 54 MG TABLET PO SCH (08:30)
[2020-09-16] MEDS: predniSONE 20 MG TABLET PO SCH (08:30)
[2020-09-16] MEDS: Insulin LISPRO 300 UNITS/3 ML VIAL SUBQ SCH (08:31)
== END 2020-09-16 14:09 | disposition home health service (06) | DRG 190 ==
LOC: EMEROOARM 13:27 → 3BNU 13:27 → SUATTDRO 15:49 → 3BNU 17:28
PROVIDERS: ADMIT Internal Medicine; ATTEND Internal Medicine

== ENCOUNTER 2020-09-29 09:13 | Observation (INO) ==
[2020-09-29] MEDS ORDERED: Adenosine 90 MG/30 ML MLS IV ONE (09:14)
[2020-09-29] MEDS ORDERED: 0.9 % Sodium Chloride 1,000 ML ONE (09:52)
[2020-09-29] MEDS ORDERED: Heparin 1,000 UNITS/500 mL 500 ML ONE (09:53)
[2020-09-29] MEDS ORDERED: *HR* Heparin 10,000 UNIT/10 ML VIAL ONE (09:53)
[2020-09-29] MEDS ORDERED: ISOVUE-370 200 ML INFUS..BTL ONE ×2 (09:53→11:27)
[2020-09-29] MEDS ORDERED: Nitroglycerin 1,000 MCG/10 ML VIAL IV ONE (09:53)
[2020-09-29] MEDS ORDERED: *HR* Midazolam HCl 2 MG/2 ML VIAL ONE ×2 (09:59→11:25)
[2020-09-29] MEDS ORDERED: *HR* FentaNYL (PF) 100 MCG/2 ML VIAL ONE (09:59)
[2020-09-29] MEDS: 0.9 % Sodium Chloride 1,000 ML IVC SCH (10:29)
[2020-09-29] MEDS ORDERED: *HR* Ticagrelor 90 MG TABLET ONE (11:53)
[2020-09-29] MEDS ORDERED: *HR* Bivalirudin 250 MG VIAL IVC ONE ×2 (12:08→12:53)
[2020-09-29] MEDS ORDERED: Nitroglycerin 0.4 MG TAB.SUBL SL PRN (12:20)
[2020-09-29] MEDS ORDERED: D5% in Water 1,000 ML IVC PRN (12:27)
[2020-09-29] MEDS ORDERED: Dextrose Gel 15 GM/37.5 ML TUBE PO PRN ×2 (12:27)
[2020-09-29] MEDS ORDERED: *HR* Dextrose 50 % in Water (Vial) 50 ML VIAL IVP PRN (12:27)
[2020-09-29] MEDS ORDERED: Furosemide 40 MG/4 ML VIAL IVP ONE (12:30)
[2020-09-29] MEDS: Bumetanide 1 MG TABLET PO SCH (17:49)
[2020-09-29] MEDS: Insulin LISPRO 300 UNITS/3 ML VIAL SUBQ SCH (17:49)
[2020-09-29 18:07] LABS: Estimated Average Glucose 200 mg/dl; Hemoglobin A1C 8.6 %
[2020-09-29 18:21] LABS: BUN/Creatinine Ratio 23 (6-26); Blood Urea Nitrogen 24 mg/dL (8-23); Calcium 8.3 mg/dL (8.6-10.3); Carbon Dioxide 33 mEq/L (23-29); Chloride 100 mEq/L (98-107); Glucose 192 mg/dL (70-105); Osmolality,Calculated 297 (280-300); Potassium 3.5 mEq/L (3.5-5.1); Sodium 139 mEq/L (136-145); eGFR For African Americans > 60 (> 60); eGFR For Non-African Americans > 60 (> 60)
[2020-09-29] MEDS: Insulin DETEMIR 100 UNIT/ML X5UNITS SUBQ SCH (20:54)
[2020-09-29] MEDS: Pregabalin 75 MG CAPSULE PO SCH (20:54)
[2020-09-29] MEDS: *HR* Ticagrelor 90 MG TABLET PO SCH (20:54)
[2020-09-29] MEDS: Budesonide/Formoterol 160/4.5 1 PUFF INH IH SCH (21:38)
[2020-09-30] MEDS ORDERED: Melatonin 3 MG TABLET PO PRN (00:51)
[2020-09-30 02:18] LABS: Basophils # 0.1 K/mcL (0.0-0.2); Basophils % 1.1 %; Eosinophils # 0.3 K/mcL (0.0-0.6); Eosinophils % 2.4 %; Hematocrit 43.5 % (37.5-50.1); Hemoglobin 14.1 g/dL (12.9-16.9); Immature Granulocytes % 1.8 % (0-4); Lymphocytes # 2.4 K/mcL (0.6-4.6); Lymphocytes % 19.4 %; Mean Corpuscular HGB Conc 32.4 g/dL (31.6-35.5); Mean Corpuscular Hemoglobin 30.3 pg (28.0-33.3); Mean Corpuscular Volume 93.3 fL (83.0-100.0); Mean Platelet Volume 11.1 fL (9.4-12.4); Monocytes # 1.2 K/mcL (0.0-1.3); Monocytes % 9.3 %; Neutrophils # 8.3 K/mcL (1.6-8.9); Platelet Count 156 K/mcL (140-400); Red Blood Count 4.66 M/mcL (4.19-5.50); Red Cell Distribution Width 13.2 % (11.5-14.5); White Blood Count 12.6 K/mcL (4.3-11.1)
[2020-09-30 03:23] LABS: BUN/Creatinine Ratio 24 (6-26); Blood Urea Nitrogen 27 mg/dL (8-23); Calcium 8.3 mg/dL (8.6-10.3); Carbon Dioxide 31 mEq/L (23-29); Chloride 102 mEq/L (98-107); Glucose 78 mg/dL (70-105); Osmolality,Calculated 298 (280-300); Potassium 3.1 mEq/L (3.5-5.1); Sodium 142 mEq/L (136-145); eGFR For African Americans > 60 (> 60); eGFR For Non-African Americans > 60 (> 60)
[2020-09-30] MEDS: Insulin LISPRO 300 UNITS/3 ML VIAL SUBQ SCH ×3 (07:28→16:16)
[2020-09-30] MEDS: Cyanocobalamin (B-12) 1,000 MCG TABLET PO SCH (07:29)
[2020-09-30] MEDS: Aspirin Enteric Coated 81 MG Tablet PO SCH (07:29)
[2020-09-30] MEDS: *HR* Ticagrelor 90 MG TABLET PO SCH ×2 (07:29→20:43)
[2020-09-30] MEDS: *HR* Rivaroxaban 10 MG TABLET PO SCH (07:29)
[2020-09-30] MEDS: Bumetanide 1 MG TABLET PO SCH ×2 (07:29→16:59)
[2020-09-30] MEDS: Pregabalin 75 MG CAPSULE PO SCH ×2 (07:29→20:43)
[2020-09-30] MEDS: Isosorbide MONOnitrate (24 HR) 30 MG TAB.ER.24H PO SCH (07:29)
[2020-09-30] MEDS: Finasteride 5 MG TABLET PO SCH (07:30)
[2020-09-30] MEDS: allopurinoL 300 MG TABLET PO SCH (07:30)
[2020-09-30] MEDS: Fenofibrate 54 MG TABLET PO SCH (07:30)
[2020-09-30] MEDS: *HR* Glimepiride 2 MG TABLET PO SCH (07:30)
[2020-09-30] MEDS: amLODIPine 5 MG TABLET PO SCH (07:30)
[2020-09-30] MEDS: Budesonide/Formoterol 160/4.5 1 PUFF INH IH SCH ×2 (07:52→20:14)
[2020-09-30] MEDS ORDERED: Furosemide 40 MG/4 ML VIAL IVP ONE (12:28)
[2020-09-30] MEDS: Insulin DETEMIR 100 UNIT/ML X5UNITS SUBQ SCH (20:47)
[2020-10-01 02:32] LABS: BUN/Creatinine Ratio 21 (6-26); Blood Urea Nitrogen 25 mg/dL (8-23); Carbon Dioxide 34 mEq/L (23-29); Chloride 104 mEq/L (98-107); Glucose 172 mg/dL (70-105); Osmolality,Calculated 302 (280-300); Potassium 3.9 mEq/L (3.5-5.1); Sodium 142 mEq/L (136-145); eGFR For African Americans > 60 (> 60); eGFR For Non-African Americans 60 (> 60)
[2020-10-01] MEDS: 0.9 % Sodium Chloride 1,000 ML IVC SCH (05:09)
[2020-10-01 06:55] VITALS: BP 132/84
[2020-10-01] MEDS: Insulin LISPRO 300 UNITS/3 ML VIAL SUBQ SCH (07:29)
[2020-10-01] MEDS: *HR* Ticagrelor 90 MG TABLET PO SCH (07:58)
[2020-10-01] MEDS: Aspirin Enteric Coated 81 MG Tablet PO SCH (07:59)
[2020-10-01] MEDS: Isosorbide MONOnitrate (24 HR) 30 MG TAB.ER.24H PO SCH (07:59)
[2020-10-01] MEDS: Bumetanide 1 MG TABLET PO SCH (07:59)
[2020-10-01] MEDS: Fenofibrate 54 MG TABLET PO SCH (07:59)
[2020-10-01] MEDS: *HR* Rivaroxaban 10 MG TABLET PO SCH (07:59)
[2020-10-01] MEDS: Finasteride 5 MG TABLET PO SCH (07:59)
[2020-10-01] MEDS: amLODIPine 5 MG TABLET PO SCH (08:00)
[2020-10-01] MEDS: allopurinoL 300 MG TABLET PO SCH (08:00)
[2020-10-01] MEDS: Pregabalin 75 MG CAPSULE PO SCH (08:00)
[2020-10-01] MEDS: *HR* Glimepiride 2 MG TABLET PO SCH (08:00)
[2020-10-01] MEDS: Cyanocobalamin (B-12) 1,000 MCG TABLET PO SCH (08:00)
[2020-10-01] MEDS: Budesonide/Formoterol 160/4.5 1 PUFF INH IH SCH (10:19)
== END 2020-10-01 11:45 | disposition home or self-care (01) ==
LOC: 2ANU 09:13 → INVDIALAB 09:13 → 2ANU 16:28
PROVIDERS: ADMIT Internal Medicine Interventional Cardiology; ATTEND Internal Medicine Interventional Cardiology

== ENCOUNTER 2020-10-21 14:44 | Inpatient (IN) ==
[2020-10-21] MEDS ORDERED: Bumetanide 1 MG/4 ML VIAL IVP ONE (15:27)
[2020-10-21 15:58] LABS: Basophils # 0.1 K/mcL (0.0-0.2); Basophils % 1.3 %; Eosinophils # 0.2 K/mcL (0.0-0.6); Eosinophils % 3.5 %; Hematocrit 41.5 % (37.5-50.1); Hemoglobin 13.1 g/dL (12.9-16.9); Immature Granulocytes % 0.7 % (0-4); Lymphocytes % 14.8 %; Mean Corpuscular HGB Conc 31.6 g/dL (31.6-35.5); Mean Corpuscular Hemoglobin 30.8 pg (28.0-33.3); Mean Corpuscular Volume 97.6 fL (83.0-100.0); Mean Platelet Volume 10.9 fL (9.4-12.4); Monocytes # 0.8 K/mcL (0.0-1.3); Neutrophils # 4.6 K/mcL (1.6-8.9); Platelet Count 166 K/mcL (140-400); Red Blood Count 4.25 M/mcL (4.19-5.50); Red Cell Distribution Width 13.4 % (11.5-14.5); Segmented Neutrophils % 67.7 %; White Blood Count 6.8 K/mcL (4.3-11.1)
[2020-10-21 16:19] LABS: BUN/Creatinine Ratio 24 (6-26); Blood Urea Nitrogen 25 mg/dL (8-23); Calcium 8.6 mg/dL (8.6-10.3); Carbon Dioxide 38 mEq/L (23-29); Chloride 102 mEq/L (98-107); Glucose 177 mg/dL (70-105); Osmolality,Calculated 309 (280-300); Potassium 3.6 mEq/L (3.5-5.1); Sodium 145 mEq/L (136-145); Troponin I < 0.03 ng/mL (< 0.04); eGFR For African Americans > 60 (> 60); eGFR For Non-African Americans > 60 (> 60)
[2020-10-21] MEDS ORDERED: Aspirin 81 MG TAB.CHEW PO ONE (17:06)
[2020-10-21] MEDS ORDERED: Furosemide 40 MG/4 ML VIAL IVP ONE (18:47)
[2020-10-21] MEDS ORDERED: Nitroglycerin 0.4 MG TAB.SUBL SL PRN (18:50)
[2020-10-21] MEDS ORDERED: Fluticasone Propionate Nasal 50 MCG/SPRAY BOTTLE NS PRN (18:50)
[2020-10-21] MEDS ORDERED: D5% in Water 1,000 ML IVC PRN (18:57)
[2020-10-21] MEDS ORDERED: Dextrose Gel 15 GM/37.5 ML TUBE PO PRN ×2 (18:57)
[2020-10-21] MEDS ORDERED: *HR* Dextrose 50 % in Water (Vial) 50 ML VIAL IVP PRN (18:57)
[2020-10-21] MEDS ORDERED: Naloxone 0.4 MG/ML INJ IVP PRN (18:59)
[2020-10-21 19:09] LABS: Uric Acid 6.2 mg/dL (2.3-7.6)
[2020-10-21] MEDS: Insulin LISPRO 300 UNITS/3 ML VIAL SUBQ SCH (22:07)
[2020-10-21] MEDS: Pregabalin 75 MG CAPSULE PO SCH (22:16)
[2020-10-21] MEDS: cephALEXin 500 MG CAPSULE PO SCH (22:16)
[2020-10-21] MEDS: Loratadine 10 MG TABLET PO SCH (22:16)
[2020-10-21] MEDS: Insulin DETEMIR 100 UNIT/ML X5UNITS SUBQ SCH (22:17)
[2020-10-21] MEDS: Levalbuterol Neb 1.25 MG/3 ML IH SCH (22:44)
[2020-10-21] MEDS: Budesonide/Formoterol 160/4.5 1 PUFF INH IH SCH (22:44)
[2020-10-21 23:13] LABS: ABG Base Excess 9 mEq/L (-2 to 3); ABG HCO3 38 mEq/L (21-27); ABG Oxygen Saturation 94 % (95-98); ABG PCO2 70 mmHg (35-45); ABG PH 7.34 pH Units (7.32-7.45); ABG PO2 77 mmHg (85-104); ABG TCO2 40 mEq/L (20-26)
[2020-10-22] MEDS: Levalbuterol Neb 1.25 MG/3 ML IH SCH ×4 (04:00→22:50)
[2020-10-22 06:31] LABS: Hematocrit 41.3 % (37.5-50.1); Hemoglobin 12.8 g/dL (12.9-16.9); Mean Corpuscular Hemoglobin 30.5 pg (28.0-33.3); Mean Corpuscular Volume 98.6 fL (83.0-100.0); Mean Platelet Volume 11.1 fL (9.4-12.4); Platelet Count 162 K/mcL (140-400); Red Blood Count 4.19 M/mcL (4.19-5.50); Red Cell Distribution Width 13.4 % (11.5-14.5)
[2020-10-22 06:39] LABS: INR 1.3; Prothrombin Time 15.1 Seconds (9.4-12.1)
[2020-10-22 06:55] LABS: BUN/Creatinine Ratio 22 (6-26); Blood Urea Nitrogen 25 mg/dL (8-23); Calcium 8.4 mg/dL (8.6-10.3); Carbon Dioxide 40 mEq/L (23-29); Chloride 103 mEq/L (98-107); Glucose 134 mg/dL (70-105); Magnesium 1.7 mg/dL (1.6-2.6); Osmolality,Calculated 306 (280-300); Potassium 3.5 mEq/L (3.5-5.1); Sodium 145 mEq/L (136-145); eGFR For African Americans > 60 (> 60); eGFR For Non-African Americans > 60 (> 60)
[2020-10-22] MEDS: Insulin LISPRO 300 UNITS/3 ML VIAL SUBQ SCH ×4 (07:30→21:04)
[2020-10-22] MEDS ORDERED: Furosemide 40 MG/4 ML VIAL IVP ONE (08:00)
[2020-10-22] MEDS ORDERED: *HR* Glimepiride 2 MG TABLET PO SCH (09:00)
[2020-10-22] MEDS: *HR* Rivaroxaban 10 MG TABLET PO SCH (10:06)
[2020-10-22] MEDS: Cyanocobalamin (B-12) 1,000 MCG TABLET PO SCH (10:06)
[2020-10-22] MEDS: Fenofibrate 54 MG TABLET PO SCH (10:06)
[2020-10-22] MEDS: Pregabalin 75 MG CAPSULE PO SCH ×2 (10:06→21:03)
[2020-10-22] MEDS: amLODIPine 5 MG TABLET PO SCH (10:06)
[2020-10-22] MEDS: Isosorbide MONOnitrate (24 HR) 30 MG TAB.ER.24H PO SCH (10:06)
[2020-10-22] MEDS: Finasteride 5 MG TABLET PO SCH (10:07)
[2020-10-22] MEDS: allopurinoL 300 MG TABLET PO SCH (10:07)
[2020-10-22] MEDS: cephALEXin 500 MG CAPSULE PO SCH ×2 (10:07→21:03)
[2020-10-22] MEDS: Aspirin Enteric Coated 81 MG Tablet PO SCH (10:07)
[2020-10-22] MEDS: Famotidine 20 MG TABLET PO SCH (10:07)
[2020-10-22] MEDS: Budesonide/Formoterol 160/4.5 1 PUFF INH IH SCH ×2 (10:23→22:50)
[2020-10-22] MEDS: valACYclovir 500 MG TABLET PO SCH (17:43)
[2020-10-22] MEDS: Loratadine 10 MG TABLET PO SCH (17:43)
[2020-10-22] MEDS: Furosemide 40 MG/4 ML VIAL IVP SCH (17:45)
[2020-10-22] MEDS: Albumin 25% 25gram/100mL 25 GM/100 ML IV.SOLN IVPB SCH (17:49)
[2020-10-22] MEDS: Insulin DETEMIR 100 UNIT/ML X5UNITS SUBQ SCH (21:04)
[2020-10-23 03:15] LABS: Hematocrit 39.8 % (37.5-50.1); Hemoglobin 12.2 g/dL (12.9-16.9); Mean Corpuscular HGB Conc 30.7 g/dL (31.6-35.5); Mean Corpuscular Hemoglobin 30.5 pg (28.0-33.3); Mean Corpuscular Volume 99.5 fL (83.0-100.0); Mean Platelet Volume 10.7 fL (9.4-12.4); Platelet Count 128 K/mcL (140-400); Red Cell Distribution Width 13.4 % (11.5-14.5); White Blood Count 6.5 K/mcL (4.3-11.1)
[2020-10-23 03:36] LABS: BUN/Creatinine Ratio 24 (6-26); Blood Urea Nitrogen 26 mg/dL (8-23); Calcium 8.3 mg/dL (8.6-10.3); Carbon Dioxide 32 mEq/L (23-29); Chloride 104 mEq/L (98-107); Glucose 131 mg/dL (70-105); Magnesium 1.8 mg/dL (1.6-2.6); Osmolality,Calculated 301 (280-300); Phosphorous 3.5 mg/dL (2.7-4.5); Sodium 142 mEq/L (136-145); eGFR For African Americans > 60 (> 60); eGFR For Non-African Americans > 60 (> 60)
[2020-10-23] MEDS: Levalbuterol Neb 1.25 MG/3 ML IH SCH ×4 (04:15→22:20)
[2020-10-23] MEDS: Albumin 25% 25gram/100mL 25 GM/100 ML IV.SOLN IVPB SCH ×2 (05:29→17:05)
[2020-10-23] MEDS: *HR* Rivaroxaban 10 MG TABLET PO SCH (07:45)
[2020-10-23] MEDS: allopurinoL 300 MG TABLET PO SCH (07:45)
[2020-10-23] MEDS: Finasteride 5 MG TABLET PO SCH (07:45)
[2020-10-23] MEDS: Famotidine 20 MG TABLET PO SCH (07:45)
[2020-10-23] MEDS: Furosemide 40 MG/4 ML VIAL IVP SCH ×2 (07:45→17:06)
[2020-10-23] MEDS: cephALEXin 500 MG CAPSULE PO SCH ×2 (07:46→20:47)
[2020-10-23] MEDS: Cyanocobalamin (B-12) 1,000 MCG TABLET PO SCH (07:46)
[2020-10-23] MEDS: Fenofibrate 54 MG TABLET PO SCH (07:46)
[2020-10-23] MEDS: Isosorbide MONOnitrate (24 HR) 30 MG TAB.ER.24H PO SCH (07:46)
[2020-10-23] MEDS: amLODIPine 5 MG TABLET PO SCH (07:46)
[2020-10-23] MEDS: Aspirin Enteric Coated 81 MG Tablet PO SCH (07:46)
[2020-10-23] MEDS: Pregabalin 75 MG CAPSULE PO SCH ×2 (07:46→20:47)
[2020-10-23] MEDS: Insulin LISPRO 300 UNITS/3 ML VIAL SUBQ SCH ×4 (07:48→20:45)
[2020-10-23] MEDS: Budesonide/Formoterol 160/4.5 1 PUFF INH IH SCH ×2 (10:08→22:20)
[2020-10-23] MEDS: Loratadine 10 MG TABLET PO SCH (17:05)
[2020-10-23] MEDS: Acetaminophen 325 MG TABLET PO PRN (17:05)
[2020-10-23] MEDS: valACYclovir 500 MG TABLET PO SCH (17:05)
[2020-10-23] MEDS: Insulin DETEMIR 100 UNIT/ML X5UNITS SUBQ SCH (20:47)
[2020-10-24] MEDS: Levalbuterol Neb 1.25 MG/3 ML IH SCH ×4 (03:00→21:45)
[2020-10-24] MEDS: Albumin 25% 25gram/100mL 25 GM/100 ML IV.SOLN IVPB SCH ×2 (05:19→17:42)
[2020-10-24] MEDS: Acetaminophen 325 MG TABLET PO PRN ×2 (05:48→22:02)
[2020-10-24] MEDS: Insulin LISPRO 300 UNITS/3 ML VIAL SUBQ SCH ×4 (07:51→19:51)
[2020-10-24] MEDS: allopurinoL 300 MG TABLET PO SCH (08:13)
[2020-10-24] MEDS: Fenofibrate 54 MG TABLET PO SCH (08:13)
[2020-10-24] MEDS: amLODIPine 5 MG TABLET PO SCH (08:13)
[2020-10-24] MEDS: Isosorbide MONOnitrate (24 HR) 30 MG TAB.ER.24H PO SCH (08:14)
[2020-10-24] MEDS: Finasteride 5 MG TABLET PO SCH (08:14)
[2020-10-24] MEDS: Famotidine 20 MG TABLET PO SCH (08:14)
[2020-10-24] MEDS: Aspirin Enteric Coated 81 MG Tablet PO SCH (08:14)
[2020-10-24] MEDS: cephALEXin 500 MG CAPSULE PO SCH ×2 (08:15→19:51)
[2020-10-24] MEDS: *HR* Rivaroxaban 10 MG TABLET PO SCH (08:15)
[2020-10-24] MEDS: Furosemide 40 MG/4 ML VIAL IVP SCH ×2 (08:15→17:41)
[2020-10-24] MEDS: Pregabalin 75 MG CAPSULE PO SCH ×2 (08:15→19:51)
[2020-10-24] MEDS: Cyanocobalamin (B-12) 1,000 MCG TABLET PO SCH (08:15)
[2020-10-24 09:07] LABS: Hematocrit 36.2 % (37.5-50.1); Hemoglobin 11.3 g/dL (12.9-16.9); Mean Corpuscular HGB Conc 31.2 g/dL (31.6-35.5); Mean Corpuscular Hemoglobin 30.9 pg (28.0-33.3); Mean Corpuscular Volume 98.9 fL (83.0-100.0); Mean Platelet Volume 10.5 fL (9.4-12.4); Platelet Count 134 K/mcL (140-400); Red Blood Count 3.66 M/mcL (4.19-5.50); Red Cell Distribution Width 13.5 % (11.5-14.5)
[2020-10-24 09:27] LABS: BUN/Creatinine Ratio 24 (6-26); Blood Urea Nitrogen 28 mg/dL (8-23); Calcium 8.6 mg/dL (8.6-10.3); Carbon Dioxide 38 mEq/L (23-29); Chloride 104 mEq/L (98-107); Glucose 142 mg/dL (70-105); Osmolality,Calculated 308 (280-300); Potassium 3.8 mEq/L (3.5-5.1); Sodium 145 mEq/L (136-145); eGFR For African Americans > 60 (> 60); eGFR For Non-African Americans > 60 (> 60)
[2020-10-24] MEDS: Budesonide/Formoterol 160/4.5 1 PUFF INH IH SCH ×2 (10:32→21:45)
[2020-10-24] MEDS: hydroCHLOROthiazide 25 MG TABLET PO SCH (12:15)
[2020-10-24] MEDS: valACYclovir 500 MG TABLET PO SCH (17:42)
[2020-10-24] MEDS: Loratadine 10 MG TABLET PO SCH (17:42)
[2020-10-24] MEDS: polyethylene glycoL 3350 17 GM POWD.PACK PO PRN (17:54)
[2020-10-24] MEDS: Insulin DETEMIR 100 UNIT/ML X5UNITS SUBQ SCH (19:52)
[2020-10-25 02:07] LABS: Hematocrit 37.1 % (37.5-50.1); Hemoglobin 11.5 g/dL (12.9-16.9); Mean Corpuscular Hemoglobin 30.8 pg (28.0-33.3); Mean Corpuscular Volume 99.5 fL (83.0-100.0); Mean Platelet Volume 10.5 fL (9.4-12.4); Platelet Count 141 K/mcL (140-400); Red Blood Count 3.73 M/mcL (4.19-5.50); Red Cell Distribution Width 13.4 % (11.5-14.5)
[2020-10-25 02:13] LABS: ABG Base Excess 9 mEq/L (-2 to 3); ABG HCO3 38 mEq/L (21-27); ABG Oxygen Saturation 94 % (95-98); ABG PCO2 78 mmHg (35-45); ABG PH 7.29 pH Units (7.32-7.45); ABG PO2 85 mmHg (85-104); ABG TCO2 40 mEq/L (20-26)
[2020-10-25 02:15] LABS: INR 1.6; Prothrombin Time 18.3 Seconds (9.4-12.1)
[2020-10-25 02:18] LABS: Activated Partial Thrombo Time 33.7 Seconds (26.0-36.0)
[2020-10-25 02:24] LABS: Alanine Aminotransferase 19 Units/L (7-52); Albumin 4.1 g/dL (3.5-5.7); Albumin/Globulin Ratio 2.1 (1.1-2.2); Alkaline Phosphatase 67 Units/L (34-104); BUN/Creatinine Ratio 23 (6-26); Bilirubin,Total 0.5 mg/dL (0.3-1.0); Blood Urea Nitrogen 28 mg/dL (8-23); Calcium 8.4 mg/dL (8.6-10.3); Carbon Dioxide 37 mEq/L (23-29); Chloride 103 mEq/L (98-107); Glucose 156 mg/dL (70-105); Osmolality,Calculated 309 (280-300); Potassium 3.9 mEq/L (3.5-5.1); Sodium 145 mEq/L (136-145); Total Protein 6.1 g/dL (6.4-8.9); eGFR For African Americans > 60 (> 60); eGFR For Non-African Americans 58 (> 60)
[2020-10-25 02:25] LABS: Troponin I < 0.03 ng/mL (< 0.04)
[2020-10-25 02:41] LABS: Aspartate Amino Transferase 27 Units/L (13-39)
[2020-10-25] MEDS: Levalbuterol Neb 1.25 MG/3 ML IH SCH ×2 (03:03→07:25)
[2020-10-25 05:16] LABS: ABG Base Excess 11 mEq/L (-2 to 3); ABG HCO3 41 mEq/L (21-27); ABG Oxygen Saturation 97 % (95-98); ABG PCO2 92 mmHg (35-45); ABG PH 7.26 pH Units (7.32-7.45); ABG PO2 108 mmHg (85-104); ABG TCO2 44 mEq/L (20-26); Blood Gas Modality BiLevel; Blood Gas Pressure Support 10 cm H2O; Blood Gas VT 325 cc
[2020-10-25] MEDS: Albumin 25% 25gram/100mL 25 GM/100 ML IV.SOLN IVPB SCH ×2 (05:39→17:20)
[2020-10-25 06:43] LABS: ABG Base Excess 10 mEq/L (-2 to 3); ABG HCO3 39 mEq/L (21-27); ABG Oxygen Saturation 92 % (95-98); ABG PCO2 77 mmHg (35-45); ABG PH 7.31 pH Units (7.32-7.45); ABG PO2 74 mmHg (85-104); ABG TCO2 41 mEq/L (20-26); Blood Gas Modality BiLevel; Blood Gas VT 518 cc
[2020-10-25] MEDS: Budesonide/Formoterol 160/4.5 1 PUFF INH IH SCH ×2 (07:25→19:20)
[2020-10-25] MEDS: Isosorbide MONOnitrate (24 HR) 30 MG TAB.ER.24H PO SCH (08:06)
[2020-10-25] MEDS: Finasteride 5 MG TABLET PO SCH (08:06)
[2020-10-25] MEDS: cephALEXin 500 MG CAPSULE PO SCH ×2 (08:06→19:54)
[2020-10-25] MEDS: allopurinoL 300 MG TABLET PO SCH (08:06)
[2020-10-25] MEDS: Fenofibrate 54 MG TABLET PO SCH (08:06)
[2020-10-25] MEDS: Aspirin Enteric Coated 81 MG Tablet PO SCH (08:07)
[2020-10-25] MEDS: amLODIPine 5 MG TABLET PO SCH (08:07)
[2020-10-25] MEDS: hydroCHLOROthiazide 25 MG TABLET PO SCH (08:07)
[2020-10-25] MEDS: Pregabalin 75 MG CAPSULE PO SCH ×2 (08:08→19:54)
[2020-10-25] MEDS: Furosemide 40 MG/4 ML VIAL IVP SCH ×2 (08:08→15:23)
[2020-10-25] MEDS: Cyanocobalamin (B-12) 1,000 MCG TABLET PO SCH (08:08)
[2020-10-25] MEDS: *HR* Rivaroxaban 10 MG TABLET PO SCH (08:08)
[2020-10-25] MEDS: Famotidine 20 MG TABLET PO SCH (08:08)
[2020-10-25] MEDS: Insulin LISPRO 300 UNITS/3 ML VIAL SUBQ SCH ×4 (08:09→19:58)
[2020-10-25] MEDS ORDERED: Albuterol 2.5 MG/3 ML NEBULIZER IH PRN (08:17)
[2020-10-25] MEDS: methylPREDNISolone 125 MG/2 ML VIAL IVP SCH ×2 (09:11→17:08)
[2020-10-25] MEDS: Ipratropium/Albuterol Neb 3 ML IH SCH ×4 (11:06→23:15)
[2020-10-25 11:30] LABS: ABG Base Excess 12 mEq/L (-2 to 3); ABG HCO3 39 mEq/L (21-27); ABG Oxygen Saturation 95 % (95-98); ABG PCO2 61 mmHg (35-45); ABG PH 7.42 pH Units (7.32-7.45); ABG PO2 75 mmHg (85-104); ABG TCO2 41 mEq/L (20-26); Blood Gas Modality BiLevel
[2020-10-25] MEDS ORDERED: Isovue-370 500 ML BOTTLE IVP ONE (13:37)
[2020-10-25] MEDS: acetaZOLAMIDE 250 MG TABLET PO SCH (15:22)
[2020-10-25] MEDS: valACYclovir 500 MG TABLET PO SCH (17:08)
[2020-10-25] MEDS: Loratadine 10 MG TABLET PO SCH (17:08)
[2020-10-25] MEDS: Insulin DETEMIR 100 UNIT/ML X5UNITS SUBQ SCH (19:57)
[2020-10-26] MEDS ORDERED: Melatonin 3 MG TABLET PO PRN (01:00)
[2020-10-26] MEDS: Ipratropium/Albuterol Neb 3 ML IH SCH ×6 (03:46→23:34)
[2020-10-26] MEDS: methylPREDNISolone 125 MG/2 ML VIAL IVP SCH ×2 (06:22→17:24)
[2020-10-26] MEDS: Albumin 25% 25gram/100mL 25 GM/100 ML IV.SOLN IVPB SCH ×2 (06:23→17:24)
[2020-10-26] MEDS: Budesonide/Formoterol 160/4.5 1 PUFF INH IH SCH ×2 (07:24→19:15)
[2020-10-26] MEDS: Finasteride 5 MG TABLET PO SCH (07:50)
[2020-10-26] MEDS: Isosorbide MONOnitrate (24 HR) 30 MG TAB.ER.24H PO SCH (07:50)
[2020-10-26] MEDS: Cyanocobalamin (B-12) 1,000 MCG TABLET PO SCH (07:50)
[2020-10-26] MEDS: Pregabalin 75 MG CAPSULE PO SCH ×2 (07:51→20:20)
[2020-10-26] MEDS: allopurinoL 300 MG TABLET PO SCH (07:51)
[2020-10-26] MEDS: acetaZOLAMIDE 250 MG TABLET PO SCH (07:51)
[2020-10-26] MEDS: *HR* Rivaroxaban 10 MG TABLET PO SCH (07:51)
[2020-10-26] MEDS: Aspirin Enteric Coated 81 MG Tablet PO SCH (07:51)
[2020-10-26] MEDS: Famotidine 20 MG TABLET PO SCH (07:51)
[2020-10-26] MEDS: amLODIPine 5 MG TABLET PO SCH (07:51)
[2020-10-26] MEDS: hydroCHLOROthiazide 25 MG TABLET PO SCH (07:51)
[2020-10-26] MEDS: cephALEXin 500 MG CAPSULE PO SCH ×2 (07:52→20:19)
[2020-10-26] MEDS: Fenofibrate 54 MG TABLET PO SCH (07:52)
[2020-10-26] MEDS: Furosemide 40 MG/4 ML VIAL IVP SCH (07:52)
[2020-10-26] MEDS: Insulin LISPRO 300 UNITS/3 ML VIAL SUBQ SCH ×4 (07:52→20:20)
[2020-10-26 08:53] LABS: Hematocrit 35.3 % (37.5-50.1); Hemoglobin 11.2 g/dL (12.9-16.9); Mean Corpuscular HGB Conc 31.7 g/dL (31.6-35.5); Mean Corpuscular Hemoglobin 31.1 pg (28.0-33.3); Mean Corpuscular Volume 98.1 fL (83.0-100.0); Mean Platelet Volume 11.1 fL (9.4-12.4); Platelet Count 160 K/mcL (140-400); Red Cell Distribution Width 13.2 % (11.5-14.5)
[2020-10-26 08:54] LABS: White Blood Count 9.4 K/mcL (4.3-11.1)
[2020-10-26 08:59] LABS: BUN/Creatinine Ratio 31 (6-26); Blood Urea Nitrogen 38 mg/dL (8-23); Calcium 9.1 mg/dL (8.6-10.3); Carbon Dioxide 37 mEq/L (23-29); Chloride 100 mEq/L (98-107); Glucose 273 mg/dL (70-105); Osmolality,Calculated 313 (280-300); Potassium 3.8 mEq/L (3.5-5.1); Sodium 142 mEq/L (136-145); eGFR For African Americans > 60 (> 60); eGFR For Non-African Americans 57 (> 60)
[2020-10-26] MEDS ORDERED: Furosemide 40 MG/4 ML VIAL IVP SCH (17:00)
[2020-10-26] MEDS: valACYclovir 500 MG TABLET PO SCH (17:23)
[2020-10-26] MEDS: Loratadine 10 MG TABLET PO SCH (17:23)
[2020-10-26] MEDS: Insulin DETEMIR 100 UNIT/ML X5UNITS SUBQ SCH (20:20)
[2020-10-27] MEDS: Ipratropium/Albuterol Neb 3 ML IH SCH ×5 (04:08→20:17)
[2020-10-27] MEDS: methylPREDNISolone 125 MG/2 ML VIAL IVP SCH ×2 (05:10→19:40)
[2020-10-27] MEDS: Albumin 25% 25gram/100mL 25 GM/100 ML IV.SOLN IVPB SCH ×2 (05:11→19:38)
[2020-10-27 06:27] LABS: Hematocrit 35.3 % (37.5-50.1); Mean Corpuscular HGB Conc 31.2 g/dL (31.6-35.5); Mean Corpuscular Hemoglobin 30.1 pg (28.0-33.3); Mean Corpuscular Volume 96.7 fL (83.0-100.0); Platelet Count 160 K/mcL (140-400); Red Blood Count 3.65 M/mcL (4.19-5.50); Red Cell Distribution Width 13.2 % (11.5-14.5); White Blood Count 11.5 K/mcL (4.3-11.1)
[2020-10-27 06:46] LABS: Calcium 9.2 mg/dL (8.6-10.3); Potassium 3.9 mEq/L (3.5-5.1)
[2020-10-27] MEDS: Budesonide/Formoterol 160/4.5 1 PUFF INH IH SCH ×2 (07:49→20:17)
[2020-10-27] MEDS ORDERED: Furosemide 40 MG TABLET PO SCH (08:00)
[2020-10-27] MEDS: Insulin LISPRO 300 UNITS/3 ML VIAL SUBQ SCH ×4 (08:05→20:48)
[2020-10-27] MEDS: Famotidine 20 MG TABLET PO SCH (08:06)
[2020-10-27] MEDS: amLODIPine 5 MG TABLET PO SCH (08:06)
[2020-10-27] MEDS: Cyanocobalamin (B-12) 1,000 MCG TABLET PO SCH (08:06)
[2020-10-27] MEDS: Pregabalin 75 MG CAPSULE PO SCH ×2 (08:06→19:41)
[2020-10-27] MEDS: Finasteride 5 MG TABLET PO SCH (08:07)
[2020-10-27] MEDS: allopurinoL 300 MG TABLET PO SCH (08:08)
[2020-10-27] MEDS: Fenofibrate 54 MG TABLET PO SCH (08:08)
[2020-10-27] MEDS: Isosorbide MONOnitrate (24 HR) 30 MG TAB.ER.24H PO SCH (08:08)
[2020-10-27] MEDS: acetaZOLAMIDE 250 MG TABLET PO SCH (08:08)
[2020-10-27] MEDS: Aspirin Enteric Coated 81 MG Tablet PO SCH (08:08)
[2020-10-27] MEDS: cephALEXin 500 MG CAPSULE PO SCH ×2 (08:08→19:43)
[2020-10-27] MEDS: *HR* Rivaroxaban 10 MG TABLET PO SCH (08:08)
[2020-10-27] MEDS: polyethylene glycoL 3350 17 GM POWD.PACK PO PRN (12:21)
[2020-10-27 15:27] LABS: ABG Base Excess 9 mEq/L (-2 to 3); ABG HCO3 35 mEq/L (21-27); ABG Oxygen Saturation 92 % (95-98); ABG PCO2 57 mmHg (35-45); ABG PO2 65 mmHg (85-104); ABG TCO2 37 mEq/L (20-26)
[2020-10-27] MEDS: Loratadine 10 MG TABLET PO SCH (19:41)
[2020-10-27] MEDS: valACYclovir 500 MG TABLET PO SCH (19:41)
[2020-10-27] MEDS: Bumetanide 1 MG TABLET PO SCH (19:42)
[2020-10-27] MEDS: Insulin DETEMIR 100 UNIT/ML X5UNITS SUBQ SCH (20:47)
[2020-10-28] MEDS: Ipratropium/Albuterol Neb 3 ML IH SCH ×7 (00:03→23:10)
[2020-10-28 04:50] LABS: Hemoglobin 11.2 g/dL (12.9-16.9); Mean Corpuscular Hemoglobin 30.4 pg (28.0-33.3); Mean Corpuscular Volume 95.1 fL (83.0-100.0); Mean Platelet Volume 10.9 fL (9.4-12.4); Platelet Count 155 K/mcL (140-400); Red Blood Count 3.68 M/mcL (4.19-5.50); Red Cell Distribution Width 13.2 % (11.5-14.5); White Blood Count 10.6 K/mcL (4.3-11.1)
[2020-10-28 05:11] LABS: BUN/Creatinine Ratio 40 (6-26); Blood Urea Nitrogen 55 mg/dL (8-23); Calcium 9.2 mg/dL (8.6-10.3); Carbon Dioxide 34 mEq/L (23-29); Chloride 101 mEq/L (98-107); Glucose 300 mg/dL (70-105); Osmolality,Calculated 318 (280-300); Sodium 141 mEq/L (136-145); eGFR For African Americans > 60 (> 60); eGFR For Non-African Americans 51 (> 60)
[2020-10-28] MEDS: methylPREDNISolone 125 MG/2 ML VIAL IVP SCH ×2 (05:42→17:54)
[2020-10-28] MEDS: Albumin 25% 25gram/100mL 25 GM/100 ML IV.SOLN IVPB SCH ×2 (05:43→17:54)
[2020-10-28] MEDS: Budesonide/Formoterol 160/4.5 1 PUFF INH IH SCH ×2 (07:54→19:51)
[2020-10-28] MEDS: Insulin LISPRO 300 UNITS/3 ML VIAL SUBQ SCH ×3 (08:00→17:13)
[2020-10-28] MEDS: allopurinoL 300 MG TABLET PO SCH (08:01)
[2020-10-28] MEDS: amLODIPine 5 MG TABLET PO SCH (08:01)
[2020-10-28] MEDS: cephALEXin 500 MG CAPSULE PO SCH ×2 (08:01→19:59)
[2020-10-28] MEDS: Cyanocobalamin (B-12) 1,000 MCG TABLET PO SCH (08:01)
[2020-10-28] MEDS: Fenofibrate 54 MG TABLET PO SCH (08:01)
[2020-10-28] MEDS: Isosorbide MONOnitrate (24 HR) 30 MG TAB.ER.24H PO SCH (08:01)
[2020-10-28] MEDS: Finasteride 5 MG TABLET PO SCH (08:02)
[2020-10-28] MEDS: Pregabalin 75 MG CAPSULE PO SCH ×2 (08:02→19:59)
[2020-10-28] MEDS: *HR* Rivaroxaban 10 MG TABLET PO SCH (08:02)
[2020-10-28] MEDS: Famotidine 20 MG TABLET PO SCH (08:02)
[2020-10-28] MEDS: Bumetanide 1 MG TABLET PO SCH ×2 (08:02→17:13)
[2020-10-28] MEDS: Aspirin Enteric Coated 81 MG Tablet PO SCH (08:02)
[2020-10-28] MEDS ORDERED: Spironolactone 25 MG TABLET PO SCH (09:00)
[2020-10-28] MEDS: Insulin DETEMIR 100 UNIT/ML X5UNITS SUBQ SCH ×2 (14:05→19:59)
[2020-10-28] MEDS: valACYclovir 500 MG TABLET PO SCH (17:13)
[2020-10-28] MEDS: Loratadine 10 MG TABLET PO SCH (17:13)
[2020-10-28] MEDS ORDERED: Insulin LISPRO 300 UNITS/3 ML VIAL SUBQ SCH (21:00)
[2020-10-29] MEDS: Ipratropium/Albuterol Neb 3 ML IH SCH ×3 (04:08→11:50)
[2020-10-29] MEDS: Albumin 25% 25gram/100mL 25 GM/100 ML IV.SOLN IVPB SCH (05:04)
[2020-10-29 05:57] LABS: BUN/Creatinine Ratio 44 (6-26); Blood Urea Nitrogen 54 mg/dL (8-23); Calcium 9.2 mg/dL (8.6-10.3); Carbon Dioxide 36 mEq/L (23-29); Chloride 102 mEq/L (98-107); Glucose 291 mg/dL (70-105); Magnesium 2.6 mg/dL (1.6-2.6); Osmolality,Calculated 321 (280-300); Phosphorous 3.8 mg/dL (2.7-4.5); Potassium 3.7 mEq/L (3.5-5.1); Sodium 143 mEq/L (136-145); eGFR For African Americans > 60 (> 60); eGFR For Non-African Americans 57 (> 60)
[2020-10-29] MEDS: Budesonide/Formoterol 160/4.5 1 PUFF INH IH SCH (07:54)
[2020-10-29] MEDS: Pregabalin 75 MG CAPSULE PO SCH (08:12)
[2020-10-29] MEDS: allopurinoL 300 MG TABLET PO SCH (08:12)
[2020-10-29] MEDS: Finasteride 5 MG TABLET PO SCH (08:13)
[2020-10-29] MEDS: *HR* Rivaroxaban 10 MG TABLET PO SCH (08:13)
[2020-10-29] MEDS: Bumetanide 1 MG TABLET PO SCH (08:13)
[2020-10-29] MEDS: Cyanocobalamin (B-12) 1,000 MCG TABLET PO SCH (08:13)
[2020-10-29] MEDS: Spironolactone 25 MG TABLET PO SCH ×2 (08:13→08:34)
[2020-10-29] MEDS: Famotidine 20 MG TABLET PO SCH (08:13)
[2020-10-29] MEDS: Aspirin Enteric Coated 81 MG Tablet PO SCH (08:13)
[2020-10-29] MEDS: Isosorbide MONOnitrate (24 HR) 30 MG TAB.ER.24H PO SCH (08:13)
[2020-10-29] MEDS: amLODIPine 5 MG TABLET PO SCH (08:14)
[2020-10-29] MEDS: Fenofibrate 54 MG TABLET PO SCH (08:14)
[2020-10-29] MEDS: Insulin LISPRO 300 UNITS/3 ML VIAL SUBQ SCH ×2 (08:18→12:14)
[2020-10-29] MEDS: Insulin DETEMIR 100 UNIT/ML X5UNITS SUBQ SCH (08:18)
[2020-10-29] MEDS ORDERED: predniSONE 20 MG TABLET PO SCH (09:00)
[2020-10-29 10:48] VITALS: BP 122/65
== END 2020-10-29 15:35 | disposition home health service (06) | DRG 291 ==
LOC: 3BNU 14:44 → EMEROOARM 14:44 → SUATTDRO 17:44 → 3BNU 19:40 → SUATTDRO 10-22 14:51
PROVIDERS: ADMIT General Practice; ATTEND Internal Medicine

== ENCOUNTER 2021-03-16 08:52 | Inpatient (IN) ==
[2021-03-16] MEDS ORDERED: Ipratropium/Albuterol Neb 3 ML IH ONE (09:35)
[2021-03-16] MEDS ORDERED: Furosemide 40 MG/4 ML VIAL IVP ONE (09:35)
[2021-03-16] MEDS ORDERED: methylPREDNISolone 125 MG in 0.9 % Sodium Chloride 100 ML IVPB ONE (09:37)
[2021-03-16] MEDS ORDERED: methylPREDNISolone 125 MG/2 ML VIAL IVP ONE (09:48)
[2021-03-16] MEDS ORDERED: Azithromycin 500 MG in 0.9 % Sodium Chloride 250 ML IVPB ONE (09:49)
[2021-03-16 09:55] LABS: Basophils # 0.1 K/mcL (0.0-0.2); Basophils % 0.9 %; Eosinophils # 0.3 K/mcL (0.0-0.6); Eosinophils % 5.8 %; Hemoglobin 13.3 g/dL (12.9-16.9); Immature Granulocytes % 0.5 % (0-4); Lymphocytes # 0.9 K/mcL (0.6-4.6); Lymphocytes % 15.9 %; Mean Corpuscular HGB Conc 31.7 g/dL (31.6-35.5); Mean Corpuscular Hemoglobin 28.3 pg (28.0-33.3); Mean Corpuscular Volume 89.4 fL (83.0-100.0); Mean Platelet Volume 10.3 fL (9.4-12.4); Monocytes % 17.7 %; Neutrophils # 3.3 K/mcL (1.6-8.9); Platelet Count 163 K/mcL (140-400); Red Cell Distribution Width 13.5 % (11.5-14.5); Segmented Neutrophils % 59.2 %; White Blood Count 5.7 K/mcL (4.3-11.1)
[2021-03-16 10:16] LABS: BUN/Creatinine Ratio 28 (6-26); Blood Urea Nitrogen 29 mg/dL (8-23); Calcium 8.1 mg/dL (8.6-10.3); Carbon Dioxide 32 mEq/L (23-29); Chloride 101 mEq/L (98-107); Glucose 185 mg/dL (70-105); Osmolality,Calculated 301 (280-300); Potassium 3.8 mEq/L (3.5-5.1); Sodium 140 mEq/L (136-145); Troponin I < 0.03 ng/mL (< 0.04); eGFR For African Americans > 60 (> 60); eGFR For Non-African Americans > 60 (> 60)
[2021-03-16] MEDS ORDERED: cefTRIAXone 1,000 MG in 0.9 % Sodium Chloride Mini Bag 100 ML IVPB ONE (10:51)
[2021-03-16 11:00] LABS: Influenza A PCR Negative (Negative); Influenza B PCR Negative (Negative); Resp. Syncytial Virus PCR Negative (Negative); SARS-CoV-2 by PCR (In House) Negative (Negative)
[2021-03-16] MEDS ORDERED: Naloxone 0.4 MG/ML INJ IVP PRN (11:24)
[2021-03-16] MEDS ORDERED: Acetaminophen 325 MG TABLET PO PRN (11:24)
[2021-03-16] MEDS ORDERED: Melatonin 3 MG TABLET PO PRN (11:24)
[2021-03-16] MEDS ORDERED: Ondansetron 4 MG/2 ML VIAL IVP PRN (11:24)
[2021-03-16] MEDS ORDERED: *HR* HYDROcodone/Acet 5/325 mg TABLET PO PRN (11:24)
[2021-03-16 11:56] LABS: INR 1.3; Prothrombin Time 15.4 Seconds (9.4-12.1)
[2021-03-16] MEDS: Ipratropium/Albuterol Neb 3 ML IH SCH ×4 (11:56→23:02)
[2021-03-16 12:00] LABS: Magnesium 1.7 mg/dL (1.6-2.6); Phosphorous 2.6 mg/dL (2.7-4.5)
[2021-03-16] MEDS ORDERED: D5% in Water 1,000 ML IVC PRN (13:04)
[2021-03-16] MEDS ORDERED: *HR* Dextrose 50 % in Water (Vial) 50 ML VIAL IVP PRN (13:04)
[2021-03-16] MEDS ORDERED: Dextrose Gel 15 GM/37.5 ML TUBE PO PRN ×2 (13:04)
[2021-03-16] MEDS ORDERED: Fluticasone Propionate Nasal 50 MCG/SPRAY BOTTLE NS PRN (13:11)
[2021-03-16] MEDS: Finasteride 5 MG TABLET PO SCH (14:46)
[2021-03-16] MEDS: Calcium Gluconate 1gm/50mL 1 GM/50 ML BAG IVPB SCH ×2 (14:50→16:05)
[2021-03-16] MEDS: *HR* Rivaroxaban 10 MG TABLET PO SCH (16:25)
[2021-03-16] MEDS: MethylPREDNISolone 40 MG/ML VIAL IVP SCH ×2 (16:25→23:58)
[2021-03-16] MEDS: Bumetanide 1 MG TABLET PO SCH (17:00)
[2021-03-16] MEDS ORDERED: Bumetanide 1 MG TABLET PO SCH (17:00)
[2021-03-16] MEDS: Insulin LISPRO 300 UNITS/3 ML VIAL SUBQ SCH (17:00)
[2021-03-16] MEDS: Budesonide/Formoterol 160/4.5 1 PUFF INH IH SCH (19:52)
[2021-03-16] MEDS: Lactobacillus 1 EACH CAP.SPRINK PO SCH (20:59)
[2021-03-16] MEDS: Spironolactone 25 MG TABLET PO SCH (20:59)
[2021-03-16] MEDS: Chlorhexidine Rinse 15 ML MOUTHWASH MM SCH (21:00)
[2021-03-16] MEDS ORDERED: Insulin DETEMIR 100 UNIT/ML X5UNITS SUBQ SCH (21:00)
[2021-03-17] MEDS: Ipratropium/Albuterol Neb 3 ML IH SCH ×6 (03:24→23:14)
[2021-03-17 05:31] LABS: Basophils % 0.4 %; Hematocrit 46.1 % (37.5-50.1); Hemoglobin 14.2 g/dL (12.9-16.9); Immature Granulocytes % 0.7 % (0-4); Lymphocytes # 0.8 K/mcL (0.6-4.6); Lymphocytes % 16.8 %; Mean Corpuscular HGB Conc 30.8 g/dL (31.6-35.5); Mean Corpuscular Volume 90.7 fL (83.0-100.0); Mean Platelet Volume 10.2 fL (9.4-12.4); Monocytes # 0.2 K/mcL (0.0-1.3); Monocytes % 4.9 %; Neutrophils # 3.4 K/mcL (1.6-8.9); Platelet Count 171 K/mcL (140-400); Red Blood Count 5.08 M/mcL (4.19-5.50); Red Cell Distribution Width 13.4 % (11.5-14.5); Segmented Neutrophils % 77.2 %; White Blood Count 4.5 K/mcL (4.3-11.1)
[2021-03-17 05:47] LABS: BUN/Creatinine Ratio 30 (6-26); Blood Urea Nitrogen 37 mg/dL (8-23); Calcium 8.5 mg/dL (8.6-10.3); Carbon Dioxide 35 mEq/L (23-29); Chloride 99 mEq/L (98-107); Glucose 363 mg/dL (70-105); Magnesium 1.9 mg/dL (1.6-2.6); Osmolality,Calculated 317 (280-300); Phosphorous 5.1 mg/dL (2.7-4.5); Potassium 4.2 mEq/L (3.5-5.1); Sodium 142 mEq/L (136-145); eGFR For African Americans > 60 (> 60); eGFR For Non-African Americans 57 (> 60)
[2021-03-17] MEDS: Budesonide/Formoterol 160/4.5 1 PUFF INH IH SCH ×2 (07:37→20:12)
[2021-03-17] MEDS: Lactobacillus 1 EACH CAP.SPRINK PO SCH ×2 (07:53→21:32)
[2021-03-17] MEDS: Bumetanide 1 MG TABLET PO SCH ×2 (07:53→16:44)
[2021-03-17] MEDS: Chlorhexidine Rinse 15 ML MOUTHWASH MM SCH ×2 (07:53→21:33)
[2021-03-17] MEDS: Spironolactone 25 MG TABLET PO SCH ×2 (07:54→21:32)
[2021-03-17] MEDS: MethylPREDNISolone 40 MG/ML VIAL IVP SCH ×3 (07:54→21:33)
[2021-03-17] MEDS: Doxycycline 100 MG CAPSULE PO SCH ×2 (07:55→21:32)
[2021-03-17] MEDS: Isosorbide MONOnitrate (24 HR) 30 MG TAB.ER.24H PO SCH (07:55)
[2021-03-17] MEDS: Gabapentin 300 MG CAPSULE PO SCH (07:56)
[2021-03-17] MEDS: Finasteride 5 MG TABLET PO SCH (07:56)
[2021-03-17] MEDS: Insulin LISPRO 300 UNITS/3 ML VIAL SUBQ SCH ×3 (07:58→16:45)
[2021-03-17] MEDS: *HR* Rivaroxaban 10 MG TABLET PO SCH (07:58)
[2021-03-17] MEDS ORDERED: cefTRIAXone 1,000 MG in 0.9 % Sodium Chloride Mini Bag 100 ML IVPB SCH (09:00)
[2021-03-17] MEDS ORDERED: Spironolactone 25 MG TABLET PO SCH (09:00)
[2021-03-17] MEDS: Multivit/Ca/Min/Fe/FA 1 TAB TABLET PO SCH (12:58)
[2021-03-17] MEDS ORDERED: Insulin DETEMIR 100 UNIT/ML X5UNITS SUBQ SCH (21:00)
[2021-03-18] MEDS: Ipratropium/Albuterol Neb 3 ML IH SCH ×4 (04:02→15:42)
[2021-03-18 07:00] LABS: Basophils % 0.1 %; Hematocrit 44.2 % (37.5-50.1); Hemoglobin 13.6 g/dL (12.9-16.9); Immature Granulocytes % 0.6 % (0-4); Lymphocytes # 1.1 K/mcL (0.6-4.6); Lymphocytes % 10.8 %; Mean Corpuscular HGB Conc 30.8 g/dL (31.6-35.5); Mean Corpuscular Hemoglobin 28.3 pg (28.0-33.3); Mean Corpuscular Volume 92.1 fL (83.0-100.0); Mean Platelet Volume 10.4 fL (9.4-12.4); Monocytes # 0.4 K/mcL (0.0-1.3); Monocytes % 4.1 %; Platelet Count 196 K/mcL (140-400); Red Cell Distribution Width 13.4 % (11.5-14.5); Segmented Neutrophils % 84.4 %
[2021-03-18 07:01] LABS: Neutrophils # 8.3 K/mcL (1.6-8.9); White Blood Count 9.8 K/mcL (4.3-11.1)
[2021-03-18] MEDS: Budesonide/Formoterol 160/4.5 1 PUFF INH IH SCH (07:49)
[2021-03-18] MEDS: MethylPREDNISolone 40 MG/ML VIAL IVP SCH (08:09)
[2021-03-18] MEDS: Chlorhexidine Rinse 15 ML MOUTHWASH MM SCH (08:10)
[2021-03-18] MEDS: Gabapentin 300 MG CAPSULE PO SCH (08:10)
[2021-03-18] MEDS: Insulin LISPRO 300 UNITS/3 ML VIAL SUBQ SCH ×3 (08:10→17:22)
[2021-03-18] MEDS: Finasteride 5 MG TABLET PO SCH (08:11)
[2021-03-18] MEDS: Spironolactone 25 MG TABLET PO SCH (08:11)
[2021-03-18] MEDS: Doxycycline 100 MG CAPSULE PO SCH (08:11)
[2021-03-18] MEDS: Lactobacillus 1 EACH CAP.SPRINK PO SCH (08:11)
[2021-03-18] MEDS: Bumetanide 1 MG TABLET PO SCH ×2 (08:11→17:40)
[2021-03-18] MEDS: *HR* Rivaroxaban 10 MG TABLET PO SCH (08:11)
[2021-03-18] MEDS: Isosorbide MONOnitrate (24 HR) 30 MG TAB.ER.24H PO SCH (08:11)
[2021-03-18 09:49] LABS: BUN/Creatinine Ratio 39 (6-26); Blood Urea Nitrogen 48 mg/dL (8-23); Calcium 8.3 mg/dL (8.6-10.3); Carbon Dioxide 36 mEq/L (23-29); Chloride 98 mEq/L (98-107); Glucose 289 mg/dL (70-105); Magnesium 1.9 mg/dL (1.6-2.6); Osmolality,Calculated 313 (280-300); Potassium 4.6 mEq/L (3.5-5.1); Sodium 140 mEq/L (136-145); eGFR For African Americans > 60 (> 60); eGFR For Non-African Americans 58 (> 60)
[2021-03-18] MEDS: Multivit/Ca/Min/Fe/FA 1 TAB TABLET PO SCH (12:22)
[2021-03-18 15:47] VITALS: BP 124/78; PULSE 84; TEMP 98; O2SAT 97
== END 2021-03-18 18:40 | disposition home health service (06) | DRG 190 ==
LOC: EMEROOARM 08:52 → 3ANU 08:52 → SUATTDRO 11:09 → 3ANU 12:35
PROVIDERS: ADMIT Internal Medicine; ATTEND Internal Medicine

== ENCOUNTER 2021-03-20 23:42 | Inpatient (IN) ==
[2021-03-20] MEDS ORDERED: Ipratropium/Albuterol Neb 3 ML IH ONE (23:55)
[2021-03-20] MEDS ORDERED: methylPREDNISolone 125 MG/2 ML VIAL IVP ONE (23:55)
[2021-03-21] MEDS ORDERED: Acetaminophen 325 MG TABLET PO ONE (00:06)
[2021-03-21 00:26] LABS: ABG Base Excess 7 mEq/L (-2 to 3); ABG HCO3 34 mEq/L (21-27); ABG Oxygen Saturation 95 % (95-98); ABG PCO2 53 mmHg (35-45); ABG PH 7.41 pH Units (7.32-7.45); ABG PO2 79 mmHg (85-104); ABG TCO2 35 mEq/L (20-26)
[2021-03-21 00:30] LABS: Basophils % 0.5 %; Hematocrit 43.3 % (37.5-50.1); Hemoglobin 13.7 g/dL (12.9-16.9); Immature Granulocytes % 2.1 % (0-4); Lymphocytes # 0.4 K/mcL (0.6-4.6); Lymphocytes % 5.6 %; Mean Corpuscular HGB Conc 31.6 g/dL (31.6-35.5); Mean Corpuscular Hemoglobin 27.9 pg (28.0-33.3); Mean Corpuscular Volume 88.2 fL (83.0-100.0); Monocytes # 0.3 K/mcL (0.0-1.3); Monocytes % 4.7 %; Neutrophils # 5.7 K/mcL (1.6-8.9); Platelet Count 166 K/mcL (140-400); Red Blood Count 4.91 M/mcL (4.19-5.50); Red Cell Distribution Width 13.8 % (11.5-14.5); Segmented Neutrophils % 87.1 %; White Blood Count 6.6 K/mcL (4.3-11.1)
[2021-03-21 00:52] LABS: Alanine Aminotransferase 13 Units/L (7-52); Albumin 3.4 g/dL (3.5-5.7); Albumin/Globulin Ratio 1.5 (1.1-2.2); Alkaline Phosphatase 85 Units/L (34-104); Aspartate Amino Transferase 14 Units/L (13-39); BUN/Creatinine Ratio 25 (6-26); Bilirubin,Direct 0.1 mg/dL (0.0-0.2); Bilirubin,Indirect 0.4 mg/dL (0.0-1.0); Bilirubin,Total 0.5 mg/dL (0.3-1.0); Blood Urea Nitrogen 34 mg/dL (8-23); Calcium 8.2 mg/dL (8.6-10.3); Carbon Dioxide 33 mEq/L (23-29); Chloride 100 mEq/L (98-107); Globulin 2.3 g/dL (2.4-3.5); Glucose 292 mg/dL (70-105); Osmolality,Calculated 308 (280-300); Potassium 3.8 mEq/L (3.5-5.1); Sodium 140 mEq/L (136-145); Total Protein 5.7 g/dL (6.4-8.9); Troponin I < 0.03 ng/mL (< 0.04); eGFR For African Americans > 60 (> 60); eGFR For Non-African Americans 52 (> 60)
[2021-03-21 01:06] LABS: Bilirubin,Urine Negative (Negative); Blood,Urine Trace (Negative); Clarity,Urine Clear (Clear); Color,Urine Light-Yellow (Yellow); Glucose,Urine (UA) 500 mg/dL (Normal); Ketones,Urine Negative (Negative); Leukocyte Esterase,Urine Negative (Negative); Nitrite,Urine Negative (Negative); Protein,Urine 30 mg/dL (Neg-Trace); RBC,Urine 0-3 per hpf (0-3); Specific Gravity,Urine 1.019 (1.010-1.025); Urobilinogen,Urine Normal (Normal); WBC,Urine 0-3 per hpf (0-3)
[2021-03-21] MEDS ORDERED: Fluticasone Propionate Nasal 50 MCG/SPRAY BOTTLE NS PRN (02:14)
[2021-03-21] MEDS ORDERED: Dextrose Gel 15 GM/37.5 ML TUBE PO PRN ×2 (02:20)
[2021-03-21] MEDS ORDERED: *HR* Dextrose 50 % in Water (Vial) 50 ML VIAL IVP PRN (02:20)
[2021-03-21] MEDS ORDERED: Albuterol 2.5 MG/3 ML NEBULIZER IH PRN (02:20)
[2021-03-21] MEDS ORDERED: D5% in Water 1,000 ML IVC PRN (02:20)
[2021-03-21] MEDS ORDERED: Ondansetron 4 MG/2 ML VIAL IVP PRN (02:23)
[2021-03-21] MEDS ORDERED: Naloxone 0.4 MG/ML INJ IVP PRN (02:23)
[2021-03-21] MEDS ORDERED: hydrOXYzine pamoate 25 MG CAPSULE PO PRN (02:38)
[2021-03-21] MEDS ORDERED: Albuterol 2.5 MG/3 ML NEBULIZER IH SCH (04:00)
[2021-03-21 06:25] LABS: Basophils % 0.4 %; Hemoglobin 13.6 g/dL (12.9-16.9); Immature Granulocytes % 2.2 % (0-4); Lymphocytes # 0.5 K/mcL (0.6-4.6); Lymphocytes % 7.3 %; Mean Corpuscular HGB Conc 30.9 g/dL (31.6-35.5); Mean Corpuscular Hemoglobin 27.7 pg (28.0-33.3); Mean Corpuscular Volume 89.6 fL (83.0-100.0); Mean Platelet Volume 10.1 fL (9.4-12.4); Monocytes # 0.2 K/mcL (0.0-1.3); Monocytes % 3.2 %; Neutrophils # 5.9 K/mcL (1.6-8.9); Nucleated Red Blood Cells 0.3 /100 WBC (0); Platelet Count 150 K/mcL (140-400); Red Blood Count 4.91 M/mcL (4.19-5.50); Red Cell Distribution Width 13.8 % (11.5-14.5); Segmented Neutrophils % 86.9 %; White Blood Count 6.8 K/mcL (4.3-11.1)
[2021-03-21 06:42] LABS: Platelet Estimate Normal (Normal); Reactive Lymphocytes Present (Not Present); Toxic Granulation Present (Not Present)
[2021-03-21] MEDS ORDERED: Isovue-370 500 ML BOTTLE IVP ONE (07:26)
[2021-03-21] MEDS ORDERED: Ipratropium Neb 0.5 MG NEBULIZER IH PRN (07:31)
[2021-03-21] MEDS: Ipratropium/Albuterol Neb 3 ML IH SCH ×5 (07:54→23:51)
[2021-03-21] MEDS ORDERED: Azithromycin 250 MG TABLET PO SCH (09:00)
[2021-03-21] MEDS ORDERED: predniSONE 20 MG TABLET PO SCH (09:00)
[2021-03-21] MEDS ORDERED: Doxycycline 100 MG CAPSULE PO SCH (09:00)
[2021-03-21] MEDS: MethylPREDNISolone 40 MG/ML VIAL IVP SCH (10:03)
[2021-03-21] MEDS: cefTRIAXone 1,000 MG in 0.9 % Sodium Chloride Mini Bag 100 ML IVPB SCH (10:03)
[2021-03-21] MEDS: Gabapentin 300 MG CAPSULE PO SCH (10:03)
[2021-03-21] MEDS: Isosorbide MONOnitrate (24 HR) 30 MG TAB.ER.24H PO SCH (10:04)
[2021-03-21] MEDS: Spironolactone 25 MG TABLET PO SCH ×2 (10:04→21:06)
[2021-03-21] MEDS: *HR* Rivaroxaban 10 MG TABLET PO SCH (10:04)
[2021-03-21] MEDS: Bumetanide 1 MG TABLET PO SCH ×2 (10:04→16:14)
[2021-03-21] MEDS: Lactobacillus 1 EACH CAP.SPRINK PO SCH ×2 (10:05→21:06)
[2021-03-21] MEDS: Finasteride 5 MG TABLET PO SCH (10:05)
[2021-03-21] MEDS: Insulin LISPRO 300 UNITS/3 ML VIAL SUBQ SCH ×4 (10:06→21:07)
[2021-03-21] MEDS: Budesonide/Formoterol 160/4.5 1 PUFF INH IH SCH ×2 (10:23→20:47)
[2021-03-21] MEDS: Acetaminophen 325 MG TABLET PO PRN ×2 (10:24→18:29)
[2021-03-21 11:22] LABS: Adenovirus Not Detected (Not Detect); Bordetella Pertussis Not Detected (Not Detect); Chlamydophila pneumoniae Not Detected (Not Detect); Coronavirus 229E Not Detected (Not Detect); Coronavirus HKU1 Not Detected (Not Detect); Coronavirus NL63 Not Detected (Not Detect); Coronavirus OC43 Not Detected (Not Detect); Human Metapneumovirus Not Detected (Not Detect); Human Rhinovirus/Enterovirus Not Detected (Not Detect); Influenza A Subtype 2009 H1 Not Detected (Not Detect); Influenza B Not Detected (Not Detect); Parainfluenza Virus 1 Not Detected (Not Detect); Parainfluenza Virus 2 Not Detected (Not Detect); Parainfluenza Virus 3 DETECTED (Not Detect); Parainfluenza Virus 4 Not Detected (Not Detect); Respiratory Syncytial Virus Not Detected (Not Detect); SARS-CoV-2 Not Detected (Not Detect)
[2021-03-21 11:23] LABS: Mycoplasma pneumoniae Not Detected (Not Detect)
[2021-03-21] MEDS: Doxycycline 100 MG in 0.9 % Sodium Chloride Mini Bag 100 ML IVPB SCH ×2 (11:32→18:29)
[2021-03-21] MEDS ORDERED: Sennosides/Docusate Sodium TABLET PO ONE (12:18)
[2021-03-21] MEDS: Loratadine 10 MG TABLET PO SCH (18:30)
[2021-03-21] MEDS ORDERED: Insulin DETEMIR 100 UNIT/ML X5UNITS SUBQ SCH (21:00)
[2021-03-21] MEDS: Insulin DETEMIR 100 UNIT/ML X5UNITS SUBQ SCH (21:07)
[2021-03-22] MEDS: Ipratropium/Albuterol Neb 3 ML IH SCH ×6 (03:53→23:13)
[2021-03-22] MEDS: Doxycycline 100 MG in 0.9 % Sodium Chloride Mini Bag 100 ML IVPB SCH ×2 (06:25→18:59)
[2021-03-22 07:19] LABS: VBG HCO3 35 mEq/L (21-27); VBG PCO2 62 mmHg (41-51); VBG PH 7.36 pH Units (7.32-7.42); VBG PO2 103 mmHg (25-50)
[2021-03-22] MEDS: Budesonide/Formoterol 160/4.5 1 PUFF INH IH SCH ×2 (07:19→19:50)
[2021-03-22 07:51] LABS: Basophils % 0.2 %; Hematocrit 41.3 % (37.5-50.1); Hemoglobin 12.9 g/dL (12.9-16.9); Immature Granulocytes % 1.9 % (0-4); Lymphocytes # 0.7 K/mcL (0.6-4.6); Lymphocytes % 15.5 %; Mean Corpuscular HGB Conc 31.2 g/dL (31.6-35.5); Mean Corpuscular Volume 89.6 fL (83.0-100.0); Mean Platelet Volume 10.6 fL (9.4-12.4); Monocytes # 0.6 K/mcL (0.0-1.3); Neutrophils # 3.3 K/mcL (1.6-8.9); Platelet Count 159 K/mcL (140-400); Red Blood Count 4.61 M/mcL (4.19-5.50); Red Cell Distribution Width 13.9 % (11.5-14.5); Segmented Neutrophils % 69.4 %; White Blood Count 4.8 K/mcL (4.3-11.1)
[2021-03-22 08:09] LABS: BUN/Creatinine Ratio 39 (6-26); Blood Urea Nitrogen 43 mg/dL (8-23); Carbon Dioxide 35 mEq/L (23-29); Chloride 101 mEq/L (98-107); Glucose 174 mg/dL (70-105); Osmolality,Calculated 309 (280-300); Potassium 3.8 mEq/L (3.5-5.1); Sodium 142 mEq/L (136-145); eGFR For African Americans > 60 (> 60); eGFR For Non-African Americans > 60 (> 60)
[2021-03-22] MEDS: Insulin LISPRO 300 UNITS/3 ML VIAL SUBQ SCH ×4 (08:45→20:40)
[2021-03-22] MEDS: Isosorbide MONOnitrate (24 HR) 30 MG TAB.ER.24H PO SCH (08:45)
[2021-03-22] MEDS: Bumetanide 1 MG TABLET PO SCH ×2 (08:46→17:45)
[2021-03-22] MEDS: Gabapentin 300 MG CAPSULE PO SCH (08:46)
[2021-03-22] MEDS: Spironolactone 25 MG TABLET PO SCH ×2 (08:46→20:39)
[2021-03-22] MEDS: MethylPREDNISolone 40 MG/ML VIAL IVP SCH (08:46)
[2021-03-22] MEDS: cefTRIAXone 1,000 MG in 0.9 % Sodium Chloride Mini Bag 100 ML IVPB SCH (08:46)
[2021-03-22] MEDS: Finasteride 5 MG TABLET PO SCH (08:46)
[2021-03-22] MEDS: Lactobacillus 1 EACH CAP.SPRINK PO SCH ×2 (08:46→20:39)
[2021-03-22] MEDS: *HR* Rivaroxaban 10 MG TABLET PO SCH (08:46)
[2021-03-22 10:56] LABS: Calcium 7.9 mg/dL (8.6-10.3)
[2021-03-22] MEDS: Sennosides 8.6 MG TABLET PO SCH ×2 (10:58→20:39)
[2021-03-22] MEDS: Loratadine 10 MG TABLET PO SCH (17:45)
[2021-03-22] MEDS: Insulin DETEMIR 100 UNIT/ML X5UNITS SUBQ SCH (20:41)
[2021-03-23] MEDS: Ipratropium/Albuterol Neb 3 ML IH SCH ×6 (03:49→23:22)
[2021-03-23] MEDS: Doxycycline 100 MG in 0.9 % Sodium Chloride Mini Bag 100 ML IVPB SCH ×2 (05:31→17:34)
[2021-03-23 07:07] LABS: VBG HCO3 33 mEq/L (21-27); VBG PCO2 55 mmHg (41-51); VBG PH 7.39 pH Units (7.32-7.42); VBG PO2 78 mmHg (25-50)
[2021-03-23 07:10] LABS: Basophils % 0.4 %; Hematocrit 41.6 % (37.5-50.1); Immature Granulocytes % 1.6 % (0-4); Lymphocytes # 1.2 K/mcL (0.6-4.6); Mean Corpuscular HGB Conc 31.3 g/dL (31.6-35.5); Mean Corpuscular Volume 89.5 fL (83.0-100.0); Mean Platelet Volume 10.3 fL (9.4-12.4); Monocytes # 0.7 K/mcL (0.0-1.3); Monocytes % 14.1 %; Neutrophils # 3.1 K/mcL (1.6-8.9); Platelet Count 170 K/mcL (140-400); Red Blood Count 4.65 M/mcL (4.19-5.50); Red Cell Distribution Width 14.1 % (11.5-14.5); Segmented Neutrophils % 59.9 %; White Blood Count 5.1 K/mcL (4.3-11.1)
[2021-03-23 07:41] LABS: BUN/Creatinine Ratio 38 (6-26); Blood Urea Nitrogen 43 mg/dL (8-23); Calcium 7.7 mg/dL (8.6-10.3); Carbon Dioxide 35 mEq/L (23-29); Chloride 100 mEq/L (98-107); Glucose 124 mg/dL (70-105); Osmolality,Calculated 306 (280-300); Potassium 3.6 mEq/L (3.5-5.1); Sodium 142 mEq/L (136-145); eGFR For African Americans > 60 (> 60); eGFR For Non-African Americans > 60 (> 60)
[2021-03-23] MEDS: Insulin LISPRO 300 UNITS/3 ML VIAL SUBQ SCH ×4 (08:26→20:40)
[2021-03-23] MEDS: cefTRIAXone 1,000 MG in 0.9 % Sodium Chloride Mini Bag 100 ML IVPB SCH (09:14)
[2021-03-23] MEDS: MethylPREDNISolone 40 MG/ML VIAL IVP SCH ×2 (09:15→17:35)
[2021-03-23] MEDS: Lactobacillus 1 EACH CAP.SPRINK PO SCH ×2 (09:15→20:40)
[2021-03-23] MEDS: *HR* Rivaroxaban 10 MG TABLET PO SCH (09:15)
[2021-03-23] MEDS: Finasteride 5 MG TABLET PO SCH (09:15)
[2021-03-23] MEDS: Bumetanide 1 MG TABLET PO SCH ×2 (09:16→17:35)
[2021-03-23] MEDS: Isosorbide MONOnitrate (24 HR) 30 MG TAB.ER.24H PO SCH (09:16)
[2021-03-23] MEDS: Gabapentin 300 MG CAPSULE PO SCH (09:17)
[2021-03-23] MEDS: Acetaminophen 325 MG TABLET PO PRN (09:25)
[2021-03-23] MEDS: Spironolactone 25 MG TABLET PO SCH ×2 (11:02→20:39)
[2021-03-23] MEDS: Budesonide/Formoterol 160/4.5 1 PUFF INH IH SCH ×2 (11:46→20:11)
[2021-03-23] MEDS: Loratadine 10 MG TABLET PO SCH (17:35)
[2021-03-23] MEDS: Insulin DETEMIR 100 UNIT/ML X5UNITS SUBQ SCH (20:40)
[2021-03-24] MEDS: MethylPREDNISolone 40 MG/ML VIAL IVP SCH ×3 (00:38→17:22)
[2021-03-24] MEDS: Ipratropium/Albuterol Neb 3 ML IH SCH ×5 (03:48→20:09)
[2021-03-24] MEDS: Doxycycline 100 MG in 0.9 % Sodium Chloride Mini Bag 100 ML IVPB SCH ×2 (06:26→17:23)
[2021-03-24 07:20] LABS: VBG HCO3 32 mEq/L (21-27); VBG PCO2 47 mmHg (41-51); VBG PH 7.43 pH Units (7.32-7.42); VBG PO2 52 mmHg (25-50)
[2021-03-24] MEDS: Budesonide/Formoterol 160/4.5 1 PUFF INH IH SCH ×2 (07:49→20:09)
[2021-03-24 07:53] LABS: Basophils % 0.3 %; Hematocrit 41.8 % (37.5-50.1); Hemoglobin 13.2 g/dL (12.9-16.9); Immature Granulocytes % 1.5 % (0-4); Lymphocytes # 0.8 K/mcL (0.6-4.6); Lymphocytes % 20.9 %; Mean Corpuscular HGB Conc 31.6 g/dL (31.6-35.5); Mean Corpuscular Hemoglobin 27.9 pg (28.0-33.3); Mean Corpuscular Volume 88.4 fL (83.0-100.0); Mean Platelet Volume 10.4 fL (9.4-12.4); Monocytes # 0.3 K/mcL (0.0-1.3); Monocytes % 8.2 %; Neutrophils # 2.7 K/mcL (1.6-8.9); Platelet Count 177 K/mcL (140-400); Red Blood Count 4.73 M/mcL (4.19-5.50); Red Cell Distribution Width 13.7 % (11.5-14.5); Segmented Neutrophils % 69.1 %; White Blood Count 3.9 K/mcL (4.3-11.1)
[2021-03-24 08:09] LABS: BUN/Creatinine Ratio 39 (6-26); Blood Urea Nitrogen 40 mg/dL (8-23); Carbon Dioxide 33 mEq/L (23-29); Chloride 99 mEq/L (98-107); Glucose 238 mg/dL (70-105); Osmolality,Calculated 306 (280-300); Potassium 3.9 mEq/L (3.5-5.1); Sodium 139 mEq/L (136-145); eGFR For African Americans > 60 (> 60); eGFR For Non-African Americans > 60 (> 60)
[2021-03-24] MEDS: Bumetanide 1 MG TABLET PO SCH ×2 (08:42→17:22)
[2021-03-24] MEDS: Spironolactone 25 MG TABLET PO SCH ×2 (08:42→20:41)
[2021-03-24] MEDS: *HR* Rivaroxaban 10 MG TABLET PO SCH (08:42)
[2021-03-24] MEDS: Gabapentin 300 MG CAPSULE PO SCH (08:42)
[2021-03-24] MEDS: Finasteride 5 MG TABLET PO SCH (08:42)
[2021-03-24] MEDS: Lactobacillus 1 EACH CAP.SPRINK PO SCH ×2 (08:42→20:40)
[2021-03-24] MEDS: Isosorbide MONOnitrate (24 HR) 30 MG TAB.ER.24H PO SCH (08:42)
[2021-03-24] MEDS: cefTRIAXone 1,000 MG in 0.9 % Sodium Chloride Mini Bag 100 ML IVPB SCH (08:43)
[2021-03-24] MEDS: Insulin LISPRO 300 UNITS/3 ML VIAL SUBQ SCH ×5 (08:44→20:46)
[2021-03-24] MEDS: Loratadine 10 MG TABLET PO SCH (17:22)
[2021-03-24] MEDS: Insulin DETEMIR 100 UNIT/ML X5UNITS SUBQ SCH (20:43)
[2021-03-25] MEDS: Ipratropium/Albuterol Neb 3 ML IH SCH ×5 (00:43→15:08)
[2021-03-25] MEDS: Doxycycline 100 MG in 0.9 % Sodium Chloride Mini Bag 100 ML IVPB SCH (05:40)
[2021-03-25] MEDS: MethylPREDNISolone 40 MG/ML VIAL IVP SCH (05:42)
[2021-03-25] MEDS: Budesonide/Formoterol 160/4.5 1 PUFF INH IH SCH (07:27)
[2021-03-25 07:49] LABS: Basophils % 0.2 %; Hemoglobin 13.1 g/dL (12.9-16.9); Immature Granulocytes % 0.9 % (0-4); Lymphocytes # 1.3 K/mcL (0.6-4.6); Lymphocytes % 20.3 %; Mean Corpuscular HGB Conc 31.2 g/dL (31.6-35.5); Mean Corpuscular Hemoglobin 27.8 pg (28.0-33.3); Mean Platelet Volume 10.4 fL (9.4-12.4); Monocytes # 0.8 K/mcL (0.0-1.3); Monocytes % 12.3 %; Neutrophils # 4.3 K/mcL (1.6-8.9); Platelet Count 179 K/mcL (140-400); Red Blood Count 4.72 M/mcL (4.19-5.50); Red Cell Distribution Width 13.5 % (11.5-14.5); Segmented Neutrophils % 66.3 %
[2021-03-25 07:59] LABS: White Blood Count 6.5 K/mcL (4.3-11.1)
[2021-03-25 08:15] LABS: BUN/Creatinine Ratio 38 (6-26); Blood Urea Nitrogen 43 mg/dL (8-23); Calcium 8.2 mg/dL (8.6-10.3); Carbon Dioxide 36 mEq/L (23-29); Chloride 97 mEq/L (98-107); Glucose 205 mg/dL (70-105); Osmolality,Calculated 309 (280-300); Sodium 141 mEq/L (136-145); eGFR For African Americans > 60 (> 60); eGFR For Non-African Americans > 60 (> 60)
[2021-03-25] MEDS: Finasteride 5 MG TABLET PO SCH (08:34)
[2021-03-25] MEDS: Insulin LISPRO 300 UNITS/3 ML VIAL SUBQ SCH ×4 (08:34→11:42)
[2021-03-25] MEDS: Isosorbide MONOnitrate (24 HR) 30 MG TAB.ER.24H PO SCH (08:35)
[2021-03-25] MEDS: Bumetanide 1 MG TABLET PO SCH (08:35)
[2021-03-25] MEDS: Spironolactone 25 MG TABLET PO SCH (08:35)
[2021-03-25] MEDS: *HR* Rivaroxaban 10 MG TABLET PO SCH (08:35)
[2021-03-25] MEDS: Gabapentin 300 MG CAPSULE PO SCH (08:35)
[2021-03-25] MEDS: Lactobacillus 1 EACH CAP.SPRINK PO SCH (08:35)
[2021-03-25] MEDS: cefTRIAXone 1,000 MG in 0.9 % Sodium Chloride Mini Bag 100 ML IVPB SCH (08:36)
[2021-03-25 10:30] VITALS: BP 126/76; PULSE 68; TEMP 97.7
[2021-03-25 11:28] VITALS: O2SAT 96
[2021-03-25] MEDS: Acetaminophen 325 MG TABLET PO PRN (11:41)
== END 2021-03-25 16:31 | disposition home health service (06) | DRG 190 ==
LOC: EMEROOARM 23:42 → 3ANU 23:42 → SUATTDRO 03-21 02:06 → 3ANU 03-21 03:18 → SUATTDRO 03-22 17:33
PROVIDERS: ADMIT Family Medicine; ATTEND General Practice

== ENCOUNTER 2021-06-29 12:22 | Inpatient (IN) ==
[2021-06-29 16:40] LABS: Basophils # 0.1 K/mcL (0.0-0.2); Basophils % 0.7 %; Eosinophils # 0.2 K/mcL (0.0-0.6); Eosinophils % 2.7 %; Hematocrit 40.7 % (37.5-50.1); Hemoglobin 12.6 g/dL (12.9-16.9); Immature Granulocytes % 0.9 % (0-4); Lymphocytes # 2.7 K/mcL (0.6-4.6); Lymphocytes % 30.3 %; Mean Corpuscular Hemoglobin 28.4 pg (28.0-33.3); Mean Corpuscular Volume 91.7 fL (83.0-100.0); Mean Platelet Volume 9.9 fL (9.4-12.4); Monocytes # 0.9 K/mcL (0.0-1.3); Monocytes % 10.6 %; Neutrophils # 4.8 K/mcL (1.6-8.9); Platelet Count 192 K/mcL (140-400); Red Blood Count 4.44 M/mcL (4.19-5.50); Red Cell Distribution Width 13.6 % (11.5-14.5); Segmented Neutrophils % 54.8 %; White Blood Count 8.8 K/mcL (4.3-11.1)
[2021-06-29 16:45] LABS: INR 1.5; Prothrombin Time 16.8 Seconds (9.4-12.1)
[2021-06-29 16:48] LABS: Activated Partial Thrombo Time 36.8 Seconds (26.0-36.0)
[2021-06-29] MEDS ORDERED: Isovue-370 500 ML BOTTLE IVP ONE (17:06)
[2021-06-29 17:13] LABS: BUN/Creatinine Ratio 21 (6-26); Blood Urea Nitrogen 18 mg/dL (8-23); Calcium 8.3 mg/dL (8.6-10.3); Carbon Dioxide 35 mEq/L (23-29); Chloride 100 mEq/L (98-107); Glucose 108 mg/dL (70-105); Osmolality,Calculated 296 (280-300); Potassium 3.6 mEq/L (3.5-5.1); Sodium 142 mEq/L (136-145); Troponin I < 0.03 ng/mL (< 0.04); eGFR For African Americans > 60 (> 60); eGFR For Non-African Americans > 60 (> 60)
[2021-06-29 19:46] LABS: Influenza A PCR Negative (Negative); Influenza B PCR Negative (Negative); Resp. Syncytial Virus PCR Negative (Negative)
[2021-06-29] MEDS ORDERED: Furosemide 40 MG/4 ML VIAL IVP ONE (19:48)
[2021-06-29 19:51] LABS: SARS-CoV-2 by PCR (In House) Negative (Negative)
[2021-06-29] MEDS ORDERED: Nystatin POWDER 30 GM BOTTLE TP PRN (22:45)
[2021-06-29] MEDS ORDERED: Fluticasone Propionate Nasal 50 MCG/SPRAY BOTTLE NS PRN (22:45)
[2021-06-29] MEDS ORDERED: Dextrose Gel 15 GM/37.5 ML TUBE PO PRN ×2 (23:24)
[2021-06-29] MEDS ORDERED: *HR* Dextrose 50 % in Water (Syg) 50 ML SYRINGE IVP PRN (23:24)
[2021-06-29] MEDS ORDERED: D5% in Water 1,000 ML IVC PRN (23:24)
[2021-06-29] MEDS ORDERED: Naloxone 0.4 MG/ML INJ IVP PRN (23:27)
[2021-06-29] MEDS ORDERED: Perflutren Lipid Microsphere 1.3 ML in 0.9 % Sodium Chloride 8.7 ML IVP PRN (23:29)
[2021-06-30] MEDS ORDERED: Calcium Gluconate 1gm/50mL 1 GM/50 ML BAG IVPB ONE (00:14)
[2021-06-30] MEDS: Insulin LISPRO 300 UNITS/3 ML VIAL SUBQ SCH ×5 (00:43→21:04)
[2021-06-30 01:29] LABS: Hematocrit 39.6 % (37.5-50.1); Hemoglobin 12.4 g/dL (12.9-16.9); Mean Corpuscular HGB Conc 31.3 g/dL (31.6-35.5); Mean Corpuscular Hemoglobin 28.7 pg (28.0-33.3); Mean Corpuscular Volume 91.7 fL (83.0-100.0); Mean Platelet Volume 10.2 fL (9.4-12.4); Platelet Count 178 K/mcL (140-400); Red Blood Count 4.32 M/mcL (4.19-5.50); Red Cell Distribution Width 13.6 % (11.5-14.5); White Blood Count 7.7 K/mcL (4.3-11.1)
[2021-06-30 01:43] LABS: BUN/Creatinine Ratio 20 (6-26); Blood Urea Nitrogen 16 mg/dL (8-23); Calcium 8.3 mg/dL (8.6-10.3); Carbon Dioxide 35 mEq/L (23-29); Chloride 101 mEq/L (98-107); Chol/HDL Ratio 4.8 (0-4.9); Cholesterol 148 mg/dL (< 200); Glucose 150 mg/dL (70-105); HDL Cholesterol 31 mg/dL (40-59); LDL Cholesterol,Calculated 61 mg/dL (< 100); Magnesium 1.6 mg/dL (1.6-2.6); Osmolality,Calculated 296 (280-300); Potassium 3.5 mEq/L (3.5-5.1); Sodium 141 mEq/L (136-145); Triglycerides 282 mg/dL (< 150); eGFR For African Americans > 60 (> 60); eGFR For Non-African Americans > 60 (> 60)
[2021-06-30 01:59] LABS: Iron 65 mcg/dL (65-175)
[2021-06-30 02:03] LABS: Ferritin 31 ng/mL (20-250)
[2021-06-30 02:13] LABS: Folate 17.6 ng/mL (3.0-16.0)
[2021-06-30 02:27] LABS: Estimated Average Glucose 177 mg/dl; Hemoglobin A1C 7.8 %
[2021-06-30] MEDS ORDERED: cefTRIAXone 1,000 MG in 0.9 % Sodium Chloride Mini Bag 100 ML IVPB SCH (06:00)
[2021-06-30] MEDS ORDERED: Furosemide 20 MG/2 ML VIAL IVP SCH ×2 (08:00→08:45)
[2021-06-30] MEDS: *HR* Rivaroxaban 10 MG TABLET PO SCH (08:33)
[2021-06-30] MEDS: Finasteride 5 MG TABLET PO SCH (08:33)
[2021-06-30] MEDS: Isosorbide MONOnitrate (24 HR) 30 MG TAB.ER.24H PO SCH (08:33)
[2021-06-30] MEDS ORDERED: Furosemide 20 MG/2 ML VIAL IVP ONE (08:47)
[2021-06-30] MEDS ORDERED: Isovue-370 500 ML BOTTLE IVP ONE (09:17)
[2021-06-30] MEDS: Budesonide/Formoterol 160/4.5 1 PUFF INH IH SCH ×2 (11:26→21:09)
[2021-06-30] MEDS ORDERED: Spironolactone 25 MG TABLET PO SCH (12:00)
[2021-06-30] MEDS ORDERED: metOLazone 5 MG TABLET PO SCH (13:45)
[2021-06-30] MEDS: Acetaminophen 325 MG TABLET PO PRN (16:23)
[2021-06-30] MEDS: Furosemide 80 MG in 0.9 % Sodium Chloride 50 ML IVPB SCH (17:10)
[2021-06-30] MEDS: Loratadine 10 MG TABLET PO SCH (21:03)
[2021-06-30] MEDS: Gabapentin 300 MG CAPSULE PO SCH (21:03)
[2021-07-01 06:32] LABS: Basophils # 0.1 K/mcL (0.0-0.2); Basophils % 0.7 %; Eosinophils # 0.3 K/mcL (0.0-0.6); Eosinophils % 3.4 %; Hemoglobin 12.1 g/dL (12.9-16.9); Immature Granulocytes % 0.7 % (0-4); Lymphocytes # 1.9 K/mcL (0.6-4.6); Mean Corpuscular HGB Conc 30.3 g/dL (31.6-35.5); Mean Corpuscular Hemoglobin 28.2 pg (28.0-33.3); Mean Corpuscular Volume 93.2 fL (83.0-100.0); Mean Platelet Volume 10.3 fL (9.4-12.4); Monocytes # 1.2 K/mcL (0.0-1.3); Monocytes % 15.9 %; Neutrophils # 3.9 K/mcL (1.6-8.9); Platelet Count 183 K/mcL (140-400); Red Blood Count 4.29 M/mcL (4.19-5.50); Red Cell Distribution Width 13.8 % (11.5-14.5); Segmented Neutrophils % 53.3 %; White Blood Count 7.3 K/mcL (4.3-11.1)
[2021-07-01 06:40] LABS: BUN/Creatinine Ratio 17 (6-26); Blood Urea Nitrogen 16 mg/dL (8-23); Calcium 8.5 mg/dL (8.6-10.3); Carbon Dioxide 36 mEq/L (23-29); Chloride 99 mEq/L (98-107); Glucose 129 mg/dL (70-105); Magnesium 1.7 mg/dL (1.6-2.6); Osmolality,Calculated 293 (280-300); Phosphorous 3.8 mg/dL (2.7-4.5); Potassium 3.4 mEq/L (3.5-5.1); Sodium 140 mEq/L (136-145); eGFR For African Americans > 60 (> 60); eGFR For Non-African Americans > 60 (> 60)
[2021-07-01] MEDS: metOLazone 5 MG TABLET PO SCH (06:44)
[2021-07-01] MEDS: Furosemide 80 MG in 0.9 % Sodium Chloride 50 ML IVPB SCH ×2 (07:31→17:45)
[2021-07-01] MEDS: Budesonide/Formoterol 160/4.5 1 PUFF INH IH SCH ×2 (07:52→19:57)
[2021-07-01] MEDS: *HR* Rivaroxaban 10 MG TABLET PO SCH (08:15)
[2021-07-01] MEDS: Finasteride 5 MG TABLET PO SCH (08:15)
[2021-07-01] MEDS: Isosorbide MONOnitrate (24 HR) 30 MG TAB.ER.24H PO SCH (08:16)
[2021-07-01] MEDS: Insulin LISPRO 300 UNITS/3 ML VIAL SUBQ SCH ×4 (08:17→21:21)
[2021-07-01] MEDS: Acetaminophen 325 MG TABLET PO PRN (21:26)
[2021-07-01] MEDS: Gabapentin 300 MG CAPSULE PO SCH (21:27)
[2021-07-01] MEDS: Loratadine 10 MG TABLET PO SCH (21:27)
[2021-07-02] MEDS: Furosemide 80 MG in 0.9 % Sodium Chloride 50 ML IVPB SCH ×2 (06:05→17:34)
[2021-07-02] MEDS: metOLazone 5 MG TABLET PO SCH (06:05)
[2021-07-02 07:04] LABS: BUN/Creatinine Ratio 23 (6-26); Blood Urea Nitrogen 23 mg/dL (8-23); Calcium 8.8 mg/dL (8.6-10.3); Carbon Dioxide 37 mEq/L (23-29); Chloride 97 mEq/L (98-107); Glucose 163 mg/dL (70-105); Magnesium 1.7 mg/dL (1.6-2.6); Osmolality,Calculated 295 (280-300); Potassium 3.8 mEq/L (3.5-5.1); Sodium 139 mEq/L (136-145); eGFR For African Americans > 60 (> 60); eGFR For Non-African Americans > 60 (> 60)
[2021-07-02 07:24] LABS: Basophils % 0.6 %; Eosinophils # 0.2 K/mcL (0.0-0.6); Eosinophils % 3.1 %; Hematocrit 39.3 % (37.5-50.1); Hemoglobin 12.2 g/dL (12.9-16.9); Lymphocytes # 1.8 K/mcL (0.6-4.6); Lymphocytes % 29.1 %; Mean Corpuscular Hemoglobin 28.6 pg (28.0-33.3); Mean Platelet Volume 10.4 fL (9.4-12.4); Monocytes # 0.8 K/mcL (0.0-1.3); Monocytes % 12.6 %; Neutrophils # 3.3 K/mcL (1.6-8.9); Platelet Count 192 K/mcL (140-400); Red Blood Count 4.27 M/mcL (4.19-5.50); Red Cell Distribution Width 13.6 % (11.5-14.5); Segmented Neutrophils % 53.6 %; White Blood Count 6.2 K/mcL (4.3-11.1)
[2021-07-02] MEDS: Budesonide/Formoterol 160/4.5 1 PUFF INH IH SCH ×2 (07:48→21:26)
[2021-07-02] MEDS: *HR* Rivaroxaban 10 MG TABLET PO SCH (09:31)
[2021-07-02] MEDS: Isosorbide MONOnitrate (24 HR) 30 MG TAB.ER.24H PO SCH (09:31)
[2021-07-02] MEDS: Finasteride 5 MG TABLET PO SCH (09:31)
[2021-07-02] MEDS: Insulin LISPRO 300 UNITS/3 ML VIAL SUBQ SCH ×4 (09:32→20:36)
[2021-07-02 10:46] LABS: % Iron Saturation 21 % (20-55); Transferrin 225 mg/dL (200-400)
[2021-07-02] MEDS: Loratadine 10 MG TABLET PO SCH (20:35)
[2021-07-02] MEDS: Gabapentin 300 MG CAPSULE PO SCH (20:35)
[2021-07-03 05:27] LABS: Basophils # 0.1 K/mcL (0.0-0.2); Basophils % 0.7 %; Eosinophils # 0.3 K/mcL (0.0-0.6); Eosinophils % 4.4 %; Hematocrit 39.6 % (37.5-50.1); Hemoglobin 12.6 g/dL (12.9-16.9); Lymphocytes # 2.2 K/mcL (0.6-4.6); Lymphocytes % 30.3 %; Mean Corpuscular HGB Conc 31.8 g/dL (31.6-35.5); Mean Corpuscular Hemoglobin 29.1 pg (28.0-33.3); Mean Corpuscular Volume 91.5 fL (83.0-100.0); Mean Platelet Volume 10.5 fL (9.4-12.4); Monocytes # 0.9 K/mcL (0.0-1.3); Monocytes % 12.7 %; Neutrophils # 3.7 K/mcL (1.6-8.9); Platelet Count 225 K/mcL (140-400); Red Blood Count 4.33 M/mcL (4.19-5.50); Red Cell Distribution Width 13.3 % (11.5-14.5); Segmented Neutrophils % 50.9 %; White Blood Count 7.3 K/mcL (4.3-11.1)
[2021-07-03 05:34] LABS: BUN/Creatinine Ratio 25 (6-26); Blood Urea Nitrogen 29 mg/dL (8-23); Calcium 9.1 mg/dL (8.6-10.3); Carbon Dioxide 40 mEq/L (23-29); Chloride 93 mEq/L (98-107); Glucose 202 mg/dL (70-105); Magnesium 1.7 mg/dL (1.6-2.6); Osmolality,Calculated 298 (280-300); Potassium 3.6 mEq/L (3.5-5.1); Sodium 138 mEq/L (136-145); eGFR For African Americans > 60 (> 60); eGFR For Non-African Americans > 60 (> 60)
[2021-07-03] MEDS: metOLazone 5 MG TABLET PO SCH (06:07)
[2021-07-03] MEDS: Furosemide 80 MG in 0.9 % Sodium Chloride 50 ML IVPB SCH (06:07)
[2021-07-03] MEDS: Budesonide/Formoterol 160/4.5 1 PUFF INH IH SCH ×2 (07:56→19:54)
[2021-07-03] MEDS ORDERED: Bumetanide 1 MG/4 ML VIAL IVP SCH ×2 (08:00→17:00)
[2021-07-03] MEDS: Insulin LISPRO 300 UNITS/3 ML VIAL SUBQ SCH ×4 (08:31→20:03)
[2021-07-03] MEDS: *HR* Rivaroxaban 10 MG TABLET PO SCH (08:32)
[2021-07-03] MEDS: Finasteride 5 MG TABLET PO SCH (08:32)
[2021-07-03] MEDS: Isosorbide MONOnitrate (24 HR) 30 MG TAB.ER.24H PO SCH (08:33)
[2021-07-03] MEDS: Acetaminophen 325 MG TABLET PO PRN ×2 (08:46→20:07)
[2021-07-03] MEDS: levoFLOXacin 750 MG/150 ML 750 MG/150 ML BAG IVPB SCH (12:50)
[2021-07-03 16:35] LABS: Alanine Aminotransferase 9 Units/L (7-52); Albumin 3.6 g/dL (3.5-5.7); Albumin/Globulin Ratio 1.5 (1.1-2.2); Alkaline Phosphatase 88 Units/L (34-104); Aspartate Amino Transferase 17 Units/L (13-39); Bilirubin,Direct 0.1 mg/dL (0.0-0.2); Bilirubin,Indirect 0.4 mg/dL (0.0-1.0); Bilirubin,Total 0.5 mg/dL (0.3-1.0); Globulin 2.4 g/dL (2.4-3.5)
[2021-07-03] MEDS: Bumetanide 1 MG/4 ML VIAL IVP SCH (17:22)
[2021-07-03] MEDS: Loratadine 10 MG TABLET PO SCH (20:04)
[2021-07-03] MEDS: Gabapentin 300 MG CAPSULE PO SCH (20:04)
[2021-07-04 07:36] LABS: Basophils # 0.1 K/mcL (0.0-0.2); Basophils % 0.6 %; Eosinophils # 0.3 K/mcL (0.0-0.6); Eosinophils % 3.1 %; Hematocrit 36.1 % (37.5-50.1); Hemoglobin 11.6 g/dL (12.9-16.9); Lymphocytes # 2.2 K/mcL (0.6-4.6); Lymphocytes % 27.2 %; Mean Corpuscular HGB Conc 32.1 g/dL (31.6-35.5); Mean Corpuscular Hemoglobin 29.1 pg (28.0-33.3); Mean Corpuscular Volume 90.7 fL (83.0-100.0); Mean Platelet Volume 10.1 fL (9.4-12.4); Monocytes # 1.1 K/mcL (0.0-1.3); Monocytes % 13.2 %; Neutrophils # 4.4 K/mcL (1.6-8.9); Platelet Count 204 K/mcL (140-400); Red Blood Count 3.98 M/mcL (4.19-5.50); Red Cell Distribution Width 13.3 % (11.5-14.5); Segmented Neutrophils % 54.9 %
[2021-07-04] MEDS: Finasteride 5 MG TABLET PO SCH (07:49)
[2021-07-04] MEDS: Isosorbide MONOnitrate (24 HR) 30 MG TAB.ER.24H PO SCH (07:49)
[2021-07-04] MEDS: levoFLOXacin 750 MG/150 ML 750 MG/150 ML BAG IVPB SCH (07:49)
[2021-07-04] MEDS: metOLazone 5 MG TABLET PO SCH (07:49)
[2021-07-04] MEDS: *HR* Rivaroxaban 10 MG TABLET PO SCH (07:49)
[2021-07-04] MEDS: Insulin LISPRO 300 UNITS/3 ML VIAL SUBQ SCH ×4 (07:51→20:01)
[2021-07-04 08:00] LABS: BUN/Creatinine Ratio 29 (6-26); Blood Urea Nitrogen 36 mg/dL (8-23); Calcium 8.7 mg/dL (8.6-10.3); Carbon Dioxide 40 mEq/L (23-29); Chloride 93 mEq/L (98-107); Glucose 194 mg/dL (70-105); Magnesium 1.5 mg/dL (1.6-2.6); Osmolality,Calculated 302 (280-300); Phosphorous 3.3 mg/dL (2.7-4.5); Potassium 3.1 mEq/L (3.5-5.1); Sodium 139 mEq/L (136-145); eGFR For African Americans > 60 (> 60); eGFR For Non-African Americans 57 (> 60)
[2021-07-04] MEDS: Budesonide/Formoterol 160/4.5 1 PUFF INH IH SCH ×2 (08:29→20:09)
[2021-07-04] MEDS: Bumetanide 1 MG/4 ML VIAL IVP SCH ×2 (08:43→16:52)
[2021-07-04] MEDS: Albumin 25% 25gram/100mL 25 GM/100 ML IV.SOLN IVPB SCH (16:52)
[2021-07-04] MEDS: Acetaminophen 325 MG TABLET PO PRN (19:47)
[2021-07-04] MEDS: Gabapentin 300 MG CAPSULE PO SCH (19:48)
[2021-07-04] MEDS: Loratadine 10 MG TABLET PO SCH (19:48)
[2021-07-05] MEDS: Albumin 25% 25gram/100mL 25 GM/100 ML IV.SOLN IVPB SCH ×2 (04:59→17:22)
[2021-07-05 06:20] LABS: Basophils # 0.1 K/mcL (0.0-0.2); Basophils % 0.9 %; Eosinophils # 0.2 K/mcL (0.0-0.6); Eosinophils % 3.1 %; Hematocrit 35.7 % (37.5-50.1); Hemoglobin 11.3 g/dL (12.9-16.9); Immature Granulocytes % 1.1 % (0-4); Lymphocytes # 1.7 K/mcL (0.6-4.6); Lymphocytes % 26.9 %; Mean Corpuscular HGB Conc 31.7 g/dL (31.6-35.5); Mean Corpuscular Volume 91.8 fL (83.0-100.0); Monocytes % 14.7 %; Neutrophils # 3.5 K/mcL (1.6-8.9); Platelet Count 192 K/mcL (140-400); Red Blood Count 3.89 M/mcL (4.19-5.50); Red Cell Distribution Width 13.4 % (11.5-14.5); Segmented Neutrophils % 53.3 %; White Blood Count 6.5 K/mcL (4.3-11.1)
[2021-07-05 06:51] LABS: Calcium 8.8 mg/dL (8.6-10.3); Magnesium 1.4 mg/dL (1.6-2.6); Phosphorous 3.8 mg/dL (2.7-4.5)
[2021-07-05] MEDS: metOLazone 5 MG TABLET PO SCH (07:31)
[2021-07-05] MEDS: Finasteride 5 MG TABLET PO SCH (07:31)
[2021-07-05] MEDS: *HR* Rivaroxaban 10 MG TABLET PO SCH (07:33)
[2021-07-05] MEDS: Insulin LISPRO 300 UNITS/3 ML VIAL SUBQ SCH ×4 (07:34→20:55)
[2021-07-05] MEDS: Isosorbide MONOnitrate (24 HR) 30 MG TAB.ER.24H PO SCH (07:34)
[2021-07-05] MEDS: Budesonide/Formoterol 160/4.5 1 PUFF INH IH SCH ×2 (08:04→20:01)
[2021-07-05] MEDS ORDERED: acetaZOLAMIDE 250 MG in Water for inj. (sterile) 2.5 ML IVP ONE (11:56)
[2021-07-05] MEDS: Bumetanide 1 MG/4 ML VIAL IVP SCH ×3 (17:21→17:25)
[2021-07-05] MEDS: levoFLOXacin 750 MG/150 ML 750 MG/150 ML BAG IVPB SCH (18:33)
[2021-07-05] MEDS: Loratadine 10 MG TABLET PO SCH (20:53)
[2021-07-05] MEDS: Acetaminophen 325 MG TABLET PO PRN (23:23)
[2021-07-06 03:44] LABS: Hematocrit 35.6 % (37.5-50.1); Hemoglobin 11.4 g/dL (12.9-16.9); Immature Granulocytes % 0.7 % (0-4); Lymphocytes % 25.5 %; Mean Corpuscular Hemoglobin 28.7 pg (28.0-33.3); Mean Corpuscular Volume 89.7 fL (83.0-100.0); Mean Platelet Volume 10.2 fL (9.4-12.4); Platelet Count 200 K/mcL (140-400); Red Blood Count 3.97 M/mcL (4.19-5.50); Red Cell Distribution Width 13.3 % (11.5-14.5); Segmented Neutrophils % 55.2 %; White Blood Count 7.2 K/mcL (4.3-11.1)
[2021-07-06 03:45] LABS: Basophils # 0.1 K/mcL (0.0-0.2); Basophils % 0.7 %; Eosinophils # 0.4 K/mcL (0.0-0.6); Eosinophils % 5.1 %; Lymphocytes # 1.8 K/mcL (0.6-4.6); Monocytes # 0.9 K/mcL (0.0-1.3); Monocytes % 12.8 %
[2021-07-06 04:05] LABS: BUN/Creatinine Ratio 28 (6-26); Blood Urea Nitrogen 38 mg/dL (8-23); Calcium 9.3 mg/dL (8.6-10.3); Carbon Dioxide 40 mEq/L (23-29); Chloride 93 mEq/L (98-107); Glucose 187 mg/dL (70-105); Magnesium 1.9 mg/dL (1.6-2.6); Osmolality,Calculated 304 (280-300); Phosphorous 2.8 mg/dL (2.7-4.5); Potassium 3.4 mEq/L (3.5-5.1); Sodium 140 mEq/L (136-145); eGFR For African Americans > 60 (> 60); eGFR For Non-African Americans 51 (> 60)
[2021-07-06] MEDS: Albumin 25% 25gram/100mL 25 GM/100 ML IV.SOLN IVPB SCH ×2 (06:06→16:22)
[2021-07-06] MEDS: Budesonide/Formoterol 160/4.5 1 PUFF INH IH SCH ×2 (07:22→21:10)
[2021-07-06] MEDS: Finasteride 5 MG TABLET PO SCH (07:39)
[2021-07-06] MEDS: *HR* Rivaroxaban 10 MG TABLET PO SCH (07:39)
[2021-07-06] MEDS: metOLazone 5 MG TABLET PO SCH (07:39)
[2021-07-06] MEDS ORDERED: acetaZOLAMIDE 375 MG in Water for inj. (sterile) 3.75 ML IVP ONE (08:12)
[2021-07-06] MEDS: Insulin LISPRO 300 UNITS/3 ML VIAL SUBQ SCH ×4 (08:18→20:41)
[2021-07-06] MEDS: Bumetanide 1 MG/4 ML VIAL IVP SCH ×2 (08:18→18:15)
[2021-07-06] MEDS ORDERED: acetaZOLAMIDE 250 MG in Water for inj. (sterile) 2.5 ML IVP ONE (15:30)
[2021-07-06] MEDS: Acetaminophen 325 MG TABLET PO PRN (20:41)
[2021-07-06] MEDS: Loratadine 10 MG TABLET PO SCH (20:42)
[2021-07-06 21:11] LABS: Bilirubin,Urine Negative (Negative); Blood,Urine Negative (Negative); Clarity,Urine Clear (Clear); Color,Urine Colorless (Yellow); Glucose,Urine (UA) Normal (Normal); Ketones,Urine Negative (Negative); Leukocyte Esterase,Urine Negative (Negative); Nitrite,Urine Negative (Negative); PH,Urine 7.5 pH Units (5.0-8.0); Protein,Urine Negative (Neg-Trace); Specific Gravity,Urine 1.008 (1.010-1.025); Urobilinogen,Urine Normal (Normal)
[2021-07-07] MEDS: Albumin 25% 25gram/100mL 25 GM/100 ML IV.SOLN IVPB SCH (04:49)
[2021-07-07] MEDS: metOLazone 5 MG TABLET PO SCH (06:08)
[2021-07-07] MEDS: Budesonide/Formoterol 160/4.5 1 PUFF INH IH SCH ×2 (08:02→20:06)
[2021-07-07] MEDS: Insulin LISPRO 300 UNITS/3 ML VIAL SUBQ SCH ×4 (08:39→20:06)
[2021-07-07] MEDS: Finasteride 5 MG TABLET PO SCH (08:41)
[2021-07-07 08:42] LABS: ABG Base Excess 10 mEq/L (-2 to 3); ABG HCO3 36 mEq/L (21-27); ABG Oxygen Saturation 94 % (95-98); ABG PCO2 57 mmHg (35-45); ABG PH 7.42 pH Units (7.32-7.45); ABG PO2 73 mmHg (85-104); ABG TCO2 38 mEq/L (20-26)
[2021-07-07] MEDS: *HR* Rivaroxaban 10 MG TABLET PO SCH (08:42)
[2021-07-07] MEDS: Acetaminophen 325 MG TABLET PO PRN (08:45)
[2021-07-07 09:31] LABS: BUN/Creatinine Ratio 34 (6-26); Blood Urea Nitrogen 40 mg/dL (8-23); Calcium 9.4 mg/dL (8.6-10.3); Carbon Dioxide 38 mEq/L (23-29); Chloride 93 mEq/L (98-107); Glucose 245 mg/dL (70-105); Magnesium 1.9 mg/dL (1.6-2.6); Osmolality,Calculated 304 (280-300); Phosphorous 3.2 mg/dL (2.7-4.5); Potassium 3.3 mEq/L (3.5-5.1); Sodium 138 mEq/L (136-145); eGFR For African Americans > 60 (> 60); eGFR For Non-African Americans 59 (> 60)
[2021-07-07] MEDS: Bumetanide 1 MG/4 ML VIAL IVP SCH ×2 (11:00→17:27)
[2021-07-07] MEDS: Loratadine 10 MG TABLET PO SCH (20:05)
[2021-07-07] MEDS: Insulin DETEMIR 100 UNIT/ML X5UNITS SUBQ SCH (20:06)
[2021-07-08] MEDS: metOLazone 5 MG TABLET PO SCH (05:24)
[2021-07-08 06:51] LABS: BUN/Creatinine Ratio 36 (6-26); Blood Urea Nitrogen 42 mg/dL (8-23); Calcium 9.3 mg/dL (8.6-10.3); Carbon Dioxide 38 mEq/L (23-29); Chloride 93 mEq/L (98-107); Glucose 194 mg/dL (70-105); Magnesium 1.9 mg/dL (1.6-2.6); Osmolality,Calculated 304 (280-300); Phosphorous 2.8 mg/dL (2.7-4.5); Potassium 3.1 mEq/L (3.5-5.1); Sodium 139 mEq/L (136-145); eGFR For African Americans > 60 (> 60); eGFR For Non-African Americans > 60 (> 60)
[2021-07-08] MEDS: Bumetanide 1 MG/4 ML VIAL IVP SCH (07:48)
[2021-07-08] MEDS: Finasteride 5 MG TABLET PO SCH (07:48)
[2021-07-08] MEDS: *HR* Rivaroxaban 10 MG TABLET PO SCH (07:48)
[2021-07-08] MEDS: Insulin DETEMIR 100 UNIT/ML X5UNITS SUBQ SCH (07:51)
[2021-07-08] MEDS: Insulin LISPRO 300 UNITS/3 ML VIAL SUBQ SCH (07:51)
[2021-07-08] MEDS: Budesonide/Formoterol 160/4.5 1 PUFF INH IH SCH (08:34)
[2021-07-08 11:28] VITALS: BP 117/66; PULSE 69; TEMP 97.3; O2SAT 94
== END 2021-07-08 12:30 | disposition home health service (06) | DRG 291 ==
LOC: 2NENU 12:22 → EMEROOARM 12:22 → 2NENU 22:15 → SUATTDRO 06-30 16:43
PROVIDERS: ADMIT Student in an Organized Health Care Education/Training Program; ATTEND Internal Medicine

== ENCOUNTER 2021-10-21 12:14 | Inpatient (IN) ==
[2021-10-21 14:56] LABS: Basophils # 0.1 K/mcL (0.0-0.2); Basophils % 0.9 %; Eosinophils # 0.3 K/mcL (0.0-0.6); Eosinophils % 2.9 %; Hematocrit 43.4 % (37.5-50.1); Hemoglobin 13.6 g/dL (12.9-16.9); Immature Granulocytes % 0.4 % (0-4); Lymphocytes # 2.3 K/mcL (0.6-4.6); Lymphocytes % 24.5 %; Mean Corpuscular HGB Conc 31.3 g/dL (31.6-35.5); Mean Corpuscular Hemoglobin 27.9 pg (28.0-33.3); Mean Corpuscular Volume 89.1 fL (83.0-100.0); Mean Platelet Volume 10.9 fL (9.4-12.4); Monocytes # 0.9 K/mcL (0.0-1.3); Monocytes % 9.8 %; Neutrophils # 5.7 K/mcL (1.6-8.9); Platelet Count 176 K/mcL (140-400); Red Blood Count 4.87 M/mcL (4.19-5.50); Red Cell Distribution Width 14.6 % (11.5-14.5); Segmented Neutrophils % 61.5 %; White Blood Count 9.3 K/mcL (4.3-11.1)
[2021-10-21 15:14] LABS: Albumin 3.6 g/dL (3.5-5.7); Albumin/Globulin Ratio 1.4 (1.1-2.2); Bilirubin,Total 0.4 mg/dL (0.3-1.0); Calcium 8.7 mg/dL (8.6-10.3); Globulin 2.5 g/dL (2.4-3.5); Potassium 4.4 mEq/L (3.5-5.1); Total Protein 6.1 g/dL (6.4-8.9)
[2021-10-21 15:15] LABS: INR 1.9
[2021-10-21 15:17] LABS: Activated Partial Thrombo Time 41.3 Seconds (26.0-36.0)
[2021-10-21] MEDS ORDERED: Ipratropium/Albuterol Neb 3 ML IH ONE (15:33)
[2021-10-21] MEDS ORDERED: methylPREDNISolone 125 MG/2 ML VIAL IVP ONE (15:34)
[2021-10-21] MEDS ORDERED: Furosemide 40 MG/4 ML VIAL IVP ONE (15:40)
[2021-10-21] MEDS ORDERED: Naloxone 0.4 MG/ML INJ IVP PRN (17:03)
[2021-10-21] MEDS ORDERED: Fluticasone Propionate Nasal 50 MCG/SPRAY BOTTLE NS PRN (18:08)
[2021-10-21] MEDS ORDERED: Nystatin POWDER 30 GM BOTTLE TP PRN (18:08)
[2021-10-21] MEDS ORDERED: *HR* Dextrose 50 % in Water (Syg) 50 ML SYRINGE IVP PRN (18:29)
[2021-10-21] MEDS ORDERED: D5% in Water 1,000 ML IVC PRN (18:29)
[2021-10-21] MEDS ORDERED: Dextrose 4 GM Chewable Tablets PO PRN ×2 (18:29)
[2021-10-21] MEDS ORDERED: *HR* Rivaroxaban 10 MG TABLET PO SCH (19:00)
[2021-10-21] MEDS ORDERED: Ipratropium/Albuterol Neb 3 ML ONE (20:16)
[2021-10-21] MEDS: Ipratropium/Albuterol Neb 3 ML IH SCH (20:17)
[2021-10-21] MEDS: Budesonide/Formoterol 160/4.5 1 PUFF INH IH SCH (20:17)
[2021-10-21] MEDS: Gabapentin 300 MG CAPSULE PO SCH (22:03)
[2021-10-21] MEDS: Insulin DETEMIR 100 UNIT/ML X5UNITS SUBQ SCH (22:45)
[2021-10-22 01:09] LABS: Hematocrit 42.7 % (37.5-50.1); Hemoglobin 13.4 g/dL (12.9-16.9); Mean Corpuscular HGB Conc 31.4 g/dL (31.6-35.5); Mean Corpuscular Volume 89.1 fL (83.0-100.0); Mean Platelet Volume 10.6 fL (9.4-12.4); Platelet Count 183 K/mcL (140-400); Red Blood Count 4.79 M/mcL (4.19-5.50); Red Cell Distribution Width 14.6 % (11.5-14.5); White Blood Count 9.4 K/mcL (4.3-11.1)
[2021-10-22 01:17] LABS: INR 1.5; Prothrombin Time 16.5 Seconds (9.4-12.1)
[2021-10-22 01:29] LABS: Calcium 8.6 mg/dL (8.6-10.3); Magnesium 1.9 mg/dL (1.6-2.6); Phosphorous 4.9 mg/dL (2.7-4.5); Potassium 4.3 mEq/L (3.5-5.1)
[2021-10-22] MEDS: Ipratropium/Albuterol Neb 3 ML IH SCH ×4 (03:37→21:37)
[2021-10-22] MEDS: Budesonide/Formoterol 160/4.5 1 PUFF INH IH SCH ×2 (07:21→21:37)
[2021-10-22] MEDS: Insulin LISPRO 300 UNITS/3 ML VIAL SUBQ SCH ×3 (08:34→16:25)
[2021-10-22] MEDS: Finasteride 5 MG TABLET PO SCH (08:43)
[2021-10-22] MEDS: predniSONE 20 MG TABLET PO SCH (08:43)
[2021-10-22] MEDS ORDERED: Torsemide 20 MG TABLET PO SCH ×2 (09:00→18:00)
[2021-10-22 15:46] LABS: Bilirubin,Urine Negative (Negative); Blood,Urine Negative (Negative); Clarity,Urine Clear (Clear); Color,Urine Colorless (Yellow); Glucose,Urine (UA) >=1000 mg/dL (Normal); Ketones,Urine Negative (Negative); Leukocyte Esterase,Urine Negative (Negative); Nitrite,Urine Negative (Negative); Protein,Urine Negative (Neg-Trace); RBC,Urine 0-3 per hpf (0-3); Specific Gravity,Urine 1.014 (1.010-1.025); Urobilinogen,Urine Normal (Normal); WBC,Urine 0-3 per hpf (0-3)
[2021-10-22] MEDS: *HR* Rivaroxaban 10 MG TABLET PO SCH (18:34)
[2021-10-22] MEDS: Torsemide 20 MG TABLET PO SCH (18:35)
[2021-10-22] MEDS: Insulin DETEMIR 100 UNIT/ML X5UNITS SUBQ SCH (20:31)
[2021-10-22] MEDS: Gabapentin 300 MG CAPSULE PO SCH (20:31)
[2021-10-22] MEDS: Melatonin 3 MG TABLET PO PRN (23:47)
[2021-10-22] MEDS: Acetaminophen 325 MG TABLET PO PRN (23:47)
[2021-10-23] MEDS: Ipratropium/Albuterol Neb 3 ML IH SCH ×4 (03:51→22:44)
[2021-10-23 05:19] LABS: Basophils # 0.1 K/mcL (0.0-0.2); Basophils % 0.5 %; Eosinophils % 0.3 %; Hematocrit 41.9 % (37.5-50.1); Hemoglobin 13.5 g/dL (12.9-16.9); Immature Granulocytes % 0.5 % (0-4); Lymphocytes # 2.8 K/mcL (0.6-4.6); Lymphocytes % 26.7 %; Mean Corpuscular HGB Conc 32.2 g/dL (31.6-35.5); Mean Corpuscular Hemoglobin 28.4 pg (28.0-33.3); Mean Corpuscular Volume 88.2 fL (83.0-100.0); Mean Platelet Volume 10.5 fL (9.4-12.4); Monocytes # 1.2 K/mcL (0.0-1.3); Monocytes % 11.5 %; Neutrophils # 6.3 K/mcL (1.6-8.9); Platelet Count 170 K/mcL (140-400); Red Blood Count 4.75 M/mcL (4.19-5.50); Red Cell Distribution Width 14.3 % (11.5-14.5); Segmented Neutrophils % 60.5 %; White Blood Count 10.4 K/mcL (4.3-11.1)
[2021-10-23 05:49] LABS: Calcium 8.6 mg/dL (8.6-10.3); Chol/HDL Ratio 4.9 (0-4.9); Potassium 4.7 mEq/L (3.5-5.1)
[2021-10-23] MEDS: Insulin LISPRO 300 UNITS/3 ML VIAL SUBQ SCH ×3 (07:50→16:44)
[2021-10-23] MEDS: predniSONE 20 MG TABLET PO SCH (09:33)
[2021-10-23] MEDS: Torsemide 20 MG TABLET PO SCH ×2 (09:34→17:09)
[2021-10-23] MEDS: Finasteride 5 MG TABLET PO SCH (09:35)
[2021-10-23] MEDS: Budesonide/Formoterol 160/4.5 1 PUFF INH IH SCH ×2 (10:45→22:44)
[2021-10-23] MEDS: *HR* Rivaroxaban 10 MG TABLET PO SCH (17:09)
[2021-10-23] MEDS: Acetaminophen 325 MG TABLET PO PRN (19:53)
[2021-10-23] MEDS: Gabapentin 300 MG CAPSULE PO SCH (19:53)
[2021-10-23] MEDS: Insulin DETEMIR 100 UNIT/ML X5UNITS SUBQ SCH (19:54)
[2021-10-23] MEDS: Melatonin 3 MG TABLET PO PRN (19:54)
[2021-10-24] MEDS: Ipratropium/Albuterol Neb 3 ML IH SCH ×2 (03:58→08:16)
[2021-10-24 07:03] LABS: Basophils % 0.3 %; Eosinophils % 0.3 %; Hematocrit 40.6 % (37.5-50.1); Hemoglobin 13.1 g/dL (12.9-16.9); Immature Granulocytes % 0.4 % (0-4); Lymphocytes % 29.5 %; Mean Corpuscular HGB Conc 32.3 g/dL (31.6-35.5); Mean Corpuscular Hemoglobin 28.4 pg (28.0-33.3); Mean Corpuscular Volume 87.9 fL (83.0-100.0); Mean Platelet Volume 10.2 fL (9.4-12.4); Monocytes # 1.1 K/mcL (0.0-1.3); Monocytes % 10.8 %; Neutrophils # 5.9 K/mcL (1.6-8.9); Platelet Count 164 K/mcL (140-400); Red Blood Count 4.62 M/mcL (4.19-5.50); Red Cell Distribution Width 14.3 % (11.5-14.5); Segmented Neutrophils % 58.7 %; White Blood Count 10.1 K/mcL (4.3-11.1)
[2021-10-24] MEDS: Insulin LISPRO 300 UNITS/3 ML VIAL SUBQ SCH ×2 (07:19→12:07)
[2021-10-24 07:22] LABS: BUN/Creatinine Ratio 48 (6-26); Blood Urea Nitrogen 66 mg/dL (8-23); Calcium 8.7 mg/dL (8.6-10.3); Carbon Dioxide 31 mEq/L (23-29); Chloride 103 mEq/L (98-107); Glucose 162 mg/dL (70-105); Osmolality,Calculated 313 (280-300); Potassium 4.2 mEq/L (3.5-5.1); Sodium 140 mEq/L (136-145); eGFR For African Americans > 60 (> 60); eGFR For Non-African Americans 50 (> 60)
[2021-10-24] MEDS: Budesonide/Formoterol 160/4.5 1 PUFF INH IH SCH (08:16)
[2021-10-24] MEDS: Finasteride 5 MG TABLET PO SCH (09:16)
[2021-10-24] MEDS: predniSONE 20 MG TABLET PO SCH (09:16)
[2021-10-24] MEDS: Torsemide 20 MG TABLET PO SCH (09:17)
[2021-10-24 11:18] VITALS: BP 113/60; PULSE 90; TEMP 97.7; O2SAT 96
== END 2021-10-24 13:37 | disposition home health service (06) | DRG 291 ==
LOC: 2ANU 12:14 → EMEROOARM 12:14 → SUATTDRO 17:41 → 2ANU 19:55
PROVIDERS: ADMIT Internal Medicine; ATTEND Internal Medicine

== ENCOUNTER 2022-02-07 20:09 | Inpatient (IN) ==
[2022-02-07 21:49] LABS: BUN/Creatinine Ratio 35 (6-26); Blood Urea Nitrogen 45 mg/dL (8-23); Calcium 8.2 mg/dL (8.6-10.3); Carbon Dioxide 31 mEq/L (23-29); Chloride 102 mEq/L (98-107); Glucose 178 mg/dL (70-105); Osmolality,Calculated 308 (280-300); Potassium 3.8 mEq/L (3.5-5.1); Sodium 141 mEq/L (136-145); eGFR For African Americans > 60 (> 60); eGFR For Non-African Americans 55 (> 60)
[2022-02-07 21:50] LABS: Troponin I < 0.03 ng/mL (< 0.04)
[2022-02-07 21:52] LABS: Basophils # 0.1 K/mcL (0.0-0.2); Basophils % 0.7 %; Eosinophils # 0.2 K/mcL (0.0-0.6); Eosinophils % 1.4 %; Immature Granulocytes % 0.6 % (0-4); Lymphocytes # 3.9 K/mcL (0.6-4.6); Lymphocytes % 35.5 %; Mean Corpuscular HGB Conc 31.7 g/dL (31.6-35.5); Mean Corpuscular Hemoglobin 29.5 pg (28.0-33.3); Mean Platelet Volume 10.3 fL (9.4-12.4); Monocytes % 9.3 %; Neutrophils # 5.8 K/mcL (1.6-8.9); Platelet Count 183 K/mcL (140-400); Red Blood Count 4.41 M/mcL (4.19-5.50); Red Cell Distribution Width 13.9 % (11.5-14.5); Segmented Neutrophils % 52.5 %; White Blood Count 11.1 K/mcL (4.3-11.1)
[2022-02-08] MEDS ORDERED: Albuterol 2.5 MG/3 ML NEBULIZER IH ONE (02:22)
[2022-02-08] MEDS ORDERED: Ipratropium/Albuterol Neb 3 ML IH ONE (02:22)
[2022-02-08] MEDS ORDERED: methylPREDNISolone 125 MG/2 ML VIAL IVP ONE (02:22)
[2022-02-08] MEDS ORDERED: Iopamidol - 370 500 ML MLS IVP ONE (03:50)
[2022-02-08] MEDS ORDERED: Bumetanide 1 MG/4 ML VIAL IVP ONE (03:51)
[2022-02-08 08:14] LABS: Alanine Aminotransferase 9 Units/L (7-52); Albumin 3.4 g/dL (3.5-5.7); Albumin/Globulin Ratio 1.5 (1.1-2.2); Alkaline Phosphatase 57 Units/L (34-104); Aspartate Amino Transferase 13 Units/L (13-39); Bilirubin,Indirect 0.4 mg/dL (0.0-1.0); Bilirubin,Total 0.4 mg/dL (0.3-1.0); Globulin 2.2 g/dL (2.4-3.5); Total Protein 5.6 g/dL (6.4-8.9)
[2022-02-08] MEDS ORDERED: Naloxone 0.4 MG/ML INJ IVP PRN (09:01)
[2022-02-08] MEDS ORDERED: Ondansetron 4 MG/2 ML VIAL IVP PRN (09:01)
[2022-02-08 09:25] LABS: Bilirubin,Urine Negative (Negative); Blood,Urine Negative (Negative); Clarity,Urine Clear (Clear); Color,Urine Light-Yellow (Yellow); Glucose,Urine (UA) Normal (Normal); Ketones,Urine Negative (Negative); Leukocyte Esterase,Urine Negative (Negative); Nitrite,Urine Negative (Negative); Protein,Urine Negative (Neg-Trace); Specific Gravity,Urine > 1.030 (1.010-1.025); Urobilinogen,Urine Normal (Normal)
[2022-02-08] MEDS ORDERED: polyethylene glycoL 3350 17 GM POWD.PACK PO PRN (09:40)
[2022-02-08] MEDS: Ipratropium/Albuterol Neb 3 ML IH SCH ×3 (09:43→21:43)
[2022-02-08] MEDS ORDERED: D5% in Water 1,000 ML IVC PRN (11:55)
[2022-02-08] MEDS ORDERED: *HR* Dextrose 50 % in Water (Syg) 50 ML SYRINGE IVP PRN (11:55)
[2022-02-08] MEDS ORDERED: Dextrose Gel 15 GM/37.5 ML TUBE PO PRN ×2 (11:55)
[2022-02-08] MEDS: Docusate Oral Soln 100 MG/10 ML UDC PO SCH (12:28)
[2022-02-08] MEDS: Azithromycin 500 MG in D5% in Water 250 ML IVPB SCH (12:29)
[2022-02-08] MEDS: cefTRIAXone 1,000 MG in Water for inj. (sterile) 10 ML IVP SCH (12:29)
[2022-02-08 13:15] LABS: Adenovirus Not Detected (Not Detect); Bordetella Pertussis Not Detected (Not Detect); Chlamydophila pneumoniae Not Detected (Not Detect); Coronavirus 229E Not Detected (Not Detect); Coronavirus HKU1 Not Detected (Not Detect); Coronavirus NL63 Not Detected (Not Detect); Coronavirus OC43 Not Detected (Not Detect); Human Metapneumovirus Not Detected (Not Detect); Human Rhinovirus/Enterovirus Not Detected (Not Detect); Influenza A Subtype 2009 H1 Not Detected (Not Detect); Influenza B Not Detected (Not Detect); Mycoplasma pneumoniae Not Detected (Not Detect); Parainfluenza Virus 1 Not Detected (Not Detect); Parainfluenza Virus 2 Not Detected (Not Detect); Parainfluenza Virus 3 Not Detected (Not Detect); Parainfluenza Virus 4 Not Detected (Not Detect); Respiratory Syncytial Virus Not Detected (Not Detect); SARS-CoV-2 Not Detected (Not Detect)
[2022-02-08 14:05] LABS: Estimated Average Glucose 166 mg/dl; Hemoglobin A1C 7.4 %
[2022-02-08] MEDS ORDERED: Nystatin POWDER 30 GM BOTTLE TP PRN (16:05)
[2022-02-08] MEDS: MethylPREDNISolone 40 MG/ML VIAL IVP SCH ×2 (16:56→23:26)
[2022-02-08] MEDS: Gabapentin 300 MG CAPSULE PO SCH (16:56)
[2022-02-08] MEDS: Bumetanide 1 MG/4 ML VIAL IVP SCH (16:57)
[2022-02-08] MEDS: Insulin LISPRO 300 UNITS/3 ML VIAL SUBQ SCH ×2 (17:09→20:10)
[2022-02-08] MEDS: Miconazole 2% ointment 141 APPL/141 GM TUBE TP SCH (20:10)
[2022-02-08] MEDS: Finasteride 5 MG TABLET PO SCH (20:10)
[2022-02-08] MEDS ORDERED: Gabapentin 300 MG CAPSULE PO SCH (21:00)
[2022-02-08] MEDS: Budesonide/Formoterol 160/4.5 1 PUFF INH IH SCH (21:45)
[2022-02-09 01:55] LABS: Basophils % 0.2 %; Hematocrit 42.2 % (37.5-50.1); Hemoglobin 13.1 g/dL (12.9-16.9); Immature Granulocytes % 0.7 % (0-4); Lymphocytes # 3.7 K/mcL (0.6-4.6); Lymphocytes % 30.1 %; Mean Corpuscular Hemoglobin 29.3 pg (28.0-33.3); Mean Corpuscular Volume 94.4 fL (83.0-100.0); Mean Platelet Volume 10.1 fL (9.4-12.4); Monocytes # 0.5 K/mcL (0.0-1.3); Monocytes % 3.8 %; Neutrophils # 7.9 K/mcL (1.6-8.9); Platelet Count 188 K/mcL (140-400); Red Blood Count 4.47 M/mcL (4.19-5.50); Red Cell Distribution Width 13.8 % (11.5-14.5); Segmented Neutrophils % 65.2 %; White Blood Count 12.2 K/mcL (4.3-11.1)
[2022-02-09] MEDS: Ipratropium/Albuterol Neb 3 ML IH SCH ×4 (03:35→21:35)
[2022-02-09 04:01] LABS: Alanine Aminotransferase 8 Units/L (7-52); Albumin 3.4 g/dL (3.5-5.7); Albumin/Globulin Ratio 1.4 (1.1-2.2); Alkaline Phosphatase 60 Units/L (34-104); Aspartate Amino Transferase 15 Units/L (13-39); BUN/Creatinine Ratio 36 (6-26); Bilirubin,Total 0.4 mg/dL (0.3-1.0); Blood Urea Nitrogen 38 mg/dL (8-23); Calcium 8.2 mg/dL (8.6-10.3); Carbon Dioxide 25 mEq/L (23-29); Chloride 104 mEq/L (98-107); Globulin 2.4 g/dL (2.4-3.5); Glucose 205 mg/dL (70-105); Osmolality,Calculated 303 (280-300); Potassium 4.3 mEq/L (3.5-5.1); Sodium 139 mEq/L (136-145); Total Protein 5.8 g/dL (6.4-8.9); eGFR For African Americans > 60 (> 60); eGFR For Non-African Americans > 60 (> 60)
[2022-02-09] MEDS: Docusate Oral Soln 100 MG/10 ML UDC PO SCH (08:20)
[2022-02-09] MEDS: *HR* Rivaroxaban 10 MG TABLET PO SCH (08:21)
[2022-02-09] MEDS: Insulin LISPRO 300 UNITS/3 ML VIAL SUBQ SCH ×4 (08:21→20:21)
[2022-02-09] MEDS: Miconazole 2% ointment 141 APPL/141 GM TUBE TP SCH ×2 (08:22→20:19)
[2022-02-09] MEDS: cefTRIAXone 1,000 MG in Water for inj. (sterile) 10 ML IVP SCH (09:34)
[2022-02-09] MEDS: Bumetanide 1 MG/4 ML VIAL IVP SCH ×2 (09:34→17:26)
[2022-02-09] MEDS: MethylPREDNISolone 40 MG/ML VIAL IVP SCH ×3 (09:34→17:27)
[2022-02-09] MEDS: Azithromycin 500 MG in D5% in Water 250 ML IVPB SCH (10:37)
[2022-02-09] MEDS: Budesonide/Formoterol 160/4.5 1 PUFF INH IH SCH ×2 (11:05→21:35)
[2022-02-09] MEDS: Gabapentin 300 MG CAPSULE PO SCH (17:06)
[2022-02-09] MEDS: Insulin DETEMIR 100 UNIT/ML X5UNITS SUBQ SCH (20:21)
[2022-02-09] MEDS: Finasteride 5 MG TABLET PO SCH (20:21)
[2022-02-09] MEDS: Acetaminophen 325 MG TABLET PO PRN (20:26)
[2022-02-10] MEDS: Ipratropium/Albuterol Neb 3 ML IH SCH ×4 (02:56→20:34)
[2022-02-10 02:59] LABS: Basophils % 0.1 %; Hematocrit 40.4 % (37.5-50.1); Hemoglobin 12.5 g/dL (12.9-16.9); Immature Granulocytes % 0.9 % (0-4); Lymphocytes # 3.9 K/mcL (0.6-4.6); Mean Corpuscular HGB Conc 30.9 g/dL (31.6-35.5); Mean Corpuscular Hemoglobin 28.8 pg (28.0-33.3); Mean Corpuscular Volume 93.1 fL (83.0-100.0); Mean Platelet Volume 10.2 fL (9.4-12.4); Monocytes # 0.6 K/mcL (0.0-1.3); Monocytes % 4.4 %; Neutrophils # 9.3 K/mcL (1.6-8.9); Platelet Count 191 K/mcL (140-400); Red Blood Count 4.34 M/mcL (4.19-5.50); Red Cell Distribution Width 13.7 % (11.5-14.5); Segmented Neutrophils % 66.6 %
[2022-02-10 03:14] LABS: BUN/Creatinine Ratio 39 (6-26); Blood Urea Nitrogen 47 mg/dL (8-23); Calcium 8.1 mg/dL (8.6-10.3); Carbon Dioxide 29 mEq/L (23-29); Chloride 101 mEq/L (98-107); Glucose 217 mg/dL (70-105); Osmolality,Calculated 305 (280-300); Potassium 4.4 mEq/L (3.5-5.1); Sodium 138 mEq/L (136-145); eGFR For African Americans > 60 (> 60); eGFR For Non-African Americans 58 (> 60)
[2022-02-10] MEDS: MethylPREDNISolone 40 MG/ML VIAL IVP SCH (06:40)
[2022-02-10] MEDS: *HR* Rivaroxaban 10 MG TABLET PO SCH (09:17)
[2022-02-10] MEDS: Docusate Oral Soln 100 MG/10 ML UDC PO SCH (09:18)
[2022-02-10] MEDS: Bumetanide 1 MG/4 ML VIAL IVP SCH ×2 (09:18→17:24)
[2022-02-10] MEDS: Insulin LISPRO 300 UNITS/3 ML VIAL SUBQ SCH ×4 (09:19→19:51)
[2022-02-10] MEDS: cefTRIAXone 1,000 MG in Water for inj. (sterile) 10 ML IVP SCH (09:19)
[2022-02-10] MEDS: Azithromycin 500 MG in D5% in Water 250 ML IVPB SCH (09:19)
[2022-02-10] MEDS: Miconazole 2% ointment 141 APPL/141 GM TUBE TP SCH ×2 (09:20→19:55)
[2022-02-10] MEDS: Budesonide/Formoterol 160/4.5 1 PUFF INH IH SCH ×2 (11:06→20:34)
[2022-02-10] MEDS: Gabapentin 300 MG CAPSULE PO SCH (17:25)
[2022-02-10] MEDS: Insulin DETEMIR 100 UNIT/ML X5UNITS SUBQ SCH (19:53)
[2022-02-10] MEDS: Finasteride 5 MG TABLET PO SCH (19:54)
[2022-02-11 01:57] LABS: Hematocrit 41.1 % (37.5-50.1); Hemoglobin 12.7 g/dL (12.9-16.9); Mean Corpuscular HGB Conc 30.9 g/dL (31.6-35.5); Mean Corpuscular Hemoglobin 29.1 pg (28.0-33.3); Mean Corpuscular Volume 94.3 fL (83.0-100.0); Mean Platelet Volume 9.9 fL (9.4-12.4); Platelet Count 194 K/mcL (140-400); Red Blood Count 4.36 M/mcL (4.19-5.50); Red Cell Distribution Width 13.6 % (11.5-14.5); White Blood Count 15.4 K/mcL (4.3-11.1)
[2022-02-11 02:15] LABS: BUN/Creatinine Ratio 39 (6-26); Blood Urea Nitrogen 49 mg/dL (8-23); Calcium 8.2 mg/dL (8.6-10.3); Carbon Dioxide 31 mEq/L (23-29); Chloride 102 mEq/L (98-107); Glucose 184 mg/dL (70-105); Osmolality,Calculated 304 (280-300); Potassium 3.9 mEq/L (3.5-5.1); Sodium 138 mEq/L (136-145); eGFR For African Americans > 60 (> 60); eGFR For Non-African Americans 56 (> 60)
[2022-02-11 02:25] LABS: Lymphocytes # 6.5 K/mcL (0.6-4.6); Monocytes # 0.6 K/mcL (0.0-1.3); Neutrophils # 8.3 K/mcL (1.6-8.9)
[2022-02-11 02:26] LABS: Platelet Estimate Normal (Normal)
[2022-02-11] MEDS: Ipratropium/Albuterol Neb 3 ML IH SCH ×4 (04:19→21:59)
[2022-02-11] MEDS: Azithromycin 250 MG TABLET PO SCH (08:16)
[2022-02-11] MEDS: Docusate Oral Soln 100 MG/10 ML UDC PO SCH (08:16)
[2022-02-11] MEDS: predniSONE 20 MG TABLET PO SCH (08:16)
[2022-02-11] MEDS: Miconazole 2% ointment 141 APPL/141 GM TUBE TP SCH ×2 (08:16→20:45)
[2022-02-11] MEDS: *HR* Rivaroxaban 10 MG TABLET PO SCH (08:16)
[2022-02-11] MEDS: cefTRIAXone 1,000 MG in Water for inj. (sterile) 10 ML IVP SCH (08:17)
[2022-02-11] MEDS: Insulin LISPRO 300 UNITS/3 ML VIAL SUBQ SCH ×5 (08:18→20:44)
[2022-02-11] MEDS: Bumetanide 1 MG/4 ML VIAL IVP SCH ×2 (09:36→17:24)
[2022-02-11] MEDS: Budesonide/Formoterol 160/4.5 1 PUFF INH IH SCH ×2 (10:33→22:00)
[2022-02-11] MEDS: Gabapentin 300 MG CAPSULE PO SCH (17:23)
[2022-02-11] MEDS: Finasteride 5 MG TABLET PO SCH (20:45)
[2022-02-11] MEDS ORDERED: Insulin DETEMIR 100 UNIT/ML X5UNITS SUBQ SCH (21:00)
[2022-02-12 01:37] LABS: Basophils % 0.3 %; Eosinophils % 0.1 %; Hematocrit 41.8 % (37.5-50.1); Hemoglobin 13.2 g/dL (12.9-16.9); Immature Granulocytes % 0.9 % (0-4); Lymphocytes # 6.5 K/mcL (0.6-4.6); Lymphocytes % 45.4 %; Mean Corpuscular HGB Conc 31.6 g/dL (31.6-35.5); Mean Corpuscular Hemoglobin 29.7 pg (28.0-33.3); Mean Corpuscular Volume 94.1 fL (83.0-100.0); Monocytes # 1.3 K/mcL (0.0-1.3); Monocytes % 8.9 %; Neutrophils # 6.3 K/mcL (1.6-8.9); Platelet Count 195 K/mcL (140-400); Red Blood Count 4.44 M/mcL (4.19-5.50); Red Cell Distribution Width 13.5 % (11.5-14.5); Segmented Neutrophils % 44.4 %; White Blood Count 14.2 K/mcL (4.3-11.1)
[2022-02-12 01:56] LABS: BUN/Creatinine Ratio 36 (6-26); Blood Urea Nitrogen 42 mg/dL (8-23); Calcium 8.2 mg/dL (8.6-10.3); Carbon Dioxide 35 mEq/L (23-29); Chloride 100 mEq/L (98-107); Glucose 158 mg/dL (70-105); Osmolality,Calculated 304 (280-300); Sodium 140 mEq/L (136-145); eGFR For African Americans > 60 (> 60); eGFR For Non-African Americans > 60 (> 60)
[2022-02-12] MEDS: Ipratropium/Albuterol Neb 3 ML IH SCH ×4 (04:25→20:27)
[2022-02-12] MEDS: Insulin LISPRO 300 UNITS/3 ML VIAL SUBQ SCH ×4 (08:15→21:17)
[2022-02-12] MEDS: Budesonide/Formoterol 160/4.5 1 PUFF INH IH SCH ×2 (09:51→20:27)
[2022-02-12] MEDS: Docusate Oral Soln 100 MG/10 ML UDC PO SCH (10:34)
[2022-02-12] MEDS: Bumetanide 1 MG/4 ML VIAL IVP SCH ×2 (10:35→17:05)
[2022-02-12] MEDS: cefTRIAXone 1,000 MG in Water for inj. (sterile) 10 ML IVP SCH (10:35)
[2022-02-12] MEDS: Azithromycin 250 MG TABLET PO SCH (10:35)
[2022-02-12] MEDS: *HR* Rivaroxaban 10 MG TABLET PO SCH (10:35)
[2022-02-12] MEDS: Miconazole 2% ointment 141 APPL/141 GM TUBE TP SCH ×2 (10:35→21:17)
[2022-02-12] MEDS: Spironolactone 25 MG TABLET PO SCH (10:35)
[2022-02-12] MEDS: predniSONE 20 MG TABLET PO SCH (11:41)
[2022-02-12] MEDS: Gabapentin 300 MG CAPSULE PO SCH (17:06)
[2022-02-12] MEDS ORDERED: Insulin DETEMIR 100 UNIT/ML X5UNITS SUBQ SCH (21:00)
[2022-02-12] MEDS: Finasteride 5 MG TABLET PO SCH (21:17)
[2022-02-13] MEDS: Ipratropium/Albuterol Neb 3 ML IH SCH ×4 (04:09→22:00)
[2022-02-13] MEDS: Insulin LISPRO 300 UNITS/3 ML VIAL SUBQ SCH ×4 (07:38→20:12)
[2022-02-13] MEDS: cefTRIAXone 1,000 MG in Water for inj. (sterile) 10 ML IVP SCH (08:32)
[2022-02-13] MEDS: Bumetanide 1 MG/4 ML VIAL IVP SCH (08:32)
[2022-02-13] MEDS: predniSONE 20 MG TABLET PO SCH (08:33)
[2022-02-13] MEDS: Docusate Oral Soln 100 MG/10 ML UDC PO SCH (08:33)
[2022-02-13] MEDS: Spironolactone 25 MG TABLET PO SCH (08:33)
[2022-02-13] MEDS: Azithromycin 250 MG TABLET PO SCH (08:33)
[2022-02-13] MEDS: *HR* Rivaroxaban 10 MG TABLET PO SCH (08:33)
[2022-02-13] MEDS: Miconazole 2% ointment 141 APPL/141 GM TUBE TP SCH ×2 (08:34→21:36)
[2022-02-13 09:30] LABS: Basophils # 0.1 K/mcL (0.0-0.2); Basophils % 0.6 %; Eosinophils # 0.1 K/mcL (0.0-0.6); Eosinophils % 0.6 %; Hemoglobin 13.3 g/dL (12.9-16.9); Immature Granulocytes % 1.2 % (0-4); Lymphocytes # 7.4 K/mcL (0.6-4.6); Lymphocytes % 50.9 %; Mean Corpuscular HGB Conc 31.7 g/dL (31.6-35.5); Mean Corpuscular Hemoglobin 29.6 pg (28.0-33.3); Mean Corpuscular Volume 93.3 fL (83.0-100.0); Mean Platelet Volume 9.8 fL (9.4-12.4); Monocytes # 1.1 K/mcL (0.0-1.3); Monocytes % 7.5 %; Neutrophils # 5.7 K/mcL (1.6-8.9); Platelet Count 194 K/mcL (140-400); Red Cell Distribution Width 13.5 % (11.5-14.5); Segmented Neutrophils % 39.2 %; White Blood Count 14.5 K/mcL (4.3-11.1)
[2022-02-13 09:51] LABS: BUN/Creatinine Ratio 29 (6-26); Blood Urea Nitrogen 31 mg/dL (8-23); Calcium 7.8 mg/dL (8.6-10.3); Carbon Dioxide 34 mEq/L (23-29); Chloride 100 mEq/L (98-107); Glucose 177 mg/dL (70-105); Osmolality,Calculated 297 (280-300); Potassium 3.9 mEq/L (3.5-5.1); Sodium 138 mEq/L (136-145); eGFR For African Americans > 60 (> 60); eGFR For Non-African Americans > 60 (> 60)
[2022-02-13] MEDS: Budesonide/Formoterol 160/4.5 1 PUFF INH IH SCH ×2 (10:52→22:02)
[2022-02-13] MEDS: Furosemide 240 MG in 0.9 % Sodium Chloride 96 ML IVC SCH (11:34)
[2022-02-13] MEDS: Gabapentin 300 MG CAPSULE PO SCH (17:10)
[2022-02-13] MEDS: Finasteride 5 MG TABLET PO SCH (20:16)
[2022-02-13] MEDS: Insulin DETEMIR 100 UNIT/ML X5UNITS SUBQ SCH (20:16)
[2022-02-14 02:38] LABS: BUN/Creatinine Ratio 28 (6-26); Blood Urea Nitrogen 32 mg/dL (8-23); Calcium 7.8 mg/dL (8.6-10.3); Carbon Dioxide 34 mEq/L (23-29); Chloride 100 mEq/L (98-107); Glucose 148 mg/dL (70-105); Osmolality,Calculated 298 (280-300); Potassium 3.9 mEq/L (3.5-5.1); Sodium 139 mEq/L (136-145); eGFR For African Americans > 60 (> 60); eGFR For Non-African Americans > 60 (> 60)
[2022-02-14] MEDS: Ipratropium/Albuterol Neb 3 ML IH SCH ×4 (03:40→20:39)
[2022-02-14] MEDS: Miconazole 2% ointment 141 APPL/141 GM TUBE TP SCH ×2 (08:29→21:25)
[2022-02-14] MEDS: Spironolactone 25 MG TABLET PO SCH (08:29)
[2022-02-14] MEDS: *HR* Rivaroxaban 10 MG TABLET PO SCH (08:29)
[2022-02-14] MEDS: Docusate Oral Soln 100 MG/10 ML UDC PO SCH (08:29)
[2022-02-14] MEDS: predniSONE 20 MG TABLET PO SCH (08:30)
[2022-02-14] MEDS: Insulin LISPRO 300 UNITS/3 ML VIAL SUBQ SCH ×4 (08:31→21:25)
[2022-02-14] MEDS: Budesonide/Formoterol 160/4.5 1 PUFF INH IH SCH ×2 (08:57→20:39)
[2022-02-14] MEDS ORDERED: Fluticasone Propionate Nasal 50 MCG/SPRAY BOTTLE NS PRN (12:32)
[2022-02-14] MEDS ORDERED: Loratadine 10 MG TABLET PO PRN (12:41)
[2022-02-14] MEDS ORDERED: Furosemide 40 MG/4 ML VIAL IVP ONE (14:38)
[2022-02-14] MEDS: Furosemide 240 MG in 0.9 % Sodium Chloride 96 ML IVC SCH (15:49)
[2022-02-14] MEDS: Gabapentin 300 MG CAPSULE PO SCH (17:02)
[2022-02-14] MEDS: Finasteride 5 MG TABLET PO SCH (21:26)
[2022-02-14] MEDS: Insulin DETEMIR 100 UNIT/ML X5UNITS SUBQ SCH (21:26)
[2022-02-15] MEDS: Ipratropium/Albuterol Neb 3 ML IH SCH ×2 (04:20→10:18)
[2022-02-15] MEDS: Insulin LISPRO 300 UNITS/3 ML VIAL SUBQ SCH ×4 (07:58→21:32)
[2022-02-15] MEDS: Docusate Oral Soln 100 MG/10 ML UDC PO SCH (08:00)
[2022-02-15] MEDS: Miconazole 2% ointment 141 APPL/141 GM TUBE TP SCH ×2 (08:00→21:31)
[2022-02-15] MEDS: Spironolactone 25 MG TABLET PO SCH (08:01)
[2022-02-15] MEDS: predniSONE 20 MG TABLET PO SCH (08:01)
[2022-02-15] MEDS: *HR* Rivaroxaban 10 MG TABLET PO SCH (08:01)
[2022-02-15 09:15] LABS: Basophils # 0.1 K/mcL (0.0-0.2); Basophils % 0.4 %; Eosinophils # 0.1 K/mcL (0.0-0.6); Eosinophils % 0.5 %; Hematocrit 41.9 % (37.5-50.1); Hemoglobin 13.4 g/dL (12.9-16.9); Lymphocytes # 8.9 K/mcL (0.6-4.6); Lymphocytes % 52.6 %; Mean Corpuscular Hemoglobin 29.5 pg (28.0-33.3); Mean Corpuscular Volume 92.3 fL (83.0-100.0); Mean Platelet Volume 9.7 fL (9.4-12.4); Monocytes # 1.1 K/mcL (0.0-1.3); Monocytes % 6.5 %; Neutrophils # 6.6 K/mcL (1.6-8.9); Platelet Count 200 K/mcL (140-400); Red Blood Count 4.54 M/mcL (4.19-5.50); Red Cell Distribution Width 13.6 % (11.5-14.5)
[2022-02-15 09:31] LABS: Magnesium 1.7 mg/dL (1.6-2.6); Phosphorous 2.8 mg/dL (2.7-4.5)
[2022-02-15 09:32] LABS: BUN/Creatinine Ratio 23 (6-26); Blood Urea Nitrogen 28 mg/dL (8-23); Calcium 8.5 mg/dL (8.6-10.3); Carbon Dioxide 38 mEq/L (23-29); Chloride 97 mEq/L (98-107); Glucose 141 mg/dL (70-105); Osmolality,Calculated 298 (280-300); Potassium 4.1 mEq/L (3.5-5.1); Sodium 140 mEq/L (136-145); eGFR For African Americans > 60 (> 60); eGFR For Non-African Americans 57 (> 60)
[2022-02-15] MEDS: Furosemide 240 MG in 0.9 % Sodium Chloride 96 ML IVC SCH ×2 (09:53→15:14)
[2022-02-15] MEDS: Budesonide/Formoterol 160/4.5 1 PUFF INH IH SCH ×2 (10:17→20:02)
[2022-02-15] MEDS: Gabapentin 300 MG CAPSULE PO SCH (16:41)
[2022-02-15] MEDS: Finasteride 5 MG TABLET PO SCH (21:33)
[2022-02-15] MEDS: Insulin DETEMIR 100 UNIT/ML X5UNITS SUBQ SCH (21:35)
[2022-02-16 05:08] LABS: BUN/Creatinine Ratio 30 (6-26); Blood Urea Nitrogen 32 mg/dL (8-23); Calcium 8.3 mg/dL (8.6-10.3); Carbon Dioxide 35 mEq/L (23-29); Chloride 99 mEq/L (98-107); Glucose 141 mg/dL (70-105); Osmolality,Calculated 297 (280-300); Potassium 3.4 mEq/L (3.5-5.1); Sodium 139 mEq/L (136-145); eGFR For African Americans > 60 (> 60); eGFR For Non-African Americans > 60 (> 60)
[2022-02-16] MEDS: Budesonide/Formoterol 160/4.5 1 PUFF INH IH SCH ×2 (07:53→20:05)
[2022-02-16] MEDS: Spironolactone 25 MG TABLET PO SCH (08:11)
[2022-02-16] MEDS: Insulin LISPRO 300 UNITS/3 ML VIAL SUBQ SCH ×4 (08:11→21:11)
[2022-02-16] MEDS: *HR* Rivaroxaban 10 MG TABLET PO SCH (08:11)
[2022-02-16] MEDS: Docusate Oral Soln 100 MG/10 ML UDC PO SCH (08:11)
[2022-02-16] MEDS: Miconazole 2% ointment 141 APPL/141 GM TUBE TP SCH ×2 (08:12→21:31)
[2022-02-16] MEDS: hydrALAZINE 10 MG TABLET PO SCH ×3 (11:55→21:10)
[2022-02-16] MEDS: Furosemide 240 MG in 0.9 % Sodium Chloride 96 ML IVC SCH (15:06)
[2022-02-16] MEDS: Gabapentin 300 MG CAPSULE PO SCH (17:16)
[2022-02-16] MEDS: Ipratropium/Albuterol Neb 3 ML IH PRN (17:25)
[2022-02-16] MEDS: Finasteride 5 MG TABLET PO SCH (21:10)
[2022-02-16] MEDS: Insulin DETEMIR 100 UNIT/ML X5UNITS SUBQ SCH (21:17)
[2022-02-17] MEDS: Ipratropium/Albuterol Neb 3 ML IH PRN (07:21)
[2022-02-17] MEDS: Budesonide/Formoterol 160/4.5 1 PUFF INH IH SCH ×2 (07:21→20:30)
[2022-02-17] MEDS: Docusate Oral Soln 100 MG/10 ML UDC PO SCH (08:04)
[2022-02-17] MEDS: Insulin LISPRO 300 UNITS/3 ML VIAL SUBQ SCH ×4 (08:15→20:33)
[2022-02-17] MEDS: Miconazole 2% ointment 141 APPL/141 GM TUBE TP SCH ×2 (08:15→20:32)
[2022-02-17] MEDS: *HR* Rivaroxaban 10 MG TABLET PO SCH (08:16)
[2022-02-17] MEDS: Spironolactone 25 MG TABLET PO SCH (08:16)
[2022-02-17] MEDS: hydrALAZINE 10 MG TABLET PO SCH ×2 (08:20→14:03)
[2022-02-17 10:51] LABS: Basophils # 0.1 K/mcL (0.0-0.2); Basophils % 0.5 %; Eosinophils # 0.1 K/mcL (0.0-0.6); Eosinophils % 0.7 %; Hematocrit 42.5 % (37.5-50.1); Hemoglobin 13.6 g/dL (12.9-16.9); Immature Granulocytes % 0.9 % (0-4); Lymphocytes # 6.9 K/mcL (0.6-4.6); Lymphocytes % 46.8 %; Mean Corpuscular Hemoglobin 29.8 pg (28.0-33.3); Mean Platelet Volume 9.7 fL (9.4-12.4); Monocytes # 1.1 K/mcL (0.0-1.3); Monocytes % 7.6 %; Neutrophils # 6.4 K/mcL (1.6-8.9); Platelet Count 187 K/mcL (140-400); Red Blood Count 4.57 M/mcL (4.19-5.50); Red Cell Distribution Width 13.8 % (11.5-14.5); Segmented Neutrophils % 43.5 %; White Blood Count 14.8 K/mcL (4.3-11.1)
[2022-02-17 11:10] LABS: BUN/Creatinine Ratio 25 (6-26); Blood Urea Nitrogen 28 mg/dL (8-23); Calcium 8.4 mg/dL (8.6-10.3); Carbon Dioxide 36 mEq/L (23-29); Chloride 98 mEq/L (98-107); Glucose 160 mg/dL (70-105); Osmolality,Calculated 293 (280-300); Potassium 4.2 mEq/L (3.5-5.1); Sodium 137 mEq/L (136-145); eGFR For African Americans > 60 (> 60); eGFR For Non-African Americans > 60 (> 60)
[2022-02-17] MEDS: Furosemide 40 MG/4 ML VIAL IVP SCH (14:03)
[2022-02-17] MEDS: Gabapentin 300 MG CAPSULE PO SCH (17:20)
[2022-02-17] MEDS: Finasteride 5 MG TABLET PO SCH (20:31)
[2022-02-17] MEDS: Insulin DETEMIR 100 UNIT/ML X5UNITS SUBQ SCH (20:34)
[2022-02-18 02:03] LABS: BUN/Creatinine Ratio 28 (6-26); Blood Urea Nitrogen 29 mg/dL (8-23); Calcium 8.3 mg/dL (8.6-10.3); Carbon Dioxide 31 mEq/L (23-29); Chloride 101 mEq/L (98-107); Glucose 144 mg/dL (70-105); Magnesium 1.9 mg/dL (1.6-2.6); Osmolality,Calculated 292 (280-300); Phosphorous 2.9 mg/dL (2.7-4.5); Potassium 4.2 mEq/L (3.5-5.1); Sodium 137 mEq/L (136-145); eGFR For African Americans > 60 (> 60); eGFR For Non-African Americans > 60 (> 60)
[2022-02-18] MEDS: Ipratropium/Albuterol Neb 3 ML IH PRN ×2 (07:20→20:30)
[2022-02-18] MEDS: Budesonide/Formoterol 160/4.5 1 PUFF INH IH SCH ×2 (07:20→20:30)
[2022-02-18] MEDS: Insulin LISPRO 300 UNITS/3 ML VIAL SUBQ SCH ×4 (08:22→20:10)
[2022-02-18] MEDS: Furosemide 40 MG/4 ML VIAL IVP SCH ×3 (08:36→17:55)
[2022-02-18] MEDS: Spironolactone 25 MG TABLET PO SCH (08:37)
[2022-02-18] MEDS: *HR* Rivaroxaban 10 MG TABLET PO SCH (08:37)
[2022-02-18] MEDS: Docusate Oral Soln 100 MG/10 ML UDC PO SCH (08:38)
[2022-02-18] MEDS ORDERED: amLODIPine 5 MG TABLET PO SCH (09:00)
[2022-02-18] MEDS: Miconazole 2% ointment 141 APPL/141 GM TUBE TP SCH ×2 (12:56→20:11)
[2022-02-18] MEDS: Gabapentin 300 MG CAPSULE PO SCH (17:55)
[2022-02-18] MEDS: Finasteride 5 MG TABLET PO SCH (20:07)
[2022-02-18] MEDS: Insulin DETEMIR 100 UNIT/ML X5UNITS SUBQ SCH (20:10)
[2022-02-19 03:03] LABS: Hematocrit 42.2 % (37.5-50.1); Hemoglobin 13.2 g/dL (12.9-16.9); Mean Corpuscular HGB Conc 31.3 g/dL (31.6-35.5); Mean Corpuscular Hemoglobin 29.2 pg (28.0-33.3); Mean Corpuscular Volume 93.4 fL (83.0-100.0); Platelet Count 169 K/mcL (140-400); Red Blood Count 4.52 M/mcL (4.19-5.50); Red Cell Distribution Width 13.7 % (11.5-14.5); White Blood Count 13.8 K/mcL (4.3-11.1)
[2022-02-19 03:19] LABS: BUN/Creatinine Ratio 24 (6-26); Blood Urea Nitrogen 26 mg/dL (8-23); Calcium 8.4 mg/dL (8.6-10.3); Carbon Dioxide 33 mEq/L (23-29); Chloride 102 mEq/L (98-107); Glucose 170 mg/dL (70-105); Magnesium 1.9 mg/dL (1.6-2.6); Osmolality,Calculated 297 (280-300); Phosphorous 3.1 mg/dL (2.7-4.5); Potassium 4.2 mEq/L (3.5-5.1); Sodium 139 mEq/L (136-145); eGFR For African Americans > 60 (> 60); eGFR For Non-African Americans > 60 (> 60)
[2022-02-19 04:39] LABS: Lymphocytes # 7.7 K/mcL (0.6-4.6); Monocytes # 0.6 K/mcL (0.0-1.3); Neutrophils # 5.5 K/mcL (1.6-8.9)
[2022-02-19 04:40] LABS: Platelet Estimate Slight Decrease (Normal)
[2022-02-19] MEDS: Miconazole 2% ointment 141 APPL/141 GM TUBE TP SCH (08:02)
[2022-02-19] MEDS: *HR* Rivaroxaban 10 MG TABLET PO SCH (08:02)
[2022-02-19] MEDS: Docusate Oral Soln 100 MG/10 ML UDC PO SCH (08:03)
[2022-02-19] MEDS: Insulin LISPRO 300 UNITS/3 ML VIAL SUBQ SCH ×2 (08:03→11:31)
[2022-02-19] MEDS: Spironolactone 25 MG TABLET PO SCH (08:03)
[2022-02-19] MEDS: Budesonide/Formoterol 160/4.5 1 PUFF INH IH SCH (09:53)
[2022-02-19 11:15] VITALS: BP 111/72; PULSE 64; TEMP 98; O2SAT 98
[2022-02-19] MEDS: Acetaminophen 325 MG TABLET PO PRN (11:31)
== END 2022-02-19 13:00 | disposition home health service (06) | DRG 291 ==
LOC: EMEROOARM 20:09 → 3BNU 20:09 → SUATTDRO 02-09 15:31
PROVIDERS: ADMIT General Practice; ATTEND Internal Medicine